=== PATIENT | female | born 1930 | race Caucasian/White ===

== ENCOUNTER 2016-12-16 07:47 | Inpatient (IN) | payer MEDICARE ==
[~2016-12-16] VITALS: Ht 152.4 cm; Wt 98.7 kg
[2016-12-16] VITALS (11 sets, daily range): BP systolic 93–137; BP diastolic 51–89; PULSE 77–102; RESP 16–18; TEMP 95.9–98; O2SAT 96–100
[~2016-12-16 07:47] MED LIST: ASPI325T PO; CARV3.125 PO; ENAL10TA PO; FERR325T PO; HEPA10003 SQ; LYRI75CA PO; METF500T PO; MULT1TAB46; NORC5TAB PO; OMEP20TA PO; ROSU10 PO; SITA1TAB2 PO
[2016-12-16] MEDS ORDERED: ONDANSETRON HCL 4 MG/2 ML VIAL IV PUSH ONE ×3 (08:00→10:23)
[2016-12-16] MEDS: SODIUM CHLORIDE 0.9% FLUSH 5 ML FLUSH IVF PRN ×2 (08:08→08:29)
--- NOTE | 2016-12-16 08:30 | PD ---
HPI Chief Complaint: Injury Time Seen by Provider: 07:53 Travel History International Travel<30 days: No Contact w/Intl Traveler<30days: No Traveled to known affect area: No History of Present Illness HPI Patient 86-year-old female presents emergency department for evaluation of a left ankle injury. Patient lives at [facility] and had a slip and fall while trying to get off the toilet after going to the bathroom this morning. Patient has a history of hydrocephalus and has a MANAGER WIND shunt. Denies having history of anticoagulation. She is alert and awake and oriented 3. She denies history of loss consciousness chest pain or shortness of breath prior to or following the event. Per EMS patient initially did not have pulses in the left lower extremity with the patient adjusted her own ankle and then did have pulses. EMS reports that the foot was blue on arrival but pinked up after the patient self adjusted. Patient denies any head neck back chest abdomen pelvis or upper extremity pain. She was not given anything prior to arrival. 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 NEUROPATHY, GERD) Musculoskeletal: Yes (BILAT KNEE REPLACEMENT) Neurologic: Yes (NPH) Psychiatric: No Reproductive: No Respiratory: Yes Thyroid Disease: No Ulcer: Yes (hx of duodenal ulcer) PNEUMOCCOCAL Vaccine (Year): 3 ?: Not Menopausal: Yes Past Surgical History Body Medical Devices: MANAGER WIND SHUNT/ TEOCH NAIL IN HIP Eye Surgery: Yes (KHADIJAH CATARACTS, BILATERAL MAC DEGENDERATION SX) Joint Replacement: Yes (KHADIJAH KNEEES ) Neurologic Surgery: Yes (MANAGER WIND SHUNT/ HYDROCEPHALUS) Pacemaker: No Other Surgery: Yes Social History Alcohol Use: No ( ) Tobacco Use: No Substance Use: No Allergies-Medications (Allergen,Severity, Reaction): Coded Allergies: Bactrim (Verified Allergy, Intermediate, Hives, 12/16/16) Morphine (Verified Adverse Reaction, Severe, N/V, 12/16/16) Reported Meds & Prescriptions Reported Meds & Active Scripts Active Reported Pyatt (Hydrocodone-Acetaminophen) 7.5-325 mg Tab 1 Tab PO Q6H PRN Pioglitazone (Pioglitazone HCl) 15 Mg Tab 15 Mg PO DAILY Omeprazole 20 Mg Tab 20 Mg PO DAILY Enalapril (Enalapril Maleate) 10 Mg Tab 10 Mg PO DAILY Crestor (Rosuvastatin Calcium) 10 Mg Tab 10 Mg PO EVERY OTHER DAY Review of Systems Except as stated in HPI: all other systems reviewed are Neg Physical Exam Narrative GENERAL: Well-developed, well-nourished. Elderly female in no apparent distress. SKIN: Warm and dry. HEAD: Atraumatic. Normocephalic. EYES: Pupils equal and round. No scleral icterus. No injection or drainage. ENT: No nasal bleeding or discharge. Mucous membranes pink and moist. NECK: Trachea midline. No JVD. CARDIOVASCULAR: Regular rate and rhythm. No murmur appreciated. RESPIRATORY: No accessory muscle use. Clear to auscultation. Breath sounds equal bilaterally. GASTROINTESTINAL: Abdomen soft, non-tender, nondistended. Hepatic and splenic margins not palpable. MUSCULOSKELETAL: There is an obvious fracture dislocation of the left ankle. There is a bounding dorsalis pedis pulse. Cap refill is brisk in all toes. Proximal tib-fib is nontender there is a small abrasion overlying the ankle. The dermis appears to be intact as well as the basement membrane. Clinically this does not represent open fracture. No tenderness at the hips. Right Lower extremity is normal. Compartments are soft, pulses motor and sensory intact distal in all [address] or L-spine tenderness. No bruises or lacerations to the remainder of her person. Pelvis is stable And nontender. No tenderness at either hip. NEUROLOGICAL: Awake and alert. No obvious cranial nerve deficits. Motor grossly within normal limits. Normal speech. PSYCHIATRIC: Appropriate mood and affect; insight and judgment normal. Data Data Last Documented VS Vital Signs Date Time Temp Pulse Resp B/P Pulse Ox O2 Delivery O2 Flow Rate FiO2 12/16/16 10:15 92 16 104/51 98 Nasal Cannula 2 12/16/16 07:55 98.0 Orders Ckmb (Isoenzyme) Profile (12/16/16 07:53) Complete Blood Count With Diff (12/16/16 07:53) Comprehensive Metabolic Panel (12/16/16 07:53) Magnesium (Mg) (12/16/16 07:53) Prothrombin Time / Inr (Pt) (12/16/16 07:53) Act Partial Throm Time (Ptt) (12/16/16 07:53) Troponin I (12/16/16 07:53) Lipase (12/16/16 07:53) Chest, Single Ap (12/16/16 07:53) Ecg Monitoring (12/16/16 07:53) Bilateral Bp Monitoring (12/16/16 07:53) Iv Access Insert/Monitor (12/16/16 07:53) Oximetry (12/16/16 07:53) Oxygen Administration (12/16/16 07:53) Sodium Chloride 0.9% Flush (Ns Flush) (12/16/16 08:00) Ankle, Complete ([id number]) (12/16/16 ) Tibia/Fibula (Ap/Lat) (12/16/16 ) Fentanyl Inj (Fentanyl Inj) (12/16/16 08:00) Ondansetron Inj (Zofran Inj) (12/16/16 08:00) Diet Npo (12/16/16 Breakfast) Ct Brain W/O Iv Contrast(Rout) (12/16/16 ) Ct Cerv Spine W/O Contrast (12/16/16 ) Propofol 500 Mg/50 Ml Inj (Diprivan 500 (12/16/16 09:15) Ankle, Limited (Ap&Lat) (12/16/16 ) Morphine Inj (Morphine Inj) (12/16/16 09:45) Ondansetron Inj (Zofran Inj) (12/16/16 09:45) Fiberglass Short Leg Splint Ad (12/16/16 ) Fiberglass Sugartong Sp Ad Sl (12/16/16 ) Ice Cuff (12/16/16 ) Consult Orthopedic (12/16/16 ) Splinting (12/16/16 ) (Hub Use Only)Inp Phy Cons/Ref (12/16/16 ) Admit Order (Ed Use Only) (12/16/16 ) Labs Laboratory Tests Test 12/16/16 08:00 White Blood Count 7.8 TH/MM3 Red Blood Count 3.41 MIL/MM3 Hemoglobin 10.7 GM/DL Hematocrit 32.7 % Mean Corpuscular Volume 95.8 FL Mean Corpuscular Hemoglobin 31.3 PG Mean Corpuscular Hemoglobin 32.6 % Concent Red Cell Distribution Width 14.9 % Platelet Count 167 TH/MM3 Mean Platelet Volume 9.7 FL Neutrophils (%) (Auto) 65.8 % Lymphocytes (%) (Auto) 24.8 % Monocytes (%) (Auto) 6.7 % Eosinophils (%) (Auto) 2.1 % Basophils (%) (Auto) 0.6 % Neutrophils # (Auto) 5.1 TH/MM3 Lymphocytes # (Auto) 1.9 TH/MM3 Monocytes # (Auto) 0.5 TH/MM3 Eosinophils # (Auto) 0.2 TH/MM3 Basophils # (Auto) 0.0 TH/MM3 CBC Comment DIFF FINAL Differential Comment Prothrombin Time 11.6 SEC Prothromb Time International 1.0 RATIO Ratio Activated Partial 26.4 SEC Thromboplast Time Sodium Level 137 MEQ/L Potassium Level 3.9 MEQ/L Chloride Level 101 MEQ/L Carbon Dioxide Level 27.5 MEQ/L Anion Gap 9 MEQ/L Blood Urea Nitrogen 14 MG/DL Creatinine 1.28 MG/DL Estimat Glomerular Filtration 40 ML/MIN Rate Random Glucose 106 MG/DL Calcium Level 8.4 MG/DL Magnesium Level 1.7 MG/DL Total Bilirubin 0.7 MG/DL Aspartate Amino Transf 30 U/L (AST/SGOT) Alanine Aminotransferase 15 U/L (ALT/SGPT) Alkaline Phosphatase 112 U/L Total Creatine Kinase 56 U/L Troponin I LESS THAN 0.02 NG/ML Total Protein 7.0 GM/DL Albumin 2.3 GM/DL Lipase 87 U/L [facility] Medical Decision Making Medical Screen Exam Complete: Yes Emergency Medical Condition: Yes Interpretation(s) EKG shows sinus rhythm with normal axis and normal R-wave progression. No concerning ST T changes. Deep Q waves in V1 and V2 represent a possible prior septal myocardial infarction. This abnormal EKG. Differential Diagnosis Fracture dislocation of left ankle, head injury unlikely, pelvis injury unlikely , head injury unlikely, vascular injury possible but unlikely. Narrative Course Patient was roomed in the emergency department, after x-rays confirmed fracture dislocation. She was sedated by Dr. Barakat and reduced by me. She is placed in a short leg splint. Pulses motor and sensory were intact after sedation and reduction. Had full return to consciousness. Patient was discussed with Dr. Mathew possible surgery this afternoon. Patient was discussed with Dr. Lyman for admission who is agreeable. Patient was given fentanyl 50 g on arrival as she states that she has a morphine allergy and fixed only nausea. After discussing with her power of computer sciences professor it is indeed only nausea. She was able to tolerate morphine is given Zofran at same time. And indeed in the emergency department she was able to do so. Last 24 hours Impressions Chest X-Ray 12/16/16 0753 Signed Impressions: Service Date/Time: Friday, December 16, 2016 08:14 - CONCLUSION: 1. Shunt tubing overlies right hemithorax. Basal atelectasis and scarring. No significant change from August 2016. Thony Wilhelm MD Tibia/Fibula X-Ray 12/16/16 0000 Signed Impressions: Service Date/Time: Friday, December 16, 2016 08:09 - CONCLUSION: 1. Fracture dislocation at the left ankle. Left knee joint replacement. Bones osteopenic. Thony Wilhelm MD Head CT 12/16/16 0000 Signed Impressions: Service Date/Time: Friday, December 16, 2016 09:42 - CONCLUSION: 1. Stable CT scan of the brain compared to 2016. 2. No focal or acute intracranial hemorrhage. Joss Rosario MD Cervical Spine CT 12/16/16 0000 Signed Impressions: Service Date/Time: Friday, December 16, 2016 09:42 - CONCLUSION: 1. No acute bony fracture. 2. Primary bony degenerative changes. 3. Focal central bulging disc osteophyte complexes at C4-5, C5-6 and C6-7. Joss Rosario MD Ankle X-Ray 12/16/16 0000 Signed Impressions: Service Date/Time: Friday, December 16, 2016 09:35 - CONCLUSION: Post closed reduction of the previously noted fractures at the ankle. Joss Rosario MD Ankle X-Ray 12/16/16 0000 Signed Impressions: Service Date/Time: Friday, December 16, 2016 08:09 - CONCLUSION: 1. Fracture dislocation at the left ankle joint. Thony Wilhelm MD Discussed with the patient's family including her power of computer sciences professor Nan. Patient does spend much of her time in a wheelchair as it is at the assisted living facility. Procedures Procedure Narrative After r/b/c/a were discussed with patient, she would like her POA to consent. POThien [place] consented by phone for sedation and reduction after R/B/C/A discussed , consent confirmed by ramon RAMÍREZ. ORTHOPEDIC REDUCTION: After induction by Dr. Loving of procedural sedation, traction-countertraction used and ankle very easily reduced. Pulses/motor/and sensory intact before and after reduction. Placed in posterior slab and stirrup. Diagnosis Primary Impression: Fracture tibia/fibula Qualified Code: S82.202A - Fracture tibia/fibula, left, closed, initial encounter Additional Impression: Dislocation of ankle Qualified Code: S93.05XA - Dislocation of ankle, left, initial encounter Admitting Information Admitting Physician Requests: Admit Condition: Stable Tab Hsieh MD Dec 16, 2016 08:30
[2016-12-16 08:33] LABS: AUTOMATED NEUTROPHIL # 5.1 TH/MM3 (1.8-7.7); BASOPHIL % 0.6 % (0.0-2.0); EOSINOPHIL # 0.2 TH/MM3 (0-0.4); EOSINOPHIL % 2.1 % (0.0-4.0); HEMATOCRIT 32.7 % (35.0-46.0); HEMO FLAGS DIFF FINAL; LYMPH % 24.8 % (9.0-44.0); LYMPHOCYTE # 1.9 TH/MM3 (1.0-4.8); MEAN CELL VOLUME 95.8 FL (80.0-100.0); MEAN CORPUSCULAR HEMOGLOBIN 31.3 PG (27.0-34.0); MEAN CORPUSCULAR HGB CONC 32.6 % (32.0-36.0); MONO % 6.7 % (0.0-8.0); NEUT % 65.8 % (16.0-70.0); PLATELET COUNT 167 TH/MM3 (150-450); RED BLOOD COUNT 3.41 MIL/MM3 (4.00-5.30); RED CELL DISTRIBUTION WIDTH 14.9 % (11.6-17.2); WHITE BLOOD COUNT 7.8 TH/MM3 (4.0-11.0)
[2016-12-16 08:43] LABS: APTT (PATIENT) 26.4 SEC (24.3-30.1); PROTHROMBIN TIME - PATIENT 11.6 SEC (9.8-11.6)
[2016-12-16 08:50] LABS: ANION GAP 9 MEQ/L (5-15); AST (GOT) 30 U/L (15-37); BICARBONATE 27.5 MEQ/L (21.0-32.0); BLOOD UREA NITROGEN 14 MG/DL (7-18); CHLORIDE 101 MEQ/L (98-107); GLOMERULAR FILTRATION RATE 40 ML/MIN (>89); MAGNESIUM 1.7 MG/DL (1.5-2.5); POTASSIUM 3.9 MEQ/L (3.5-5.1); SODIUM (NA) 137 MEQ/L (136-145)
--- NOTE | 2016-12-16 08:50 | RADRPT ---
EXAM DATE/TIME: 12/16/2016 08:09 [facility] COMPARISON: No previous studies available for comparison. INDICATIONS : Patient fell today landing on left leg. Complains of left ankle pain. MEDICAL HISTORY : None. SURGICAL HISTORY : None. ENCOUNTER: Initial ACUITY: 1 day PAIN SCORE: 8/10 LOCATION: Left Ankle` FINDINGS: There is a fracture dislocation at the ankle joint with comminuted fractures of the medial malleolus and distal fibula. Bones are osteopenic. Extensive vascular calcifications present. CONCLUSION: 1. Fracture dislocation at the left ankle joint. Thony Wilhelm MD on December 16, 2016 at 8:48 Board Certified Radiologist. This report was verified electronically.
--- NOTE | 2016-12-16 08:50 | RADRPT ---
EXAM DATE/TIME: 12/16/2016 08:09 [facility] COMPARISON: No previous studies available for comparison. INDICATIONS : Patient fell this morning landing on left leg. Complains of left ankle pain radiating to mid shaft ti b/fib. MEDICAL HISTORY : None. SURGICAL HISTORY : Left knee total arthroplasty. ENCOUNTER: Initial ACUITY: 1 day PAIN SCORE: 8/10 LOCATION: Left Tib/Fib FINDINGS: There is dislocation at the left ankle with comminuted fractures of the medial malleolus and distal f ibula. Postoperative left knee replacement. Proximal tibia and fibula are intact. Extensive vascular calcifications. CONCLUSION: 1. Fracture dislocation at the left ankle. Left knee joint replacement. Bones osteopenic. Thony Wilhelm MD on December 16, 2016 at 8:47 Board Certified Radiologist. This report was verified electronically.
--- NOTE | 2016-12-16 08:52 | RADRPT ---
EXAM DATE/TIME: 12/16/2016 08:14 [facility] COMPARISON: CHEST SINGLE AP, September 23, 2016, 15:55. INDICATIONS : Evaluate for pneumonia, pneumothorax, or communicable diseases. MEDICAL HISTORY : Gastroesophageal reflux disease. Hypertension. SURGICAL HISTORY : DIRECTOR MUSIC Shunt. ENCOUNTER: Initial ACUITY: 1 day PAIN SCORE: 0/10 LOCATION: chest FINDINGS: Shunt tubing projects over the right hemithorax. Minimal basal atelectasis or scarring. No effusion. No pneumothorax. CONCLUSION: 1. Shunt tubing overlies right hemithorax. Basal atelectasis and scarring. No significant change from August 2016. Thony Wilhelm MD on December 16, 2016 at 8:49 Board Certified Radiologist. This report was verified electronically.
[2016-12-16 08:57] LABS: ALKALINE PHOSPHATASE 112 U/L (45-117); ALT (GPT) 15 U/L (10-53); TOTAL BILIRUBIN ADULT 0.7 MG/DL (0.2-1.0)
[2016-12-16 09:06] LABS: CREATINE KINASE 56 U/L (26-192)
[2016-12-16] MEDS ORDERED: PROPOFOL 500 MG/50 ML BTL IV ONE (09:15)
[2016-12-16] MEDS ORDERED: MORPHINE SULFATE 4 MG/ML INJ IV PUSH ONE (09:45)
--- NOTE | 2016-12-16 09:45 | PD ---
Physical Exam Date Seen by Provider: Dec 16, 2016 Time Seen by Provider: 09:43 Narrative I was asked by the patient's attending physician, Dr. Hsieh, to perform conscious sedation for reduction of left ankle fracture/dislocation. Data Data Last Documented VS Vital Signs Date Time Temp Pulse Resp B/P Pulse Ox O2 Delivery O2 Flow Rate FiO2 12/16/16 09:40 93 16 131/58 98 Nasal Cannula 2 12/16/16 07:55 98.0 Orders Ckmb (Isoenzyme) Profile (12/16/16 07:53) Complete Blood Count With Diff (12/16/16 07:53) Comprehensive Metabolic Panel (12/16/16 07:53) Magnesium (Mg) (12/16/16 07:53) Prothrombin Time / Inr (Pt) (12/16/16 07:53) Act Partial Throm Time (Ptt) (12/16/16 07:53) Troponin I (12/16/16 07:53) Lipase (12/16/16 07:53) Chest, Single Ap (12/16/16 07:53) Ecg Monitoring (12/16/16 07:53) Bilateral Bp Monitoring (12/16/16 07:53) Iv Access Insert/Monitor (12/16/16 07:53) Oximetry (12/16/16 07:53) Oxygen Administration (12/16/16 07:53) Sodium Chloride 0.9% Flush (Ns Flush) (12/16/16 08:00) Ankle, Complete ([id number]) (12/16/16 ) Tibia/Fibula (Ap/Lat) (12/16/16 ) Fentanyl Inj (Fentanyl Inj) (12/16/16 08:00) Ondansetron Inj (Zofran Inj) (12/16/16 08:00) Diet Npo (12/16/16 Breakfast) Ct Brain W/O Iv Contrast(Rout) (12/16/16 ) Ct Cerv Spine W/O Contrast (12/16/16 ) Propofol 500 Mg/50 Ml Inj (Diprivan 500 (12/16/16 09:15) Ankle, Limited (Ap&Lat) (12/16/16 ) Morphine Inj (Morphine Inj) (12/16/16 09:45) Ondansetron Inj (Zofran Inj) (12/16/16 09:45) Labs Laboratory Tests Test 12/16/16 08:00 White Blood Count 7.8 TH/MM3 Red Blood Count 3.41 MIL/MM3 Hemoglobin 10.7 GM/DL Hematocrit 32.7 % Mean Corpuscular Volume 95.8 FL Mean Corpuscular Hemoglobin 31.3 PG Mean Corpuscular Hemoglobin 32.6 % Concent Red Cell Distribution Width 14.9 % Platelet Count 167 TH/MM3 Mean Platelet Volume 9.7 FL Neutrophils (%) (Auto) 65.8 % Lymphocytes (%) (Auto) 24.8 % Monocytes (%) (Auto) 6.7 % Eosinophils (%) (Auto) 2.1 % Basophils (%) (Auto) 0.6 % Neutrophils # (Auto) 5.1 TH/MM3 Lymphocytes # (Auto) 1.9 TH/MM3 Monocytes # (Auto) 0.5 TH/MM3 Eosinophils # (Auto) 0.2 TH/MM3 Basophils # (Auto) 0.0 TH/MM3 CBC Comment DIFF FINAL Differential Comment Prothrombin Time 11.6 SEC Prothromb Time International 1.0 RATIO Ratio Activated Partial 26.4 SEC Thromboplast Time Sodium Level 137 MEQ/L Potassium Level 3.9 MEQ/L Chloride Level 101 MEQ/L Carbon Dioxide Level 27.5 MEQ/L Anion Gap 9 MEQ/L Blood Urea Nitrogen 14 MG/DL Creatinine 1.28 MG/DL Estimat Glomerular Filtration 40 ML/MIN Rate Random Glucose 106 MG/DL Calcium Level 8.4 MG/DL Magnesium Level 1.7 MG/DL Total Bilirubin 0.7 MG/DL Aspartate Amino Transf 30 U/L (AST/SGOT) Alanine Aminotransferase 15 U/L (ALT/SGPT) Alkaline Phosphatase 112 U/L Total Creatine Kinase 56 U/L Troponin I LESS THAN 0.02 NG/ML Total Protein 7.0 GM/DL Albumin 2.3 GM/DL Lipase 87 U/L [facility] Medical Record Reviewed: Yes Supervised Visit with BESSIE: No Interpretation(s) X-ray of the left ankle reveals fracture/dislocation. Differential Diagnosis Differential diagnosis includes fracture, dislocation, fracture with dislocation. Narrative Course I was asked by the patient's attending physician, Dr. Hsieh, to perform conscious sedation so he could perform reduction of the left ankle fracture/ dislocation. The patient was placed on cardiac telemetry monitoring, continuous pulse oximetry monitoring, end-tidal CO2, and O2 via nasal cannula. The patient was administered propofol 90 mg intravenously for reduction. The patient tolerated the procedure without difficulty. There was no obvious complications. Procedures Procedure Narrative After the risks and benefits were discussed the following procedure was performed: MODERATE SEDATION: The patient was placed on a cardiac monitor technician and pulse oximetry. An ambu bag and suction was immediately available at bedside. The patient was monitored by the nurse. Oxygen saturation, heart rate and blood pressure were monitored. Procedural sedation was acheived using propofol 90 mg. The patient was observed until awake and alert. Procedural Sedation time in attendance was 25 minutes. Diagnosis Primary Impression: Fracture tibia/fibula Qualified Code: S82.202A - Fracture tibia/fibula, left, closed, initial encounter Additional Impression: Dislocation of ankle Qualified Code: S93.05XA - Dislocation of ankle, left, initial encounter Condition: Stable Romeo Barakat MD Dec 16, 2016 09:44
--- NOTE | 2016-12-16 10:01 | RADRPT ---
EXAM DATE/TIME: 12/16/2016 09:35 [facility] COMPARISON: ANKLE LEFT COMPLETE ([id number]), December 16, 2016, 8:09. INDICATIONS : Post reduction left ankle fracture MEDICAL HISTORY : None. SURGICAL HISTORY : None. ENCOUNTER: Initial ACUITY: 1 day PAIN SCORE: 9/10 LOCATION: Left ankle FINDINGS: There is overlying cast material in place. There is significantly improved alignment of the fracture fragments compared to the earlier study. There is good alignment at the mortise joint. The rest of bita ny structures are stable. CONCLUSION: Post closed reduction of the previously noted fractures at the ankle. Joss Rosario MD on December 16, 2016 at 9:58 Board Certified Radiologist. This report was verified electronically.
--- NOTE | 2016-12-16 10:18 | RADRPT ---
EXAM DATE/TIME: 12/16/2016 09:42 [facility] COMPARISON: CT BRAIN W/O CONTRAST, September 23, 2016, 15:48. INDICATIONS : Trauma; fall. RADIATION DOSE: 56.35 CTDIvol (mGy) MEDICAL HISTORY : Hypertension. SURGICAL HISTORY : Shunt. ENCOUNTER: Initial ACUITY: 1 day PAIN SCALE: 0/10 LOCATION: cranial TECHNIQUE: Multiple contiguous axial images were obtained of the head. Using automated exposure control and adj ustment of the mA and/or kV according to patient size, radiation dose was kept as low as reasonably a chievable to obtain optimal diagnostic quality images. FINDINGS: CEREBRUM: The ventricles are prominent but stable for age. Diffuse bilateral cortical atrophy. No change in th e right ventricular shunt. No change in the size of the ventricles compared to the prior study. No ev idence of midline shift, mass lesion, hemorrhage or acute infarction. No extra-axial fluid collectio ns are seen. POSTERIOR FOSSA: The cerebellum and brainstem are intact. The 4th ventricle is midline. The cerebellopontine angle i s unremarkable. EXTRACRANIAL: The visualized portion of the orbits is intact. SKULL: The calvaria is intact. No evidence of skull fracture. CONCLUSION: 1. Stable CT scan of the brain compared to 2016. 2. No focal or acute intracranial hemorrhage. Joss Rosario MD on December 16, 2016 at 10:15 Board Certified Radiologist. This report was verified electronically.
[2016-12-16] MEDS ORDERED: PHENYLEPH/NS 1000 MCG/10 ML SYR IV ONE (10:23)
[2016-12-16] MEDS ORDERED: LACTATED RINGER'S 1000 ML INJ 1,000 ML IV ONE (10:23)
[2016-12-16] MEDS ORDERED: PROPOFOL 200 MG/20 ML AMP IV ONE (10:23)
--- NOTE | 2016-12-16 10:23 | RADRPT ---
EXAM DATE/TIME: 12/16/2016 09:42 [facility] COMPARISON: No previous studies available for comparison. INDICATIONS : Trauma; fall. RADIATION DOSE: 33.66 CTDIvol (mGy) MEDICAL HISTORY : Hypertension. SURGICAL HISTORY : Shunt. ENCOUNTER: Initial ACUITY: 1 day PAIN SCALE: 0/10 LOCATION: Bilateral neck TECHNIQUE: Volumetric scanning of the cervical spine was performed. Multiplanar reconstructions in the sagittal, coronal and oblique axial planes were performed. Using automated exposure control and adjustment o f the mA and/or kV according to patient size, radiation dose was kept as low as reasonably achievable to obtain optimal diagnostic quality images. FINDINGS: VERTEBRAE: Normal vertebral body height. Primary bony degenerative changes of the cervical spine. No acute bony fractures. ALIGNMENT: No evidence of subluxation. C2-C3: The bony spinal canal is normal in size. No evidence of disc bulge or herniation. The neural forami na are bilaterally patent. C3-C4: The bony spinal canal is normal in size. No evidence of disc bulge or herniation. The neural forami na are bilaterally patent. C4-C5: Focal central bulging with disc osteophyte complex. The neural foramina are patent bilaterally. C5-C6: Focal central bulging with disc osteophyte complex. The neural foramina are patent bilaterally. C6-C7: Focal central bulging with disc osteophyte complex. The neural foramina are patent bilaterally. C7-T1: The bony spinal canal is normal in size. No evidence of disc bulge or herniation. The neural forami na are bilaterally patent. CONCLUSION: 1. No acute bony fracture. 2. Primary bony degenerative changes. 3. Focal central bulging disc osteophyte complexes at C4-5, C5-6 and C6-7. Joss Rosario MD on December 16, 2016 at 10:18 Board Certified Radiologist. This report was verified electronically.
[2016-12-16] MEDS ORDERED: PIOG15TA5 PO (10:59)
[2016-12-16] MEDS ORDERED: HYDR-3288 PO (10:59)
[2016-12-16] MEDS ORDERED: DEXTROSE 50% IN WATER 50 ML VIAL(D50) IV PUSH PRN (12:00)
[2016-12-16] MEDS ORDERED: GLUCAGON 1 MG/ML VIAL OTHER PRN (12:00)
--- NOTE | 2016-12-16 12:10 | RADRPT ---
EXAM DATE/TIME: 12/16/2016 11:27 [facility] COMPARISON: No previous studies available for comparison. INDICATIONS : Pelvic Pain MEDICAL HISTORY : Hypertension. SURGICAL HISTORY : Left hip surgery, Shunt ENCOUNTER: Initial ACUITY: 1 day PAIN SCORE: 0/10 LOCATION: Bilateral pelvis FINDINGS: A single frontal view of the pelvis demonstrates no evidence of fracture. There is evidence of old in ternal fixation involving the left femur. There some mild degenerative arthritis of both hip joints. There is good alignment of the SI joints pubic symphysis. The hardware in the left femur is grossly i ntact. There is a left knee prosthesis. CONCLUSION: No acute fracture or joint dislocation. Joss Rosario MD on December 16, 2016 at 12:08 Board Certified Radiologist. This report was verified electronically.
[2016-12-16] MEDS: DEXT 5%-NACL 0.45% 1000 ML INJ 1,000 ML IV SCH (13:00)
[2016-12-16] MEDS ORDERED: GENTAMICIN SULFATE 80 MG/2 ML VIAL ONE ×2 (13:21)
[2016-12-16] MEDS ORDERED: ceFAZolin 2 GM PREMIX 50 ML ONE (13:21)
--- NOTE | 2016-12-16 13:39 | MB ---
cc: BRIAN CHAPA M.D. DATE OF CONSULTATION: 12/16/2016. REASON FOR CONSULTATION: Requested to evaluate left ankle fracture dislocation. HISTORY OF PRESENT ILLNESS: Chloe Ventura is an 86-year-old female who resides at [facility] who sustained a fall while transferring off the toilet. She is primarily wheelchair-bound but uses her legs for transfers. She stands for transfers. She has a history of hydrocephalous and a DIRECTOR SPECIALTY shunt. She stated that she has multiple medical problems. The emergency room physicians performed a closed reduction as the ankle was 100% dislocated. She also had extensive workup including CT of the head and neck, which were negative for acute changes. Her tibia and ankle was okay except for the level of the ankle. X-ray pre and post show improvement in the alignment but it shows a significantly comminuted bimalleolar fracture with high fibula fracture. PAST MEDICAL HISTORY: Past medical history is significant for: 1. Diabetes. 2. Hydrocephalous status post knee replacements. 3. Status post surgical repair of the left hip. 4. Arthritis. 5. History of duodenal ulcers. 6. History of ten births. She has ten children. 7. She has elevated cholesterol. 8. Bladder incontinence. 9. Occasional headaches. 10. Hypertension. 11. Some degree of neuropathy but she is able to tell when I am touching her middle toe of her foot and distinguish it from the other toes. 12. She has some degree of mental decline, but she is completely alert and oriented in discussion and her daughter states that she makes most of her own decisions but that her other daughter has power of family law attorney as well. PAST SURGICAL HISTORY: 1. Cataract surgery. 2. Bilateral knee replacements. 3. Erik nail. 4. Ventriculoperitoneal shunt. SOCIAL HISTORY: Resides at a nursing home facility. Denies alcohol, tobacco or substance use. REPORTED ALLERGIES: 1. BACTRIM. 2. MORPHINE, BUT SHE ACTUALLY HAD MORPHINE TODAY. MEDICATIONS: Her regular medications are: 1. Trion. 2. Pioglitazone. 3. Omeprazole. 4. Enalapril. 5. Crestor. PHYSICAL EXAMINATION: Alert, oriented and appropriate. Daughter and son-in-law at the bedside. Nontender to palpation about the head and neck. Good motion, nontender shoulders, elbows, wrists. Chest wall and abdomen nontender. Benign exam. Right lower extremity nontender throughout. Left lower extremity shows Sugar-Tong splint in place. She has good capillary refill of the toes. She has sensation intact to the toes. She is able to flex and extend. IMAGING STUDIES: X-rays were reviewed, pre- and post-reduction, which show bimalleolar fracture of the ankle with 100% displacement and then good alignment post closed reduction. ASSESSMENT: Unstable ankle fracture. MEDICAL DECISION-MAKING: Her condition was discussed. The options of treatment were discussed. There is no obvious contraindication to surgical intervention based on labs and EKG and multiple radiographic studies. Therefore the recommendation is to proceed with left ankle open reduction internal fixation. The surgical technique, options described including plates and screws and external fixator. We talked about the risk of infection, nerve damage, blood vessel damage, the anesthetic complications, medical complications, need for revision surgery and unforeseen possible complications. All of her questions and her family's questions were answered. A detailed informed consent was obtained. MD BREANNA Escalante/JOEL /1:13 PM /1:24 PM
--- NOTE | 2016-12-16 13:53 | EKG ---
Date Performed: 12/16/2016 Time Performed: 09:25:03 PTAGE: 86 years EKG: Sinus rhythm Possible SEPTAL MYOCARDIAL INFARCTION Nonspecific T-wave changes ABNORMAL ECG Compared to prior elec trocardiogram,Possible septal UT is present although this can be due to changes in lead placement. C linical correlation suggested. PREVIOUS TRACING : 09/23/2016 15.40 DOCTOR: Farshad Dowd Interpretating Date/Time 12/16/2016 13:53:07
[2016-12-16] MEDS ORDERED: ACETAMINOPHEN 1000 MG/100 ML VIAL IV ONE (14:20)
[2016-12-16] MEDS ORDERED: SUGAMMADEX SODIUM 200 MG/2 ML VIAL IV PUSH ONE ×2 (14:21)
--- NOTE | 2016-12-16 15:02 | RADRPT ---
EXAM DATE/TIME: 12/16/2016 14:31 [place] COMPARISON: ANKLE LEFT COMPLETE ([id number]), December 16, 2016, 8:09. INDICATIONS : ORIF lt ankle. MEDICAL HISTORY : None. SURGICAL HISTORY : None. ENCOUNTER: Subsequent ACUITY: 1 day PAIN SCORE: Non-responsive. LOCATION: Left Ankle FINDINGS: Status post internal fixation of fractures of the ankle. There is good position on the fracture fragm ents. Hardware is grossly intact. CONCLUSION: Good position and alignment on this postoperative study. Joss Rosario MD on December 16, 2016 at 15:00 Board Certified Radiologist. This report was verified electronically.
[2016-12-16] MEDS ORDERED: DO NOT ADM ANY ANTICOAGULANT DRUGS XX PRN (15:07)
--- NOTE | 2016-12-16 15:08 | PD.OP ---
Operative Report Date of Surgery: Dec 16, 2016 Preoperative Diagnosis: Left ankle comminuted bimalleolar fracture with high fibula fracture. Postoperative Diagnosis: Left ankle comminuted bimalleolar fracture with high fibula fracture. Procedure: Left Ankle Open Reduction and Internal Fixation Anesthesia: General Surgeon: Dr. Champ Cole Bulkhead Carpenter(s): RACIEL Wood Operation and Findings: See Dictation Andrey Rojo Dec 16, 2016 15:08
[2016-12-16] MEDS ORDERED: *RESP: ALBUTEROL 2.5 MG/3 ML NEB (PRN) PERIprocedural Use ONLY NEB ONE (15:16)
[2016-12-16] MEDS: SODIUM CHLOR 0.45% 1000 ML INJ 1,000 ML IV SCH (15:42)
--- NOTE | 2016-12-16 15:42 | PD.ORT.PN ---
Subjective Subjective Remarks Left ankle bimalleolar fracture/dislocation Objective Vitals Vital Signs Date Time Temp Pulse Resp B/P Pulse Ox O2 Delivery O2 Flow Rate FiO2 12/16/16 12:30 94 16 126/89 100 Nasal Cannula 2 12/16/16 11:30 96 16 137/58 100 Nasal Cannula 2 12/16/16 10:15 92 16 104/51 98 Nasal Cannula 2 12/16/16 09:40 93 16 131/58 98 Nasal Cannula 2 12/16/16 09:35 99 Nasal Cannula 2 12/16/16 09:15 98 4.00 12/16/16 09:15 98 12/16/16 09:15 98 High Flow Nasal Cannula 4.00 12/16/16 08:06 97 Room Air 12/16/16 07:58 97 Room Air 12/16/16 07:58 97 Room Air 12/16/16 07:58 102 116/59 97 Room Air 118/70 12/16/16 07:55 98.0 18 116/59 Result Diagram: 12/16/16 0800 12/16/16 0800 Other Results Laboratory Tests Test 12/16/16 08:00 Prothrombin Time 11.6 SEC (9.8-11.6) Prothromb Time International 1.0 RATIO Ratio Imaging Last 24 hours Impressions Chest X-Ray 12/16/16 0753 Signed Impressions: Service Date/Time: Friday, December 16, 2016 08:14 - CONCLUSION: 1. Shunt tubing overlies right hemithorax. Basal atelectasis and scarring. No significant change from August 2016. Thony Wilhelm MD Tibia/Fibula X-Ray 12/16/16 0000 Signed Impressions: Service Date/Time: Friday, December 16, 2016 08:09 - CONCLUSION: 1. Fracture dislocation at the left ankle. Left knee joint replacement. Bones osteopenic. Thony Wilhelm MD Pelvis X-Ray 12/16/16 0000 Signed Impressions: Service Date/Time: Friday, December 16, 2016 11:27 - CONCLUSION: No acute fracture or joint dislocation. Joss Rosario MD Head CT 12/16/16 0000 Signed Impressions: Service Date/Time: Friday, December 16, 2016 09:42 - CONCLUSION: 1. Stable CT scan of the brain compared to 2016. 2. No focal or acute intracranial hemorrhage. Joss Rosario MD Cervical Spine CT 12/16/16 0000 Signed Impressions: Service Date/Time: Friday, December 16, 2016 09:42 - CONCLUSION: 1. No acute bony fracture. 2. Primary bony degenerative changes. 3. Focal central bulging disc osteophyte complexes at C4-5, C5-6 and C6-7. Joss Rosario MD Ankle X-Ray 12/16/16 0000 Signed Impressions: Service Date/Time: Friday, December 16, 2016 14:31 - CONCLUSION: Good position and alignment on this postoperative study. Joss Rosario MD Ankle X-Ray 12/16/16 0000 Signed Impressions: Service Date/Time: Friday, December 16, 2016 09:35 - CONCLUSION: Post closed reduction of the previously noted fractures at the ankle. Joss Rosario MD Ankle X-Ray 12/16/16 0000 Signed Impressions: Service Date/Time: Friday, December 16, 2016 08:09 - CONCLUSION: 1. Fracture dislocation at the left ankle joint. Thony Wilhelm MD Assessment & Plan Problem List: (1) Fracture dislocation of left ankle joint (2) Closed bimalleolar fracture of left ankle Assessment and Plan Options discussed. Informed consent obtained. Champ Cole MD Dec 16, 2016 15:42
[2016-12-16] MEDS ORDERED: ACETAMINOPHEN 325 MG TAB PO PRN (15:45)
[2016-12-16] MEDS ORDERED: ONDANSETRON HCL 4 MG/2 ML VIAL IVP PRN (15:45)
[2016-12-16] MEDS ORDERED: SODIUM CHLORIDE 0.9% FLUSH 5 ML FLUSH IVF PRN (15:45)
[2016-12-16] MEDS ORDERED: Post-op Orders (for Pharmacy) MISC XX ONE (15:45)
[2016-12-16] MEDS ORDERED: diphenhydrAMINE HCL 25 MG CAP PO PRN (15:45)
[2016-12-16] MEDS: MULTIVITAMINS/MINERALS THERAPEUTIC TAB PO SCH (15:45)
[2016-12-16] MEDS: INSULIN ASPART SUPPLEMENTAL SCALE SQ SCH ×2 (16:00→22:26)
--- NOTE | 2016-12-16 17:59 | HHI.HP ---
HPI Service [facility] Primary Care Physician Jordan Barnhart MD Admission Diagnosis Closed Tib/Fib Fracture/dislocation Diagnoses: Chief Complaint: FALL (Mary Miguel) Travel History International Travel<30 Days: No Contact w/Intl Traveler <30 Da: No Traveled to Known Affected Are: No (Mary Miguel) History of Present Illness This a pleasant 86-year-old female with history of NPH status post LEAD LOADER shunt, type 2 diabetes, recent CVA August 2016, hypertension, hyperlipidemia. Patient presented to the emergency room after having a fall and complaining of left ankle pain. Patient lives at an assisted living facility. Patient is a 4 historian, information is obtained from the medical record from the daughter. Apparently the patient was getting off the toilet, she is mainly wheelchair bound and uses a walker occasionally. Per history, she had a slip and fell, denieD any loss of consciousness. Per EMS, patient initially didn't have pulses in the left lower extremity and when the patient adjusted her own ankle she did have pulses. EMS reported the foot was blue on arrival but pinked up after the patient's adjusted ankle. In the emergency room, patient was evaluated, capillary refill was brisk. There was an abrasion noted overlying ankle. Imaging studies were completed and noted with a fracture dislocation of the left ankle. Patient was sedated in the emergency room and had reduction. A splint was applied. Orthopedic consultation was called to Dr. Mathew. Patient was taken to the operating room and had Left Ankle Open Reduction and Internal Fixation. Patient is now evaluated, she is alert, awake oriented 3. Daughter is at bedside providing most of the history. She is resting comfortably, pain is stable. She has intact sensation to the left foot. Patient denies any other complaints, no recent fever, no chills. No chest pain or shortness of breath. Had a stroke in August 2016 and has been stable. According to the daughter, she's been more sedentary and has been relying mostly on her wheelchair and not using walker as much. Patient is admitted for further evaluation and treatment. (Mary Miguel) Review of Systems ROS Limitations: Poor Historian (Mary Miguel) Past Family Social History Past Medical History 1. Significant for normal pressure hydrocephalus, status post LEAD LOADER shunt. 2. Diabetes. 3. Diabetic neuropathy. 4. Hypertension. 5. As per old records hyperlipidemia. 6. History of bilateral knee replacement with LEAD LOADER shunt placement. 7. Left hip open reduction, internal fixation. 8. Bilateral cataract surgery. 9. right ankle fracture. 10. Recent CVA right parietal 2015 Reported Medications Reported Meds & Active Scripts Active Reported Decker (Hydrocodone-Acetaminophen) 7.5-325 mg Tab 1 Tab PO Q6H PRN Pioglitazone (Pioglitazone HCl) 15 Mg Tab 15 Mg PO DAILY Omeprazole 20 Mg Tab 20 Mg PO DAILY Enalapril (Enalapril Maleate) 10 Mg Tab 10 Mg PO DAILY Crestor (Rosuvastatin Calcium) 10 Mg Tab 10 Mg PO EVERY OTHER DAY (Mary Miguel) Allergies: Coded Allergies: Bactrim (Verified Allergy, Intermediate, Hives, 12/16/16) Morphine (Verified Adverse Reaction, Severe, N/V, 12/16/16) Active Ordered Medications Inpatient Medications Acetaminophen (Tylenol) 650 mg Q6H PRN PO Pain <5 or Temperature > 101.5; Start 12/16/16 at 15:45 Acetaminophen/ Hydrocodone Bitart (Decker 5-325 Mg) 1 tab Q4H PRN PO PAIN GREATER THAN 5; Start 12/16/16 at 15:45 Atorvastatin Calcium (Lipitor) 20 mg EVERY OTHER DAY PO ; Start 12/18/16 at 09: 00 Calcium/Vitamin D (Oscal-D 250-125) 250 mg TID PO ; Start 12/16/16 at 18:00 Cefazolin Sodium/ Dextrose (Ancef 2 Gm Premix) 50 ml @ 100 mls/hr Q8H IV ; Start 12/16/16 at 21:00; Stop 12/17/16 at 20:59 Dextrose (D50w (Vial) Inj) 25 ml UNSCH PRN IV PUSH HYPOGLYCEMIA-SEE COMMENTS; Start 12/16/16 at 12:00 Dextrose/Sodium Chloride (D5W-1/2 NS 1000 ml Inj) 1,000 ml @ 84 mls/hr [id number] IV ; Start 12/16/16 at 13:00 Diphenhydramine HCl (Benadryl) 25 mg Q6H PRN PO ITCHING; Start 12/16/16 at 15: 45 Enalapril Maleate (Vasotec) 10 mg DAILY PO ; Start 12/17/16 at 09:00 Enoxaparin Sodium (Lovenox Inj) 40 mg Q24H SQ ; Start 12/17/16 at 14:00; Stop at 13:59 Fentanyl Citrate (fentaNYL INJ) 50 mcg ONCE ONCE IV PUSH Last administered on 12/16/16 08:07; Start 12/16/16 at 08:00; Stop 12/16/16 at 08:01; Status DC Glucagon (Glucagon Inj) 1 mg UNSCH PRN OTHER HYPOGLYCEMIA-SEE COMMENTS; Start 12/16/16 at 12:00 Insulin Aspart 1 1 ACHS SLIDING SCALE SQ ; Start 12/16/16 at 16:00 IV Flush (NS Flush) 2 ml BID IVF ; Start 12/16/16 at 21:00 Magnesium Hydroxide 10 ml 10 ml Q12H PRN PO CONSTIPATION; Start 12/16/16 at 15: 45 Miscellaneous Information ALL NURSING DEPARTME... UNSCH PRN XX SEE LABEL COMMENTS; Start 12/16/16 at 15:07; Stop 12/17/16 at 15:06 Miscellaneous Information (Post-op Orders (for Pharmacy)) STAT ONCE XX ; Start 12/16/16 at 15:45; Stop 12/16/16 at 15:59; Status DC Morphine Sulfate (Morphine Inj) 4 mg ONCE ONCE IV PUSH Last administered on 10:35; Start 12/16/16 at 09:45; Stop 12/16/16 at 09:46; Status DC Multivitamins/ Minerals Therapeutic (Theragran M Tab) 1 tab DAILY PO ; Start at 15:45 Ondansetron HCl (Zofran Inj) 4 mg Q4H PRN IVP NAUSEA OR VOMITING; Start at 15:45 Pantoprazole Sodium 20 mg 20 mg DAILY PO ; Start 12/17/16 at 09:00 Pioglitazone HCl (Actos) 15 mg DAILY PO ; Start 12/17/16 at 09:00 Propofol (Diprivan 500 Mg/ 50 ml Inj) 25 mg ONCE ONCE IV Last administered on 12/16/16 09:38; Start 12/16/16 at 09:15; Stop 12/16/16 at 09:16; Status DC Senna/Docusate Sodium (Lissette-Colace) 1 tab BID PO ; Start 12/16/16 at 21:00 Sodium Chloride (1/2 NS 1000 ml Inj) 1,000 ml @ 100 mls/hr Q10H IV ; Start at 15:42 Family History Reviewed, non contributory Social History Patient resides at an assisted living facility, very rare alcohol, tobacco abuse , substance abuse. Has been using mostly a wheelchair, very little use of walker in the last couple of months. (Mary Miguel) Physical Exam Vital Signs Vital Signs Date Time Temp Pulse Resp B/P Pulse Ox O2 Delivery O2 Flow Rate FiO2 12/16/16 16:45 97.1 79 14 112/60 96 Nasal Cannula 2 12/16/16 16:30 79 14 125/62 96 Nasal Cannula 2 12/16/16 16:15 77 14 120/57 96 Nasal Cannula 2 12/16/16 16:00 81 14 120/68 96 Nasal Cannula 2 12/16/16 15:45 79 14 110/57 95 Nasal Cannula 2 12/16/16 15:30 85 14 118/54 98 Nasal Cannula 2 12/16/16 15:15 82 14 123/68 98 Nasal Cannula 2 12/16/16 15:07 97.8 88 14 146/68 95 Nasal Cannula 2 12/16/16 12:30 94 16 126/89 100 Nasal Cannula 2 12/16/16 11:30 96 16 137/58 100 Nasal Cannula 2 12/16/16 10:15 92 16 104/51 98 Nasal Cannula 2 12/16/16 09:40 93 16 131/58 98 Nasal Cannula 2 12/16/16 09:35 99 Nasal Cannula 2 12/16/16 09:15 98 4.00 12/16/16 09:15 98 12/16/16 09:15 98 High Flow Nasal Cannula 4.00 12/16/16 08:06 97 Room Air 12/16/16 07:58 97 Room Air 12/16/16 07:58 97 Room Air 12/16/16 07:58 102 116/59 97 Room Air 118/70 12/16/16 07:55 98.0 18 116/59 Physical Exam GENERAL: This is a well-nourished, well-developed patient, in no apparent distress. SKIN: No rashes, ecchymoses or lesions. Cool and dry. HEAD: Atraumatic. Normocephalic. No temporal or scalp tenderness. EYES: Pupils equal round and reactive. Extraocular motions intact. No scleral icterus. No injection or drainage. ENT: Nose without bleeding, purulent drainage or septal hematoma. Throat without erythema, tonsillar hypertrophy or exudate. Uvula midline. Airway patent. NECK: Trachea midline. No JVD or lymphadenopathy. Supple, nontender, no meningeal signs. CARDIOVASCULAR: Regular rate and rhythm without murmurs, gallops, or rubs. RESPIRATORY: Clear to auscultation. Breath sounds equal bilaterally. No wheezes , rales, or rhonchi. GASTROINTESTINAL: Abdomen soft, non-tender, nondistended. No hepato-splenomegaly , or palpable masses. No guarding. MUSCULOSKELETAL: Left leg with dressing, saturated with sanguineous drainage. Intact sensation left foot, pedal pulse 2+. Right pedal pulse 2+, no other joint abnormality NEUROLOGICAL: Awake, alert, oriented x 3. No focal deficits. Poor historian. Laboratory Laboratory Tests Test 12/16/16 08:00 White Blood Count 7.8 Red Blood Count 3.41 Hemoglobin 10.7 Hematocrit 32.7 Mean Corpuscular Volume 95.8 Mean Corpuscular Hemoglobin 31.3 Mean Corpuscular Hemoglobin 32.6 Concent Red Cell Distribution Width 14.9 Platelet Count 167 Mean Platelet Volume 9.7 Neutrophils (%) (Auto) 65.8 Lymphocytes (%) (Auto) 24.8 Monocytes (%) (Auto) 6.7 Eosinophils (%) (Auto) 2.1 Basophils (%) (Auto) 0.6 Neutrophils # (Auto) 5.1 Lymphocytes # (Auto) 1.9 Monocytes # (Auto) 0.5 Eosinophils # (Auto) 0.2 Basophils # (Auto) 0.0 CBC Comment DIFF FINAL Differential Comment Prothrombin Time 11.6 Prothromb Time International 1.0 Ratio Activated Partial 26.4 Thromboplast Time Sodium Level 137 Potassium Level 3.9 Chloride Level 101 Carbon Dioxide Level 27.5 Anion Gap 9 Blood Urea Nitrogen 14 Creatinine 1.28 Estimat Glomerular Filtration 40 Rate Random Glucose 106 Calcium Level 8.4 Magnesium Level 1.7 Total Bilirubin 0.7 Aspartate Amino Transf 30 (AST/SGOT) Alanine Aminotransferase 15 (ALT/SGPT) Alkaline Phosphatase 112 Total Creatine Kinase 56 Troponin I LESS THAN 0.02 Total Protein 7.0 Albumin 2.3 Lipase 87 (Gross,Mary G. PUBLIC TRANSIT TROLLEY DRIVER) Result Diagram: 12/16/16 0800 12/16/16 0800 Imaging Last Impressions Chest X-Ray 12/16/16 0753 Signed Impressions: Service Date/Time: Friday, December 16, 2016 08:14 - CONCLUSION: 1. Shunt tubing overlies right hemithorax. Basal atelectasis and scarring. No significant change from August 2016. Thony Wilhelm MD Tibia/Fibula X-Ray 12/16/16 0000 Signed Impressions: Service Date/Time: Friday, December 16, 2016 08:09 - CONCLUSION: 1. Fracture dislocation at the left ankle. Left knee joint replacement. Bones osteopenic. Thony Wilhelm MD Pelvis X-Ray 12/16/16 0000 Signed Impressions: Service Date/Time: Friday, December 16, 2016 11:27 - CONCLUSION: No acute fracture or joint dislocation. Joss Rosario MD Head CT 12/16/16 0000 Signed Impressions: Service Date/Time: Friday, December 16, 2016 09:42 - CONCLUSION: 1. Stable CT scan of the brain compared to 2016. 2. No focal or acute intracranial hemorrhage. Joss Rosario MD Cervical Spine CT 12/16/16 0000 Signed Impressions: Service Date/Time: Friday, December 16, 2016 09:42 - CONCLUSION: 1. No acute bony fracture. 2. Primary bony degenerative changes. 3. Focal central bulging disc osteophyte complexes at C4-5, C5-6 and C6-7. Joss Rosario MD Ankle X-Ray 12/16/16 0000 Signed Impressions: Service Date/Time: Friday, December 16, 2016 14:31 - CONCLUSION: Good position and alignment on this postoperative study. 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 Lyman 86-year-old elderly female status post fall, found with left bimalleolar fracture and dislocation, status post Left Ankle Open Reduction and Internal Fixation 12/16 -Appreciate orthopedic consultation -Continue the postoperative orthopedic care -Lovenox for DVT prophylaxis -Pain management as needed Bowel regimen Physical therapy per orthopedic orders -Case management consultation for rehabilitation placement, daughter is requesting Rolf Juárez Type 2 diabetes Accu-Cheks before meals and at bedtime with insulin therapy Recent CVA, stable Hold aspirin at this time -Continue statins Hypertension, stable Continue home medications NPH, status post LEAD LOADER shunt Stable, physical therapy has been ordered Home medications reviewed, initiated as indicated Lovenox for DVT prophylaxis Protonix for GI prophylaxis Plan of care has been discussed with the patient and her daughter, their questions have been answered detail. Plan of care discussed with attending and registered nurse. Further management of the patient will be dependent on the hospital course This patient was seen by myself and Dr. Lyman, this H&P is written on his behalf (Mary Miguel) Assessment and Plan pt is seen & Examined d./w PT d/w Mary agree w above (Bryn Lyman MD) Physician Certification 2 Midnight Certification Type: Admission for Inpatient Services Order for Inpatient Services The services are ordered in accordance with Medicare regulations or non- Medicare payer requirements, as applicable. In the case of services not specified as inpatient-only, they are appropriately provided as inpatient services in accordance with the 2-midnight benchmark. Estimated LOS (days): 2 2 days is the estimated time the patient will need to remain in the hospital, assuming treatment plan goals are met and no additional complications. Post-Hospital Plan: SNF (Mary Miguel) Problem Qualifiers (1) Fall: Qualified Code: W19.XXXA - Fall, initial encounter (2) Closed bimalleolar fracture of left ankle: Qualified Code: S82.842A - Closed bimalleolar fracture of left ankle, initial encounter (3) HTN (hypertension): Qualified Code: I10 - Essential hypertension Mary Miguel Dec 16, 2016 17:59 Bryn Lyman MD Dec 16, 2016 18:46
[2016-12-16] MEDS: ACETAMINOPHEN/HYDROcodone 325 MG/5 MG TAB PO PRN (18:36)
[2016-12-16] MEDS: CALCIUM/VITAMIN D 250 MG/125 U TAB PO SCH (18:36)
[2016-12-16] MEDS: DOCUSATE SODIUM 50 MG/SENNA 8.6 MG TAB PO SCH (22:25)
[2016-12-16] MEDS: ceFAZolin 2 GM PREMIX 50 ML IV SCH (22:25)
[2016-12-16] MEDS: SODIUM CHLORIDE 0.9% FLUSH 5 ML FLUSH IVF SCH (22:26)
[2016-12-17] VITALS: BP 121/67; PULSE 86; RESP 16; TEMP 98.2; O2SAT 100
[2016-12-17] MEDS: DEXT 5%-NACL 0.45% 1000 ML INJ 1,000 ML IV SCH (00:55)
[2016-12-17] MEDS: SODIUM CHLOR 0.45% 1000 ML INJ 1,000 ML IV SCH (01:42)
[2016-12-17 04:00] VITALS: BP 118/70; PULSE 90; RESP 16; TEMP 98; O2SAT 97
[2016-12-17] MEDS: ceFAZolin 2 GM PREMIX 50 ML IV SCH ×2 (05:08→12:50)
[2016-12-17] MEDS: ACETAMINOPHEN/HYDROcodone 325 MG/5 MG TAB PO PRN ×4 (05:36→21:42)
[2016-12-17 06:43] LABS: HEMATOCRIT 25.7 % (35.0-46.0); MEAN CELL VOLUME 95.3 FL (80.0-100.0); MEAN CORPUSCULAR HEMOGLOBIN 31.9 PG (27.0-34.0); MEAN CORPUSCULAR HGB CONC 33.5 % (32.0-36.0); PLATELET COUNT 128 TH/MM3 (150-450); RED CELL DISTRIBUTION WIDTH 14.4 % (11.6-17.2); REVIEW FLAG FINAL; WHITE BLOOD COUNT 5.8 TH/MM3 (4.0-11.0)
[2016-12-17] MEDS: INSULIN ASPART SUPPLEMENTAL SCALE SQ SCH ×4 (07:00→21:00)
[2016-12-17 07:02] LABS: BICARBONATE 26.7 MEQ/L (21.0-32.0); POTASSIUM 4.4 MEQ/L (3.5-5.1)
[2016-12-17 08:00] VITALS: BP 110/51; PULSE 76; RESP 16; TEMP 97.4; O2SAT 100
[2016-12-17] MEDS: DOCUSATE SODIUM 50 MG/SENNA 8.6 MG TAB PO SCH ×2 (08:07→21:40)
[2016-12-17] MEDS: CALCIUM/VITAMIN D 250 MG/125 U TAB PO SCH ×3 (08:07→17:17)
[2016-12-17] MEDS: PANTOPRAZOLE SOD 20 MG DELAYED RELEASE TAB PO SCH (08:07)
[2016-12-17] MEDS: ENALAPRIL MALEATE 10 MG TAB PO SCH (08:07)
[2016-12-17] MEDS: PIOGLITAZONE HCL 15 MG TAB PO SCH (08:07)
[2016-12-17] MEDS: MULTIVITAMINS/MINERALS THERAPEUTIC TAB PO SCH (08:08)
--- NOTE | 2016-12-17 08:58 | PD.ORT.PN ---
Subjective Subjective Remarks pt mildly confused resting comfortably in bed eating breakfast no voiced complaints Objective Vitals Vital Signs Date Time Temp Pulse Resp B/P Pulse Ox O2 Delivery O2 Flow Rate FiO2 12/17/16 04:00 98.0 90 16 118/70 97 12/17/16 00:00 98.2 86 16 121/67 100 12/16/16 19:40 97.1 82 16 93/56 98 12/16/16 19:24 96 Nasal Cannula 2.00 12/16/16 18:15 Nasal Cannula 2.00 12/16/16 16:45 97.1 79 14 112/60 96 Nasal Cannula 2 12/16/16 16:30 79 14 125/62 96 Nasal Cannula 2 12/16/16 16:15 77 14 120/57 96 Nasal Cannula 2 12/16/16 16:00 95.9 77 16 106/55 98 12/16/16 16:00 81 14 120/68 96 Nasal Cannula 2 12/16/16 15:45 79 14 110/57 95 Nasal Cannula 2 12/16/16 15:30 85 14 118/54 98 Nasal Cannula 2 12/16/16 15:15 82 14 123/68 98 Nasal Cannula 2 12/16/16 15:07 97.8 88 14 146/68 95 Nasal Cannula 2 12/16/16 12:30 94 16 126/89 100 Nasal Cannula 2 12/16/16 11:30 96 16 137/58 100 Nasal Cannula 2 12/16/16 10:15 92 16 104/51 98 Nasal Cannula 2 12/16/16 09:40 93 16 131/58 98 Nasal Cannula 2 12/16/16 09:35 99 Nasal Cannula 2 12/16/16 09:15 98 4.00 12/16/16 09:15 98 12/16/16 09:15 98 High Flow Nasal Cannula 4.00 I/O 12/16/16 12/16/16 12/16/16 12/17/16 12/17/16 12/17/16 07:00 15:00 23:00 07:00 15:00 23:00 Intake Total 1480 ml 120 ml Output Total 720 ml 300 ml Balance 760 ml -180 ml Intake Oral 480 ml 120 ml Other 1000 ml Output Urine Total 700 ml 300 ml Estimated Blood Loss 20 ml Result Diagram: 12/17/16 0534 12/17/16 0534 Imaging Last 24 hours Impressions Chest X-Ray 12/16/16 0753 Signed Impressions: Service Date/Time: Friday, December 16, 2016 08:14 - CONCLUSION: 1. Shunt tubing overlies right hemithorax. Basal atelectasis and scarring. No significant change from August 2016. Thony Wilhelm MD Tibia/Fibula X-Ray 12/16/16 0000 Signed Impressions: Service Date/Time: Friday, December 16, 2016 08:09 - CONCLUSION: 1. Fracture dislocation at the left ankle. Left knee joint replacement. Bones osteopenic. Thony Wilhelm MD Pelvis X-Ray 12/16/16 0000 Signed Impressions: Service Date/Time: Friday, December 16, 2016 11:27 - CONCLUSION: No acute fracture or joint dislocation. Joss Rosario MD Head CT 12/16/16 0000 Signed Impressions: Service Date/Time: Friday, December 16, 2016 09:42 - CONCLUSION: 1. Stable CT scan of the brain compared to 2016. 2. No focal or acute intracranial hemorrhage. Joss Rosario MD Cervical Spine CT 12/16/16 0000 Signed Impressions: Service Date/Time: Friday, December 16, 2016 09:42 - CONCLUSION: 1. No acute bony fracture. 2. Primary bony degenerative changes. 3. Focal central bulging disc osteophyte complexes at C4-5, C5-6 and C6-7. Joss Rosario MD Ankle X-Ray 12/16/16 0000 Signed Impressions: Service Date/Time: Friday, December 16, 2016 14:31 - CONCLUSION: Good position and alignment on this postoperative study. Joss Rosario MD Ankle X-Ray 12/16/16 0000 Signed Impressions: Service Date/Time: Friday, December 16, 2016 09:35 - CONCLUSION: Post closed reduction of the previously noted fractures at the ankle. Joss Rosario MD Ankle X-Ray 12/16/16 0000 Signed Impressions: Service Date/Time: Friday, December 16, 2016 08:09 - CONCLUSION: 1. Fracture dislocation at the left ankle joint. Thony Wilhelm MD Objective Remarks seen by Dr. Aureliano Arthur left ankle, splint and dressings in place +sensation to left lower extremity minimal pain with movement of toes Assessment & Plan Problem List: (1) Fracture dislocation of left ankle joint (2) Closed bimalleolar fracture of left ankle Assessment and Plan POD # 1 s/p L ankle ORIF Lovenox for dvt prop [facility] LLE patient stated she lived in [facility] prior to hospitilization, most likely will require d/c to SNF Tanya Diaz Dec 17, 2016 08:58
[2016-12-17] MEDS: SODIUM CHLORIDE 0.9% FLUSH 5 ML FLUSH IVF SCH ×2 (09:00→21:41)
[2016-12-17 09:55] VITALS: O2SAT 95
[2016-12-17 12:00] VITALS: BP 142/87; PULSE 70; RESP 18; TEMP 98.7; O2SAT 98
--- NOTE | 2016-12-17 12:42 | HHI.PR ---
Subjective Subjective Remarks awake, oriented x 2 pain is okay no n/v not eating much no fever no cp no sob Review of Systems Constitutional Constitutional Remarks 12 point ROS limited Vitals/Results Intake & Output 12/16/16 12/16/16 12/17/16 15:00 23:00 07:00 Intake Total 1480 ml 120 ml Output Total 720 ml 300 ml Balance 760 ml -180 ml Intake Oral 480 ml 120 ml Other 1000 ml Output Urine Total 700 ml 300 ml Estimated Blood Loss 20 ml Vital Signs Vital Signs Date Time Temp Pulse Resp B/P Pulse Ox O2 Delivery O2 Flow Rate FiO2 12/17/16 09:55 95 Nasal Cannula 2.00 12/17/16 08:00 97.4 76 16 110/51 100 12/17/16 04:00 98.0 90 16 118/70 97 12/17/16 00:00 98.2 86 16 121/67 100 12/16/16 19:40 97.1 82 16 93/56 98 12/16/16 19:24 96 Nasal Cannula 2.00 12/16/16 18:15 Nasal Cannula 2.00 12/16/16 16:45 97.1 79 14 112/60 96 Nasal Cannula 2 12/16/16 16:30 79 14 125/62 96 Nasal Cannula 2 12/16/16 16:15 77 14 120/57 96 Nasal Cannula 2 12/16/16 16:00 95.9 77 16 106/55 98 12/16/16 16:00 81 14 120/68 96 Nasal Cannula 2 12/16/16 15:45 79 14 110/57 95 Nasal Cannula 2 12/16/16 15:30 85 14 118/54 98 Nasal Cannula 2 12/16/16 15:15 82 14 123/68 98 Nasal Cannula 2 12/16/16 15:07 97.8 88 14 146/68 95 Nasal Cannula 2 CBC/BMP: 12/17/16 0534 12/17/16 0534 Lab Results Laboratory Tests Test 12/17/16 05:34 White Blood Count 5.8 TH/MM3 Red Blood Count 2.70 MIL/MM3 Hemoglobin 8.6 GM/DL Hematocrit 25.7 % Mean Corpuscular Volume 95.3 FL Mean Corpuscular Hemoglobin 31.9 PG Mean Corpuscular Hemoglobin 33.5 % Concent Red Cell Distribution Width 14.4 % Platelet Count 128 TH/MM3 Mean Platelet Volume 9.5 FL Sodium Level 139 MEQ/L Potassium Level 4.4 MEQ/L Chloride Level 104 MEQ/L Carbon Dioxide Level 26.7 MEQ/L Anion Gap 8 MEQ/L Blood Urea Nitrogen 14 MG/DL Creatinine 1.08 MG/DL Estimat Glomerular Filtration 48 ML/MIN Rate Random Glucose 97 MG/DL Calcium Level 8.0 MG/DL Physical Exam General General Appearance: Well Developed, No Acute Distress, Comfortable, Obese Eyes Eye Exam: Pupils Equal, Pupils Reactive Ears & Nose Ears & Nose Exam: Nasal Mucosa [place] Throat Throat Exam: Oral Mucosa [place] & Moist Neck Neck Exam: Neck Supple, Trachea Midline Pulmonary Resp Exam: Clear Bilaterally, Decreased Bases Cardiology CV Exam: Regular, Good Perfusion, Murmur Gastrointestinal/Abdomen GI Exam: Soft, Non-Tender, Bowel Sounds Present, Non-Distended Musculoskeletal MS Exam: Joints Intact MS Remarks Left ankle dressing D/I Integumentary Skin Exam: Warm, Dry Extremeties Extremities Exam: Pedal Pulses Palpable, Trace Edema Neurologic Neuro Exam: Alert, Awake, Speech Clear, Ampoule Filler Equal Psychiatric Psych Exam: Appropriate Responses VTE Prophylaxis VTE Prophylaxis Device: SCDs VTE Prophylaxis Meds: Lovenox Assessment/Plan Problem List: (1) Closed bimalleolar fracture of left ankle (2) Diabetes 1.5, managed as type 2 (3) History of CVA (cerebrovascular accident) (4) HTN (hypertension) (5) Fall (6) NPH (normal pressure hydrocephalus) Assessment/Plan 86-year-old elderly female status post fall, found with left bimalleolar fracture and dislocation, status post Left Ankle Open Reduction and Internal Fixation 12/16 -Appreciate orthopedic consultation -Continue the postoperative orthopedic care -Lovenox for DVT prophylaxis -Pain management as needed Bowel regimen Physical therapy per orthopedic orders -Case management consultation for rehabilitation placement, daughter requested Rolf Juárez Post op anemia -HH 8.6/25.7 -Transfuse PRN if Hgb < 7 -HH in am Type 2 diabetes Accu-Cheks before meals and at bedtime with insulin therapy Recent CVA, stable Hold aspirin at this time -Continue statins Hypertension, stable Continue home medications NPH, status post INTERNAL AUDIT CONSULTANT shunt Stable, physical therapy has been ordered Lovenox for DVT prophylaxis Protonix for GI prophylaxis CM for dc planning Poss. to SNF tomorrow Needs to have BM dc kylee FALL in am D/W RN D/W Dr. Lyman D/W pt This patient was seen by myself and Dr. Lyman, this note is written on his behalf Problem Qualifiers (1) Closed bimalleolar fracture of left ankle: Qualified Code: S82.842A - Closed bimalleolar fracture of left ankle, initial encounter (2) HTN (hypertension): Qualified Code: I10 - Essential hypertension (3) Fall: Qualified Code: W19.XXXA - Fall, initial encounter Mary Miguel Dec 17, 2016 12:42
[2016-12-17] MEDS: ENOXAPARIN SODIUM 40 MG/0.4 ML SYRINGE SQ SCH (14:00)
[2016-12-17 20:50] VITALS: BP 126/55; PULSE 81; RESP 16; TEMP 98.3; O2SAT 98
[2016-12-18] VITALS (7 sets, daily range): BP systolic 97–122; BP diastolic 52–74; PULSE 76–89; RESP 16–20; TEMP 96–99.1; O2SAT 93–100
[2016-12-18] MEDS: ACETAMINOPHEN/HYDROcodone 325 MG/5 MG TAB PO PRN ×5 (04:52→21:41)
[2016-12-18 05:30] LABS: HEMATOCRIT 27.7 % (35.0-46.0); REVIEW FLAG FINAL
[2016-12-18] MEDS: INSULIN ASPART SUPPLEMENTAL SCALE SQ SCH ×4 (05:45→21:00)
[2016-12-18] MEDS: MAGNESIUM HYDROXIDE SUSP 30 ML CUP PO PRN (08:39)
[2016-12-18] MEDS: SODIUM CHLORIDE 0.9% FLUSH 5 ML FLUSH IVF SCH ×2 (08:39→21:41)
[2016-12-18] MEDS: PANTOPRAZOLE SOD 20 MG DELAYED RELEASE TAB PO SCH (08:40)
[2016-12-18] MEDS: CALCIUM/VITAMIN D 250 MG/125 U TAB PO SCH ×3 (08:40→17:21)
[2016-12-18] MEDS: DOCUSATE SODIUM 50 MG/SENNA 8.6 MG TAB PO SCH ×2 (08:40→21:41)
[2016-12-18] MEDS: ENALAPRIL MALEATE 10 MG TAB PO SCH (08:40)
[2016-12-18] MEDS: MULTIVITAMINS/MINERALS THERAPEUTIC TAB PO SCH (08:40)
[2016-12-18] MEDS: PIOGLITAZONE HCL 15 MG TAB PO SCH (08:56)
[2016-12-18] MEDS ORDERED: ATORVASTATIN 20 MG TAB PO SCH (09:00)
--- NOTE | 2016-12-18 10:37 | MP ---
cc: BRIAN CHAPA M.D. DATE OF SURGERY 12/16/2016 PREOPERATIVE DIAGNOSIS Left ankle bimalleolar fracture-dislocation. POSTOPERATIVE DIAGNOSIS Left ankle bimalleolar fracture-dislocation. PROCEDURE Left ankle open reduction internal fixation using Synthes long 3.5-mm screws medially and one long 4.5-mm screw laterally with FiberWire at the fracture site. ANESTHETIC General. SURGEON Brian Chapa MD BONE CRUSHER SURGEON Andrey SCHRADER ESTIMATED BLOOD LOSS Less than 50 cc. COMPLICATIONS None known. INDICATIONS Chloe Ventura is an 86-year-old female who sustained a twisting injury while falling off of a toilet at an assisted living facility. She sustained an unstable bimalleolar fracture-dislocation. She had a small abrasion on the medial aspect of the ankle but it was not open injury. She underwent a closed reduction in the emergency room. The patient usually stands to pivot off of her legs. The options of treatment were thoroughly discussed and a detailed informed consent was obtained with the patient and her daughter. PROCEDURE The patient was brought into the operating room. She was placed under general anesthetic. The left lower extremity was draped and prepped in the usual sterile fashion. IV antibiotics were given. Time-out was completed. We did have a tourniquet but we did not use that. We made a medial-based incision first and spread with a hemostat down to the bone where a large hematoma was evacuated and irrigated out directly looking into the joint line. There was comminution of the medial malleolus but there was one major fragment which anatomically aligned and was clamped into position and confirmed radiographically. We then proceeded with placement of two long 3.5 screws using a long drill bit. One was 70-mm in length, the other 65. We used a washer with both of these. There was excellent stabilization when this was performed, acceptable overall alignment but significant comminution to the fibula, and therefore intramedullary technique was indicated. We made a small distal incision and then used our drill through the distal portion of the fibula and then drove a screw all the way up and captured the fibular shaft with good stabilization of the fracture. A portion of the fracture kicked out to the lateral aspect and therefore we did make a 4-cm open incision at the fracture site and protected the sensory nerve in that location, then placed two cerclage FiberWire sutures to pull the fracture into better alignment. These were tied down. We irrigated out with excellent hemostasis. Hard copy x-rays, mortis, oblique views and lateral view showed the final result. Irrigated out with copious amounts of irrigation, closed with absorbable suture. Xeroform applied. Sterile dressing applied. Sof-Rol applied. Sugar-tong splint applied. The patient was awoken and returned to the recovery room in stable condition. MD BREANNA Escalante/MILEY /4:03 PM /10:30 AM
--- NOTE | 2016-12-18 12:18 | HHI.PR ---
Subjective Subjective Remarks awake, oriented x 2, forgetful c/o left foot pain no cp no sob no fever had bm 2 days ago had MOM this morning Review of Systems Constitutional Constitutional Remarks 12 point ROS limited Vitals/Results Intake & Output 12/17/16 12/17/16 12/18/16 15:00 23:00 07:00 Intake Total 960 ml 120 ml 120 ml Output Total 450 ml Balance 510 ml 120 ml 120 ml Intake Oral 960 ml 120 ml 120 ml Output Urine Total 450 ml # Voids 0 3 # Bowel Movements 0 0 Vital Signs Vital Signs Date Time Temp Pulse Resp B/P Pulse Ox O2 Delivery O2 Flow Rate FiO2 12/18/16 07:32 96.5 76 18 107/54 96 12/18/16 04:35 98.0 82 20 122/74 100 12/18/16 00:45 99.1 85 17 108/63 94 12/17/16 21:06 Nasal Cannula 2.00 12/17/16 20:50 98.3 81 16 126/55 98 CBC/BMP: 12/18/16 0510 12/17/16 0534 Lab Results Laboratory Tests Test 12/18/16 05:10 Hemoglobin 9.0 GM/DL Hematocrit 27.7 % Physical Exam General General Appearance: Well Developed, No Acute Distress, Comfortable, Obese Eyes Eye Exam: Pupils Equal, Pupils Reactive Ears & Nose Ears & Nose Exam: Nasal Mucosa [place] Throat Throat Exam: Oral Mucosa [place] & Moist Neck Neck Exam: Neck Supple, Trachea Midline Pulmonary Resp Exam: Clear Bilaterally, Decreased Bases Cardiology CV Exam: Regular, Good Perfusion, Murmur Gastrointestinal/Abdomen GI Exam: Soft, Non-Tender, Bowel Sounds Present, Non-Distended Musculoskeletal MS Exam: Joints Intact MS Remarks Left ankle dressing D/I Integumentary Skin Exam: Warm, Dry Extremeties Extremities Exam: Pedal Pulses Palpable, Trace Edema Neurologic Neuro Exam: Alert, Awake, Speech Clear, Agent Ticketing Gate Equal Psychiatric Psych Exam: Appropriate Responses VTE Prophylaxis VTE Prophylaxis Device: SCDs VTE Prophylaxis Meds: Lovenox Assessment/Plan Problem List: (1) Closed bimalleolar fracture of left ankle (2) Diabetes 1.5, managed as type 2 (3) History of CVA (cerebrovascular accident) (4) HTN (hypertension) (5) Fall (6) NPH (normal pressure hydrocephalus) Assessment/Plan 86-year-old elderly female status post fall, found with left bimalleolar fracture and dislocation, status post Left Ankle Open Reduction and Internal Fixation 12/16 -Appreciate orthopedic consultation -Continue the postoperative orthopedic care -Lovenox for DVT prophylaxis -Pain management as needed Bowel regimen Physical therapy per orthopedic orders -Case management consultation for rehabilitation placement, daughter requested Rolf Juárez Post op anemia -HH 8.6/25.7 -Transfuse PRN if Hgb < 7 -HH in am Type 2 diabetes Accu-Cheks before meals and at bedtime with insulin therapy Recent CVA, stable Hold aspirin at this time -Continue statins Hypertension, stable Continue home medications NPH, 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 to SNF tomorrow Needs to have BM dc kylee FALL in am D/W RN D/W Dr. Lyman D/W pt This patient was seen by myself and Dr. Lyman, this note is written on his behalf Problem Qualifiers (1) Closed bimalleolar fracture of left ankle: Qualified Code: S82.842A - Closed bimalleolar fracture of left ankle, initial encounter (2) HTN (hypertension): Qualified Code: I10 - Essential hypertension (3) Fall: Qualified Code: W19.XXXA - Fall, initial encounter Mary Miguel Dec 18, 2016 12:18
--- NOTE | 2016-12-18 12:30 | PD.ORT.PN ---
Subjective Subjective Remarks Patient c/o left knee pain. Objective Vitals Vital Signs Date Time Temp Pulse Resp B/P Pulse Ox O2 Delivery O2 Flow Rate FiO2 12/18/16 07:32 96.5 76 18 107/54 96 12/18/16 04:35 98.0 82 20 122/74 100 12/18/16 00:45 99.1 85 17 108/63 94 12/17/16 21:06 Nasal Cannula 2.00 12/17/16 20:50 98.3 81 16 126/55 98 I/O 12/17/16 12/17/16 12/17/16 12/18/16 12/18/16 12/18/16 07:00 15:00 23:00 07:00 15:00 23:00 Intake Total 120 ml 960 ml 120 ml 120 ml Output Total 300 ml 450 ml Balance -180 ml 510 ml 120 ml 120 ml Intake Oral 120 ml 960 ml 120 ml 120 ml Output Urine Total 300 ml 450 ml # Voids 0 3 # Bowel Movements 0 0 Result Diagram: 12/18/16 0510 12/17/16 0534 Imaging Last 24 hours Impressions Chest X-Ray 12/16/16 0753 Signed Impressions: Service Date/Time: Friday, December 16, 2016 08:14 - CONCLUSION: 1. Shunt tubing overlies right hemithorax. Basal atelectasis and scarring. No significant change from August 2016. Thony Wilhelm MD Tibia/Fibula X-Ray 12/16/16 0000 Signed Impressions: Service Date/Time: Friday, December 16, 2016 08:09 - CONCLUSION: 1. Fracture dislocation at the left ankle. Left knee joint replacement. Bones osteopenic. Thony Wilhelm MD Pelvis X-Ray 12/16/16 0000 Signed Impressions: Service Date/Time: Friday, December 16, 2016 11:27 - CONCLUSION: No acute fracture or joint dislocation. Joss Rosario MD Head CT 12/16/16 0000 Signed Impressions: Service Date/Time: Friday, December 16, 2016 09:42 - CONCLUSION: 1. Stable CT scan of the brain compared to 2016. 2. No focal or acute intracranial hemorrhage. Joss Rosario MD Cervical Spine CT 12/16/16 0000 Signed Impressions: Service Date/Time: Saturday, December 16, 2016 09:42 - CONCLUSION: 1. No acute bony fracture. 2. Primary bony degenerative changes. 3. Focal central bulging disc osteophyte complexes at C4-5, C5-6 and C6-7. Joss Rosario MD Ankle X-Ray 12/16/16 0000 Signed Impressions: Service Date/Time: Friday, December 16, 2016 14:31 - CONCLUSION: Good position and alignment on this postoperative study. Joss Rosario MD Ankle X-Ray 12/16/16 0000 Signed Impressions: Service Date/Time: Friday, December 16, 2016 09:35 - CONCLUSION: Post closed reduction of the previously noted fractures at the ankle. Joss Rosario MD Ankle X-Ray 12/16/16 0000 Signed Impressions: Service Date/Time: Friday, December 16, 2016 08:09 - CONCLUSION: 1. Fracture dislocation at the left ankle joint. Thony Wilhelm MD Objective Remarks left ankle, splint and dressings in place +sensation to left lower extremity good movement of toes Assessment & Plan Problem List: (1) Fracture dislocation of left ankle joint (2) Closed bimalleolar fracture of left ankle Assessment and Plan POD # 2 s/p L ankle ORIF DVT prophylaxis - Lovenox Pain management - [facility] - [facility] L[facility] D/C planning - anticipating SNF Monitor Andrey Rojo Dec 18, 2016 12:30
[2016-12-18] MEDS: ENOXAPARIN SODIUM 40 MG/0.4 ML SYRINGE SQ SCH (13:30)
--- NOTE | 2016-12-18 14:49 | MP ---
cc: BRIAN CHAPA M.D. DATE OF SURGERY: 12/17/2016 PREOPERATIVE DIAGNOSIS Left ankle comminuted malleolar fracture with high fibula fracture. POSTOPERATIVE DIAGNOSIS Left ankle comminuted malleolar fracture with high fibula fracture. PROCEDURE Left ankle open reduction, internal fixation bimalleolar. ANESTHESIA General. SURGEON Brian Chapa MD COUNTY COMMISSIONER SURGEON RACIEL Wood ESTIMATED BLOOD LOSS 50 ccs. DRAIN None. SPECIMEN None. COMPLICATIONS None known. INDICATION Chloe Ventura is a 86-year-old female who sustained a traumatic fracture dislocation to her ankle when she fell while trying to rise off of a toilet. She normally transfers and spends most of her time in a wheelchair but she does stand transiently on both her legs and can walk short distances with assistance. The risks and benefits, alternatives to treatment were thoroughly discussed and all of her questions were answered. Informed consent was obtained. PROCEDURE The patient is brought to the operating room. She was placed under general anesthetic. The right lower extremity was draped and prepped in usual sterile fashion. IV antibiotics were given. Time-out was completed. It should be noted that assistant director of nursing Andrey Rojo is an advanced registered nurse practitioner's, his skill set was medically necessary for the performance of the operation and procedure. After time-out was completed we made a medial based incision and anatomically aligned the medial malleolus and provisionally clamped and then proceeded with placement of two long 3.5 mm screws, one 70 mm in length, one 65 mm in the length. To improve fixation we used a washer on the lateral side. It was a highly comminuted fracture and so we used a 4.5 mm screw retrograde through the fibula. The fracture comminution was such that we did make a small lateral incision and used FiberWire to tie down some of the fracture fragments, cerclaging this around the screw. Overall alignment looked very good. The mortise was intact and the ankle now was stable. Hard copy radiographs showed the final result. We proceeded to close with absorbable sutures and then proceeded to place a sugar-tong splint and awoke the patient and returned to the recovery room in stable condition. MD BREANNA Escalante/TAY /6:28 PM /2:35 PM
[2016-12-19] VITALS: BP 98/57; PULSE 87; RESP 16; TEMP 96.7; O2SAT 94
[2016-12-19] MEDS: MAGNESIUM HYDROXIDE SUSP 30 ML CUP PO PRN (05:28)
[2016-12-19] MEDS: INSULIN ASPART SUPPLEMENTAL SCALE SQ SCH ×3 (05:28→16:00)
[2016-12-19] MEDS: ACETAMINOPHEN/HYDROcodone 325 MG/5 MG TAB PO PRN ×3 (05:36→13:45)
--- NOTE | 2016-12-19 07:47 | PD.ORT.PN ---
Subjective Subjective Remarks Left ankle bimalleolar fracture/dislocation pain controlled Objective Vitals Vital Signs Date Time Temp Pulse Resp B/P Pulse Ox O2 Delivery O2 Flow Rate FiO2 12/19/16 00:00 96.7 87 16 98/57 94 12/18/16 20:20 21 12/18/16 20:00 96.0 89 16 105/52 95 12/18/16 16:10 98.0 85 18 108/54 95 12/18/16 12:15 95 12/18/16 11:40 97.8 80 18 97/57 93 I/O 12/18/16 12/18/16 12/18/16 12/19/16 12/19/16 12/19/16 07:00 15:00 23:00 07:00 15:00 23:00 Intake Total 120 ml 640 ml 240 ml 240 ml Balance 120 ml 640 ml 240 ml 240 ml Intake Oral 120 ml 640 ml 240 ml 240 ml # Voids 3 4 2 2 # Bowel Movements 0 0 0 Result Diagram: 12/18/16 0510 12/17/16 0534 Imaging Last 24 hours Impressions Chest X-Ray 12/16/16 0753 Signed Impressions: Service Date/Time: Friday, December 16, 2016 08:14 - CONCLUSION: 1. Shunt tubing overlies right hemithorax. Basal atelectasis and scarring. No significant change from August 2016. Thony Wilhelm MD Tibia/Fibula X-Ray 12/16/16 0000 Signed Impressions: Service Date/Time: Friday, December 16, 2016 08:09 - CONCLUSION: 1. Fracture dislocation at the left ankle. Left knee joint replacement. Bones osteopenic. Thony Wilhelm MD Pelvis X-Ray 12/16/16 0000 Signed Impressions: Service Date/Time: Friday, December 16, 2016 11:27 - CONCLUSION: No acute fracture or joint dislocation. Joss Rosario MD Head CT 12/16/16 0000 Signed Impressions: Service Date/Time: Friday, December 16, 2016 09:42 - CONCLUSION: 1. Stable CT scan of the brain compared to 2016. 2. No focal or acute intracranial hemorrhage. Joss Rosario MD Cervical Spine CT 12/16/16 0000 Signed Impressions: Service Date/Time: Friday, December 16, 2016 09:42 - CONCLUSION: 1. No acute bony fracture. 2. Primary bony degenerative changes. 3. Focal central bulging disc osteophyte complexes at C4-5, C5-6 and C6-7. Joss Rosario MD Ankle X-Ray 12/16/16 0000 Signed Impressions: Service Date/Time: Friday, December 16, 2016 14:31 - CONCLUSION: Good position and alignment on this postoperative study. Joss Rosario MD Ankle X-Ray 12/16/16 0000 Signed Impressions: Service Date/Time: Friday, December 16, 2016 09:35 - CONCLUSION: Post closed reduction of the previously noted fractures at the ankle. Joss Rosario MD Ankle X-Ray 12/16/16 0000 Signed Impressions: Service Date/Time: Friday, December 16, 2016 08:09 - CONCLUSION: 1. Fracture dislocation at the left ankle joint. Thony Wilhelm MD Objective Remarks left ankle, splint and dressings in place +sensation to left lower extremity good movement of toes Assessment & Plan Problem List: (1) Fracture dislocation of left ankle joint (2) Closed bimalleolar fracture of left ankle Assessment and Plan POD # 3 s/p L ankle ORIF DVT prophylaxis - Lovenox Pain management - [facility] - [facility] D/C planning - anticipating SNF today F/U in 2 weeks Champ Cole MD Dec 19, 2016 07:47
[2016-12-19 08:00] VITALS: BP 101/46; PULSE 83; RESP 16; TEMP 96.2; O2SAT 92
[2016-12-19] MEDS: ENALAPRIL MALEATE 10 MG TAB PO SCH ×3 (09:00→09:30)
[2016-12-19] MEDS: DOCUSATE SODIUM 50 MG/SENNA 8.6 MG TAB PO SCH (09:20)
[2016-12-19] MEDS: PANTOPRAZOLE SOD 20 MG DELAYED RELEASE TAB PO SCH (09:20)
[2016-12-19] MEDS: MULTIVITAMINS/MINERALS THERAPEUTIC TAB PO SCH (09:20)
[2016-12-19] MEDS: CALCIUM/VITAMIN D 250 MG/125 U TAB PO SCH ×3 (09:20→17:08)
[2016-12-19] MEDS: SODIUM CHLORIDE 0.9% FLUSH 5 ML FLUSH IVF SCH (09:21)
[2016-12-19] MEDS: PIOGLITAZONE HCL 15 MG TAB PO SCH (09:21)
[2016-12-19] MEDS ORDERED: OYST250T4 PO (11:57)
--- NOTE | 2016-12-19 11:58 | HHI.DCPOC ---
Discharge Care Plan Diagnosis: (1) Closed bimalleolar fracture of left ankle Your Health Problems Are: Difficulty with ADL Leg Swelling Goals to Promote Your Health * To prevent worsening of your condition and complications * To maintain your health at the optimal level Directions to Meet Your Goals Take your medications as prescribed Follow your dietary instruction Follow activity as directed Keep your appointments as scheduled Take your immunizations and boosters as scheduled If your symptoms worsen call your PCP, if no PCP go to Urgent Care Center or Emergency Room Smoking is Dangerous to Your Health. Avoid second hand smoke Call the 24-hour hour crisis hotline for domestic abuse at [facility]. [facility] Dec 19, 2016 11:58
[2016-12-19 12:00] VITALS: BP 111/64; PULSE 78; RESP 16; TEMP 98.2; O2SAT 93
[2016-12-19] MEDS ORDERED: ENOX40P SQ (12:53)
--- NOTE | 2016-12-19 12:55 | HHI.PR ---
Subjective Subjective Remarks awake, oriented x 2, forgetful c/o left foot pain no cp no sob no fever no bm yet, had one 3 days ago, MOM given Review of Systems Constitutional Constitutional Remarks 12 point ROS limited Vitals/Results Intake & Output 12/18/16 12/18/16 12/19/16 14:59 22:59 06:59 Intake Total 640 ml 240 ml 240 ml Balance 640 ml 240 ml 240 ml Intake Oral 640 ml 240 ml 240 ml # Voids 4 2 2 # Bowel Movements 0 0 0 Vital Signs Vital Signs Date Time Temp Pulse Resp B/P Pulse Ox O2 Delivery O2 Flow Rate FiO2 12/19/16 08:00 96.2 83 16 101/46 92 12/19/16 00:00 96.7 87 16 98/57 94 12/18/16 20:20 21 12/18/16 20:00 96.0 89 16 105/52 95 12/18/16 16:10 98.0 85 18 108/54 95 CBC/BMP: 12/18/16 0510 12/17/16 0534 Physical Exam General General Appearance: Well Developed, No Acute Distress, Comfortable, Obese Eyes Eye Exam: Pupils Equal, Pupils Reactive Ears & Nose Ears & Nose Exam: Nasal Mucosa Duarte Throat Throat Exam: Oral Mucosa Duarte & Moist Neck Neck Exam: Neck Supple, Trachea Midline Pulmonary Resp Exam: Clear Bilaterally, Decreased Bases Cardiology CV Exam: Regular, Good Perfusion, Murmur Gastrointestinal/Abdomen GI Exam: Soft, Non-Tender, Bowel Sounds Present, Non-Distended Musculoskeletal MS Exam: Joints Intact MS Remarks Left ankle dressing D/I Integumentary Skin Exam: Warm, Dry Extremeties Extremities Exam: Pedal Pulses Palpable, Trace Edema Neurologic Neuro Exam: Alert, Awake, Speech Clear, Hand Molder And Caster Equal Psychiatric Psych Exam: Appropriate Responses VTE Prophylaxis VTE Prophylaxis Device: SCDs VTE Prophylaxis Meds: Lovenox Assessment/Plan Problem List: (1) Closed bimalleolar fracture of left ankle (2) Diabetes 1.5, managed as type 2 (3) History of CVA (cerebrovascular accident) (4) HTN (hypertension) (5) Fall (6) NPH (normal pressure hydrocephalus) Assessment/Plan 86-year-old elderly female status post fall, found with left bimalleolar fracture and dislocation, status post Left Ankle Open Reduction and Internal Fixation 12/16 -Appreciate orthopedic consultation -Continue the postoperative orthopedic care -Lovenox for DVT prophylaxis -Pain management as needed Bowel regimen Physical therapy per orthopedic orders -Case management consultation for rehabilitation placement, daughter requested Rolf Juárez Post op anemia -HH stable -Transfuse PRN if Hgb < 7 Type 2 diabetes Accu-Cheks before meals and at bedtime with insulin therapy Recent CVA, stable Hold aspirin at this time -Continue statins Hypertension, stable Continue home medications NPH, status post GLASS TUBE BENDER shunt Stable, physical therapy has been ordered Lovenox for DVT prophylaxis Protonix for GI prophylaxis CM for dc planning cleared by ortho Discharge to SNF today Dulcolax supp now f/u ortho 2 weeks f/u PCP Diet-heart healthy Activity-per ortho D/W RN D/W Dr. Lyman D/W pt This patient was seen by myself and Dr. Lyman, this note is written on his behalf Discharge Minutes: 45 Problem Qualifiers (1) Closed bimalleolar fracture of left ankle: Qualified Code: S82.842A - Closed bimalleolar fracture of left ankle, initial encounter (2) HTN (hypertension): Qualified Code: I10 - Essential hypertension (3) Fall: Qualified Code: W19.XXXA - Fall, initial encounter Mary Miguel Dec 19, 2016 12:55
[2016-12-19] MEDS ORDERED: BISACODYL 10 MG SUPP RECTAL ONE (13:00)
[2016-12-19] MEDS ORDERED: HYDR-3516 PO (13:29)
[2016-12-19] MEDS: SOD PHOSPHATE/SOD BIPHOSPHATE (ADULT) ENEMA 133ML PR ONE ×2 (15:59→16:00)
[2016-12-19] MEDS ORDERED: ENOXAPARIN SODIUM 40 MG/0.4 ML SYRINGE SQ ONE (17:00)
--- NOTE | 2017-02-11 14:50 | HHI.DS ---
Discharge Summary Admission Date Dec 16, 2016 at 10:29 Discharge Date: Dec 19, 2016 Admitting Diagnosis Closed Tib/Fib Fracture/dislocation (1) Fall (2) Closed bimalleolar fracture of left ankle (3) HTN (hypertension) (4) NPH (normal pressure hydrocephalus) (5) Diabetes 1.5, managed as type 2 (6) History of CVA (cerebrovascular accident) Procedures status post Left Ankle Open Reduction and Internal Fixation 12/16 Imaging Last Impressions Chest X-Ray 12/16/16 0753 Signed Impressions: Service Date/Time: Friday, December 16, 2016 08:14 - CONCLUSION: 1. Shunt tubing overlies right hemithorax. Basal atelectasis and scarring. No significant change from August 2016. Thony Wilhelm MD Tibia/Fibula X-Ray 12/16/16 0000 Signed Impressions: Service Date/Time: Friday, December 16, 2016 08:09 - CONCLUSION: 1. Fracture dislocation at the left ankle. Left knee joint replacement. Bones osteopenic. Thony Wilhelm MD Pelvis X-Ray 12/16/16 0000 Signed Impressions: Service Date/Time: Friday, December 16, 2016 11:27 - CONCLUSION: No acute fracture or joint dislocation. Joss Rosario MD Head CT 12/16/16 0000 Signed Impressions: Service Date/Time: Friday, December 16, 2016 09:42 - CONCLUSION: 1. Stable CT scan of the brain compared to 2016. 2. No focal or acute intracranial hemorrhage. Joss Rosario MD Cervical Spine CT 12/16/16 0000 Signed Impressions: Service Date/Time: Friday, December 16, 2016 09:42 - CONCLUSION: 1. No acute bony fracture. 2. Primary bony degenerative changes. 3. Focal central bulging disc osteophyte complexes at C4-5, C5-6 and C6-7. Joss Rosario MD Ankle X-Ray 12/16/16 0000 Signed Impressions: Service Date/Time: Friday, December 16, 2016 14:31 - CONCLUSION: Good position and alignment on this postoperative study. Joss Rosario MD Hospital Course This a pleasant 86-year-old female with history of NPH status post DIRECTOR OF OUTPATIENT SERVICES shunt, type 2 diabetes, recent CVA August 2016, hypertension, hyperlipidemia. Patient presented to the emergency room after having a fall and complaining of left ankle pain. Patient lives at an assisted living facility. Patient is a 4 historian, information is obtained from the medical record from the daughter. Apparently the patient was getting off the toilet, she is mainly wheelchair bound and uses a walker occasionally. Per history, she had a slip and fell, denieD any loss of consciousness. Per EMS, patient initially didn't have pulses in the left lower extremity and when the patient adjusted her own ankle she did have pulses. EMS reported the foot was blue on arrival but pinked up after the patient's adjusted ankle. In the emergency room, patient was evaluated, capillary refill was brisk. There was an abrasion noted overlying ankle. Imaging studies were completed and noted with a fracture dislocation of the left ankle. Patient was sedated in the emergency room and had reduction. A splint was applied. Orthopedic consultation was called to Dr. Mathew. Patient was taken to the operating room and had Left Ankle Open Reduction and Internal Fixation. Patient was evaluated post op, she was alert, awake oriented 3. Daughter is at bedside providing most of the history. She was resting comfortably, pain is stable. She had intact sensation to the left foot. Patient denied any other complaints, no recent fever, no chills. No chest pain or shortness of breath. Had a stroke in August 2016 and had been stable. According to the daughter, she's been more sedentary and has been relying mostly on her wheelchair and not using walker as much. Patient was admitted for further evaluation and treatment. (1) Closed bimalleolar fracture of left ankle (2) Diabetes 1.5, managed as type 2 (3) History of CVA (cerebrovascular accident) (4) HTN (hypertension) (5) Fall (6) NPH (normal pressure hydrocephalus) During hospitalization, the following took place: 86-year-old elderly female status post fall, found with left bimalleolar fracture and dislocation, status post Left Ankle Open Reduction and Internal Fixation 12/16 -Appreciate orthopedic consultation -Continued the postoperative orthopedic care -Lovenox for DVT prophylaxis -Pain management as needed Bowel regimen done Physical therapy per orthopedic orders -Case management consultation for rehabilitation placement, daughter requested Rolf Juárez Post op anemia -HH stable -Transfuse PRN if Hgb < 7 -HH remained stable Type 2 diabetes Accu-Cheks before meals and at bedtime with insulin therapy -remained stable Recent CVA, stable Held aspirin -Continue statins Hypertension, stable Continued home medications NPH, status post DIRECTOR OF OUTPATIENT SERVICES shunt Stable, physical therapy was ordered Lovenox for DVT prophylaxis Protonix for GI prophylaxis CM for dc planning post op course stable. cleared by ortho Discharged to SNF Instructed pt. and daughter to: f/u ortho 2 weeks f/u PCP Diet-heart healthy Activity-per ortho Pt Condition on Discharge: Stable Discharge Disposition: Discharge to SNF Discharge Instructions DIET: Follow Instructions for: Heart Healthy Diet Fluid Restrictions: none Activities you can perform: See Additionl Instruction Other Activity Instructions: per ortho Follow up Referrals: Orthopedics - 2 Weeks with Champ Cole MD PCP Follow-up New Medications: Calcium Carbonate-Cholecalciferol (Oyster Shell Calcium/Vitamin D) 250-125 Mg- Unit Tab 250 MG PO TID HYPOCALCEMIA #90 Ref 1 TAB Enoxaparin Inj (Lovenox Inj) 40 Mg/0.4 Ml Syr 40 MG SQ Q24H dvt prevention #10 Ref 0 INJECTION Hydrocodone-Acetaminophen (Hydrocodone-Acetaminophen) 5-325 mg Tab 1 TAB PO q6h PRN PAIN GREATER THAN 5 #40 TAB Continued Medications: Enalapril (Enalapril) 10 Mg Tab 10 MG PO DAILY Ref 0 TAB Omeprazole (Omeprazole) 20 Mg Tab 20 MG PO DAILY Ref 0 TAB Pioglitazone (Pioglitazone) 15 Mg Tab 15 MG PO DAILY Blood Sugar Management #30 Ref 0 TAB Rosuvastatin (Crestor) 10 Mg Tab 10 MG PO EVERY OTHER DAY Cholesterol Management #30 Ref 0 TAB Discontinued Medications: Hydrocodone-Acetaminophen ([place]) 7.5-325 mg Tab 1 TAB PO Q6H PRN MODERATE PAIN Ref 0 TAB Mary Miguel February 11, 2017 14:50
== END 2016-12-19 17:21 | DRG 493 ==
LOC: NEPC 07:47 → NEDA 10:29 → N06B 16:59 → N06A 12-17 18:05
PROVIDERS: ADMIT Specialist; ATTEND Specialist
PROC: 0QSH04Z Reposition Left Tibia with Internal Fixation Device, Open Approach (ICD-10-PCS; 2016-12-16)
PROC: 0QSK04Z Reposition Left Fibula with Internal Fixation Device, Open Approach (ICD-10-PCS; 2016-12-16)
PROC: 0SSGXZZ Reposition Left Ankle Joint, External Approach (ICD-10-PCS; principal; 2016-12-16 13:10)
DX: S82.842A Displaced bimalleolar fracture of left lower leg, initial encounter for closed fracture (principal); G91.2 (Idiopathic) normal pressure hydrocephalus; E11.40 Type 2 diabetes mellitus with diabetic neuropathy, unspecified; S93.05XA Dislocation of left ankle joint, initial encounter; I10 Essential (primary) hypertension; D64.89 Other specified anemias; Z98.2 Presence of cerebrospinal fluid drainage device; W18.11XA Fall from or off toilet without subsequent striking against object, initial encounter; Y93.89 Activity, other specified; Y92.002 Bathroom of unspecified non-institutional (private) residence as the place of occurrence of the external cause; E78.00 Pure hypercholesterolemia, unspecified; K21.9 Gastro-esophageal reflux disease without esophagitis; M19.90 Unspecified osteoarthritis, unspecified site; E78.5 Hyperlipidemia, unspecified; Z96.653 Presence of artificial knee joint, bilateral; Z99.3 Dependence on wheelchair; Z87.11 Personal history of peptic ulcer disease; Z88.1 Allergy status to other antibiotic agents; Z88.5 Allergy status to narcotic agent; Z72.0 Tobacco use; Z86.73 Personal history of transient ischemic attack (TIA), and cerebral infarction without residual deficits
CPT/HCPCS: 27840; 70450; 71010; 72125; 72170; 73590; 73600; 73610; 76000; 80048; 80053; 82550; 82948; 83690; 83735; 84484; 85014; 85018; 85025; 85027; 85610; 85730; 93005; 94150; 94640; 94770; 96374; 96375; 99156; 99157; C1713; J0131; J0690; J1580; J1650; J2270; J2370; J2405; J3010; J7120; J7613

== ENCOUNTER 2017-04-03 06:53 | Inpatient (IN) | payer MEDICARE ==
[~2017-04-03] VITALS: Ht 160 cm; Wt 96.6 kg
[~2017-04-03 06:53] MED LIST changes: -ASPI325T PO; -CARV3.125 PO; +ENOX40P SQ; -FERR325T PO; -HEPA10003 SQ; +HYDR-3516 PO; -LYRI75CA PO; -METF500T PO; -MULT1TAB46; -NORC5TAB PO; +OYST250T4 PO; +PIOG15TA5 PO; -SITA1TAB2 PO
[2017-04-03 06:59] VITALS: BP 146/63; PULSE 103; RESP 15; TEMP 98.7; O2SAT 98
--- NOTE | 2017-04-03 07:12 | PD ---
HPI Chief Complaint: Fall Time Seen by Provider: 06:57 Travel History International Travel<30 days: No Contact w/Intl Traveler<30days: No Traveled to known affect area: No History of Present Illness HPI The patient is a 86-year-old female who presents emergency department via EMS for left ankle fracture. The patient apparently was transitioning with staff from the living facility when she fell, injured her ankle, and was noted to have a left open ankle fracture. The patient has a previous history of ORIF to the left ankle by Dr. Cole in November 2016. EMS did not provide any pain medication as the patient is allergic to morphine. The patient denied any head injury, neck injury, chest pain, shortness breath, nausea, vomiting, or abdominal pain after the fall. She does complain of left ankle pain with difficulty moving the left ankle secondary to pain. Last tetanus shot is unknown. The patient denies any pain in the left hip and left knee. Symptoms are moderate, exacerbated after falling, and there are no current alleviating factors. 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) Headaches: Yes (OCC.) Hepatitis: No Hiatal Hernia: No Hypertension: Yes Immune Disorder: No Implanted Vascular Access Dvce: Yes Musculoskeletal: Yes (BILAT KNEE REPLACEMENT) Neurologic: Yes (NPH) Psychiatric: No Reproductive: No Respiratory: Yes Thyroid Disease: No Ulcer: Yes (hx of duodenal ulcer) PNEUMOCCOCAL Vaccine (Year): 3 Menopausal: Yes Past Surgical History Body Medical Devices: APPEALS REPRESENTATIVE SHUNT/ TEOCH NAIL IN HIP Eye Surgery: Yes (KHADIJAH CATARACTS, BILATERAL MAC DEGENDERATION SX) Joint Replacement: Yes (KHADIJAH KNEEES ) Neurologic Surgery: Yes (APPEALS REPRESENTATIVE SHUNT/ HYDROCEPHALUS) Pacemaker: No Other Surgery: Yes Social History Alcohol Use: No ( ) Tobacco Use: No Substance Use: No Allergies-Medications (Allergen,Severity, Reaction): Coded Allergies: Bactrim (Verified Allergy, Intermediate, Hives, 12/16/16) Morphine (Verified Adverse Reaction, Severe, N/V, 12/16/16) Reported Meds & Prescriptions Reported Meds & Active Scripts Active Hydrocodone-Acetaminophen 5-325 mg Tab 1 Tab PO Q6H PRN Oyster Shell Calcium/Vitamin D (Calcium Carbonate-Cholecalciferol) 250-125 Mg- Unit Tab 250 Mg PO TID Reported Potassium Chloride ER (Potassium Chloride) 20 Meq Tab 20 Meq PO BID Furosemide 20 Mg Tab 20 Mg PO BID Docusate Sodium 100 Mg Cap 100 Mg PO BID Lyrica (Pregabalin) 75 Mg Cap 75 Mg PO BID Pioglitazone (Pioglitazone HCl) 15 Mg Tab 15 Mg PO DAILY Omeprazole 20 Mg Tab 20 Mg PO DAILY Enalapril (Enalapril Maleate) 10 Mg Tab 10 Mg PO DAILY Crestor (Rosuvastatin Calcium) 10 Mg Tab 10 Mg PO EVERY OTHER DAY Review of Systems Except as stated in HPI: all other systems reviewed are Neg General / Constitutional: No: Fever HENT: No: Headaches, Neck Pain Cardiovascular: No: Chest Pain or Discomfort Respiratory: No: Shortness of Breath Gastrointestinal: No: Nausea, Vomiting, Abdominal Pain Musculoskeletal: Positive: Limited ROM, Pain Neurologic: No: Change in Mentation, Paresthesia, Sensory Disturbance Physical Exam Narrative GENERAL: Awake, alert, pleasant 86-year-old female who appears her stated age and is in no acute respiratory distress. SKIN: Focused skin assessment warm/dry. Superficial abrasions to the right humeral area and extensor surface of the right elbow. Old appearing bruising to the left forearm. HEAD: Atraumatic. Normocephalic. EYES: Pupils equal and round. No scleral icterus. No injection or drainage. ENT: No nasal bleeding or discharge. Mucous membranes pink and moist. NECK: Trachea midline. No JVD. CARDIOVASCULAR: Regular rate and rhythm. No murmur appreciated. RESPIRATORY: No accessory muscle use. Clear to auscultation. Breath sounds equal bilaterally. GASTROINTESTINAL: Abdomen soft, non-tender, nondistended. Ventral hernia that is reducible. MUSCULOSKELETAL: Patient has an obvious open medial malleolus fracture with hardware visible, 6 cm transverse laceration over the open fracture. Mild edema left lower extremity. No tenderness at the left knee or left hip. Positive Doppler pulses were full. Patient is able to wiggle the toes left foot with limited range of motion secondary to pain. NEUROLOGICAL: Awake and alert. No obvious cranial nerve deficits. Motor grossly within normal limits. Normal speech. Patient is oriented to person and place. She follows simple commands. PSYCHIATRIC: Appropriate mood and affect; insight and judgment normal. Data Data Last Documented VS Vital Signs Date Time Temp Pulse Resp B/P Pulse Ox O2 Delivery O2 Flow Rate FiO2 04/03/17 07:00 102 16 97 Room Air 04/03/17 06:59 98.7 146/63 Orders Electrocardiogram (04/03/17 07:04) Complete Blood Count With Diff (04/03/17 07:04) Comprehensive Metabolic Panel (04/03/17 07:04) Prothrombin Time / Inr (Pt) (04/03/17 07:04) Act Partial Throm Time (Ptt) (04/03/17 07:04) Urinalysis - C+S If Indicated (04/03/17 07:04) Type And Screen (04/03/17 07:04) Chest, Single Ap (04/03/17 07:04) Iv Access Insert/Monitor (04/03/17 07:04) Urinary Catheter Insert/Apply (04/03/17 07:04) Oximetry (04/03/17 07:04) Ecg Monitoring (04/03/17 07:04) Ondansetron Inj (Zofran Inj) (04/03/17 07:15) Sodium Chloride 0.9% Flush (Ns Flush) (04/03/17 07:15) Hydromorphone Pf Inj (Dilaudid Pf Inj) (04/03/17 07:15) Diet Npo (04/04/17 Breakfast) Ankle, Limited (Ap&Lat) (04/03/17 ) Tetanus/Diphtheria Tox Adult (Tetanus/Di (04/03/17 07:15) Gentamicin 80 Mg Premix (Gentamicin 80 M (04/03/17 07:15) Cefazolin 2 Gm Premix (Ancef 2 Gm Premix (04/03/17 07:15) Consult Orthopedic (04/03/17 ) Admit Order (Ed Use Only) (04/03/17 08:10) Labs Laboratory Tests Test 04/03/17 04/03/17 07:15 07:38 White Blood Count 6.1 TH/MM3 Red Blood Count 2.78 MIL/MM3 Hemoglobin 8.6 GM/DL Hematocrit 26.3 % Mean Corpuscular Volume 94.4 FL Mean Corpuscular Hemoglobin 30.8 PG Mean Corpuscular Hemoglobin 32.6 % Concent Red Cell Distribution Width 15.0 % Platelet Count 162 TH/MM3 Mean Platelet Volume 9.3 FL Neutrophils (%) (Auto) 56.6 % Lymphocytes (%) (Auto) 29.0 % Monocytes (%) (Auto) 9.3 % Eosinophils (%) (Auto) 4.6 % Basophils (%) (Auto) 0.5 % Neutrophils # (Auto) 3.4 TH/MM3 Lymphocytes # (Auto) 1.8 TH/MM3 Monocytes # (Auto) 0.6 TH/MM3 Eosinophils # (Auto) 0.3 TH/MM3 Basophils # (Auto) 0.0 TH/MM3 CBC Comment DIFF FINAL Differential Comment Prothrombin Time 11.6 SEC Prothromb Time International 1.0 RATIO Ratio Activated Partial 27.2 SEC Thromboplast Time Blood Type O POSITIVE Antibody Screen NEGATIVE Sodium Level 139 MEQ/L Potassium Level 4.6 MEQ/L Chloride Level 103 MEQ/L Carbon Dioxide Level 29.7 MEQ/L Anion Gap 6 MEQ/L Blood Urea Nitrogen 25 MG/DL Creatinine 1.39 MG/DL Estimat Glomerular Filtration 36 ML/MIN Rate Random Glucose 99 MG/DL Calcium Level 8.4 MG/DL Total Bilirubin 0.6 MG/DL Aspartate Amino Transf 27 U/L (AST/SGOT) Alanine Aminotransferase 16 U/L (ALT/SGPT) Alkaline Phosphatase 111 U/L Total Protein 6.8 GM/DL Albumin 2.4 GM/DL [facility] Medical Decision Making Medical Screen Exam Complete: Yes Emergency Medical Condition: Yes Medical Record Reviewed: Yes Interpretation(s) EKG reveals sinus tachycardia with a heart rate over 1. Low QRS voltage in precordial leads. Q wave noted in lead V1 and V2 Last Impressions Chest X-Ray 04/03/17 0704 Signed Impressions: Service Date/Time: Monday, April 03, 2017 07:38 - CONCLUSION: Left basilar atelectasis stable blunting of the left lateral costophrenic angle. Peyman Shipman MD Ankle X-Ray 04/03/17 0000 Signed Impressions: Service Date/Time: Monday, April 03, 2017 07:39 - CONCLUSION: Significant deformity about the ankle fracture dislocation as above, soft tissue swelling and subcutaneous emphysema. Peyman Shipman MD Laboratory Tests Test 04/03/17 04/03/17 07:15 07:38 White Blood Count 6.1 TH/MM3 Red Blood Count 2.78 MIL/MM3 Hemoglobin 8.6 GM/DL Hematocrit 26.3 % Mean Corpuscular Volume 94.4 FL Mean Corpuscular Hemoglobin 30.8 PG Mean Corpuscular Hemoglobin 32.6 % Concent Red Cell Distribution Width 15.0 % Platelet Count 162 TH/MM3 Mean Platelet Volume 9.3 FL Neutrophils (%) (Auto) 56.6 % Lymphocytes (%) (Auto) 29.0 % Monocytes (%) (Auto) 9.3 % Eosinophils (%) (Auto) 4.6 % Basophils (%) (Auto) 0.5 % Neutrophils # (Auto) 3.4 TH/MM3 Lymphocytes # (Auto) 1.8 TH/MM3 Monocytes # (Auto) 0.6 TH/MM3 Eosinophils # (Auto) 0.3 TH/MM3 Basophils # (Auto) 0.0 TH/MM3 CBC Comment DIFF FINAL Differential Comment Prothrombin Time 11.6 SEC Prothromb Time International 1.0 RATIO Ratio Activated Partial 27.2 SEC Thromboplast Time Blood Type O POSITIVE Antibody Screen NEGATIVE Sodium Level 139 MEQ/L Potassium Level 4.6 MEQ/L Chloride Level 103 MEQ/L Carbon Dioxide Level 29.7 MEQ/L Anion Gap 6 MEQ/L Blood Urea Nitrogen 25 MG/DL Creatinine 1.39 MG/DL Estimat Glomerular Filtration 36 ML/MIN Rate Random Glucose 99 MG/DL Calcium Level 8.4 MG/DL Total Bilirubin 0.6 MG/DL Aspartate Amino Transf 27 U/L (AST/SGOT) Alanine Aminotransferase 16 U/L (ALT/SGPT) Alkaline Phosphatase 111 U/L Total Protein 6.8 GM/DL Albumin 2.4 GM/DL Differential Diagnosis Differential diagnosis includes open fracture, fracture dislocation, hematoma, contusion, sprain, strain. Narrative Course IV was established, labs are drawn and sent, and the patient was placed on cardiac telemetry monitoring and continuous pulse oximetry monitoring. EKG was ordered and interpreted. Chest x-ray and x-ray left ankle were obtained. The patient was administered tetanus, gentamicin 80 mg, Ancef 2 g, Dilaudid 0.5 mg, and Zofran 4 mg intravenously. X-ray reveals a left open fracture/dislocation with hardware present. The patient was evaluated by her orthopedic surgeon, Dr. Cole, at 8 AM in the emergency department. Dr. Cole plans on taking the patient to the operating room. The patient's primary physician is Dr. Barnhart, therefore, a call was placed the [facility] hospitalist for admission. The patient was kept nothing by mouth. A Betadine dressing was applied over the left ankle. I discussed patient with Dr. Sanderson who agrees with admission. Physician Communication Physician Communication [facility] Hospitalists were paged for admission. I discussed the patient with Dr. Sanderson who agrees with admission. Diagnosis Primary Impression: Open left ankle fracture Qualified Code: S82.892B - Open left ankle fracture, type I or II, initial encounter Admitting Information Admitting Physician Requests: Admit Condition: Stable Romeo Barakat MD Apr 03, 2017 07:12
[2017-04-03] MEDS ORDERED: SODIUM CHLORIDE 0.9% FLUSH 10 ML FLUSH IVF PRN (07:15)
[2017-04-03] MEDS ORDERED: GENTAMICIN 80 MG PREMIX 100 ML IV ONE (07:15)
[2017-04-03] MEDS ORDERED: ONDANSETRON HCL 4 MG/2 ML VIAL IVP ONE (07:15)
[2017-04-03] MEDS ORDERED: ceFAZolin 2 GM PREMIX 50 ML IV ONE (07:15)
[2017-04-03] MEDS ORDERED: HYDROmorphone HCL PF 1 MG/ML VIAL IVS ONE (07:15)
[2017-04-03] MEDS ORDERED: TETANUS/DIPHTHERIA TOXOID ADULT 0.5 ML VIAL IM ONE (07:15)
[2017-04-03] MEDS ORDERED: DOCU100C PO (07:18)
[2017-04-03] MEDS ORDERED: FURO20TA PO (07:18)
[2017-04-03] MEDS ORDERED: POTA-163 PO (07:18)
[2017-04-03] MEDS ORDERED: LYRI75CA PO (07:18)
[2017-04-03 07:38] LABS: AUTOMATED NEUTROPHIL # 3.4 TH/MM3 (1.8-7.7); BASOPHIL % 0.5 % (0.0-2.0); EOSINOPHIL # 0.3 TH/MM3 (0-0.4); EOSINOPHIL % 4.6 % (0.0-4.0); HEMATOCRIT 26.3 % (35.0-46.0); HEMO FLAGS DIFF FINAL; LYMPHOCYTE # 1.8 TH/MM3 (1.0-4.8); MEAN CELL VOLUME 94.4 FL (80.0-100.0); MEAN CORPUSCULAR HEMOGLOBIN 30.8 PG (27.0-34.0); MEAN CORPUSCULAR HGB CONC 32.6 % (32.0-36.0); MONO % 9.3 % (0.0-8.0); NEUT % 56.6 % (16.0-70.0); PLATELET COUNT 162 TH/MM3 (150-450); RED BLOOD COUNT 2.78 MIL/MM3 (4.00-5.30); WHITE BLOOD COUNT 6.1 TH/MM3 (4.0-11.0)
[2017-04-03 07:48] LABS: APTT (PATIENT) 27.2 SEC (24.3-30.1); PROTHROMBIN TIME - PATIENT 11.6 SEC (9.8-11.6)
--- NOTE | 2017-04-03 07:54 | RADRPT ---
EXAM DATE/TIME: 04/03/2017 07:38 [facility] COMPARISON: CHEST SINGLE AP, December 16, 2016, 8:14. INDICATIONS : Pain post fall. MEDICAL HISTORY : Hypertension. SURGICAL HISTORY : None. ENCOUNTER: Initial ACUITY: 1 day PAIN SCORE: 0/10 LOCATION: Bilateral chest FINDINGS: Shunt catheter tube overlies the right neck chest and upper abdomen. There is stable blunting of the left lateral costophrenic angle. Cardiomegaly and aortic calcification with mild left basilar atelect asis. Osseous structures are intact. CONCLUSION: Left basilar atelectasis stable blunting of the left lateral costophrenic angle. Peyman Shipman MD on April 03, 2017 at 7:50 Board Certified Radiologist. This report was verified electronically.
--- NOTE | 2017-04-03 07:56 | RADRPT ---
EXAM DATE/TIME: 04/03/2017 07:39 [facility] COMPARISON: ANKLE LEFT LIMITED (AP&LAT), December 16, 2016, 9:35. INDICATIONS : Left ankle pain post fall. MEDICAL HISTORY : Left ankle fracture. SURGICAL HISTORY : ORIF left ankle November 2016. ENCOUNTER: Initial ACUITY: 1 day PAIN SCORE: 10/10 LOCATION: Left ankle. FINDINGS: Frontal and lateral views of the left ankle are obtained and demonstrate a fracture dislocation of th e ankle with 2 screws traversing the distal tibia and one screw traversing the distal fibular fractur e with interruption of the ankle mortise, displaced medial malleolus fracture fragment, and comminute d distal fibular fracture fragments identified. There is soft tissue swelling. There is diffuse decre ased bone density. Prominent enthesophyte formation at the calcaneus plantar and posterior aspects. V ascular calcifications are noted. Subcutaneous emphysema is seen anteriorly on the lateral view and t here appears to be an open fracture injury medial aspect of the ankle. CONCLUSION: Significant deformity about the ankle fracture dislocation as above, soft tissue swelling and subcuta neous emphysema. Peyman Shipman MD on April 03, 2017 at 7:51 Board Certified Radiologist. This report was verified electronically.
[2017-04-03 08:00] VITALS: BP 112/92; PULSE 100; RESP 17; O2SAT 97
[2017-04-03] MEDS ORDERED: SODIUM CHLORIDE 0.9% FLUSH 10 ML FLUSH IV FLUSH PRN (08:15)
[2017-04-03] MEDS ORDERED: NALOXONE HCL 0.4 MG/ML AMP IV PRN (08:15)
[2017-04-03] MEDS ORDERED: MAGNESIUM HYDROXIDE SUSP 30 ML CUP PO PRN (08:15)
[2017-04-03] MEDS ORDERED: SENNOSIDES 8.6 MG TAB PO PRN (08:15)
[2017-04-03] MEDS ORDERED: LACTULOSE SYRUP 20 GM/30 ML CUP PO PRN (08:15)
[2017-04-03] MEDS ORDERED: BISACODYL 10 MG SUPP RECTAL PRN (08:15)
[2017-04-03] MEDS ORDERED: ONDANSETRON HCL 4 MG/2 ML VIAL IVP PRN (08:15)
[2017-04-03 08:16] LABS: ALT (GPT) 16 U/L (10-53); ANION GAP 6 MEQ/L (5-15); AST (GOT) 27 U/L (15-37); BICARBONATE 29.7 MEQ/L (21.0-32.0); BLOOD UREA NITROGEN 25 MG/DL (7-18); CHLORIDE 103 MEQ/L (98-107); GLOMERULAR FILTRATION RATE 36 ML/MIN (>89); POTASSIUM 4.6 MEQ/L (3.5-5.1); SODIUM (NA) 139 MEQ/L (136-145)
[2017-04-03 08:19] LABS: ALKALINE PHOSPHATASE 111 U/L (45-117); TOTAL BILIRUBIN ADULT 0.6 MG/DL (0.2-1.0)
--- NOTE | 2017-04-03 08:25 | HHI.HP ---
HPI Service [facility] Primary Care Physician Jordan Barnhart MD Admission Diagnosis open left ankle fracture dislocation status post mechanical fall Diagnoses: Chief Complaint: fall and left ankle pain Travel History International Travel<30 Days: No Contact w/Intl Traveler <30 Da: No Traveled to Known Affected Are: No History of Present Illness This a pleasant 86-year-old female with history of NPH status post DATABASE ADMIN shunt, type 2 diabetes, CVA August 2016, hypertension, hyperlipidemia. Patient presented to the emergency room after having a fall and found with open left ankle fracture. Patient recently admitted in November after fall and left ankle fracture, underwent Left Ankle Open Reduction and Internal Fixation 12/[address] Cole. Patient is a resident at an [facility], very little ambulation. Apparently the patient was being transfer when when she fell, the staff was present at the time. There was no head injury, no neck injury, no loss of consciousness. Patient denies any chest pain, no dizziness, no shortness of breath. She does complain of left ankle pain which is improved now after Dilaudid was given. Patient is allergic to morphine. She does have intact sensation to the left foot and is able to move toes. She does have a palpable pedal pulse. She has been evaluated by Dr. Reyez and plans to take her to surgery this morning. Antibiotics have been given. Laboratory workup has been reviewed, CBC remarkable for anemia, hemoglobin 8.6, hematocrit 26.3. ENT remarkable for mild renal insufficiency, BUN 25, creatinine 1.39. Urine analysis is pending. Patient is comfortable at this time, she has been given Dilaudid. Daughter is at the bedside supplementing medical information. Indicates that the patient has been declining since August when she had stroke and then had the fracture in November. She ambulates very little and is only able to transfer with assist. She is requesting [facility] for rehabilitation. Patient is admitted for further evaluation and treatment. Review of Systems Constitutional: DENIES: Diaphoretic episodes, Fatigue, Fever, Weight gain, Weight loss, Chills, Dizziness, Change in appetite, Night Sweats Endocrine: DENIES: Abnorml menstrual pattern, Heat/cold intolerance, Polydipsia , Polyuria, Polyphagia Eyes: DENIES: Blurred vision, Diplopia, Eye inflammation, Eye pain, Vision loss , Photosensitivity, Double Vision Ears, nose, mouth, throat: DENIES: Tinnitus, Hearing loss, Vertigo, Nasal discharge, Oral lesions, Throat pain, Hoarseness, Ear Pain, Running Nose, Epistaxis, Sinus Pain, Toothache, Odynophagia Cardiovascular: DENIES: Chest pain, Palpitations, Syncope, Dyspnea on Exertion , PND, Lower Extremity Edema, Orthopnea, Claudication Genitourinary: DENIES: Abnormal vaginal bleeding, Dysmenorrhea, Dyspareunia, Sexual dysfunction, Urinary frequency, Urinary incontinence, Urgency, Hematuria , Dysuria, Nocturia, Vaginal discharge Musculoskeletal: COMPLAINS OF: Joint pain, DENIES: Muscle aches, Stiffness, Joint Swelling, Back pain, Neck pain Integumentary: DENIES: Abnormal pigmentation, Pruritus, Rash, Nail changes, Breast masses, Breast skin changes, Nipple discharge Hematologic/lymphatic: DENIES: Bruising, Lymphadenopathy Immunologic/allergic: DENIES: Eczema, Urticaria Neurologic: DENIES: Abnormal gait, Headache, Localized weakness, Paresthesias, Seizures, Speech Problems, Tremor, Poor Balance Psychiatric: DENIES: Anxiety, Confusion, Mood changes, Depression, Hallucinations, Agitation, Suicidal Ideation, Homicidal Ideation, Delusions Past Family Social History Past Medical History 1. Significant for normal pressure hydrocephalus, status post DATABASE ADMIN shunt. 2. Diabetes. 3. Diabetic neuropathy. 4. Hypertension. 5. As per old records hyperlipidemia. 6. History of bilateral knee replacement with DATABASE ADMIN shunt placement. 7. Left hip open reduction, internal fixation. 8. Bilateral cataract surgery. 9. right ankle fracture. 10. Recent CVA right parietal 2015 Past Surgical History status post Left Ankle Open Reduction and Internal Fixation 12/16 Reported Medications Reported Meds & Active Scripts Active Hydrocodone-Acetaminophen 5-325 mg Tab 1 Tab PO Q6H PRN Oyster Shell Calcium/Vitamin D (Calcium Carbonate-Cholecalciferol) 250-125 Mg- Unit Tab 250 Mg PO TID Reported Potassium Chloride ER (Potassium Chloride) 20 Meq Tab 20 Meq PO BID Furosemide 20 Mg Tab 20 Mg PO BID Docusate Sodium 100 Mg Cap 100 Mg PO BID Lyrica (Pregabalin) 75 Mg Cap 75 Mg PO BID Pioglitazone (Pioglitazone HCl) 15 Mg Tab 15 Mg PO DAILY Omeprazole 20 Mg Tab 20 Mg PO DAILY Enalapril (Enalapril Maleate) 10 Mg Tab 10 Mg PO DAILY Crestor (Rosuvastatin Calcium) 10 Mg Tab 10 Mg PO EVERY OTHER DAY Allergies: Coded Allergies: Bactrim (Verified Allergy, Intermediate, Hives, 12/16/16) Morphine (Verified Adverse Reaction, Severe, N/V, 12/16/16) Active Ordered Medications Inpatient Medications Cefazolin Sodium/ Dextrose (Ancef 2 Gm Premix) 50 ml @ 100 mls/hr ONCE ONCE IV Last administered on 04/03/17 07:29; Start 04/03/17 at 07:15; Stop 04/03/17 at 07:44; Status DC Gentamicin Sulfate/Sodium Chloride 100 ml @ 200 mls/hr ONCE ONCE IV ; Start at 07:15; Stop 04/03/17 at 07:44; Status DC Hydromorphone HCl (Dilaudid Pf Inj) 0.5 mg ONCE ONCE IVS Last administered on 04/03/17 07:28; Start 04/03/17 at 07:15; Stop 04/03/17 at 07:16; Status DC Ondansetron HCl (Zofran Inj) 4 mg ONCE ONCE IVP Last administered on 04/03/17 07:27; Start 04/03/17 at 07:15; Stop 04/03/17 at 07:16; Status DC Sodium Chloride (NS Flush) 2 ml UNSCH PRN IVF FLUSH AFTER USING IV ACCESS; Start 04/03/17 at 07:15 Tetanus/ Diphtheria Toxoids 0.5 ml 0.5 ml ONCE ONCE IM Last administered on 04/03 07:28; Start 04/03/17 at 07:15; Stop 04/03/17 at 07:16; Status DC Family History Reviewed, non contributory Social History Patient resides at an assisted living facility, very rare alcohol, no tobacco abuse, substance abuse. Has been using mostly a wheelchair, very little use of walker in the last couple of months. Physical Exam Vital Signs Vital Signs Date Time Temp Pulse Resp B/P Pulse Ox O2 Delivery O2 Flow Rate FiO2 04/03/17 07:00 102 16 97 Room Air 04/03/17 06:59 98.7 103 15 146/63 98 Physical Exam GENERAL: This is a well-nourished, well-developed patient, in no apparent distress. SKIN: No rashes, ecchymoses or lesions. Cool and dry. HEAD: Atraumatic. Normocephalic. No temporal or scalp tenderness. EYES: Pupils equal round and reactive. Extraocular motions intact. No scleral icterus. No injection or drainage. ENT: Nose without bleeding, purulent drainage or septal hematoma. Throat without erythema, tonsillar hypertrophy or exudate. Uvula midline. Airway patent. NECK: Trachea midline. No JVD or lymphadenopathy. Supple, nontender, no meningeal signs. CARDIOVASCULAR: Regular rate and rhythm with soft murmur. RESPIRATORY: Clear to auscultation. Breath sounds equal bilaterally. No wheezes , rales, or rhonchi. GASTROINTESTINAL: Abdomen soft, non-tender, nondistended. Mid upper abdomen hernia noted, easily reducible. No pain. No hepato-splenomegaly, or palpable masses. No guarding. MUSCULOSKELETAL: Patient noted with an obvious open medial malleolus fracture with visible hardware, has a transverse laceration approximately 6 cm. There is edema noted to the left ankle and lower extremity. Able to move toes. Positive Doppler pulses. No range of motion at this time due to pain. No other joint abnormalities. NEUROLOGICAL: Awake, alert oriented 3. Follows commands appropriately. Laboratory Laboratory Tests Test 04/03/17 04/03/17 07:15 07:38 White Blood Count 6.1 Red Blood Count 2.78 Hemoglobin 8.6 Hematocrit 26.3 Mean Corpuscular Volume 94.4 Mean Corpuscular Hemoglobin 30.8 Mean Corpuscular Hemoglobin 32.6 Concent Red Cell Distribution Width 15.0 Platelet Count 162 Mean Platelet Volume 9.3 Neutrophils (%) (Auto) 56.6 Lymphocytes (%) (Auto) 29.0 Monocytes (%) (Auto) 9.3 Eosinophils (%) (Auto) 4.6 Basophils (%) (Auto) 0.5 Neutrophils # (Auto) 3.4 Lymphocytes # (Auto) 1.8 Monocytes # (Auto) 0.6 Eosinophils # (Auto) 0.3 Basophils # (Auto) 0.0 CBC Comment DIFF FINAL Differential Comment Prothrombin Time 11.6 Prothromb Time International 1.0 Ratio Activated Partial 27.2 Thromboplast Time Blood Type O POSITIVE Antibody Screen NEGATIVE Sodium Level 139 Potassium Level 4.6 Chloride Level 103 Carbon Dioxide Level 29.7 Anion Gap 6 Blood Urea Nitrogen 25 Creatinine 1.39 Estimat Glomerular Filtration 36 Rate Random Glucose 99 Calcium Level 8.4 Total Bilirubin 0.6 Aspartate Amino Transf 27 (AST/SGOT) Alanine Aminotransferase 16 (ALT/SGPT) Alkaline Phosphatase 111 Total Protein 6.8 Albumin 2.4 Result Diagram: 04/03/17 0715 04/03/17 0738 Imaging Last Impressions Chest X-Ray 04/03/17 0704 Signed Impressions: Service Date/Time: Monday, April 03, 2017 07:38 - CONCLUSION: Left basilar atelectasis stable blunting of the left lateral costophrenic angle. Peyman Shipman MD Ankle X-Ray 04/03/17 0000 Signed Impressions: Service Date/Time: Monday, April 03, 2017 07:39 - CONCLUSION: Significant deformity about the ankle fracture dislocation as above, soft tissue swelling and subcutaneous emphysema. Peyman Shipman MD Assessment and Plan Problem List: (1) Open left ankle fracture (2) Diabetes 1.5, managed as type 2 (3) History of CVA (cerebrovascular accident) (4) HTN (hypertension) (5) Fall (6) NPH (normal pressure hydrocephalus) (7) S/P ORIF left ankle (8) Anemia (9) Renal insufficiency Assessment and Plan Admit to Dr. Sanderson 86-year-old elderly female status post fall, found with open left ankle fracture. Patient is status post Left bimalleolar fracture and dislocation, in November. Had Left Ankle Open Reduction and Internal Fixation 12/16. -Appreciate orthopedic consultation, Dr. Mathew plans to take her to surgery this morning. Patient is stable to proceed. -DVT prophylaxis to be determined by orthopedic surgeon. -Pain management as needed-we'll use Dilaudid as needed, patient is allergic to morphine. Bowel regimen Physical therapy per orthopedic orders -Case management consultation for rehabilitation placement, daughter is requesting [facility] Renal insufficiency Continue with IV fluids BMP in the morning Anemia, etiology unclear, appears to be trending down from admission in November. Monitor H&H -May need blood transfusion if hemoglobin drops less than 8 Type 2 diabetes Accu-Cheks before meals and at bedtime with insulin therapy Recent CVA, stable Hold aspirin at this time -Continue statins Hypertension, stable Continue home medications NPH, status post DATABASE ADMIN shunt Stable, physical therapy has been ordered Home medications reviewed, initiated as indicated Protonix for GI prophylaxis Plan of care has been discussed with the patient and her daughter, their questions have been answered detail. Plan of care discussed with attending and registered nurse. Further management of the patient will be dependent on the hospital course This patient was seen by myself and Dr. Sanderson, this H&P is written on his behalf Physician Certification 2 Midnight Certification Type: Admission for Inpatient Services Order for Inpatient Services The services are ordered in accordance with Medicare regulations or non- Medicare payer requirements, as applicable. In the case of services not specified as inpatient-only, they are appropriately provided as inpatient services in accordance with the 2-midnight benchmark. Estimated LOS (days): 2 2 days is the estimated time the patient will need to remain in the hospital, assuming treatment plan goals are met and no additional complications. Post-Hospital Plan: SNF Problem Qualifiers (1) Open left ankle fracture: Qualified Code: S82.892B - Open left ankle fracture, type I or II, initial encounter (2) HTN (hypertension): Qualified Code: I10 - Essential hypertension (3) Fall: Qualified Code: W19.XXXA - Fall, initial encounter (4) Anemia: Qualified Code: D64.9 - Anemia, unspecified type Mayr Miguel Apr 03, 2017 08:25
[2017-04-03 08:41] VITALS: PULSE 109
[2017-04-03] MEDS ORDERED: GLUCAGON 1 MG/ML VIAL OTHER PRN (08:45)
[2017-04-03] MEDS ORDERED: DEXTROSE 50% IN WATER 50 ML VIAL(D50) IV PRN (08:45)
[2017-04-03 08:51] LABS: BACTERIA, URINE FEW /hpf; BLOOD, URINE NEG (NEG); COMMENT (UR) CATH-CULTURE IND; CULTURE IF INDICATED CATH CULTURE IND; GLUCOSE,URINE NEG (NEG); HYALINE CAST, URINE 1 /lpf (RARE); KETONE, URINE NEG (NEG); MUCUS URINE FEW /lpf (OCC); NITRITE,URINE NEG (NEG); URINE COLOR YELLOW (YELLW/STRAW)
[2017-04-03] MEDS: DOCUSATE SODIUM 100 MG CAP PO SCH ×2 (09:00→21:08)
[2017-04-03] MEDS: POTASSIUM CHLORIDE 20 MEQ CONTROLLED RELEASE TAB PO SCH ×2 (09:00→21:09)
[2017-04-03] MEDS: ENALAPRIL MALEATE 10 MG TAB PO SCH (09:00)
[2017-04-03] MEDS: CALCIUM/VITAMIN D 250 MG/125 U TAB PO SCH ×3 (09:00→18:54)
[2017-04-03] MEDS: DOCUSATE SODIUM 50 MG/SENNA 8.6 MG TAB PO SCH ×2 (09:00→21:00)
[2017-04-03] MEDS: FUROSEMIDE 20 MG TAB PO SCH ×2 (09:00→21:08)
[2017-04-03] MEDS: PANTOPRAZOLE SOD 20 MG DELAYED RELEASE TAB PO SCH (10:00)
[2017-04-03] MEDS: ATORVASTATIN 20 MG TAB PO SCH (10:00)
[2017-04-03] MEDS ORDERED: SODIUM BICARBONATE 8.4% INJ 50 ML ONE (10:18)
[2017-04-03] MEDS ORDERED: LIDOCAINE 1%/EPINEPHrine 1:100,000 SOLN 20 ML VIAL ONE ×2 (10:18)
[2017-04-03] MEDS ORDERED: BUPIVACAINE HCL PF 0.5% 30 ML VIAL ONE (10:18)
[2017-04-03] MEDS ORDERED: GENTAMICIN SULFATE 80 MG/2 ML VIAL ONE ×2 (10:18→11:18)
[2017-04-03] MEDS ORDERED: ceFAZolin INJ 1,000 MG VIAL IV ONE (11:10)
[2017-04-03] MEDS ORDERED: GENTAMICIN SULFATE 80 MG/2 ML VIAL IRRIGATION ONE ×2 (11:13→11:40)
[2017-04-03] MEDS ORDERED: DO NOT ADM ANY ANTICOAGULANT DRUGS PRN (11:45)
[2017-04-03] MEDS ORDERED: PHENYLEPH/NS 1000 MCG/10 ML SYR IV ONE (12:00)
[2017-04-03] MEDS ORDERED: PROPOFOL 200 MG/20 ML AMP IV ONE (12:00)
[2017-04-03] MEDS ORDERED: ONDANSETRON HCL 4 MG/2 ML VIAL IV PUSH ONE (12:00)
[2017-04-03] MEDS ORDERED: LACTATED RINGER'S 1000 ML INJ 1,000 ML IV ONE (12:00)
--- NOTE | 2017-04-03 12:16 | MB ---
cc: BRIAN CHAPA M.D. DATE OF CONSULTATION 04/03/2017 REASON FOR CONSULTATION Open fracture left ankle. HISTORY OF PRESENT ILLNESS Chloe Ventura is an 86-year-old female known to the undersigned as she underwent previous open reduction, internal fixation in November of 2016. She had follow-up in the office and had been cleared for weightbearing. She had a fall and twisting injury to her same ankle, her left ankle, today and sustained an open fracture dislocation. She was brought to [facility] where x-rays reveal a 5-cm open wound with bone sticking out from the wound on the medial ankle. Emergency consultation requested by Dr. Barakat. She is being admitted to the medical service and the recommendation is to proceed with emergency surgery for this condition. PAST MEDICAL/SURGICAL HISTORY Significant for - 1. CVA one year ago. 2. Diabetes. 3. Chronic incontinence. 4. Bilateral knee replacement. 5. Prior left ankle surgery. 6. Previous hydrocephalous shunt placement. 7. Previous cataract surgery. 8. Previous left hip trochanteric nail which gives her some chronic pain. 9. Previous duodenal ulcer. REGULAR MEDICATIONS 1. Lyrica. 2. Potassium. 3. Lasix. 4. Enalapril. 5. Omeprazole. 6. Crestor. 7. Dulcolax. ALLERGIES she reports allergies to - BACTRIM. MORPHINE. PHYSICAL EXAMINATION GENERAL: The patient is alert and cooperative and oriented. Her and daughter is at the bedside. ORTHOPEDIC EXAM: She is nontender about her hips, although she complains of left hip pain. Knees show no effusion, bilateral knee incisions. Right ankle benign. Distal pulses intact on the right. Good capillary fill noted on the left. Deformity of left foot with exposed bone medial ankle and hardware present. She is able to slightly flex and extend her toes and she states sensation is intact. X-RAYS Reviewed which shows a bent screw about the fibula and a dislocated ankle with fracturing combination of the medial malleolus. ASSESSMENT Grade 2 open fracture left ankle with 5-cm open medial wound and retained internal fixation. MEDICAL DECISION MAKING Her condition was discussed. The options of treatment were discussed. Recommendation is for surgical intervention, irrigation and debridement and revision of the internal fixation. It is theoretically possible to bend this current screw and then take it out but I think probably I will have to do an osteotomy and cut the screw and then be able to remove it with some hardware removal, instrumentation and then put a plate on the lateral side. We will go [id number] making decisions. The risks and benefits of surgical intervention was discussed with the patient and the patient's daughter including discussion of the risks of infection, nerve damage, blood vessel damage, anesthetic complications, medical complications and unforeseen possible complications. All of her questions were answered. Informed consent was obtained. MD BREANNA Escalante/MILEY /8:32 AM /12:10 PM
--- NOTE | 2017-04-03 13:10 | EKG ---
Date Performed: 04/03/2017 Time Performed: 07:11:05 PTAGE: 86 years EKG: SINUS TACHYCARDIA LOW QRS VOLTAGE IN PRECORDIAL LEADS SEPTAL MYOCARDIAL INFARCTION ABNORMAL ECG PREVIOUS TRACING : 12/16/2016 09.25 Compared to prior tracing no significant change DOCTOR: Diogenes Rodrigues Interpretating Date/Time 04/03/2017 13:08:09
[2017-04-03] MEDS ORDERED: *HYDROmorphone PF 1 MG VIAL PERIprocedural Use ONLY ONE (13:55)
--- NOTE | 2017-04-03 14:00 | RADRPT ---
EXAM DATE/TIME: 04/03/2017 11:20 [facility] COMPARISON: ANKLE LEFT COMPLETE ([id number]), December 16, 2016, 14:31. INDICATIONS : Left ankle hardware removal and open reduction internal fixation. MEDICAL HISTORY : Hypertension. SURGICAL HISTORY : ORIF Left ankle ENCOUNTER: Initial ACUITY: 1 day PAIN SCORE: Non-responsive. LOCATION: Left ankle FINDINGS: There is plate and screw fixation of the distal left fibula. Screw fixation medial malleolus. Normal alignment across the ankle joint. No complications identified. CONCLUSION: 1. Fixation left ankle as above. Thony Wilhelm MD on April 03, 2017 at 13:57 Board Certified Radiologist. This report was verified electronically.
[2017-04-03] MEDS ORDERED: *MEPERIDINE 25 MG INJ VIAL PERIprocedural Use ONLY ONE (14:11)
--- NOTE | 2017-04-03 14:12 | PD.OP ---
Operative Report Preoperative Diagnosis: (1) Open bimalleolar fracture of left ankle (2) Syndesmotic disruption of left ankle Postoperative Diagnosis: (1) Open bimalleolar fracture of left ankle (2) Syndesmotic disruption of left ankle Procedure: 1. Revision ORIF Left Ankle with removal of previous internal fixation 2. Right Ankle Open Fracture Irrigation and Debridement 3. Right ankle repair of syndesmosis Anesthesia: General Surgeon: Champ Cole [employer] Program Coordinator(s): Andrey SCHRADER Operation and Findings: see dictation Champ Cole MD Apr 03, 2017 14:12
[2017-04-03] MEDS ORDERED: HYDROmorphone HCL PCA 6 MG/30 ML IV SCH (14:15)
[2017-04-03] MEDS ORDERED: Post-op Orders (for Pharmacy) MISC XX ONE (14:15)
[2017-04-03] MEDS ORDERED: diphenhydrAMINE HCL 25 MG CAP PO PRN (14:15)
[2017-04-03] MEDS ORDERED: MISCELLANEOUS NURSING INFORMATION XX PRN (14:15)
[2017-04-03] MEDS: INSULIN ASPART SUPPLEMENTAL SCALE SQ SCH ×3 (14:36→21:09)
[2017-04-03] MEDS ORDERED: *RESP: ALBUTEROL 2.5 MG/3 ML NEB (PRN) PERIprocedural Use ONLY NEB ONE (14:37)
[2017-04-03] MEDS: SODIUM CHLORIDE 0.9% FLUSH 10 ML FLUSH IV FLUSH SCH ×2 (14:40→21:08)
[2017-04-03] MEDS: LACTATED RINGER'S 1000 ML INJ 1,000 ML IV SCH (15:00)
[2017-04-03 16:00] VITALS: BP 121/70; PULSE 114; RESP 18; TEMP 96.1; O2SAT 100
[2017-04-03] MEDS: ceFAZolin 2 GM PREMIX 50 ML IV SCH (18:54)
[2017-04-03 20:00] VITALS: BP 133/58; PULSE 101; RESP 16; TEMP 97.6; O2SAT 99
[2017-04-03] MEDS: PCA - TOTAL MG DILAUDID DELIVERED PER SHIFT OTHER SCH (21:15)
--- NOTE | 2017-04-03 23:34 | MP ---
cc: BRIAN CHAPA M.D. DATE OF SURGERY: 04/03/2017 PREOPERATIVE DIAGNOSIS: Left ankle open bimalleolar fracture. Syndesmotic disruption, left ankle. POSTOPERATIVE DIAGNOSIS: Left ankle open bimalleolar fracture. Syndesmotic disruption, left ankle. OPERATION: 1. Revision open reduction, internal fixation including removal of prior internal fixation with use of Synthes reconstruction locking plate on the fibula laterally with three syndesmotic screws, locking the fibula to the distal tibia to hold the bony alignment. 2. Right open fracture irrigation and debridement including bony debridement with bone fragments. 3. Right ankle repair of syndesmosis. ANESTHESIA: General. SURGEON: Brian Chapa MD. BOOK JOGGER: RACIEL Wood ESTIMATED BLOOD LOSS: 50 to 100 cc DRAINS: None. SPECIMEN: Bony fragments discarded. COMPLICATIONS None known. INDICATION Chloe Ventura is an 86 year-old female who underwent open reduction, internal fixation approximately 3-1/2 months ago. She had done reasonably well in the office and had progressed to weightbearing as tolerated. Something happened today where she sustained a twisting injury to her ankle while attempting to get out of bed which resulted in deformation of the ankle and failure of the internal fixation on both sides of the ankle with a 5 to 6 cm open horizontal wound. She was brought to [facility] where x-rays confirmed the radiographic failure and the failure of the syndesmosis and a bend in the previous 4.5 inch medullary screw fixation of the distal fibula and further displacement of the bone fragments of the medial malleolus with the two screws being present in the medial malleolus. She is indicated for surgical repair. The risks and benefits were thoroughly discussed with the patient and patient's daughter. Informed consent was obtained. It should be noted that the business assistant, RACIEL Wood, his skill set was medically necessary for the performance of the operation. PROCEDURE The patient was brought to the operating room. She was placed under general anesthetic. The right lower extremity was prepped and draped in usual sterile fashion. IV antibiotics had been given in the ER and were given again prior to surgical intervention. We had a tourniquet but did not use the tourniquet. We made our lateral based incision. We pushed the fibula into better alignment, tried to bend the screw back into position. We identified the distal screw and were able to remove this with slowly backward moving it. This did result in some fracturing in the most distal aspect of the distal fibula. We washed out the fracture site with antibiotic irrigation and removed the two medial based screws and we curetted the open fracture site and then thoroughly irrigated out. The bony fragments were removed. We contoured a lateral based plate proximally 9 holes and rotated this and contoured this, and we saw the degree of combination and the instability of the syndesmosis and the tendency of the talus to sublux laterally was necessary to place syndesmotic screws. We placed the syndesmotic screws through the plate and three total screws were used. We locked this into place. Medially we used 4-0 cannulated screws and we reinforced this with #2 FiberWire sutures through the bone and around the soft tissue to pull this into position. Again we used antibiotic irrigation, pulse lavage and then proceeded to close with absorbable suture, nylon on the skin, and laterally absorbable suture and nylon on the skin. We also used stables and one anterior/inferior medial incision. The patient was then placed in a sterile dressing and a sugar-tong splint, awoken and returned to the recovery room in stable condition. MD BREANNA Escalante/GLORIA /11:04 PM /11:26 PM
[2017-04-04] VITALS (12 sets, daily range): BP systolic 82–142; BP diastolic 45–90; PULSE 81–100; RESP 13–20; TEMP 96.2–98.5; O2SAT 95–100
[2017-04-04] MEDS: ceFAZolin 2 GM PREMIX 50 ML IV SCH ×3 (02:01→18:44)
[2017-04-04] MEDS: LACTATED RINGER'S 1000 ML INJ 1,000 ML IV SCH ×2 (02:04→20:26)
[2017-04-04] MEDS: INSULIN ASPART SUPPLEMENTAL SCALE SQ SCH ×4 (06:02→21:00)
[2017-04-04] MEDS: PCA - TOTAL MG DILAUDID DELIVERED PER SHIFT OTHER SCH ×3 (06:02→21:49)
[2017-04-04] MEDS: SODIUM CHLORIDE 0.9% FLUSH 10 ML FLUSH IV FLUSH SCH ×2 (09:00→21:00)
[2017-04-04] MEDS: DOCUSATE SODIUM 50 MG/SENNA 8.6 MG TAB PO SCH ×2 (09:00→21:53)
[2017-04-04] MEDS: PSYLLIUM FIBER SF/GF 6 GM POWD PKT PO SCH (09:00)
[2017-04-04 10:02] LABS: AUTOMATED NEUTROPHIL # 4.8 TH/MM3 (1.8-7.7); BASOPHIL % 0.5 % (0.0-2.0); EOSINOPHIL # 0.1 TH/MM3 (0-0.4); EOSINOPHIL % 1.2 % (0.0-4.0); LYMPH % 13.8 % (9.0-44.0); LYMPHOCYTE # 0.9 TH/MM3 (1.0-4.8); MEAN CELL VOLUME 93.8 FL (80.0-100.0); MEAN CORPUSCULAR HEMOGLOBIN 30.9 PG (27.0-34.0); MONO % 10.3 % (0.0-8.0); NEUT % 74.2 % (16.0-70.0); PLATELET COUNT 137 TH/MM3 (150-450); RED BLOOD COUNT 2.21 MIL/MM3 (4.00-5.30); RED CELL DISTRIBUTION WIDTH 14.5 % (11.6-17.2); WHITE BLOOD COUNT 6.5 TH/MM3 (4.0-11.0)
[2017-04-04 10:07] LABS: HEMO FLAGS DIFF FINAL
[2017-04-04 10:11] LABS: HEMATOCRIT 20.8 % (35.0-46.0)
[2017-04-04 10:31] LABS: BICARBONATE 26.8 MEQ/L (21.0-32.0); POTASSIUM 4.2 MEQ/L (3.5-5.1)
[2017-04-04] MEDS: DOCUSATE SODIUM 100 MG CAP PO SCH ×2 (10:38→21:53)
[2017-04-04] MEDS: ATORVASTATIN 20 MG TAB PO SCH (10:38)
[2017-04-04] MEDS: POTASSIUM CHLORIDE 20 MEQ CONTROLLED RELEASE TAB PO SCH (10:38)
[2017-04-04] MEDS: PANTOPRAZOLE SOD 20 MG DELAYED RELEASE TAB PO SCH (10:38)
[2017-04-04] MEDS: CALCIUM/VITAMIN D 250 MG/125 U TAB PO SCH ×3 (10:38→18:43)
[2017-04-04] MEDS: FUROSEMIDE 20 MG TAB PO SCH (10:38)
[2017-04-04] MEDS: ENALAPRIL MALEATE 10 MG TAB PO SCH (10:38)
[2017-04-04] MEDS ORDERED: ENOXAPARIN SODIUM 30 MG/0.3 ML SYRINGE SQ SCH (11:00)
[2017-04-04] MEDS ORDERED: FUROSEMIDE 20 MG/2 ML VIAL IV PUSH ONE (11:00)
[2017-04-04] MEDS: ACETAMINOPHEN/HYDROcodone 325 MG/5 MG TAB PO PRN (12:38)
[2017-04-04] MEDS ORDERED: SODIUM CHLORID 0.9% 500 ML INJ 500 ML IV ONE (14:30)
[2017-04-04] MEDS ORDERED: FUROSEMIDE 40 MG/4 ML VIAL IV PUSH ONE (16:00)
--- NOTE | 2017-04-04 17:25 | HHI.PR ---
Addendum to Inpatient Note Addendum Reason: Additional Documentation Additional Information Residents responded to [facility] that was called due to low BP around 80s/40. Attending had already been contacted and orders placed. Will defer further treatment to attending sdw Dr. Ya Caba,Sarah Perez MD R2 Apr 04, 2017 17:25
[2017-04-04] MEDS ORDERED: ALBUMIN HUMAN 25% 25 GM/100 ML BAGP IV ONE (17:30)
--- NOTE | 2017-04-04 17:48 | RADRPT ---
EXAM DATE/TIME: 04/04/2017 17:35 [facility] COMPARISON: CT BRAIN W/O CONTRAST, December 16, 2016, 9:42. INDICATIONS : Altered mental status. RADIATION DOSE: 48.35 CTDIvol (mGy) MEDICAL HISTORY : Hypertension. Diabetes mellitus type 2. Gastroesophageal reflux disease.Hydrocephalus SURGICAL HISTORY : OUTSOLE LEVELER shunt ENCOUNTER: Initial ACUITY: 1 day PAIN SCALE: 0/10 LOCATION: cranial TECHNIQUE: Multiple contiguous axial images were obtained of the head. Using automated exposure control and adj ustment of the mA and/or kV according to patient size, radiation dose was kept as low as reasonably a chievable to obtain optimal diagnostic quality images. DICOM format image data is available electro nically for review and comparison. FINDINGS: CEREBRUM: The ventricles are prominent but stable compared to the prior study. There is a right ventricular tub e in place. This is unchanged in position. There is bilateral cartilaginous thinning.. No evidence o f midline shift, mass lesion, hemorrhage or acute infarction. No extra-axial fluid collections are s een. POSTERIOR FOSSA: The cerebellum and brainstem are intact. The 4th ventricle is midline. The cerebellopontine angle i s unremarkable. EXTRACRANIAL: The visualized portion of the orbits is intact. SKULL: The calvaria is intact. No evidence of skull fracture. CONCLUSION: 1. Stable CT scan of the brain compared to 12/16/2016. 2. No change in the right ventricular catheter. The ventricles are prominent but stable. 3. No acute intracranial hemorrhage. Joss Rosario MD on April 04, 2017 at 17:45 Board Certified Radiologist. This report was verified electronically.
--- NOTE | 2017-04-04 18:07 | PD.ORT.PN ---
Subjective Subjective Remarks Patient comfortable Objective Vitals Vital Signs Date Time Temp Pulse Resp B/P Pulse Ox O2 Delivery O2 Flow Rate FiO2 04/04/17 16:22 98 Nasal Cannula 2.00 04/04/17 16:00 96.9 91 18 102/45 100 04/04/17 13:06 17 04/04/17 12:00 97.2 96 18 142/58 98 04/04/17 08:58 100 Nasal Cannula 2.00 04/04/17 08:00 96.2 94 18 133/62 100 04/04/17 06:02 16 04/04/17 04:10 97.9 100 16 110/90 98 04/04/17 00:00 98.1 97 20 111/87 95 04/03/17 21:15 17 04/03/17 20:00 97.6 101 16 133/58 99 I/O 04/03/17 04/03/17 04/03/17 04/04/17 04/04/17 04/04/17 07:00 15:00 23:00 07:00 15:00 23:00 Intake Total 1000 ml 754 ml 820 ml 120 ml Output Total 480 ml 500 ml 400 ml 800 ml Balance 520 ml 254 ml 420 ml -680 ml Intake Oral 240 ml 240 ml 120 ml IV Total 514 ml 580 ml Other 1000 ml Output Urine Total 450 ml 500 ml 400 ml 800 ml Estimated Blood Loss 30 ml # Bowel Movements 0 Result Diagram: 04/04/17 0848 04/04/17 0848 Imaging Last [address] 04/04/17 0000 Signed Impressions: Service Date/Time: Tuesday, April 04, 2017 17:35 - CONCLUSION: 1. Stable CT scan of the brain compared to 12/16/2016. 2. No change in the right ventricular catheter. The ventricles are prominent but stable. 3. No acute intracranial hemorrhage. Joss Rosario MD Objective Remarks Left ankle splint in place Able to slightly move toes good capillary refill Assessment & Plan Ortho Post Op Day #: 1 Problem List: (1) Open bimalleolar fracture of left ankle Assessment and Plan Post op day #1 S/P Revision ORIF and Irrigation and Debridement of Left Ankle Non weight bearing left lower extremity Physical therapy Medical management Patient was transferred to ICU Champ Cole MD Apr 04, 2017 18:06
--- NOTE | 2017-04-04 18:24 | PD.CONS ---
HPI Service Critical Care Medicine Consult Requested By [facility] Hospitalist Reason for Consult Anemia Primary Care Physician Jordan Barnhart MD History of Present Illness 86-year-old female. Date of admission 04/03/2017. Date of consultation 04/04/2017. 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 Yesterday at [facility], patient was transferred at that facility when she fell and experienced pain in left ankle. Was diagnosed with a grade 2 open bimalleolar fracture left ankle. Vascular intact. Was cleared for surgery by hospitalist service. Yesterday, patient had revision ORIF left ankle with removal of hardware, I&D and repair of syndesmosis secondary to open bimalleolar fracture, syndesmosis disruption. Today, hemoglobin 6.8. Floor, systolic blood pressure 80 and patient some confused. Transfer to ICU after 500 cc bolus crystalloid and albumin bolus. Also received [address] head negative for acute findings.. Currently receiving 2 units PRBCs. Hemodynamic stable. Review of Systems Constitutional: COMPLAINS OF: Fatigue, DENIES: Fever, Weight gain, Weight loss Endocrine: DENIES: Polydipsia, Polyuria Eyes: COMPLAINS OF: Blurred vision, Vision loss, DENIES: Eye pain Ears, nose, mouth, throat: COMPLAINS OF: Hearing loss Respiratory: DENIES: Apneas, Shortness of breath Cardiovascular: DENIES: Chest pain Gastrointestinal: DENIES: Abdominal pain Genitourinary: DENIES: Urgency Musculoskeletal: COMPLAINS OF: Joint pain, Joint Swelling Integumentary: DENIES: Pruritus, Rash Hematologic/lymphatic: COMPLAINS OF: Bruising Immunologic/allergic: DENIES: Eczema Neurologic: DENIES: Abnormal gait Psychiatric: COMPLAINS OF: Confusion, DENIES: Anxiety Past Family Social History Allergies: Coded Allergies: Bactrim (Verified Allergy, Intermediate, Hives, 12/16/16) Morphine (Verified Adverse Reaction, Severe, N/V, 12/16/16) Past Medical History Hypertension Dyslipidemia Diabetes mellitus with nephropathy Bilateral cataracts Normal pressure hydrocephalus History duodenal ulcer Recio's esophagus Chronic incontinence History CVA Past Surgical History Revision ORIF left ankle with removal of hardware Prior left ankle surgery Bilateral cataracts PRIMARY SCHOOL TEACHER LIBRARIAN shunt Left hip IT nailing Bilateral total knee replacements Reported Medications Hydrocodone-Acetaminophen 5-325 mg Tab 1 Tab PO Q6H PRN Oyster Shell Calcium/Vitamin D (Calcium Carbonate-Cholecalciferol) 250-125 Mg- Unit Tab 250 Mg PO TID Reported Potassium Chloride ER (Potassium Chloride) 20 Meq Tab 20 Meq PO BID Furosemide 20 Mg Tab 20 Mg PO BID Docusate Sodium 100 Mg Cap 100 Mg PO BID Lyrica (Pregabalin) 75 Mg Cap 75 Mg PO BID Pioglitazone (Pioglitazone HCl) 15 Mg Tab 15 Mg PO DAILY Omeprazole 20 Mg Tab 20 Mg PO DAILY Enalapril (Enalapril Maleate) 10 Mg Tab 10 Mg PO DAILY Crestor (Rosuvastatin Calcium) 10 Mg Tab 10 Mg PO EVERY OTHER DAY Active Ordered Medications Reviewed in EMR Family History Father 83 of stomach cancer. Mother 88 old age. Social History . Retired. No tobacco use. Rare alcohol use. Physical Exam Vital Signs Vital Signs Date Time Temp Pulse Resp B/P Pulse Ox O2 Delivery O2 Flow Rate FiO2 04/04/17 16:22 98 Nasal Cannula 2.00 04/04/17 16:00 96.9 91 18 102/45 100 04/04/17 13:06 17 04/04/17 12:00 97.2 96 18 142/58 98 04/04/17 08:58 100 Nasal Cannula 2.00 04/04/17 08:00 96.2 94 18 133/62 100 04/04/17 06:02 16 04/04/17 04:10 97.9 100 16 110/90 98 04/04/17 00:00 98.1 97 20 111/87 95 04/03/17 21:15 17 04/03/17 20:00 97.6 101 16 133/58 99 Physical Exam GENERAL: 86-year-old female. Appears stated age currently resting in bed in no acute distress SKIN: Cool and dry. Pale. HEAD: Right PRIMARY SCHOOL TEACHER LIBRARIAN shunt EYES: Pupils equal and round around 3 mm bilaterally and sluggish. No scleral icterus. No injection or drainage. ENT: No nasal bleeding or discharge. Mucous membranes pink and moist. NECK: Trachea midline. No JVD. CARDIOVASCULAR: Regular rate and rhythm. S1, S2. No S4. Without murmur RESPIRATORY:. Clear to auscultation. Breath sounds equal bilaterally. GASTROINTESTINAL: Abdomen soft, non-tender, obese. Hypoactive bowel sounds are appreciated. MUSCULOSKELETAL: Left lower extremity wrapped in Kenji bandage. Left toes are swollen. Able to move. Well-perfused. NEUROLOGICAL: Awake and alert. No obvious cranial nerve deficits. Motor grossly within normal limits. Five out of 5 muscle strength in the arms and legs. Slow speech. Laboratory Laboratory Tests Test 04/04/17 04/04/17 04/04/17 08:48 12:32 14:28 White Blood Count 6.5 Red Blood Count 2.21 Hemoglobin 6.8 Hematocrit 20.8 Mean Corpuscular Volume 93.8 Mean Corpuscular Hemoglobin 30.9 Mean Corpuscular Hemoglobin 33.0 Concent Red Cell Distribution Width 14.5 Platelet Count 137 Mean Platelet Volume 9.4 Neutrophils (%) (Auto) 74.2 Lymphocytes (%) (Auto) 13.8 Monocytes (%) (Auto) 10.3 Eosinophils (%) (Auto) 1.2 Basophils (%) (Auto) 0.5 Neutrophils # (Auto) 4.8 Lymphocytes # (Auto) 0.9 Monocytes # (Auto) 0.7 Eosinophils # (Auto) 0.1 Basophils # (Auto) 0.0 CBC Comment DIFF FINAL Differential Comment Sodium Level 136 Potassium Level 4.2 Chloride Level 100 Carbon Dioxide Level 26.8 Anion Gap 9 Blood Urea Nitrogen 23 Creatinine 1.35 Estimat Glomerular Filtration 37 Rate Random Glucose 123 Calcium Level 8.5 Blood Type O POSITIVE Crossmatch Leukocyte-Reduced Leukocyte-Reduced Red Blood Red Blood Cells Cells Blood Bank Comment Date/Time Procedure Status Source Growth 04/03/17 07:44 Urine Culture - Preliminary Resulted Urine Catheterized Urine Group D Enterococcus Result Diagram: 04/04/17 0848 04/04/17 0848 Imaging Last [address] 04/04/17 0000 Signed Impressions: Service Date/Time: Tuesday, April 04, 2017 17:35 - CONCLUSION: 1. Stable CT scan of the brain compared to 12/16/2016. 2. No change in the right ventricular catheter. The ventricles are prominent but stable. 3. No acute intracranial hemorrhage. Joss Rosario MD Chest X-Ray 04/03/17 0704 Signed Impressions: Service Date/Time: Monday, April 03, 2017 07:38 - CONCLUSION: Left basilar atelectasis stable blunting of the left lateral costophrenic angle. Peyman Shipman MD Ankle X-Ray 04/03/17 0000 Signed Impressions: Service Date/Time: Monday, April 03, 2017 11:20 - CONCLUSION: 1. Fixation left ankle as above. Thony Wilhelm MD Ankle X-Ray 04/03/17 0000 Signed Impressions: Service Date/Time: Monday, April 03, 2017 07:39 - CONCLUSION: Significant deformity about the ankle fracture dislocation as above, soft tissue swelling and subcutaneous emphysema. Peyman Shipman MD Assessment and Plan Assessment and Plan Neuro/Psych: Diabetic neuropathy History CVA History normal pressure hydrocephalus status post right PRIMARY SCHOOL TEACHER LIBRARIAN shunt Bilateral cataracts CT head 04/04 revealed adequate placement of right PRIMARY SCHOOL TEACHER LIBRARIAN shunt. No acute cranial findings. 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 CV: Hypovolemic shock History of hypertension Dyslipidemia Currently being transfused 2 units PRBCs. Hold Vasotec 10 mg by mouth daily. On Lipitor 20 mg by mouth every other day for dyslipidemia/hospital substitution for Crestor 10 mg by mouth daily home dose Holding Lasix 20 mg by mouth twice a day with potassium supplementation 20 mEq twice a day in light of hypotension likely resume in a.m. Resp: Nasal cannula to maintain saturations greater than equal to 92% Incentive spirometry while awake GI: History of duodenal ulcer Recio's esophagus Currently on Protonix 20 mg by mouth daily 6/on Prilosec 20 mg by mouth daily at assisted. On Colace 100 mg by mouth twice a day assisted. This be continued. Also on Lissette-Colace twice a day at this facility. : Incontinence Lopes catheter if indicated for accurate I's and O's in a critically ill patient Endo: Diabetes mellitus Sliding-scale insulin with Accu-Cheks to maintain euglycemia/before meals/at bedtime. Low regimen. Holding pioglitazone 15 mg by mouth daily. Renal: Chronic kidney disease stage II to 3 Creatinine currently 1.3. Monitor urine output Accurate I's and O's Follow BMP in a.m. Received 80 mg IV Lasix today. Heme: Normocytic anemia Transfusing 2 units PRBCs. Follow-up coags and hemoglobin post transfusion. ID: Group D enterococcus UTI Ancef 2 g IV every 8 hours 3 days per orthopedics FEN: Replace electrolytes as clinically indicated MSK: Postop day #1 revision ORIF left ankle with removal of hardware/I&D and repair of syndesmosis by Dr. Cole Nonweightbearing PT evaluate and treat Access - Utilize peripheral IV. Central line if indicated Prophylaxis - GI - Protonix - DVT - VARGHESE hose to lower right lower extremity.. Hold pharmacological prophylaxis in light of anemia for today. Level II consult. We'll sign off. Call if questions arise. Code Status Full code Discussed Condition With MEDICAL SURGERY NURSE. Patient. Care plan discussed and all questions answered. Arvind Bello MD Apr 04, 2017 18:24
--- NOTE | 2017-04-04 20:31 | HHI.PR ---
Subjective Interval History Awake, confused, disoriented at times, pain well-controlled, blood pressure low today, was bleeding from her left ankle, hemoglobin dropped to 6.8 Review of Systems Constitutional Constitutional Remarks Difficult to obtain Vitals/Results Intake & Output 04/03/17 04/03/17 04/04/17 15:00 23:00 07:00 Intake Total 1000 ml 754 ml 820 ml Output Total 480 ml 500 ml 400 ml Balance 520 ml 254 ml 420 ml Intake Oral 240 ml 240 ml IV Total 514 ml 580 ml Other 1000 ml Output Urine Total 450 ml 500 ml 400 ml Estimated Blood Loss 30 ml Vital Signs Vital Signs Date Time Temp Pulse Resp B/P Pulse Ox O2 Delivery O2 Flow Rate FiO2 04/04/17 18:36 98 Nasal Cannula 2.00 04/04/17 18:17 98.4 93 13 101/51 100 04/04/17 17:20 95 18 103/45 95 04/04/17 17:10 98 16 82/46 95 04/04/17 16:22 98 Nasal Cannula 2.00 04/04/17 16:00 96.9 91 18 102/45 100 04/04/17 13:06 17 04/04/17 12:00 97.2 96 18 142/58 98 04/04/17 08:58 100 Nasal Cannula 2.00 04/04/17 08:00 96.2 94 18 133/62 100 04/04/17 06:02 16 04/04/17 04:10 97.9 100 16 110/90 98 04/04/17 00:00 98.1 97 20 111/87 95 04/03/17 21:15 17 CBC/BMP: 04/04/17 0848 04/04/17 0848 Lab Results Laboratory Tests Test 04/04/17 04/04/17 04/04/17 08:48 12:32 14:28 White Blood Count 6.5 TH/MM3 Red Blood Count 2.21 MIL/MM3 Hemoglobin 6.8 GM/DL Hematocrit 20.8 % Mean Corpuscular Volume 93.8 FL Mean Corpuscular Hemoglobin 30.9 PG Mean Corpuscular Hemoglobin 33.0 % Concent Red Cell Distribution Width 14.5 % Platelet Count 137 TH/MM3 Mean Platelet Volume 9.4 FL Neutrophils (%) (Auto) 74.2 % Lymphocytes (%) (Auto) 13.8 % Monocytes (%) (Auto) 10.3 % Eosinophils (%) (Auto) 1.2 % Basophils (%) (Auto) 0.5 % Neutrophils # (Auto) 4.8 TH/MM3 Lymphocytes # (Auto) 0.9 TH/MM3 Monocytes # (Auto) 0.7 TH/MM3 Eosinophils # (Auto) 0.1 TH/MM3 Basophils # (Auto) 0.0 TH/MM3 CBC Comment DIFF FINAL Differential Comment Sodium Level 136 MEQ/L Potassium Level 4.2 MEQ/L Chloride Level 100 MEQ/L Carbon Dioxide Level 26.8 MEQ/L Anion Gap 9 MEQ/L Blood Urea Nitrogen 23 MG/DL Creatinine 1.35 MG/DL Estimat Glomerular Filtration 37 ML/MIN Rate Random Glucose 123 MG/DL Calcium Level 8.5 MG/DL Blood Type O POSITIVE Crossmatch Leukocyte-Reduced Leukocyte-Reduced Red Blood Red Blood Cells Cells Blood Bank Comment Physical Exam General General Appearance: Comfortable, Pale, Obese Eyes Eye Exam: Pupils Reactive Ears & Nose Ears & Nose Exam: Nasal Mucosa [place] Throat Throat Exam: Oral Mucosa [place] & Moist Neck Neck Exam: Trachea Midline Pulmonary Resp Exam: Breath Sounds Equal, No Distress Cardiology CV Exam: Normal Sinus Rhythm, Good Perfusion Gastrointestinal/Abdomen GI Exam: Non-Tender, Bowel Sounds Present Musculoskeletal MS Exam: Unable to Ambulate MS Remarks Left foot pain clean dry dressing Integumentary Skin Exam: Warm, Dry Neurologic Neuro Exam: Stuporous Assessment/Plan Assessment/Plan Assessment Left open ankle fracture Status post surgery on 04/03/17 Hypotension, profound Acute severe anemia of blood loss, cannot rule out hemorrhagic shock History of stroke, hypertension, normal pressure hydrocephalus status post LAST PATTERN GRADER shunt, ORIF left ankle, anemia, renal insufficiency Management The patient is being transferred to the intensive care unit, because of her hypotension Transfuse 2 units of packed red blood cells 500 cc of normal saline given 25 g of IV albumin given Keep hemoglobin above [address] scan Hold any antihypertensive medications Keep narcotics and innumerable Discussed with nurse numerous times Discussed with patient however she does not appear to have understood 45 minutes spent on this critical patient Estela Sanderson MD Apr 04, 2017 20:31
[2017-04-04] MEDS: HYDROmorphone HCL PF 1 MG/ML VIAL IV PUSH PRN (23:15)
[2017-04-04 23:48] LABS: REVIEW FLAG FINAL
[2017-04-05] VITALS (9 sets, daily range): BP systolic 100–132; BP diastolic 51–63; PULSE 76–102; RESP 16–26; TEMP 96.6–99.4; O2SAT 80–100
[2017-04-05] MEDS: HYDROmorphone HCL PF 1 MG/ML VIAL IV PUSH PRN (00:17)
[2017-04-05] MEDS: ceFAZolin 2 GM PREMIX 50 ML IV SCH ×3 (02:10→18:50)
[2017-04-05] MEDS: ACETAMINOPHEN/HYDROcodone 325 MG/5 MG TAB PO PRN ×2 (02:11→16:07)
[2017-04-05 05:19] LABS: HEMATOCRIT 25.5 % (35.0-46.0); MEAN CELL VOLUME 90.1 FL (80.0-100.0); MEAN CORPUSCULAR HEMOGLOBIN 31.2 PG (27.0-34.0); MEAN CORPUSCULAR HGB CONC 34.6 % (32.0-36.0); PLATELET COUNT 100 TH/MM3 (150-450); RED BLOOD COUNT 2.83 MIL/MM3 (4.00-5.30); RED CELL DISTRIBUTION WIDTH 15.2 % (11.6-17.2); REVIEW FLAG FINAL; WHITE BLOOD COUNT 6.1 TH/MM3 (4.0-11.0)
[2017-04-05] MEDS: LACTATED RINGER'S 1000 ML INJ 1,000 ML IV SCH ×2 (05:30→18:00)
[2017-04-05 05:36] LABS: APTT (PATIENT) 37.8 SEC (24.3-30.1); INTERNATIONAL NORMALIZED RATIO 1.3 RATIO; PROTHROMBIN TIME - PATIENT 14.2 SEC (9.8-11.6)
[2017-04-05 05:44] LABS: BICARBONATE 28.1 MEQ/L (21.0-32.0); MAGNESIUM 1.4 MG/DL (1.5-2.5); POTASSIUM 3.9 MEQ/L (3.5-5.1)
[2017-04-05] MEDS: PCA - TOTAL MG DILAUDID DELIVERED PER SHIFT OTHER SCH ×3 (06:00→22:00)
[2017-04-05] MEDS: INSULIN ASPART SUPPLEMENTAL SCALE SQ SCH ×4 (06:11→22:21)
--- NOTE | 2017-04-05 08:28 | PD.ORT.PN ---
Subjective Subjective Remarks Patient appears comfortable. Objective Vitals Vital Signs Date Time Temp Pulse Resp B/P Pulse Ox O2 Delivery O2 Flow Rate FiO2 04/05/17 06:10 16 04/05/17 06:00 97.6 79 16 115/56 100 04/05/17 00:18 22 04/05/17 00:00 98.5 76 19 100/55 100 04/04/17 21:49 16 04/04/17 20:00 98.5 81 17 110/56 100 04/04/17 18:36 98 Nasal Cannula 2.00 04/04/17 18:17 98.4 93 13 101/51 100 04/04/17 17:20 95 18 103/45 95 04/04/17 17:10 98 16 82/46 95 04/04/17 16:22 98 Nasal Cannula 2.00 04/04/17 16:00 96.9 91 18 102/45 100 04/04/17 13:06 17 04/04/17 12:00 97.2 96 18 142/58 98 04/04/17 08:58 100 Nasal Cannula 2.00 I/O 04/04/17 04/04/17 04/04/17 04/05/17 04/05/17 04/05/17 07:00 15:00 23:00 07:00 15:00 23:00 Intake Total 820 ml 120 ml 294 ml 870 ml Output Total 400 ml 800 ml Balance 420 ml -680 ml 294 ml 870 ml Intake Oral 240 ml 120 ml 60 ml 240 ml IV Total 580 ml 132 ml 630 ml Albumin 100 ml Packed Cells 2 ml Output Urine Total 400 ml 800 ml # Voids 1 2 # Bowel Movements 0 0 0 Result Diagram: 04/05/17 0408 04/05/17 0408 Other Results Laboratory Tests Test 04/05/17 04:08 Prothrombin Time 14.2 SEC (9.8-11.6) Prothromb Time International 1.3 RATIO Ratio Imaging Last [address] 04/04/17 0000 Signed Impressions: Service Date/Time: Tuesday, April 04, 2017 17:35 - CONCLUSION: 1. Stable CT scan of the brain compared to 12/16/2016. 2. No change in the right ventricular catheter. The ventricles are prominent but stable. 3. No acute intracranial hemorrhage. Joss Rosario MD Objective Remarks Left ankle splint in place swelling to toes noted Able to slightly move toes good capillary refill Assessment & Plan Problem List: (1) Open bimalleolar fracture of left ankle Assessment and Plan Post op day #2 S/P Revision ORIF and Irrigation and Debridement of Left Ankle Non weight bearing left lower extremity Physical therapy ICU management D/C planning - anticipating SNF Monitor Andrey Rojo Apr 05, 2017 08:27
[2017-04-05] MEDS: SODIUM CHLORIDE 0.9% FLUSH 10 ML FLUSH IV FLUSH SCH ×2 (09:00→19:55)
[2017-04-05] MEDS: PSYLLIUM FIBER SF/GF 6 GM POWD PKT PO SCH ×2 (09:00→10:07)
[2017-04-05] MEDS: DOCUSATE SODIUM 50 MG/SENNA 8.6 MG TAB PO SCH ×2 (10:06→19:55)
[2017-04-05] MEDS: PANTOPRAZOLE SOD 20 MG DELAYED RELEASE TAB PO SCH (10:07)
[2017-04-05] MEDS: CALCIUM/VITAMIN D 250 MG/125 U TAB PO SCH ×3 (10:07→18:50)
[2017-04-05] MEDS: DOCUSATE SODIUM 100 MG CAP PO SCH ×2 (10:07→19:55)
[2017-04-05] MEDS: RESP: ALBUTEROL 2.5 MG/IPRATROPIUM 0.5 MG NEB (PRN) NEB ×2 (10:53→14:40)
[2017-04-06] VITALS (7 sets, daily range): BP systolic 114–137; BP diastolic 57–93; PULSE 85–90; RESP 19–24; TEMP 96.5–98.4; O2SAT 97–100
[2017-04-06] MEDS: ceFAZolin 2 GM PREMIX 50 ML IV SCH ×2 (02:25→10:23)
[2017-04-06] MEDS: PCA - TOTAL MG DILAUDID DELIVERED PER SHIFT OTHER SCH ×4 (06:00→21:14)
[2017-04-06] MEDS: INSULIN ASPART SUPPLEMENTAL SCALE SQ SCH ×4 (07:00→21:10)
[2017-04-06] MEDS: SODIUM CHLORIDE 0.9% FLUSH 10 ML FLUSH IV FLUSH SCH ×2 (08:24→20:43)
[2017-04-06] MEDS: DOCUSATE SODIUM 100 MG CAP PO SCH ×2 (08:24→20:42)
[2017-04-06] MEDS: DOCUSATE SODIUM 50 MG/SENNA 8.6 MG TAB PO SCH ×2 (08:24→20:42)
[2017-04-06] MEDS: PANTOPRAZOLE SOD 20 MG DELAYED RELEASE TAB PO SCH (08:24)
[2017-04-06] MEDS: CALCIUM/VITAMIN D 250 MG/125 U TAB PO SCH ×3 (08:24→17:09)
[2017-04-06] MEDS: RESP: ALBUTEROL 2.5 MG/IPRATROPIUM 0.5 MG NEB (PRN) NEB ×2 (08:49→21:06)
[2017-04-06] MEDS: PSYLLIUM FIBER SF/GF 6 GM POWD PKT PO SCH (09:00)
[2017-04-06] MEDS ORDERED: FUROSEMIDE 40 MG/4 ML VIAL IV PUSH ONE (10:00)
--- NOTE | 2017-04-06 13:47 | HHI.PR ---
Subjective Interval History Alert, verbal, pain is well controlled, no more bleeding, Review of Systems Constitutional Constitutional Remarks 10 systems reviewed and otherwise negative, not reliable Vitals/Results Intake & Output 04/05/17 04/05/17 04/06/17 15:00 23:00 07:00 Intake Total 1124 ml 350 ml 240 ml Balance 1124 ml 350 ml 240 ml Intake Oral 480 ml 350 ml 240 ml IV Total 644 ml # Voids 3 1 1 # Bowel Movements 1 1 2 Vital Signs Vital Signs Date Time Temp Pulse Resp B/P Pulse Ox O2 Delivery O2 Flow Rate FiO2 04/06/17 11:16 96.9 85 20 136/61 100 04/06/17 08:00 96.5 87 20 126/70 97 04/06/17 04:00 97.7 90 22 137/57 98 04/06/17 00:00 97.6 89 24 114/93 100 04/05/17 21:37 96.6 87 22 132/63 100 04/05/17 20:00 99.4 96 23 123/60 98 04/05/17 19:48 99 Nasal Cannula 1.00 04/05/17 16:00 99.2 102 20 109/55 96 CBC/BMP: 04/05/17 0408 04/05/17 0408 Lab Results Laboratory Tests Test 04/06/17 16:00 White Blood Count 6.8 TH/MM3 Red Blood Count 3.05 MIL/MM3 Hemoglobin 9.2 GM/DL Hematocrit 28.4 % Mean Corpuscular Volume 93.0 FL Mean Corpuscular Hemoglobin 30.2 PG Mean Corpuscular Hemoglobin 32.5 % Concent Red Cell Distribution Width 15.3 % Platelet Count 109 TH/MM3 Mean Platelet Volume 9.8 FL Neutrophils (%) (Auto) 72.8 % Lymphocytes (%) (Auto) 13.7 % Monocytes (%) (Auto) 10.8 % Eosinophils (%) (Auto) 2.5 % Basophils (%) (Auto) 0.2 % Neutrophils # (Auto) 4.9 TH/MM3 Lymphocytes # (Auto) 0.9 TH/MM3 Monocytes # (Auto) 0.7 TH/MM3 Eosinophils # (Auto) 0.2 TH/MM3 Basophils # (Auto) 0.0 TH/MM3 CBC Comment DIFF FINAL Differential Comment Physical Exam General General Appearance: Comfortable, Pale, Obese Eyes Eye Exam: Pupils Reactive Ears & Nose Ears & Nose Exam: Nasal Mucosa [place] Throat Throat Exam: Oral Mucosa [place] & Moist Neck Neck Exam: Trachea Midline Pulmonary Resp Exam: Breath Sounds Equal, No Distress Cardiology CV Exam: Normal Sinus Rhythm, Good Perfusion Gastrointestinal/Abdomen GI Exam: Non-Tender, Bowel Sounds Present Musculoskeletal MS Exam: Unable to Ambulate MS Remarks Left foot pain clean dry dressing Integumentary Skin Exam: Warm, Dry Neurologic Neuro Exam: Awake, Oriented, Speech Clear Assessment/Plan Assessment/Plan Assessment Left open ankle fracture Status post surgery on 04/03/17 Hypotension on 04/04/17, was transferred to intensive care unit and transfused, transferred out on ICU on 04/05/17 Acute severe anemia of blood loss, postoperatively History of stroke, hypertension, normal pressure hydrocephalus status post STRAND AND BINDER CONTROLLER shunt, ORIF left ankle, anemia, renal insufficiency Management Pain control Follow hemoglobin level Keep hemoglobin above 8 Follow electrolytes and replace as needed Follow renal function Hold any antihypertensive medications, if systolic below 120 Keep narcotics to a minimum Discussed with nurse Discussed with patient 35 minutes spent Estela Sanderson MD Apr 06, 2017 13:47
--- NOTE | 2017-04-06 13:47 | HHI.PR ---
Subjective Interval History This is a belated progress note reflecting encountered this patient on 04/05/17 The patient is alert and verbal Following commands however slow to respond Pain is well controlled Blood pressure has been well-controlled No more evidence of bleeding Review of Systems Constitutional Constitutional Remarks As above, 10 systems reviewed and otherwise negative but not reliable Vitals/Results Intake & Output 04/05/17 04/05/17 04/06/17 15:00 23:00 07:00 Intake Total 1124 ml 350 ml 240 ml Balance 1124 ml 350 ml 240 ml Intake Oral 480 ml 350 ml 240 ml IV Total 644 ml # Voids 3 1 1 # Bowel Movements 1 1 2 Vital Signs Vital Signs Date Time Temp Pulse Resp B/P Pulse Ox O2 Delivery O2 Flow Rate FiO2 04/06/17 11:16 96.9 85 20 136/61 100 04/06/17 08:00 96.5 87 20 126/70 97 04/06/17 04:00 97.7 90 22 137/57 98 04/06/17 00:00 97.6 89 24 114/93 100 04/05/17 21:37 96.6 87 22 132/63 100 04/05/17 20:00 99.4 96 23 123/60 98 04/05/17 19:48 99 Nasal Cannula 1.00 04/05/17 16:00 99.2 102 20 109/55 96 CBC/BMP: 04/05/17 0408 04/05/17 0408 Physical Exam General General Appearance: Well Developed, Comfortable, Obese Eyes Eye Exam: Pupils Reactive Ears & Nose Ears & Nose Exam: Nasal Mucosa [place] Throat Throat Exam: Oral Mucosa [place] & Moist Neck Neck Exam: Trachea Midline Pulmonary Resp Exam: Breath Sounds Equal, No Distress Cardiology CV Exam: Normal Sinus Rhythm, Good Perfusion Gastrointestinal/Abdomen GI Exam: Non-Tender, Bowel Sounds Present Musculoskeletal MS Exam: Unable to Ambulate MS Remarks Left foot pain clean dry dressing Integumentary Skin Exam: Warm, Dry Neurologic Neuro Exam: Stuporous VTE Prophylaxis VTE Remarks She has had postoperative bleeding in her surgical site therefore no chemical anticoagulation attempted at this time Assessment/Plan Assessment/Plan Assessment Left open ankle fracture Status post surgery on 04/03/17 Hypotension 1 04/04/17, transferred to intensive care unit and transfused Acute severe anemia of blood loss, postoperatively History of stroke, hypertension, normal pressure hydrocephalus status post 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
[2017-04-06 16:53] LABS: AUTOMATED NEUTROPHIL # 4.9 TH/MM3 (1.8-7.7); BASOPHIL % 0.2 % (0.0-2.0); EOSINOPHIL # 0.2 TH/MM3 (0-0.4); EOSINOPHIL % 2.5 % (0.0-4.0); HEMATOCRIT 28.4 % (35.0-46.0); HEMO FLAGS DIFF FINAL; LYMPH % 13.7 % (9.0-44.0); LYMPHOCYTE # 0.9 TH/MM3 (1.0-4.8); MEAN CORPUSCULAR HEMOGLOBIN 30.2 PG (27.0-34.0); MEAN CORPUSCULAR HGB CONC 32.5 % (32.0-36.0); MONO % 10.8 % (0.0-8.0); NEUT % 72.8 % (16.0-70.0); PLATELET COUNT 109 TH/MM3 (150-450); RED BLOOD COUNT 3.05 MIL/MM3 (4.00-5.30); RED CELL DISTRIBUTION WIDTH 15.3 % (11.6-17.2); WHITE BLOOD COUNT 6.8 TH/MM3 (4.0-11.0)
[2017-04-06 17:29] LABS: BICARBONATE 28.1 MEQ/L (21.0-32.0); MAGNESIUM 1.5 MG/DL (1.5-2.5); POTASSIUM 3.9 MEQ/L (3.5-5.1)
--- NOTE | 2017-04-06 17:42 | PD.ORT.PN ---
Subjective Subjective Remarks Patient comfortable Returned from ICU to 8th floor Objective Vitals Vital Signs Date Time Temp Pulse Resp B/P Pulse Ox O2 Delivery O2 Flow Rate FiO2 04/06/17 15:50 97.6 85 20 124/58 98 04/06/17 11:16 96.9 85 20 136/61 100 04/06/17 08:00 96.5 87 20 126/70 97 04/06/17 04:00 97.7 90 22 137/57 98 04/06/17 00:00 97.6 89 24 114/93 100 04/05/17 21:37 96.6 87 22 132/63 100 04/05/17 20:00 99.4 96 23 123/60 98 04/05/17 19:48 99 Nasal Cannula 1.00 I/O 04/05/17 04/05/17 04/05/17 04/06/17 04/06/17 04/06/17 07:00 15:00 23:00 07:00 15:00 23:00 Intake Total 870 ml 1124 ml 350 ml 240 ml 1090 ml Balance 870 ml 1124 ml 350 ml 240 ml 1090 ml Intake Oral 240 ml 480 ml 350 ml 240 ml 200 ml IV Total 630 ml 644 ml 890 ml # Voids 2 3 1 1 5 # Bowel Movements 0 1 1 2 0 Result Diagram: 04/06/17 1600 04/06/17 1600 Imaging Last [address] 04/04/17 0000 Signed Impressions: Service Date/Time: Tuesday, April 04, 2017 17:35 - CONCLUSION: 1. Stable CT scan of the brain compared to 12/16/2016. 2. No change in the right ventricular catheter. The ventricles are prominent but stable. 3. No acute intracranial hemorrhage. Joss Rosario MD Objective Remarks Left ankle new splint in place swelling to toes noted Able to slightly move toes good capillary refill Assessment & Plan Ortho Post Op Day #: 3 Problem List: (1) Open bimalleolar fracture of left ankle Assessment and Plan Post op day #3 S/P Revision ORIF and Irrigation and Debridement of Left Ankle Non weight bearing left lower extremity Physical therapy D/C planning - SNF placement F/U in 2 weeks Champ Cole MD Apr 06, 2017 17:42
[2017-04-06] MEDS: MAGNESIUM SULFATE 1 GM PREMIX 100 ML IV SCH ×2 (17:52→19:25)
[2017-04-06] MEDS: LACTATED RINGER'S 1000 ML INJ 1,000 ML IV SCH ×2 (19:00→20:43)
[2017-04-07] VITALS (7 sets, daily range): BP systolic 107–137; BP diastolic 51–64; PULSE 78–90; RESP 18–22; TEMP 96.4–99.6; O2SAT 96–99
[2017-04-07] MEDS: INSULIN ASPART SUPPLEMENTAL SCALE SQ SCH ×4 (06:40→22:09)
[2017-04-07 07:06] LABS: BICARBONATE 28.6 MEQ/L (21.0-32.0)
[2017-04-07 07:12] LABS: AUTOMATED NEUTROPHIL # 4.7 TH/MM3 (1.8-7.7); BASOPHIL % 0.2 % (0.0-2.0); EOSINOPHIL # 0.3 TH/MM3 (0-0.4); EOSINOPHIL % 4.7 % (0.0-4.0); HEMATOCRIT 28.3 % (35.0-46.0); HEMO FLAGS DIFF FINAL; LYMPH % 18.1 % (9.0-44.0); LYMPHOCYTE # 1.2 TH/MM3 (1.0-4.8); MEAN CELL VOLUME 93.5 FL (80.0-100.0); MEAN CORPUSCULAR HEMOGLOBIN 30.6 PG (27.0-34.0); MEAN CORPUSCULAR HGB CONC 32.7 % (32.0-36.0); PLATELET COUNT 109 TH/MM3 (150-450); RED BLOOD COUNT 3.03 MIL/MM3 (4.00-5.30); RED CELL DISTRIBUTION WIDTH 15.3 % (11.6-17.2); WHITE BLOOD COUNT 6.9 TH/MM3 (4.0-11.0)
[2017-04-07] MEDS: PANTOPRAZOLE SOD 20 MG DELAYED RELEASE TAB PO SCH (07:59)
[2017-04-07] MEDS: SODIUM CHLORIDE 0.9% FLUSH 10 ML FLUSH IV FLUSH SCH ×2 (07:59→21:00)
[2017-04-07] MEDS: DOCUSATE SODIUM 50 MG/SENNA 8.6 MG TAB PO SCH ×2 (07:59→21:00)
[2017-04-07] MEDS: DOCUSATE SODIUM 100 MG CAP PO SCH ×2 (07:59→21:00)
[2017-04-07] MEDS: CALCIUM/VITAMIN D 250 MG/125 U TAB PO SCH ×3 (07:59→16:42)
[2017-04-07] MEDS: PSYLLIUM FIBER SF/GF 6 GM POWD PKT PO SCH (07:59)
[2017-04-07] MEDS: ATORVASTATIN 20 MG TAB PO SCH (08:02)
[2017-04-07] MEDS: PCA - TOTAL MG DILAUDID DELIVERED PER SHIFT OTHER SCH ×3 (08:04→22:44)
[2017-04-07] MEDS ORDERED: AMPICILLIN 250 MG VIAL IM SCH (11:45)
[2017-04-07] MEDS: RESP: ALBUTEROL 2.5 MG/IPRATROPIUM 0.5 MG NEB (PRN) NEB (12:51)
[2017-04-07] MEDS ORDERED: AMPICILLIN IV SCH ×2 (13:00)
[2017-04-07] MEDS ORDERED: NS IV SCH ×2 (13:00)
[2017-04-07] MEDS: SODIUM CHLORIDE 0.9% IV SCH ×2 (13:03→16:42)
[2017-04-07] MEDS: AMPICILLIN IV SCH ×2 (13:03→16:42)
--- NOTE | 2017-04-07 13:07 | HHI.PR ---
Subjective Subjective Remarks Resting in bed, Pale Awake, but weakened Decreased appetite and by mouth intake (Zoraida Mayo) Review of Systems Constitutional Constitutional: Fatigue, Weakness Constitutional Remarks 10 point ROS done positives noted (Zoraida Mayo) GI/Abdomen GI/Abdominal Exam: Constipation (monitor bowel regimen) (Zoraida Mayo) Genitourinary Genitourinary: Frequency, Urgency Remarks Positive for UTI Lopes out for several days, positive culture and sensitivity ( Zoraida Mayo) Musculoskeletal MS: Weakness, Stiffness (Zoraida Mayo) Neurologic Neurologic: Lethargic (appears tired) (Zoraida Mayo) Psychiatric Psychiatric: Normal Mood (Zoraida Mayo) Vitals/Results Intake & Output 04/06/17 04/06/17 04/07/17 15:00 23:00 07:00 Intake Total 1090 ml 606 ml 361 ml Balance 1090 ml 606 ml 361 ml Intake Oral 200 ml 240 ml 60 ml IV Total 890 ml 366 ml 301 ml # Voids 5 1 2 # Bowel Movements 0 1 0 Vital Signs Vital Signs Date Time Temp Pulse Resp B/P Pulse Ox O2 Delivery O2 Flow Rate FiO2 04/07/17 12:12 97.3 86 22 137/64 99 04/07/17 08:03 96.4 81 22 121/63 99 04/07/17 07:54 98 Nasal Cannula 2.00 04/07/17 07:41 Nasal Cannula 2.00 04/07/17 04:10 98.8 78 18 124/56 96 04/07/17 00:05 99.1 86 19 113/54 97 04/07/17 00:00 Nasal Cannula 1.00 04/06/17 21:07 97 Nasal Cannula 1.00 04/06/17 20:10 98.4 86 19 128/62 98 04/06/17 15:50 97.6 85 20 124/58 98 (Zoraida Mayo) CBC/BMP: 04/07/17 0626 04/07/17 0626 Lab Results Laboratory Tests Test 04/06/17 04/07/17 16:00 06:26 White Blood Count 6.8 TH/MM3 6.9 TH/MM3 Red Blood Count 3.05 MIL/MM3 3.03 MIL/MM3 Hemoglobin 9.2 GM/DL 9.3 GM/DL Hematocrit 28.4 % 28.3 % Mean Corpuscular Volume 93.0 FL 93.5 FL Mean Corpuscular Hemoglobin 30.2 PG 30.6 PG Mean Corpuscular Hemoglobin 32.5 % 32.7 % Concent Red Cell Distribution Width 15.3 % 15.3 % Platelet Count 109 TH/MM3 109 TH/MM3 Mean Platelet Volume 9.8 FL 9.9 FL Neutrophils (%) (Auto) 72.8 % 68.0 % Lymphocytes (%) (Auto) 13.7 % 18.1 % Monocytes (%) (Auto) 10.8 % 9.0 % Eosinophils (%) (Auto) 2.5 % 4.7 % Basophils (%) (Auto) 0.2 % 0.2 % Neutrophils # (Auto) 4.9 TH/MM3 4.7 TH/MM3 Lymphocytes # (Auto) 0.9 TH/MM3 1.2 TH/MM3 Monocytes # (Auto) 0.7 TH/MM3 0.6 TH/MM3 Eosinophils # (Auto) 0.2 TH/MM3 0.3 TH/MM3 Basophils # (Auto) 0.0 TH/MM3 0.0 TH/MM3 CBC Comment DIFF FINAL DIFF FINAL Differential Comment Sodium Level 136 MEQ/L 135 MEQ/L Potassium Level 3.9 MEQ/L 4.0 MEQ/L Chloride Level 100 MEQ/L 100 MEQ/L Carbon Dioxide Level 28.1 MEQ/L 28.6 MEQ/L Anion Gap 8 MEQ/L 6 MEQ/L Blood Urea Nitrogen 27 MG/DL 27 MG/DL Creatinine 1.37 MG/DL 1.21 MG/DL Estimat Glomerular Filtration 37 ML/MIN 42 ML/MIN Rate Random Glucose 187 MG/DL 126 MG/DL Calcium Level 8.1 MG/DL 8.2 MG/DL Phosphorus Level 2.0 MG/DL Magnesium Level 1.5 MG/DL Imaging Remarks Last Impressions Head CT 04/04/17 0000 Signed Impressions: Service Date/Time: Tuesday, April 04, 2017 17:35 - CONCLUSION: 1. Stable CT scan of the brain compared to 12/16/2016. 2. No change in the right ventricular catheter. The ventricles are prominent but stable. 3. No acute intracranial hemorrhage. Joss Rosario MD Chest X-Ray 04/03/17 0704 Signed Impressions: Service Date/Time: Monday, April 03, 2017 07:38 - CONCLUSION: Left basilar atelectasis stable blunting of the left lateral costophrenic angle. Peyman Shipman MD Ankle X-Ray 04/03/17 0000 Signed Impressions: Service Date/Time: Monday, April 03, 2017 11:20 - CONCLUSION: 1. Fixation left ankle as above. Thony Wilhelm MD Current Medications Administered Medications Medications (Trade) Dose Ordered Sig/Emily Route PRN Reason Start Time Stop Time Status Last Admin Dose Admin Sodium Chloride (NS Flush) 2 ml BID IV FLUSH 04/03/17 09:00 04/07/17 07:59 Senna/Docusate Sodium (Lissette-Colace) 1 tab BID PO 04/03/17 09:00 04/07/17 07:59 Hydromorphone HCl (Dilaudid Pf Inj) 0.2 mg Q4H PRN IV PUSH BREAKTHROUGH PAIN 04/03/17 08:30 04/04/17 23:15 Calcium/Vitamin D (Oscal-D 250-125) 250 mg TID PO 04/03/17 09:00 04/07/17 12:39 Docusate Sodium (Colace) 100 mg BID PO 04/03/17 09:00 04/07/17 07:59 Enalapril Maleate (Vasotec) 10 mg DAILY PO 04/03/17 09:00 Hold 04/04/17 10:38 Furosemide (Lasix) 20 mg BID PO 04/03/17 09:00 Hold 04/04/17 10:38 Potassium Chloride (KCl) 20 meq BID PO 04/03/17 09:00 Hold 04/04/17 10:38 Pantoprazole Sodium (Protonix) 20 mg DAILY PO 04/03/17 10:00 04/07/17 07:59 Enoxaparin Sodium (Lovenox Inj) 30 mg Q24H SQ 04/04/17 11:00 Hold 04/04/17 10:39 Hydromorphone HCl (Dilaudid AUTOMOTIVE DRIVABILITY TECHNICIAN Inj) 6 mg UNSCH IV 04/03/17 14:15 04/03/17 14:33 AUTOMOTIVE DRIVABILITY TECHNICIAN Dosage Infused (Pha) 1 1 Q8HR OTHER 04/03/17 22:00 04/04/17 13:06 Lactated Ringer's (Lr 1000 ml Inj) 1,000 ml @ 80 mls/hr [id number] IV 04/03/17 16:00 04/06/17 20:43 Psyllium Hydrophilic Mucilloid (Metamucil Smooth Texture Sf/ Gf Pkt) 1 pkt DAILY PO 04/04/17 09:00 04/07/17 07:59 Acetaminophen/ Hydrocodone Bitart ([place] 5-325 Mg) 1 tab Q4H PRN PO PAIN SCALE 1-10 04/04/17 11:15 04/05/17 16:07 (Zoraida Mayo) Physical Exam General General Appearance: Well Developed, Comfortable, Obese (Zoraida Mayo) Eyes Eye Exam: Pupils Reactive (Zoraida Mayo) Ears & Nose Ears & Nose Exam: Nasal Mucosa [place] (Zoraida Mayo) Throat Throat Exam: Oral Mucosa [place] & Moist Throat Remarks Pale mucous membranes and facial color (Zoraida Mayo) Neck Neck Exam: Trachea Midline (Zoraida Mayo) Pulmonary Resp Exam: Breath Sounds Equal, No Distress, Diminished Breath Sounds ( encouraged to turn cough and deep breathe) (Zoraida Mayo) Cardiology CV Exam: Normal Sinus Rhythm, Good Perfusion (Zoraida Mayo) Gastrointestinal/Abdomen GI Exam: Non-Tender, Bowel Sounds Present (Zoraida Mayo) Genitourinary Remarks Complaints of burning on urination (Zoraida Mayo) Musculoskeletal MS Exam: Atrophy, Unable to Ambulate (Zoraida Mayo) Integumentary Skin Exam: Warm, Dry (Zoraida Mayo) Neurologic Neuro Exam: Awake, Oriented, Speech Clear (Zoraida Mayo) Assessment/Plan Assessment/Plan Vital signs reviewed, afebrile trends are normal for now Labs reviewed, on a trip her acute kidney injury and anemia which appears to be stable for now at 9.3 UTI, positive culture and sensitivity, patient started on IV ampicillin, will discuss treatment regimen with Dr. 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 Will increase to 75 cc an hour Discussed with nurse and ZINC PLATE GRAINER Discussed with patient, Discussed with Dr. Sanderson. Seen on his behalf (Zoraida Mayo) Assessment/Plan seen, examined by myself, Dr Sanderson, today Discussed with patient, she is confused probably base similar to baseline Discussed with nurse She is more stable now Arrange rehabilitation Discussed with mid level provider The exam, history, and the medical decision-making described in the above note were completed with the assistance of the mid-level provider. I reviewed the findings presented. I attest that I had a [id number] encounter with the patient on the same day, and personally performed and documented my assessment and findings in the medical record. (Estela Sanderson MD) Zoraida Mayo Apr 07, 2017 13:07 Estela Sanderson MD Apr 07, 2017 18:21
[2017-04-07] MEDS: LACTATED RINGER'S 1000 ML INJ 1,000 ML IV SCH (22:44)
[2017-04-08] VITALS (8 sets, daily range): BP systolic 123–140; BP diastolic 52–84; PULSE 76–90; RESP 18–24; TEMP 97–99.1; O2SAT 96–99
[2017-04-08] MEDS: AMPICILLIN IV SCH ×3 (00:18→11:46)
[2017-04-08] MEDS: SODIUM CHLORIDE 0.9% IV SCH ×3 (00:18→11:46)
[2017-04-08 05:30] LABS: AUTOMATED NEUTROPHIL # 3.9 TH/MM3 (1.8-7.7); BASOPHIL % 0.6 % (0.0-2.0); EOSINOPHIL # 0.3 TH/MM3 (0-0.4); EOSINOPHIL % 5.3 % (0.0-4.0); HEMATOCRIT 26.5 % (35.0-46.0); HEMO FLAGS DIFF FINAL; LYMPH % 16.4 % (9.0-44.0); MEAN CELL VOLUME 93.4 FL (80.0-100.0); MEAN CORPUSCULAR HEMOGLOBIN 30.7 PG (27.0-34.0); MEAN CORPUSCULAR HGB CONC 32.9 % (32.0-36.0); MONO % 10.9 % (0.0-8.0); NEUT % 66.8 % (16.0-70.0); PLATELET COUNT 114 TH/MM3 (150-450); RED BLOOD COUNT 2.84 MIL/MM3 (4.00-5.30); RED CELL DISTRIBUTION WIDTH 14.7 % (11.6-17.2); WHITE BLOOD COUNT 5.9 TH/MM3 (4.0-11.0)
[2017-04-08 05:51] LABS: BICARBONATE 28.8 MEQ/L (21.0-32.0); POTASSIUM 3.9 MEQ/L (3.5-5.1)
[2017-04-08] MEDS: INSULIN ASPART SUPPLEMENTAL SCALE SQ SCH ×4 (06:39→20:08)
[2017-04-08] MEDS: RESP: ALBUTEROL 2.5 MG/IPRATROPIUM 0.5 MG NEB (PRN) NEB ×3 (07:53→21:11)
[2017-04-08] MEDS: SODIUM CHLORIDE 0.9% FLUSH 10 ML FLUSH IV FLUSH SCH ×2 (09:00→20:09)
[2017-04-08] MEDS: CALCIUM/VITAMIN D 250 MG/125 U TAB PO SCH ×3 (09:08→16:40)
[2017-04-08] MEDS: DOCUSATE SODIUM 50 MG/SENNA 8.6 MG TAB PO SCH ×2 (09:10→20:03)
[2017-04-08] MEDS: DOCUSATE SODIUM 100 MG CAP PO SCH ×2 (09:10→20:04)
[2017-04-08] MEDS: PANTOPRAZOLE SOD 20 MG DELAYED RELEASE TAB PO SCH (09:10)
[2017-04-08] MEDS: PSYLLIUM FIBER SF/GF 6 GM POWD PKT PO SCH (09:11)
[2017-04-08] MEDS: LACTATED RINGER'S 1000 ML INJ 1,000 ML IV SCH ×2 (09:12→20:17)
--- NOTE | 2017-04-08 10:01 | HHI.PR ---
Subjective Subjective Remarks Resting in bed, Pale Awake, but weakened Decreased appetite and by mouth intake (Zoraida Mayo) Review of Systems Constitutional Constitutional: Fatigue, Weakness Constitutional Remarks 10 point ROS done positives noted (Zoraida Mayo) GI/Abdomen GI/Abdominal Exam: Constipation (monitor bowel regimen) (Zoraida Mayo) Genitourinary Genitourinary: Frequency, Urgency Remarks Positive for UTI Lopes out for several days, positive culture and sensitivity ( Zoraida Mayo) Musculoskeletal MS: Weakness, Stiffness (Zoraida Mayo) Neurologic Neurologic: Lethargic (appears tired) (Zoraida Mayo) Psychiatric Psychiatric: Normal Mood (Zoraida Mayo) Vitals/Results Intake & Output 04/07/17 04/07/17 04/08/17 15:00 23:00 07:00 Intake Total 426 ml 754 ml 423 ml Balance 426 ml 754 ml 423 ml Intake Oral 120 ml 240 ml 60 ml IV Total 306 ml 514 ml 363 ml # Voids 3 1 3 # Bowel Movements 2 1 1 Vital Signs Vital Signs Date Time Temp Pulse Resp B/P Pulse Ox O2 Delivery O2 Flow Rate FiO2 04/08/17 07:56 98 Nasal Cannula 3.00 04/08/17 07:33 Nasal Cannula 2.00 04/08/17 07:32 Nasal Cannula 2.00 04/08/17 04:00 98.0 76 18 140/65 96 04/08/17 02:00 Nasal Cannula 2.00 04/08/17 00:00 97.3 90 19 133/69 99 04/07/17 20:00 99.6 90 19 115/54 99 04/07/17 16:00 98.3 88 22 107/51 98 04/07/17 12:12 97.3 86 22 137/64 99 (Zoraida Mayo) CBC/BMP: 04/08/17 0444 04/08/17 0444 Lab Results Laboratory Tests Test 04/08/17 04:44 White Blood Count 5.9 TH/MM3 Red Blood Count 2.84 MIL/MM3 Hemoglobin 8.7 GM/DL Hematocrit 26.5 % Mean Corpuscular Volume 93.4 FL Mean Corpuscular Hemoglobin 30.7 PG Mean Corpuscular Hemoglobin 32.9 % Concent Red Cell Distribution Width 14.7 % Platelet Count 114 TH/MM3 Mean Platelet Volume 9.6 FL Neutrophils (%) (Auto) 66.8 % Lymphocytes (%) (Auto) 16.4 % Monocytes (%) (Auto) 10.9 % Eosinophils (%) (Auto) 5.3 % Basophils (%) (Auto) 0.6 % Neutrophils # (Auto) 3.9 TH/MM3 Lymphocytes # (Auto) 1.0 TH/MM3 Monocytes # (Auto) 0.6 TH/MM3 Eosinophils # (Auto) 0.3 TH/MM3 Basophils # (Auto) 0.0 TH/MM3 CBC Comment DIFF FINAL Differential Comment Sodium Level 137 MEQ/L Potassium Level 3.9 MEQ/L Chloride Level 103 MEQ/L Carbon Dioxide Level 28.8 MEQ/L Anion Gap 5 MEQ/L Blood Urea Nitrogen 26 MG/DL Creatinine 1.08 MG/DL Estimat Glomerular Filtration 48 ML/MIN Rate Random Glucose 121 MG/DL Calcium Level 8.0 MG/DL (Zoraida MayoP) Physical Exam General General Appearance: Well Developed, Comfortable, Obese (Zoraida MayoP) Eyes Eye Exam: Pupils Reactive (Zoraida MayoP) Ears & Nose Ears & Nose Exam: Nasal Mucosa [place] (Zoraida MayoP) Throat Throat Exam: Oral Mucosa [place] & Moist Throat Remarks Pale mucous membranes and facial color (Zoraida MayoP) Neck Neck Exam: Trachea Midline (Zoraida Mayo SHAPER OPERATOR) Pulmonary Resp Exam: Breath Sounds Equal, No Distress, Diminished Breath Sounds ( encouraged to turn cough and deep breathe) (Zoraida Mayo SHAPER OPERATOR) Cardiology CV Exam: Normal Sinus Rhythm, Good Perfusion (Zoraida MayoP) Gastrointestinal/Abdomen GI Exam: Non-Tender, Bowel Sounds Present (Zoraida MayoP) Genitourinary Remarks Complaints of burning on urination (Zoraida MayoP) Musculoskeletal MS Exam: Atrophy, Unable to Ambulate (Zoraida MayoP) Integumentary Skin Exam: Warm, Dry (Zoraida Mayo) Neurologic Neuro Exam: Awake, Oriented, Speech Clear (Zoraida Mayo) Assessment/Plan Assessment/Plan Vital signs reviewed, normal trends Labs reviewed, acute kidney injury mildly improved which is probably her baseline and anemia, monitor 8.7 UTI, positive culture and sensitivity, antibiotic therapy Left open ankle fracture Status post surgery on 04/03/17, post op care and pain management per orthopedic team Continues with generalized weakness and debility, continue to encourage her mobility History of stroke, medical management , current affect is probably her baseline hypertension, medical management and monitor , stable vital signs renal insufficiency, mildly improve probably her baseline , staph assisting with meals, patient has not eaten breakfast this morning, decreased appetite Discussed with nurse Discussed with patient, Discussed with Dr. Sanderson. Seen on his behalf Discharge planning, SNF rehabilitation around the first of the week (Zoraida Mayo) Assessment/Plan seen, examined by myself, Dr Sanderson, today Discussed with patient, she is confused Bilateral wheezing IV fluids discontinued 1 dose of 125 mg IV Solu-Medrol ordered 1 dose of 20 mg IV Lasix ordered If no improvement check chest x-ray Discussed with nurse Discussed with mid level provider The exam, history, and the medical decision-making described in the above note were completed with the assistance of the mid-level provider. I reviewed the findings presented. I attest that I had a [id number] encounter with the patient on the same day, and personally performed and documented my assessment and findings in the medical record. The patient was on intravenous ampicillin for enterococcus faecalis UTI Change to Augmentin to avoid a large salt load (Estela Sanderson MD) Zoriada Mayo Apr 08, 2017 10:01 Estela Sanderson MD Apr 08, 2017 17:22
[2017-04-08] MEDS: PCA - TOTAL MG DILAUDID DELIVERED PER SHIFT OTHER SCH ×3 (14:00→20:17)
[2017-04-08] MEDS ORDERED: FUROSEMIDE 20 MG/2 ML VIAL IV PUSH ONE ×2 (17:30)
[2017-04-08] MEDS ORDERED: methylPREDNISolone SOD SUCC 125 MG/2 ML VIAL IV PUSH ONE (17:30)
[2017-04-08] MEDS: AMOXICILLIN/CLAVULANATE K 875 MG TAB PO SCH (20:14)
[2017-04-09] VITALS (7 sets, daily range): BP systolic 117–169; BP diastolic 58–72; PULSE 73–95; RESP 17–24; TEMP 96.2–97.6; O2SAT 97–100
[2017-04-09] MEDS: INSULIN ASPART SUPPLEMENTAL SCALE SQ SCH ×4 (06:11→20:01)
[2017-04-09] MEDS: ACETAMINOPHEN 325 MG TAB PO PRN (08:44)
[2017-04-09] MEDS: PANTOPRAZOLE SOD 20 MG DELAYED RELEASE TAB PO SCH (08:44)
[2017-04-09] MEDS: AMOXICILLIN/CLAVULANATE K 875 MG TAB PO SCH ×2 (08:44→19:56)
[2017-04-09] MEDS: CALCIUM/VITAMIN D 250 MG/125 U TAB PO SCH ×3 (08:44→16:41)
[2017-04-09] MEDS: PSYLLIUM FIBER SF/GF 6 GM POWD PKT PO SCH (08:48)
[2017-04-09] MEDS: ATORVASTATIN 20 MG TAB PO SCH (08:48)
[2017-04-09] MEDS: SODIUM CHLORIDE 0.9% FLUSH 10 ML FLUSH IV FLUSH SCH ×2 (08:48→19:56)
[2017-04-09] MEDS: DOCUSATE SODIUM 100 MG CAP PO SCH ×2 (08:48→19:56)
[2017-04-09] MEDS: DOCUSATE SODIUM 50 MG/SENNA 8.6 MG TAB PO SCH ×2 (08:49→19:57)
--- NOTE | 2017-04-09 12:15 | HHI.PR ---
Subjective Subjective Remarks Resting in bed, Dosing, fatigue, more alert today Responded to verbal stimuli and answer simple questions No acute shortness of breath noted Staff feed this morning ate good amounts of her breakfast Review of Systems Constitutional Constitutional: Fatigue, Weakness Constitutional Remarks 10 point ROS done positives noted GI/Abdomen GI/Abdominal Exam: Constipation (monitor bowel regimen) Genitourinary Genitourinary: Frequency, Urgency Remarks Positive for UTI Lopes out for several days, positive culture and sensitivity Musculoskeletal MS: Weakness, Stiffness Neurologic Neurologic: Lethargic (dosing but more alert today) Psychiatric Psychiatric: Normal Mood Vitals/Results Intake & Output 04/08/17 04/08/17 04/09/17 15:00 23:00 07:00 Intake Total 480 ml 120 ml 120 ml Balance 480 ml 120 ml 120 ml Intake Oral 480 ml 120 ml 120 ml # Voids 3 2 4 # Bowel Movements 1 0 2 Vital Signs Vital Signs Date Time Temp Pulse Resp B/P Pulse Ox O2 Delivery O2 Flow Rate FiO2 04/09/17 09:50 97 Nasal Cannula 2.00 04/09/17 08:00 96.6 80 24 169/72 99 04/09/17 04:45 96.5 84 19 160/69 100 04/09/17 00:50 97.1 95 19 139/63 97 04/08/17 20:50 97.0 76 19 123/64 99 04/08/17 19:31 Nasal Cannula 2.00 04/08/17 18:56 98.3 85 24 127/84 98 04/08/17 16:06 99 Nasal Cannula 3.00 04/08/17 12:30 99.1 79 22 130/52 99 CBC/BMP: 04/08/17 0444 04/08/17 0444 Current Medications Administered Medications Medications (Trade) Dose Ordered Sig/Emily Route PRN Reason Start Time Stop Time Status Last Admin Dose Admin Sodium Chloride (NS Flush) 2 ml BID IV FLUSH 04/03/17 09:00 04/09/17 08:48 Senna/Docusate Sodium (Lissette-Colace) 1 tab BID PO 04/03/17 09:00 04/08/17 09:10 Hydromorphone HCl (Dilaudid Pf Inj) 0.2 mg Q4H PRN IV PUSH BREAKTHROUGH PAIN 04/03/17 08:30 04/04/17 23:15 Calcium/Vitamin D (Oscal-D 250-125) 250 mg TID PO 04/03/17 09:00 04/09/17 12:26 Docusate Sodium (Colace) 100 mg BID PO 04/03/17 09:00 04/08/17 09:10 Enalapril Maleate (Vasotec) 10 mg DAILY PO 04/03/17 09:00 Hold 04/04/17 10:38 Furosemide (Lasix) 20 mg BID PO 04/03/17 09:00 Hold 04/04/17 10:38 Potassium Chloride (KCl) 20 meq BID PO 04/03/17 09:00 Hold 04/04/17 10:38 Pantoprazole Sodium (Protonix) 20 mg DAILY PO 04/03/17 10:00 04/09/17 08:44 Enoxaparin Sodium (Lovenox Inj) 30 mg Q24H SQ 04/04/17 11:00 Hold 04/04/17 10:39 Acetaminophen (Tylenol) 650 mg Q6H PRN PO Temperature > 101.5 04/03/17 14:15 04/09/17 08:44 Hydromorphone HCl (Dilaudid BENCH EXAMINER Inj) 6 mg UNSCH IV 04/03/17 14:15 04/03/17 14:33 BENCH EXAMINER Dosage Infused (Pha) 1 1 Q8HR OTHER 04/03/17 22:00 04/04/17 13:06 Lactated Ringer's (Lr 1000 ml Inj) 1,000 ml @ 75 mls/hr [id number] IV 04/03/17 16:00 04/08/17 09:12 Psyllium Hydrophilic Mucilloid (Metamucil Smooth Texture Sf/ Gf Pkt) 1 pkt DAILY PO 04/04/17 09:00 04/08/17 09:11 Acetaminophen/ Hydrocodone Bitart ([place] 5-325 Mg) 1 tab Q4H PRN PO PAIN SCALE 1-10 04/04/17 11:15 04/05/17 16:07 Amoxicillin/ Clavulanate Potassium (Augmentin) 875 mg Q12HR PO 04/08/17 21:00 04/15/17 23:00 04/09/17 08:44 Physical Exam General General Appearance: Well Developed, Comfortable, Obese Appearance Remarks More alert today Eyes Eye Exam: Pupils Reactive Ears & Nose Ears & Nose Exam: Nasal Mucosa [place] Throat Throat Exam: Oral Mucosa [place] & Moist Throat Remarks Pale mucous membranes and facial color Neck Neck Exam: Trachea Midline Pulmonary Resp Exam: Breath Sounds Equal, No Distress, Decreased Bases, Diminished Breath Sounds (encouraged to turn cough and deep breathe) Cardiology CV Exam: Normal Sinus Rhythm, Good Perfusion Gastrointestinal/Abdomen GI Exam: Non-Tender, Bowel Sounds Present Genitourinary Remarks Complaints of burning on urination, change to by mouth antibiotics Musculoskeletal MS Exam: Atrophy, Unable to Ambulate Integumentary Skin Exam: Warm, Dry Neurologic Neuro Exam: Awake, Oriented, Speech Clear Assessment/Plan Assessment/Plan Vital signs reviewed, normal trends, blood pressure 160/69, respiratory rate 20 Labs reviewed, acute kidney injury mildly improved which is probably her baseline and anemia, monitor 8.7 UTI, positive culture, changed to oral meds, Left open ankle fracture Status post surgery on 04/03/17, post op care and pain management per orthopedic team Continues with generalized weakness and debility, edema decreased and left ankle 2+, IV fluids DC'd last p.m., patient received 1 low-dose Lasix, active diuresis noted, respiratory rate with deeper respirations and no active wheezing noted, still has diminished breath sounds in her bases, duo nebs, Physical therapy to get out of bed into chair with left leg elevated, Debility deconditioned. Bowel regimen possible constipation, staff notes some diarrhea today, we'll check for impaction, check C. difficile Hemmorrhoids, tucks pads ordered BID am and pm, noted from staff during diarrhea clean up. History of stroke, medical management , current affect is probably her baseline hypertension, medical management and monitor , stable vital signs renal insufficiency, mildly improve probably her baseline , staph assisting with meals, patient has not eaten breakfast this morning, decreased appetite Discussed with nurse Discussed with patient, Discussed with Dr. Sanderson. Seen on his behalf Discharge planning, SNF rehabilitation , PT to get up in chair today. Zoraida Mayo Apr 09, 2017 12:15
[2017-04-09] MEDS: PCA - TOTAL MG DILAUDID DELIVERED PER SHIFT OTHER SCH ×3 (12:27→22:11)
[2017-04-09] MEDS: LACTATED RINGER'S 1000 ML INJ 1,000 ML IV SCH ×2 (12:27→22:11)
[2017-04-09] MEDS: WITCH HAZEL 50%/GLYCERIN 12.5% 40 PAD JAR TOPICAL SCH ×2 (16:41→19:57)
[2017-04-10] VITALS (8 sets, daily range): BP systolic 108–143; BP diastolic 55–63; PULSE 72–85; RESP 17–22; TEMP 96.7–99.3; O2SAT 94–100
[2017-04-10] MEDS: INSULIN ASPART SUPPLEMENTAL SCALE SQ SCH ×4 (06:30→20:57)
[2017-04-10 06:50] LABS: BICARBONATE 29.7 MEQ/L (21.0-32.0); POTASSIUM 4.2 MEQ/L (3.5-5.1)
[2017-04-10] MEDS: DOCUSATE SODIUM 50 MG/SENNA 8.6 MG TAB PO SCH ×2 (09:00→20:53)
[2017-04-10] MEDS: PSYLLIUM FIBER SF/GF 6 GM POWD PKT PO SCH (09:00)
[2017-04-10] MEDS: PCA - TOTAL MG DILAUDID DELIVERED PER SHIFT OTHER SCH ×2 (10:21→20:54)
[2017-04-10] MEDS: LACTATED RINGER'S 1000 ML INJ 1,000 ML IV SCH (10:21)
[2017-04-10] MEDS: CALCIUM/VITAMIN D 250 MG/125 U TAB PO SCH ×3 (10:35→16:24)
[2017-04-10] MEDS: PANTOPRAZOLE SOD 20 MG DELAYED RELEASE TAB PO SCH (10:35)
[2017-04-10] MEDS: AMOXICILLIN/CLAVULANATE K 875 MG TAB PO SCH ×2 (10:35→20:52)
[2017-04-10] MEDS: DOCUSATE SODIUM 100 MG CAP PO SCH ×2 (10:35→20:53)
[2017-04-10] MEDS: SODIUM CHLORIDE 0.9% FLUSH 10 ML FLUSH IV FLUSH SCH ×2 (10:36→20:53)
[2017-04-10] MEDS: ATORVASTATIN 20 MG TAB PO SCH (10:36)
[2017-04-10] MEDS: WITCH HAZEL 50%/GLYCERIN 12.5% 40 PAD JAR TOPICAL SCH ×2 (10:37→20:53)
[2017-04-10] MEDS: RESP: ALBUTEROL 2.5 MG/IPRATROPIUM 0.5 MG NEB (PRN) NEB (13:21)
--- NOTE | 2017-04-10 13:59 | HHI.PR ---
Subjective Subjective Remarks Resting in bed, Alert more conversational today No active shortness of this of breath but short air volumes respiratory rate Staff feed , eats better (Zoraida Mayo) Review of Systems Constitutional Constitutional: Fatigue, Weakness Constitutional Remarks 10 point ROS done positives noted (Zoraida Mayo) GI/Abdomen GI/Abdominal Exam: Constipation (monitor bowel regimen) (Zoraida Mayo) Genitourinary Genitourinary: Frequency, Urgency Remarks Positive for UTI Lopes out for several days, positive culture and sensitivity ( Zoraida Mayo) Musculoskeletal MS: Weakness, Stiffness (Zoraida Mayo) Neurologic Neurologic: Lethargic (dosing but more alert today) (Zoraida Mayo) Psychiatric Psychiatric: Normal Mood (Zoraida Mayo) Vitals/Results Intake & Output 04/09/17 04/09/17 04/10/17 15:00 23:00 07:00 Intake Total 680 ml 240 ml 120 ml Balance 680 ml 240 ml 120 ml Intake Oral 680 ml 240 ml 120 ml # Voids 2 2 2 # Bowel Movements 0 0 Vital Signs Vital Signs Date Time Temp Pulse Resp B/P Pulse Ox O2 Delivery O2 Flow Rate FiO2 04/10/17 13:23 98 Nasal Cannula 2.00 04/10/17 08:00 97.0 76 20 109/55 94 04/10/17 07:38 Nasal Cannula 2.00 04/10/17 00:22 97.6 85 17 132/58 100 04/09/17 20:30 97.6 83 17 117/58 99 04/09/17 20:07 Nasal Cannula 2.00 04/09/17 16:00 96.2 82 23 138/69 99 (Zoraida Mayo) CBC/BMP: 04/08/17 0444 04/10/17 0534 Lab Results Laboratory Tests Test 04/10/17 05:34 Sodium Level 137 MEQ/L Potassium Level 4.2 MEQ/L Chloride Level 102 MEQ/L Carbon Dioxide Level 29.7 MEQ/L Anion Gap 5 MEQ/L Blood Urea Nitrogen 33 MG/DL Creatinine 1.10 MG/DL Estimat Glomerular Filtration 47 ML/MIN Rate Random Glucose 131 MG/DL Calcium Level 8.5 MG/DL (Zoraida Mayo. BASS FISHER) Physical Exam General General Appearance: Well Developed, Comfortable, Obese Appearance Remarks More alert today (Zoraida Mayo. BASS FISHER) Eyes Eye Exam: Pupils Reactive (Zoraida Mayo. BASS FISHER) Ears & Nose Ears & Nose Exam: Nasal Mucosa [place] (Zoraida Mayo. BASS FISHER) Throat Throat Exam: Oral Mucosa [place] & Moist Throat Remarks Pale mucous membranes and facial color (Zoraida Mayo. BASS FISHER) Neck Neck Exam: Trachea Midline (Zoraida Mayo. BASS FISHER) Pulmonary Resp Exam: Breath Sounds Equal, No Distress, Decreased Bases, Diminished Breath Sounds (encouraged to turn cough and deep breathe) (Zoraida Mayo. BASS FISHER ) Cardiology CV Exam: Normal Sinus Rhythm, Good Perfusion (Zoraida Mayo. BASS FISHER) Gastrointestinal/Abdomen GI Exam: Non-Tender, Bowel Sounds Present (Zoraida Mayo. BASS FISHER) Genitourinary Remarks Complaints of burning on urination, change to by mouth antibiotics (Zoraida Mayo. BASS FISHER) Musculoskeletal MS Exam: Atrophy, Unable to Ambulate (Zoraida Mayo. BASS FISHER) Integumentary Skin Exam: Warm, Dry (Zoraida Mayo. BASS FISHER) Neurologic Neuro Exam: Awake, Oriented, Speech Clear (Zoraida Mayo. BASS FISHER) Assessment/Plan Assessment/Plan Vital signs reviewed, normal trends, Labs reviewed, acute kidney injury, probably her baseline and anemia, no acute blood loss UTI, positive culture, changed to oral meds, Left open ankle fracture Status post surgery on 04/03/17, post op care and pain management per orthopedic team Continues with generalized weakness and debility, edema decreased and left ankle 3+ diminished breath sounds in her bases continue, respiratory volumes low, duo nebs every 6 while awake, chest x-ray for comparison from admission encourage patient to turn cough and deep breathe, incentive spirometry in room, Physical therapy worked with patient to increase mobility Nutrition encouraged and assisted per staff Bowel regimen, no further diarrhea or loose bowel movements, no bowel movement to check C. difficile still pending, but if no further diarrhea no need to collect Hemmorrhoids, tucks pads ordered BID am and pm, History of stroke, medical management , current affect is probably her baseline hypertension, medical management and monitor , stable vital signs renal insufficiency, mildly improve probably her baseline , staff assisting with meals, eats better with assistance UTI being treated with by mouth antibiotics Discussed with nurse Discussed with patient, Discussed with Dr. Sanderson. Seen on his behalf Discharge planning, SNF rehabilitation , when medically stable hopefully within the next day for 2 (Zoraida Mayo) Assessment/Plan seen, examined by myself, Dr Sanderson, today Discussed with patient, she is confused Having diarrhea Rule out C. difficile If C. difficile negative discharge to rehabilitation tomorrow Discussed with mid level provider The exam, history, and the medical decision-making described in the above note were completed with the assistance of the mid-level provider. I reviewed the findings presented. I attest that I had a [id number] encounter with the patient on the same day, and personally performed and documented my assessment and findings in the medical record. (Estela Sanderson MD) Zoraida Mayo Apr 10, 2017 13:59 Estela Sanderson MD Apr 10, 2017 18:49
--- NOTE | 2017-04-10 15:09 | RADRPT ---
EXAM DATE/TIME: 04/10/2017 14:22 [place] COMPARISON: CHEST SINGLE AP, April 03, 2017, 7:38. 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 LOCATION: Bilateral chest FINDINGS: Left basilar opacity is present may be due to a combination of consolidation and or pleural effusion. The ventriculoperitoneal shunt is in place. There are atherosclerotic calcifications of the aorta du e to chronic atherosclerotic disease. Heart and mediastinum are unremarkable for technique. CONCLUSION: Left basilar opacity is present may be due to a combination of consolidation and or pleural effusion. Nani Mcduffie MD on April 10, 2017 at 15:07 Board Certified Radiologist. This report was verified electronically.
[2017-04-10 19:19] LABS: C. DIFF EPI 027 PRESUMPTIVE NEGATIVE (NEGATIVE); C. DIFF TOXIN PCR NEGATIVE (NEGATIVE)
[2017-04-10] MEDS: RESP: ALBUTEROL 2.5 MG/IPRATROPIUM 0.5 MG NEB (SCH) NEB (19:52)
[2017-04-11] MEDS: PCA - TOTAL MG DILAUDID DELIVERED PER SHIFT OTHER SCH ×3 (04:45→22:00)
[2017-04-11] MEDS: INSULIN ASPART SUPPLEMENTAL SCALE SQ SCH ×4 (06:15→21:00)
[2017-04-11 08:00] VITALS: BP 156/67; PULSE 83; RESP 20; TEMP 97; O2SAT 96
[2017-04-11] MEDS: RESP: ALBUTEROL 2.5 MG/IPRATROPIUM 0.5 MG NEB (SCH) NEB ×2 (08:51→13:36)
[2017-04-11] MEDS: PSYLLIUM FIBER SF/GF 6 GM POWD PKT PO SCH (09:00)
[2017-04-11] MEDS: DOCUSATE SODIUM 100 MG CAP PO SCH ×2 (09:00→21:00)
[2017-04-11] MEDS: DOCUSATE SODIUM 50 MG/SENNA 8.6 MG TAB PO SCH ×2 (09:00→21:00)
[2017-04-11] MEDS: PANTOPRAZOLE SOD 20 MG DELAYED RELEASE TAB PO SCH (10:09)
[2017-04-11] MEDS: AMOXICILLIN/CLAVULANATE K 875 MG TAB PO SCH ×2 (10:09→22:11)
[2017-04-11] MEDS: CALCIUM/VITAMIN D 250 MG/125 U TAB PO SCH ×3 (10:09→16:01)
[2017-04-11] MEDS: SODIUM CHLORIDE 0.9% FLUSH 10 ML FLUSH IV FLUSH SCH ×2 (10:09→21:00)
[2017-04-11] MEDS: WITCH HAZEL 50%/GLYCERIN 12.5% 40 PAD JAR TOPICAL SCH ×2 (10:10→22:15)
[2017-04-11] MEDS: ACETAMINOPHEN 325 MG TAB PO PRN (10:55)
[2017-04-11 11:00] VITALS: BP 107/48; PULSE 76; RESP 20; TEMP 97; O2SAT 100
--- NOTE | 2017-04-11 11:52 | HHI.PR ---
Subjective Subjective Remarks Resting in bed, Answers simple questions, generalized weakness and aching, requesting Tylenol No active shortness of this of breath but short air volumes respiratory rate Staff feed , eats better when being fed Small wound on coccyx, will have wound care eval (Zoraida Mayo) Review of Systems Constitutional Constitutional: Fatigue, Weakness Constitutional Remarks 10 point ROS done positives noted (Zoraida Mayo) GI/Abdomen GI/Abdominal Exam: Constipation (monitor bowel regimen), Diarrhea (loose stools off and on incontinent,) (Zoraida Mayo) Genitourinary Genitourinary: Frequency, Urgency Remarks Continue by mouth antibiotics, some diarrhea possibly to antibiotics, when necessary Imodium (Zoraida Mayo) Musculoskeletal MS: Weakness, Stiffness (Zoraida Mayo) Neurologic Neurologic: Lethargic (dosing but more alert today) (Zoraida Mayo) Psychiatric Psychiatric: Normal Mood (Zoraida Mayo) Vitals/Results Intake & Output 04/10/17 04/10/17 04/11/17 15:00 23:00 07:00 Intake Total 480 ml 240 ml 360 ml Balance 480 ml 240 ml 360 ml Intake Oral 480 ml 240 ml 360 ml # Voids 3 2 2 # Bowel Movements 0 1 0 Vital Signs Vital Signs Date Time Temp Pulse Resp B/P Pulse Ox O2 Delivery O2 Flow Rate FiO2 04/11/17 11:00 97.0 76 20 107/48 100 04/11/17 11:00 Nasal Cannula 2.00 04/11/17 08:00 97.0 83 20 156/67 96 04/11/17 07:32 Nasal Cannula 2.00 04/10/17 23:51 96.7 82 19 143/63 100 04/10/17 22:45 Nasal Cannula 2.00 04/10/17 21:47 97.3 72 17 131/62 97 04/10/17 19:52 99 Nasal Cannula 2.00 04/10/17 17:08 Nasal Cannula 2.00 04/10/17 16:00 99.3 78 22 119/56 96 04/10/17 13:23 98 Nasal Cannula 2.00 04/10/17 12:00 99.2 80 20 108/60 95 (Zoraida Mayo) CBC/BMP: 04/08/17 0444 04/10/17 0534 Lab Results Laboratory Tests Test 04/10/17 17:35 Stool C. difficile Toxin (PCR) NEGATIVE Stl C. difficile Toxin PRESUMPTIVE Epiderm 027 NEGATIVE Current Medications Administered Medications Medications (Trade) Dose Ordered Sig/Emily Route PRN Reason Start Time Stop Time Status Last Admin Dose Admin Sodium Chloride (NS Flush) 2 ml BID IV FLUSH 04/03/17 09:00 04/11/17 10:09 Senna/Docusate Sodium (Lissette-Colace) 1 tab BID PO 04/03/17 09:00 04/08/17 09:10 Hydromorphone HCl (Dilaudid Pf Inj) 0.2 mg Q4H PRN IV PUSH BREAKTHROUGH PAIN 04/03/17 08:30 04/04/17 23:15 Calcium/Vitamin D (Oscal-D 250-125) 250 mg TID PO 04/03/17 09:00 04/11/17 10:09 Docusate Sodium (Colace) 100 mg BID PO 04/03/17 09:00 04/10/17 10:35 Enalapril Maleate (Vasotec) 10 mg DAILY PO 04/03/17 09:00 Hold 04/04/17 10:38 Furosemide (Lasix) 20 mg BID PO 04/03/17 09:00 Hold 04/04/17 10:38 Potassium Chloride (KCl) 20 meq BID PO 04/03/17 09:00 Hold 04/04/17 10:38 Pantoprazole Sodium (Protonix) 20 mg DAILY PO 04/03/17 10:00 04/11/17 10:09 Enoxaparin Sodium (Lovenox Inj) 30 mg Q24H SQ 04/04/17 11:00 Hold 04/04/17 10:39 Acetaminophen (Tylenol) 650 mg Q6H PRN PO Temperature > 101.5 04/03/17 14:15 04/11/17 10:55 Hydromorphone HCl (Dilaudid [employer] ASSISTANT Inj) 6 mg UNSCH IV 04/03/17 14:15 04/03/17 14:33 [employer]ED [employer] 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 Dosage Infused (Pha) 1 Q8HR OTHER 04/03/17 22:00 04/04/17 13:06 Psyllium Hydrophilic Mucilloid (Metamucil Smooth Texture Sf/ Gf Pkt) 1 pkt DAILY PO 04/04/17 09:00 04/08/17 09:11 Acetaminophen/ Hydrocodone Bitart ([place] 5-325 Mg) 1 tab Q4H PRN PO PAIN SCALE 1-10 04/04/17 11:15 04/05/17 16:07 Amoxicillin/ Clavulanate Potassium (Augmentin) 875 mg Q12HR PO 04/08/17 21:00 04/15/17 23:00 04/11/17 10:09 Witch Sara/ Glycerin (Tucks Pads) 1 applic BID TOPICAL 04/09/17 13:15 04/11/17 10:10 (Zoraida Mayo) Physical Exam General General Appearance: Well Developed, Comfortable, Obese Appearance Remarks More alert today (Zoraida Mayo) Eyes Eye Exam: Pupils Reactive (Zoraida Mayo) Ears & Nose Ears & Nose Exam: Nasal Mucosa [place] (Zoraida Mayo) Throat Throat Exam: Oral Mucosa [place] & Moist Throat Remarks Pale mucous membranes and facial color (Zoraida Mayo) Neck Neck Exam: Trachea Midline (Zoraida Mayo) Pulmonary Resp Exam: Breath Sounds Equal, No Distress, Decreased Bases, Diminished Breath Sounds (encouraged to turn cough and deep breathe) (Zoraida Mayo ) Cardiology CV Exam: Normal Sinus Rhythm, Good Perfusion (Zoraida Mayo) Gastrointestinal/Abdomen GI Exam: Non-Tender, Bowel Sounds Present GI Remarks Occasional diarrhea, incontinent of bowel and bladder Small sacral ulcer, now to be eval per when care today (Zoraida Mayo) Genitourinary Remarks Complaints of burning on urination, change to by mouth antibiotics (Zoraida Mayo) Musculoskeletal MS Exam: Atrophy, Unable to Ambulate (Zoraida Mayo) Integumentary Skin Exam: Warm, Dry (Zoraida aMyo) Neurologic Neuro Exam: Awake, Oriented, Speech Clear Neuro Remarks Questionable mild confusion but does answer simple questions appropriately Not motivated to increase mobility and ambulation Doesn't eat unless fed (Zoraida Mayo) Assessment/Plan Assessment/Plan Assessment/Plan Vital signs reviewed, normal trends, Labs reviewed, acute kidney injury, probably her baseline and anemia, no acute blood loss UTI, positive culture, changed to oral meds, Left open ankle fracture Status post surgery on 04/03/17, post op care and pain management per orthopedic team Continues with generalized weakness and debility continue, patient states she hurts all over mild pain management with Tylenol, edema decreased and left ankle 3+ unchanged diminished breath sounds in her bases continue low volumes, respiratory volumes low, duo nebs, encourage patient to turn cough and deep breathe, incentive spirometry in room, Physical therapy worked with patient to increase mobility, patient not very motivated, now has small coccyx wound, to be eval per when care and treatment regimen set up, turned patient every 2 per nursing staff Nutrition encouraged and assisted per staff Bowel regimen, encourage patient to call if her bowels or bladder need to move diarrhea noted again yesterday, nurse states none today, C. difficile negative, Imodium when necessary Hemmorrhoids, tucks pads ordered BID am and pm, History of stroke, medical management , current affect is probably her baseline hypertension, medical management and monitor , stable vital signs renal insufficiency, mildly improve probably her baseline , staff assisting with meals, eats better with assistance UTI being treated with by mouth antibiotics Discussed with nurse Discussed with patient, Discussed with Dr. Sanderson. Seen on his behalf Discharge planning in place, possible tomorrow, SNF (Zoraida Mayo) Assessment/Plan Chest x-ray seems unchanged Continue oral antibiotics Discharge tomorrow to half-way/rehabilitation Increase diuretics seen, examined by myself, Dr Sanderson, today Discussed with nurse Pranay mayberry with mid level provider The exam, history, and the medical decision-making described in the above note were completed with the assistance of the mid-level provider. I reviewed the findings presented. I attest that I had a [id number] encounter with the patient on the same day, and personally performed and documented my assessment and findings in the medical record. (Estela Sanderson MD) Zoraida Mayo Apr 11, 2017 11:52 Estela Sanderson MD Apr 11, 2017 18:41
[2017-04-11] MEDS ORDERED: LOPERAMIDE HCL 2 MG CAP PO PRN (12:15)
[2017-04-11 16:00] VITALS: BP 127/73; PULSE 67; RESP 20; TEMP 96.8; O2SAT 96
[2017-04-11 20:04] VITALS: BP 118/56; PULSE 86; RESP 18; TEMP 96.5; O2SAT 100
[2017-04-11 23:31] VITALS: BP 141/87; PULSE 84; RESP 18; TEMP 96.7; O2SAT 99
[2017-04-12 03:00] VITALS: BP 141/59; PULSE 84; RESP 18; TEMP 96.7; O2SAT 99
[2017-04-12] MEDS: PCA - TOTAL MG DILAUDID DELIVERED PER SHIFT OTHER SCH (06:00)
[2017-04-12] MEDS: INSULIN ASPART SUPPLEMENTAL SCALE SQ SCH ×2 (06:52→10:54)
[2017-04-12 08:00] VITALS: BP 133/53; PULSE 66; RESP 20; TEMP 96.2; O2SAT 97
[2017-04-12] MEDS: RESP: ALBUTEROL 2.5 MG/IPRATROPIUM 0.5 MG NEB (SCH) NEB (08:00)
[2017-04-12] MEDS: DOCUSATE SODIUM 50 MG/SENNA 8.6 MG TAB PO SCH (09:00)
[2017-04-12] MEDS: PSYLLIUM FIBER SF/GF 6 GM POWD PKT PO SCH (09:00)
[2017-04-12] MEDS: DOCUSATE SODIUM 100 MG CAP PO SCH (09:00)
[2017-04-12] MEDS: SODIUM CHLORIDE 0.9% FLUSH 10 ML FLUSH IV FLUSH SCH (09:00)
[2017-04-12] MEDS: AMOXICILLIN/CLAVULANATE K 875 MG TAB PO SCH (09:01)
[2017-04-12] MEDS: CALCIUM/VITAMIN D 250 MG/125 U TAB PO SCH (09:02)
[2017-04-12] MEDS: PANTOPRAZOLE SOD 20 MG DELAYED RELEASE TAB PO SCH (09:02)
[2017-04-12] MEDS: WITCH HAZEL 50%/GLYCERIN 12.5% 40 PAD JAR TOPICAL SCH (09:02)
[2017-04-12] MEDS: ACETAMINOPHEN/HYDROcodone 325 MG/5 MG TAB PO PRN (09:10)
[2017-04-12] MEDS ORDERED: LANTUS2P SQ (09:52)
[2017-04-12] MEDS ORDERED: AMOX875T2 PO (09:52)
[2017-04-12] MEDS ORDERED: ENOX30P SQ (09:52)
[2017-04-12] MEDS ORDERED: HYDR-3516 PO (09:52)
--- NOTE | 2017-04-12 10:03 | PD.WCN.NOT ---
Wound Consult Description: "Pressure ulcer to sacrum, new, small" per RACIEL Mayo Communicated with: FaisalRN Recommendation: Calazime skin protectant BID and PRN to gluteal cleft fissure Fungal cream to bilateral buttocks/perineum/inner thigh rash with satellite lesions BID and PRN Additional Information: Patient seen on for wound evaluation of "sacral new small wound' per RACIEL Mayo. Patient was positioned to her left side for assessment of bilateral buttocks, sacrum, and coccyx. Patient presents with blanchable erythema noted from bilateral buttocks down to upper thighs with satellite lesions indicating moisture and fungal etiologies. There is a fissure noted to the gluteal cleft measuring ~2cm x 0.1cm x <0.1cm with periwound blanchable erythema. Calazime was applied to gluteal cleft and bilateral buttocks/upper inner thighs. Latonia Ramirez [facility] Apr 12, 2017 10:03
[2017-04-12 12:00] VITALS: BP 113/46; PULSE 65; RESP 20; TEMP 96.7; O2SAT 98
--- NOTE | 2017-04-12 18:35 | HHI.PR ---
Subjective Interval History Alert, verbal, mildly confused, likely similar to baseline Review of Systems Constitutional Constitutional: Fatigue, Weakness Constitutional Remarks 10 systems reviewed and otherwise negative, not reliable GI/Abdomen GI/Abdominal Exam: Constipation (monitor bowel regimen), Diarrhea (loose stools off and on incontinent,) Genitourinary Genitourinary: Frequency, Urgency Musculoskeletal MS: Weakness, Stiffness Neurologic Neurologic: Lethargic (dosing but more alert today) Psychiatric Psychiatric: Normal Mood Vitals/Results Intake & Output 04/11/17 04/11/17 04/12/17 15:00 23:00 07:00 Intake Total 260 ml 240 ml 240 ml Balance 260 ml 240 ml 240 ml Intake Oral 260 ml 240 ml 240 ml # Voids 3 3 3 # Bowel Movements 1 0 0 Vital Signs Vital Signs Date Time Temp Pulse Resp B/P Pulse Ox O2 Delivery O2 Flow Rate FiO2 04/12/17 12:00 96.7 65 20 113/46 98 04/12/17 09:00 Nasal Cannula 2.00 04/12/17 08:00 96.2 66 20 133/53 97 04/12/17 03:00 96.7 84 18 141/59 99 04/11/17 23:31 96.7 84 18 141/87 99 04/11/17 20:15 Nasal Cannula 2.00 04/11/17 20:04 96.5 86 18 118/56 100 CBC/BMP: 04/08/17 0444 04/10/17 0534 Physical Exam General General Appearance: Well Developed, Comfortable, Obese Eyes Eye Exam: Pupils Reactive Ears & Nose Ears & Nose Exam: Nasal Mucosa [place] Throat Throat Exam: Oral Mucosa [place] & Moist Neck Neck Exam: Trachea Midline Pulmonary Resp Exam: Breath Sounds Equal, No Distress, Decreased Bases, Diminished Breath Sounds (encouraged to turn cough and deep breathe) Cardiology CV Exam: Normal Sinus Rhythm, Good Perfusion Gastrointestinal/Abdomen GI Exam: Non-Tender, Bowel Sounds Present Musculoskeletal MS Exam: Atrophy, Unable to Ambulate MS Remarks Left foot pain clean dry dressing Integumentary Skin Exam: Warm, Dry Neurologic Neuro Exam: Awake, Oriented, Speech Clear VTE Prophylaxis VTE Remarks She has had postoperative bleeding in her surgical site therefore no chemical anticoagulation attempted at this time Assessment/Plan Assessment/Plan Assessment Left open ankle fracture Status post surgery on 04/03/17 Recent pneumonia Acute severe anemia of blood loss, postoperatively, transferred briefly to ICU History of stroke, hypertension, normal pressure hydrocephalus status post [employer] shunt, ORIF left ankle, anemia, renal insufficiency Management Nebulizer treatment Antibiotics Pain control Discharge to rehabilitation today Keep narcotics to a minimum Discussed with nurse Discussed with patient 35 minutes spent Discharge Minutes: 40 Estela Sanderson MD Apr 12, 2017 18:35
== END 2017-04-12 13:31 | DRG 492 ==
LOC: NEPE 06:53 → NEDA 08:12 → N06A 15:24 → N03A 04-04 17:45 → N06B 04-05 21:26
PROVIDERS: ADMIT Specialist; ATTEND Specialist
PROC: 0QHK04Z Insertion of Internal Fixation Device into Left Fibula, Open Approach (ICD-10-PCS; 2017-04-03)
PROC: 0SSG04Z Reposition Left Ankle Joint with Internal Fixation Device, Open Approach (ICD-10-PCS; 2017-04-03)
PROC: 0SPG04Z Removal of Internal Fixation Device from Left Ankle Joint, Open Approach (ICD-10-PCS; principal; 2017-04-03 10:38)
PROC: 0QSH04Z Reposition Left Tibia with Internal Fixation Device, Open Approach (ICD-10-PCS; 2017-04-03 10:38)
PROC: 30233N1 Transfusion of Nonautologous Red Blood Cells into Peripheral Vein, Percutaneous Approach (ICD-10-PCS; 2017-04-04)
DX: S82.842B Displaced bimalleolar fracture of left lower leg, initial encounter for open fracture type I or II (principal); R57.1 Hypovolemic shock; N17.9 Acute kidney failure, unspecified; G91.2 (Idiopathic) normal pressure hydrocephalus; E11.22 Type 2 diabetes mellitus with diabetic chronic kidney disease; D62 Acute posthemorrhagic anemia; N39.0 Urinary tract infection, site not specified; E11.40 Type 2 diabetes mellitus with diabetic neuropathy, unspecified; Z98.2 Presence of cerebrospinal fluid drainage device; N18.2 Chronic kidney disease, stage 2 (mild); I12.9 Hypertensive chronic kidney disease with stage 1 through stage 4 chronic kidney disease, or unspecified chronic kidney disease; B95.2 Enterococcus as the cause of diseases classified elsewhere; K21.9 Gastro-esophageal reflux disease without esophagitis; K43.9 Ventral hernia without obstruction or gangrene; M19.90 Unspecified osteoarthritis, unspecified site; E78.5 Hyperlipidemia, unspecified; H26.9 Unspecified cataract; K22.70 Barrett's esophagus without dysplasia; E66.9 Obesity, unspecified; R06.2 Wheezing; K59.00 Constipation, unspecified; R19.7 Diarrhea, unspecified; W19.XXXA Unspecified fall, initial encounter; Y92.099 Unspecified place in other non-institutional residence as the place of occurrence of the external cause; Z68.37 Body mass index [BMI] 37.0-37.9, adult; Z86.73 Personal history of transient ischemic attack (TIA), and cerebral infarction without residual deficits; Z87.11 Personal history of peptic ulcer disease; Z88.2 Allergy status to sulfonamides; Z88.5 Allergy status to narcotic agent; Z96.653 Presence of artificial knee joint, bilateral
CPT/HCPCS: 36430; 51702; 70450; 71010; 73600; 73610; 76000; 76937; 80048; 80053; 81001; 82948; 83735; 84100; 85014; 85018; 85025; 85027; 85610; 85730; 86850; 86900; 86901; 86920; 87077; 87086; 87186; 87493; 90471; 90714; 93005; 94150; 94640; 94664; 96365; 96375; C1713; J0290; J0690; J1170; J1580; J1650; J1815; J1940; J2175; J2370; J2405; J2930; J3010; J3475; J7040; J7120; J7613; P9016; P9047

== ENCOUNTER 2017-06-29 03:59 | Inpatient (IN) | payer MEDICARE ==
[~2017-06-29] VITALS: Ht 165.1 cm; Wt 92.0 kg
[2017-06-29] VITALS (17 sets, daily range): BP systolic 89–154; BP diastolic 44–70; PULSE 84–110; RESP 16–21; TEMP 97.1–99.5; O2SAT 93–100
[~2017-06-29 03:59] MED LIST changes: +AMOX875T2 PO; +DOCU100C PO; +ENOX30P SQ; -ENOX40P SQ; +FURO20TA PO; +LANTUS2P SQ; +LYRI75CA PO; -OMEP20TA PO; -PIOG15TA5 PO; +POTA-163 PO
[2017-06-29] MEDS ORDERED: PANTOPRAZOLE INJ 80 MG in SODIUM CHLORIDE 0.9% INJ 100 ML IV SCH (04:11)
[2017-06-29] MEDS ORDERED: PANTOPRAZOLE INJ 80 MG in SODIUM CHLORIDE 0.9% INJ 35 ML IV ONE (04:11)
[2017-06-29] MEDS ORDERED: SODIUM CHLOR 0.9% 1000 ML INJ 1,000 ML IV SCH (04:11)
[2017-06-29] MEDS ORDERED: ONDANSETRON HCL 4 MG/2 ML VIAL IVP ONE (04:15)
[2017-06-29] MEDS ORDERED: SODIUM CHLOR 0.9% 250 ML INJ 250 ML IV ONE (04:15)
[2017-06-29] MEDS ORDERED: SODIUM CHLORIDE 0.9% FLUSH 10 ML FLUSH IVF PRN ×2 (04:15→06:00)
--- NOTE | 2017-06-29 04:22 | PD ---
HPI Chief Complaint: GI Complaint Time Seen by Provider: 04:05 Travel History International Travel<30 days: No Contact w/Intl Traveler<30days: No Traveled to known affect area: No History of Present Illness HPI 87-year-old female presents to the emergency department by EMS transport from [facility] where nursing staff this evening noticed her to have vomiting of red blood as well as maroon stool. Patient has had diarrhea times one day reportedly. No reported fever. 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 Patient here is nonverbal and unable to provide any history. Patient is awake. assisted has been contacted and identifies the patient is typically nonverbal although occasionally has been noted to speak but nursing staff is unable to provide any details as to her speech impairment. Patient does perform some purposeful movement. According to lapping machine set up operator report upon their arrival patient's blood pressure systolic was 70 mmHg and she is identified to need suctioning of coffee grounds from her mouth. Patient did receive a bolus of normal saline 500 cc. No active vomiting was noted by the paramedics. 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) Headaches: Yes (OCC.) Hepatitis: No Hiatal Hernia: No Hypertension: Yes Immune Disorder: No Implanted Vascular Access Dvce: Yes Musculoskeletal: Yes (BILAT KNEE REPLACEMENT) Neurologic: Yes (NPH) Psychiatric: No Reproductive: No Respiratory: Yes Thyroid Disease: No Ulcer: Yes (hx of duodenal ulcer) PNEUMOCCOCAL Vaccine (Year): 3 Menopausal: Yes Past Surgical History Body Medical Devices: POLE TRUCK DRIVER SHUNT/ TEOCH NAIL IN HIP Eye Surgery: Yes (KHADIJAH CATARACTS, BILATERAL MAC DEGENDERATION SX) Joint Replacement: Yes (KHADIJAH KNEEES ) Neurologic Surgery: Yes (POLE TRUCK DRIVER SHUNT/ HYDROCEPHALUS) Pacemaker: No Other Surgery: Yes Social History Alcohol Use: No ( ) Tobacco Use: No Substance Use: No Allergies-Medications (Allergen,Severity, Reaction): Coded Allergies: sulfamethoxazole (Unverified Allergy, Intermediate, Hives, 06/29/17) trimethoprim (Unverified Allergy, Intermediate, Hives, 06/29/17) morphine (Unverified Adverse Reaction, Severe, N/V, 06/29/17) Reported Meds & Prescriptions Reported Meds & Active Scripts Active Lantus Inj (Insulin Glargine) 1,000 Unit/10 Ml Vial 6 Units SQ HS Hydrocodone-Acetaminophen 5-325 mg Tab 1 Tab PO Q4H PRN Reported Aspirin 81 Mg Chew 81 Mg CHEW DAILY Lexapro (Escitalopram Oxalate) 10 Mg Tab 10 Mg PO DAILY Humalog Inj (Insulin Human Lispro) 1,000 Unit/10 Ml Vial Unknown Dose SQ ACHS Max dose at bedtime:( )units; sugars< 70,(0)units; sugars 150-199,(1)unit; sugars 200-249,(3)units; sugars 250-299,(5)units; sugars 300-349,(7)units; sugars more than 349,(9)units. Calcium/Vitamin D (Calcium Carbonate-Vitamin D) 500-200 Mg-Unit Tab 1 Tab PO BID Ferrous Sulfate 325 Mg (65 Mg Iron) Tablet 325 Mg PO TIDPC Tylenol (Acetaminophen) 325 Mg Tab 650 Mg PO Q4H PRN Pro-Stat Sugar Free (Amino Acids-Protein Hydrolysat) 15 Gram-100 Kcal/30 Ml Liq TID Milk of Magnesia Liq (Magnesium Hydroxide) 400 Mg/5 Ml Susp 30 Ml PO DAILY PRN Duoneb (Ipratropium-Albuterol Neb) 0.5-2.5 Mg/3 Ml Neb 1 Nebule INH Q6HR NEB Potassium Chloride ER (Potassium Chloride) 20 Meq Tab 20 Meq PO BID Furosemide 20 Mg Tab 20 Mg PO BID Docusate Sodium 100 Mg Cap 100 Mg PO BID Lyrica (Pregabalin) 75 Mg Cap 75 Mg PO BID Enalapril (Enalapril Maleate) 10 Mg Tab 10 Mg PO DAILY Crestor (Rosuvastatin Calcium) 10 Mg Tab 10 Mg PO EVERY OTHER DAY Review of Systems ROS Limitations: Clinical Condition, Speech Impaired, Poor Historian Except as stated in HPI: all other systems reviewed are Neg Physical Exam Narrative GENERAL: Well-developed elderly pale female in no acute distress no respiratory distress alert nonverbal. SKIN: Warm and dry. HEAD: Normocephalic. EYES: No scleral icterus. Conjunctival pallor. No injection or drainage. ENT : Mucous membranes pale dried coffee grounds about the lips and tongue NECK: Supple, trachea midline. No JVD or lymphadenopathy. CARDIOVASCULAR: Increased Regular rate and rhythm without murmurs, gallops, or rubs. RESPIRATORY: Breath sounds equal bilaterally. No accessory muscle use. GASTROINTESTINAL: Abdomen soft, non-tender, nondistended. Rectal exam deferred as copious amounts of maroon colored blood was found in diaper and on buttock and at the anus. MUSCULOSKELETAL: No cyanosis, or edema. BACK: Nontender without obvious deformity. No CVA tenderness. Data Data Last Documented VS Vital Signs Date Time Temp Pulse Resp B/P (MAP) Pulse Ox O2 Delivery O2 Flow Rate FiO2 06/29/17 05:58 102 16 122/58 (79) 100 Nasal Cannula 2.00 06/29/17 05:21 97.1 06/29/17 04:45 21 Orders Orders Complete Blood Count With Diff (06/29/17 04:11) Comprehensive Metabolic Panel (06/29/17 04:11) Ammonia (06/29/17 04:11) Prothrombin Time / Inr (Pt) (06/29/17 04:11) Act Partial Throm Time (Ptt) (06/29/17 04:11) Urinalysis - C+S If Indicated (06/29/17 04:11) Type And Screen (06/29/17 04:11) Red Blood Cells (Rbc) (06/29/17 04:11) Ecg Monitoring (06/29/17 04:11) Iv Access Insert/Monitor (06/29/17 04:11) Oximetry (06/29/17 04:11) Ondansetron Inj (Zofran Inj) (06/29/17 04:15) Sodium Chlor 0.9% 1000 Ml Inj (Ns 1000 M (06/29/17 04:11) Sodium Chloride 0.9% Flush (Ns Flush) (06/29/17 04:15) Sodium Chloride 0.9... W/Pantoprazole In (06/29/17 04:11) Sodium Chloride 0.9... W/Pantoprazole In (06/29/17 04:11) Blood Product Administration (06/29/17 04:11) Sodium Chlor 0.9% 250 Ml Inj (Ns 250 Ml (06/29/17 04:15) Arterial Blood Gas (Abg) (06/29/17 ) Sodium Chlor 0.9% 1000 Ml Inj (Ns 1000 M (06/29/17 05:15) Urinary Catheter Insert/Apply (06/29/17 05:02) Escitalopram (Lexapro) (06/29/17 09:00) Ferrous Sulfate (Ferrous Sulfate) (06/29/17 09:30) Pregabalin (Lyrica) (06/29/17 09:00) Atorvastatin (Lipitor) (06/29/17 09:00) Admit To Inpatient (06/29/17 ) Code Status (06/29/17 05:22) Vital Signs (Adult) MALLORY.Q1H (06/29/17 05:22) Activity Bed Rest (06/29/17 05:22) Elevate Head Of Bed (06/29/17 05:22) Intake + Output Q1H (06/29/17 05:22) Diet Npo (06/29/17 Breakfast) Sodium Chlor 0.9% 1000 Ml Inj (Ns 1000 M (06/29/17 05:22) Sodium Chloride 0.9% Flush (Ns Flush) (06/29/17 05:30) Sodium Chloride 0.9% Flush (Ns Flush) (06/29/17 09:00) Acetaminophen (Tylenol) (06/29/17 05:30) Acetamin-Hydrocod 325-5 Mg ([place] 5-325 (06/29/17 05:30) Morphine Inj (Morphine Inj) (06/29/17 05:30) Pantoprazole Inj (Protonix Inj) (06/29/17 08:00) Ondansetron Inj (Zofran Inj) (06/29/17 05:30) Zolpidem (Ambien) (06/29/17 05:30) Albuterol-Ipratropium Neb (Duoneb Neb) (06/29/17 10:00) Albuterol-Ipratropium Neb (Duoneb Neb) (06/29/17 05:30) Complete Blood Count With Diff (06/30/17 04:00) Comprehensive Metabolic Panel (06/30/17 04:00) Prothrombin Time / Inr (Pt) (06/30/17 04:00) Magnesium (Mg) (06/30/17 04:00) Phosphorus (Po4) (06/30/17 04:00) Lactic Acid (06/30/17 04:00) Pt Request For Service (06/29/17 05:22) Consult Gastroenterology (06/29/17 ) Truck Driver Heavy / Telemetry MALLORY.Q8H (06/29/17 05:22) Scd Bilateral/Knee High MALLORY.BID (06/29/17 05:22) Peter Bilateral/Knee High MALLORY.QSHIFT (06/29/17 05:22) Pharmacologic Contraindication (06/29/17 05:22) ^ Initiate Protocol (06/29/17 05:22) Instruction (06/29/17 05:22) [facility] [place] (06/29/17 05:30) Chlorhexidine 2% Cloth (Chlorhexidine 2% (06/30/17 04:00) Chlorhexidine 2% Cloth (Chlorhexidine 2% (06/29/17 05:30) Mrsa Pcr Surveillance (06/29/17 05:22) Docusate Sodium-Senna (Lissette-Colace) (06/29/17 09:00) Magnesium Hydroxide Liq (Milk Of Magnesi (06/29/17 05:30) Sennosides (Senokot) (06/29/17 05:30) Bisacodyl Supp (Dulcolax Supp) (06/29/17 05:30) Lactulose Liq (Lactulose Liq) (06/29/17 05:30) Inpatient Certification (06/29/17 ) Blood Glucose Goal (Criteria) (06/29/17 05:27) Hypoglycemia 70 Mg/Dl Or < (06/29/17 05:27) Notify Dr: Other (06/29/17 05:27) Dextrose 50% In Salvatore (Vial) Inj (D50w (Vi (06/29/17 05:30) Glucagon Inj (Glucagon Inj) (06/29/17 05:30) Insulin Aspart Supplemtl Scale (Novolog (06/29/17 08:00) (Hub Use Only)Inp Phy Cons/Ref (06/29/17 ) Ct Brain W/O Iv Contrast(Rout) (06/29/17 ) AGID (06/29/17 04:25) Admit Order (Ed Use Only) (06/29/17 ) ^ Saline Lock (06/29/17 05:55) Resp Oxygen Juan C Titrat 1-4 L (06/29/17 ) Notify Dr: Other (06/29/17 05:55) Sodium Chloride 0.9% Flush (Ns Flush) (06/29/17 09:00) Sodium Chloride 0.9% Flush (Ns Flush) (06/29/17 06:00) Labs Laboratory Tests Test 06/29/17 04:25 06/29/17 04:40 06/29/17 05:35 White Blood Count 13.0 TH/MM3 Red Blood Count 1.80 MIL/MM3 Hemoglobin 5.8 GM/DL Hematocrit 17.8 % Mean Corpuscular Volume 98.9 FL Mean Corpuscular Hemoglobin 32.2 PG Mean Corpuscular Hemoglobin Concent 32.6 % Red Cell Distribution Width 14.5 % Platelet Count 196 TH/MM3 Mean Platelet Volume 8.9 FL Neutrophils (%) (Auto) 80.0 % Lymphocytes (%) (Auto) 14.1 % Monocytes (%) (Auto) 5.6 % Eosinophils (%) (Auto) 0.1 % Basophils (%) (Auto) 0.2 % Neutrophils # (Auto) 10.4 TH/MM3 Lymphocytes # (Auto) 1.8 TH/MM3 Monocytes # (Auto) 0.7 TH/MM3 Eosinophils # (Auto) 0.0 TH/MM3 Basophils # (Auto) 0.0 TH/MM3 CBC Comment DIFF FINAL Differential Comment Prothrombin Time 13.3 SEC Prothromb Time International Ratio 1.2 RATIO Activated Partial Thromboplast Time 26.8 SEC Blood Urea Nitrogen 68 MG/DL Creatinine 1.11 MG/DL Random Glucose 183 MG/DL Total Protein 5.6 GM/DL Albumin 2.0 GM/DL Calcium Level 8.2 MG/DL Alkaline Phosphatase 92 U/L Aspartate Amino Transf (AST/SGOT) 27 U/L Alanine Aminotransferase (ALT/SGPT) 17 U/L Total Bilirubin 0.4 MG/DL Sodium Level 140 MEQ/L Potassium Level 4.6 MEQ/L Chloride Level 106 MEQ/L Carbon Dioxide Level 24.1 MEQ/L Anion Gap 10 MEQ/L Estimat Glomerular Filtration Rate 47 ML/MIN Ammonia 42 MCMOL/L Blood Gas Puncture Site RT RADIAL Blood Gas Patient Temperature 98.6 Blood Gas HCO3 24 mmol/L Blood Gas Base Excess 0.1 mmol/L Blood Gas Oxygen Saturation 93 % Arterial Blood pH 7.46 Arterial Blood Partial Pressure CO2 34 mmHg Arterial Blood Partial Pressure O2 69 mmHG Arterial Blood Oxygen Content 7.0 Vol % Arterial Blood Carboxyhemoglobin 2.0 % Arterial Blood Methemoglobin 0.3 % Blood Gas Hemoglobin 5.3 G/DL Oxygen Delivery Device RA Blood Gas Inspired Oxygen 21 % Urine Color YELLOW Urine Turbidity CLEAR Urine pH 6.5 Urine Specific [place] 1.017 Urine Protein TRACE mg/dL Urine Glucose (UA) NEG mg/dL Urine Ketones NEG mg/dL Urine Occult Blood NEG Urine Nitrite NEG Urine Bilirubin NEG Urine Urobilinogen 2.0 MG/DL Urine Leukocyte Esterase NEG Urine RBC 1 /hpf Urine WBC LESS THAN 1 /hpf Urine Mucus FEW /lpf Microscopic Urinalysis Comment CULT NOT INDICATED MDM Medical Decision Making Medical Screen Exam Complete: Yes Emergency Medical Condition: Yes Medical Record Reviewed: Yes Interpretation(s) HGB: 5.8 ABG room air pH 7.46 PCO2 34 PO2 69 I can't 24 base excess 0.1 hemoglobin 5.3 O2 saturation 93% Last Impressions Head CT 06/29/17 0000 Signed Impressions: Service Date/Time: Thursday, June 29, 2017 06:12 - CONCLUSION: 1. Right frontal ventriculostomy tube in good position. No acute intracranial abnormalities. Thony Wilhelm MD CBC & BMP Diagram 06/29/17 04:25 Total Protein 5.6 L, Albumin 2.0 L, Calcium Level 8.2 L, Alkaline Phosphatase 92 , Aspartate Amino Transf (AST/SGOT) 27, Alanine Aminotransferase (ALT/SGPT) 17, Total Bilirubin 0.4 Vital Signs Date Time Temp Pulse Resp B/P (MAP) Pulse Ox O2 Delivery O2 Flow Rate FiO2 06/29/17 05:58 102 16 122/58 (79) 100 Nasal Cannula 2.00 06/29/17 05:21 97.1 110 16 90/44 (59) 100 Nasal Cannula 2.00 06/29/17 05:21 97.1 110 16 90/44 06/29/17 05:21 97.1 110 16 90/44 100 06/29/17 05:02 97.4 104 16 89/44 100 06/29/17 05:02 97.4 104 16 89/44 100 06/29/17 04:45 93 21 06/29/17 04:19 98 Room Air 06/29/17 04:00 98.9 107 16 123/58 (79) Differential Diagnosis Upper GI bleed lower GI bleed hemorrhagic shock Narrative Course IV access obtained specimens collected and sent for resulting 4 units of packed cells ordered to 1 for transfusion upon availability and 3 on hold assisted contacted and nurse Valles identifies that patient has been nonverbal all night; family in waiting room Daughter at bedside/power of research attorney states mother is a DNR but should patient need endoscopy with intubation or need intubation daughter would like to proceed with endoscopy and as needed intubation as well as does want mother to receive transfusion. According to daughter she spoke with the patient on the phone yesterday with normal mentation and normal speech. Has had previous stroke with some occasional slurring of speech as residua since 2015. Patient also has history of normal pressure hydrocephalus and POLE TRUCK DRIVER shunt. Patient has been bedbound since fracture of left ankle in March. Patient does take aspirin daily as part of her medication regimen but no other blood thinning or antiplatelet medications. Emergency release blood of 2 units for immediate transfusion 4 units of type and crossmatched blood ordered Review of medical record indicates patient had hemoglobin of 6.8 April 04, 2017 requiring transfusion Patient's case has been discussed with on-call disc ruler operator will see in consultation this a.m. Call placed to tool planner for admission At 5:16 AM informed patient has antibody to blood Cake Mixer at bedside blood pressure has improved heart rate has improved but mentation remains altered which again is new according to the patient's daughters at bedside therefore in view of previous history of CVA and normal pressure hydrocephalus with POLE TRUCK DRIVER shunt patient sent for CT of the brain. Physician Communication Physician Communication call placed to GI --will see in consultation this AM; call to tool planner Dr Pierre Diagnosis Primary Impression: Acute upper GI bleed Additional Impressions: Anemia H/O: duodenal ulcer NPH (normal pressure hydrocephalus) History of CVA (cerebrovascular accident) Altered mental status Admitting Information Admitting Physician Requests: Admit Renetta Dodson MD Jun 29, 2017 04:22
[2017-06-29] MEDS ORDERED: ASPI81CH CHEW (04:34)
[2017-06-29] MEDS ORDERED: FERR325T8 PO (04:34)
[2017-06-29] MEDS ORDERED: LEXA10TA PO (04:34)
[2017-06-29] MEDS ORDERED: MILKSUS PO (04:34)
[2017-06-29] MEDS ORDERED: HUMALOG SQ (04:34)
[2017-06-29] MEDS ORDERED: IPRASOL INH (04:34)
[2017-06-29] MEDS ORDERED: TYLE325T PO (04:34)
[2017-06-29] MEDS ORDERED: [UNRECOGNIZED DRUG - CODE] (04:34)
[2017-06-29] MEDS ORDERED: CALC500T43 PO (04:34)
[2017-06-29 04:39] LABS: AUTOMATED NEUTROPHIL # 10.4 TH/MM3 (1.8-7.7); BASOPHIL % 0.2 % (0.0-2.0); EOSINOPHIL % 0.1 % (0.0-4.0); LYMPH % 14.1 % (9.0-44.0); LYMPHOCYTE # 1.8 TH/MM3 (1.0-4.8); MEAN CELL VOLUME 98.9 FL (80.0-100.0); MEAN CORPUSCULAR HEMOGLOBIN 32.2 PG (27.0-34.0); MEAN CORPUSCULAR HGB CONC 32.6 % (32.0-36.0); MONO % 5.6 % (0.0-8.0); PLATELET COUNT 196 TH/MM3 (150-450); RED CELL DISTRIBUTION WIDTH 14.5 % (11.6-17.2)
[2017-06-29 04:43] LABS: HEMO FLAGS DIFF FINAL
[2017-06-29 04:44] LABS: HEMATOCRIT 17.8 % (35.0-46.0)
[2017-06-29 04:48] LABS: APTT (PATIENT) 26.8 SEC (24.3-30.1); INTERNATIONAL NORMALIZED RATIO 1.2 RATIO; PROTHROMBIN TIME - PATIENT 13.3 SEC (9.8-11.6)
[2017-06-29 05:00] LABS: BLOOD GAS BASE EXCESS 0.1 mmol/L (-2-2); BLOOD GAS HCO3 24 mmol/L (22-26); BLOOD GAS METHEMOGLOBIN 0.3 % (0-2); BLOOD GAS O2 HGB SATURATION 93 % (90-100); BLOOD GAS PCO2 34 mmHg (38-42); BLOOD GAS PO2 69 mmHG (61-120); BLOOD GAS TOTAL HGB 5.3 G/DL (12.0-16.0); CRITICAL VALUE YES; DRAW SITE RT RADIAL; FIO2 21 %; OXYGEN DEVICE RA; TEMP CORR TO 98.6
[2017-06-29 05:01] LABS: NUMBER OF ARTERIAL PUNCTURES 1; STAT YES; ULNAR PULSE PRESENT
[2017-06-29] MEDS ORDERED: SODIUM CHLOR 0.9% 1000 ML INJ 1,000 ML IV ONE (05:15)
[2017-06-29 05:19] LABS: ANION GAP 10 MEQ/L (5-15); AST (GOT) 27 U/L (15-37); BICARBONATE 24.1 MEQ/L (21.0-32.0); BLOOD UREA NITROGEN 68 MG/DL (7-18); CHLORIDE 106 MEQ/L (98-107); GLOMERULAR FILTRATION RATE 47 ML/MIN (>89); POTASSIUM 4.6 MEQ/L (3.5-5.1); SODIUM (NA) 140 MEQ/L (136-145)
[2017-06-29 05:20] LABS: ALT (GPT) 17 U/L (10-53)
[2017-06-29 05:22] LABS: ALKALINE PHOSPHATASE 92 U/L (45-117); TOTAL BILIRUBIN ADULT 0.4 MG/DL (0.2-1.0)
[2017-06-29] MEDS ORDERED: LACTULOSE SYRUP 20 GM/30 ML CUP PO PRN (05:30)
[2017-06-29] MEDS ORDERED: ONDANSETRON HCL 4 MG/2 ML VIAL IV PUSH PRN (05:30)
[2017-06-29] MEDS ORDERED: DEXTROSE 50% IN WATER 50 ML VIAL(D50) IV PUSH PRN (05:30)
[2017-06-29] MEDS ORDERED: MAGNESIUM HYDROXIDE SUSP 30 ML CUP PO PRN (05:30)
[2017-06-29] MEDS ORDERED: ZOLPIDEM TARTRATE 5 MG TAB PO PRN (05:30)
[2017-06-29] MEDS ORDERED: CHLORHEXIDINE GLUCONATE 2 % 1 PACK (2 CLOTHS) TOP PRN (05:30)
[2017-06-29] MEDS ORDERED: SENNOSIDES 8.6 MG TAB PO PRN (05:30)
[2017-06-29] MEDS ORDERED: ACETAMINOPHEN/HYDROcodone 325 MG/5 MG TAB PO PRN (05:30)
[2017-06-29] MEDS ORDERED: MISCELLANEOUS NURSING INFORMATION XX SCH (05:30)
[2017-06-29] MEDS ORDERED: MORPHINE SULFATE 4 MG/ML INJ IV PUSH PRN (05:30)
[2017-06-29] MEDS ORDERED: SODIUM CHLORIDE 0.9% FLUSH 10 ML FLUSH PRN (05:30)
[2017-06-29] MEDS ORDERED: GLUCAGON 1 MG/ML VIAL OTHER PRN (05:30)
[2017-06-29] MEDS ORDERED: BISACODYL 10 MG SUPP RECTAL PRN (05:30)
[2017-06-29] MEDS ORDERED: ACETAMINOPHEN 325 MG TAB PO PRN (05:30)
--- NOTE | 2017-06-29 05:38 | HHI.HP ---
HPI Service Critical Care Medicine Primary Care Physician Jordan Barnhart MD Admission Diagnosis Diagnosis: Travel History International Travel<30 Days: No Contact w/Intl Traveler <30 Da: No Traveled to Known Affected Are: No History of Present Illness 87-year-old female presents from [facility] where nursing staff this evening noticed her to have vomiting of red blood as well as maroon stool. Patient has had diarrhea times one day reportedly. No reported fever. Patient has multiple medical problems as well as recent hospitalization for left ankle fracture with repair, also generalized muscle weakness, patient is nonambulatory, has a dysphagia dysarthria with a mixed receptive expressive language disorder with a history of CVA, history of normal pressure hydrocephalus with VICE PRESIDENT TAX shunt and type 2 diabetes with diabetic neuropathy , frequent falls, and GERD, duodenal ulcer and hypertension. Patient here is nonverbal and unable to provide any history. Patient is awake and responds to voice, however not following commands. The patient's daughter is at the bedside and confirms that the patient is the patient is typically verbal , conversant although occasionally has been noted not to speak. Per chart documentation upon EMS arrival patient's blood pressure systolic was 70 mmHg and she was identified to need suctioning of coffee grounds from her mouth. Review of Systems ROS Unobtainable patient is nonverbal Past Family Social History Allergies: Coded Allergies: sulfamethoxazole (Unverified Allergy, Intermediate, Hives, 06/29/17) trimethoprim (Unverified Allergy, Intermediate, Hives, 06/29/17) morphine (Unverified Adverse Reaction, Severe, N/V, 06/29/17) Past Medical History Normal pressure hydrocephalus, status post VICE PRESIDENT TAX shunt. Diabetes. Diabetic neuropathy. Hypertension. Hyperlipidemia. Bilateral knee replacement with VICE PRESIDENT TAX shunt placement. Left hip open reduction, internal fixation. Bilateral cataract surgery. Right ankle fracture. CVA right parietal 2015 Past Surgical History Left Ankle Open Reduction and Internal Fixation 12/16 Bilaterally knee replacement VICE PRESIDENT TAX shunt Reported Medications Reported Meds & Active Scripts Active Lantus Inj (Insulin Glargine) 1,000 Unit/10 Ml Vial 6 Units SQ HS Hydrocodone-Acetaminophen 5-325 mg Tab 1 Tab PO Q4H PRN Reported Aspirin 81 Mg Chew 81 Mg CHEW DAILY Lexapro (Escitalopram Oxalate) 10 Mg Tab 10 Mg PO DAILY Humalog Inj (Insulin Human Lispro) 1,000 Unit/10 Ml Vial Unknown Dose SQ ACHS Max dose at bedtime:( )units; sugars< 70,(0)units; sugars 150-199,(1)unit; sugars 200-249,(3)units; sugars 250-299,(5)units; sugars 300-349,(7)units; sugars more than 349,(9)units. Calcium/Vitamin D (Calcium Carbonate-Vitamin D) 500-200 Mg-Unit Tab 1 Tab PO BID Ferrous Sulfate 325 Mg (65 Mg Iron) Tablet 325 Mg PO TIDPC Tylenol (Acetaminophen) 325 Mg Tab 650 Mg PO Q4H PRN Pro-Stat Sugar Free (Amino Acids-Protein Hydrolysat) 15 Gram-100 Kcal/30 Ml Liq TID Milk of Magnesia Liq (Magnesium Hydroxide) 400 Mg/5 Ml Susp 30 Ml PO DAILY PRN Duoneb (Ipratropium-Albuterol Neb) 0.5-2.5 Mg/3 Ml Neb 1 Nebule INH Q6HR NEB Potassium Chloride ER (Potassium Chloride) 20 Meq Tab 20 Meq PO BID Furosemide 20 Mg Tab 20 Mg PO BID Docusate Sodium 100 Mg Cap 100 Mg PO BID Lyrica (Pregabalin) 75 Mg Cap 75 Mg PO BID Enalapril (Enalapril Maleate) 10 Mg Tab 10 Mg PO DAILY Crestor (Rosuvastatin Calcium) 10 Mg Tab 10 Mg PO EVERY OTHER DAY Active Ordered Medications Current Medications Medications (Trade) Dose Ordered Sig/Emily Route PRN Reason Start Time Stop Time Status Last Admin Dose Admin Sodium Chloride 1,000 ml @ 125 mls/hr Q8H IV 06/29/17 04:11 06/29/17 12:10 Sodium Chloride (NS Flush) 2 ml UNSCH PRN IVF FLUSH AFTER USING IV ACCESS 06/29/17 04:15 Pantoprazole Sodium 80 mg/ Sodium Chloride 100 ml @ 10 mls/hr Q10H IV 06/29/17 04:11 Sodium Chloride 250 ml @ 15 mls/hr ONCE ONCE IV 06/29/17 04:15 06/29/17 20:54 Sodium Chloride 1,000 ml @ 999 mls/hr BOLUS ONCE IV 06/29/17 05:15 06/29/17 06:15 Escitalopram Oxalate (Lexapro) 10 mg DAILY PO 06/29/17 09:00 UNV Ferrous Sulfate (Ferrous Sulfate) 325 mg TIDPC PO 06/29/17 09:30 UNV Pregabalin (Lyrica) 75 mg BID PO 06/29/17 09:00 UNV Non-Formulary Medication 10 mg EVERY OTHER DAY PO 06/29/17 09:00 UNV Family History No family history of early coronary artery disease or malignancies Social History No history of tobacco, alcohol or illicit drug abuse Physical Exam Vital Signs Vital Signs Date Time Temp Pulse Resp B/P (MAP) Pulse Ox O2 Delivery O2 Flow Rate FiO2 06/29/17 05:02 97.4 104 16 89/44 100 06/29/17 05:02 97.4 104 16 89/44 100 06/29/17 04:19 98 Room Air 06/29/17 04:00 98.9 107 16 123/58 (79) Physical Exam GENERAL: Well-nourished, well-developed elderly woman, nonverbal. SKIN: Warm and dry. HEAD: Normocephalic. EYES: No scleral icterus. No injection or drainage. NECK: Supple, trachea midline. No JVD or lymphadenopathy. CARDIOVASCULAR: Regular rate and rhythm without murmurs, gallops, or rubs. RESPIRATORY: Breath sounds equal bilaterally. No accessory muscle use. GASTROINTESTINAL: Abdomen soft, non-tender, nondistended. MUSCULOSKELETAL: No cyanosis, or edema. BACK: Nontender without obvious deformity. NEURO EXAM: Mental Status: The patient is nonverbal Cranial Nerves: Pupils are round, reactive to light. Reflexes: Biceps, patellar, and Achilles are 2/4 bilaterally. No clonus. Laboratory Laboratory Tests Test 06/29/17 04:25 06/29/17 04:40 White Blood Count 13.0 Red Blood Count 1.80 Hemoglobin 5.8 Hematocrit 17.8 Mean Corpuscular Volume 98.9 Mean Corpuscular Hemoglobin 32.2 Mean Corpuscular Hemoglobin Concent 32.6 Red Cell Distribution Width 14.5 Platelet Count 196 Mean Platelet Volume 8.9 Neutrophils (%) (Auto) 80.0 Lymphocytes (%) (Auto) 14.1 Monocytes (%) (Auto) 5.6 Eosinophils (%) (Auto) 0.1 Basophils (%) (Auto) 0.2 Neutrophils # (Auto) 10.4 Lymphocytes # (Auto) 1.8 Monocytes # (Auto) 0.7 Eosinophils # (Auto) 0.0 Basophils # (Auto) 0.0 CBC Comment DIFF FINAL Differential Comment Prothrombin Time 13.3 Prothromb Time International Ratio 1.2 Activated Partial Thromboplast Time 26.8 Blood Urea Nitrogen 68 Creatinine 1.11 Random Glucose 183 Total Protein 5.6 Albumin 2.0 Calcium Level 8.2 Alkaline Phosphatase 92 Aspartate Amino Transf (AST/SGOT) 27 Alanine Aminotransferase (ALT/SGPT) 17 Total Bilirubin 0.4 Sodium Level 140 Potassium Level 4.6 Chloride Level 106 Carbon Dioxide Level 24.1 Anion Gap 10 Estimat Glomerular Filtration Rate 47 Ammonia 42 Blood Gas Puncture Site RT RADIAL Blood Gas Patient Temperature 98.6 Blood Gas HCO3 24 Blood Gas Base Excess 0.1 Blood Gas Oxygen Saturation 93 Arterial Blood pH 7.46 Arterial Blood Partial Pressure CO2 34 Arterial Blood Partial Pressure O2 69 Arterial Blood Oxygen Content 7.0 Arterial Blood Carboxyhemoglobin 2.0 Arterial Blood Methemoglobin 0.3 Blood Gas Hemoglobin 5.3 Oxygen Delivery Device RA Blood Gas Inspired Oxygen 21 Result Diagram: 06/29/175 06/29/175 Caprini VTE Risk Assessment Caprini VTE Risk Assessment: Mod/High Risk (score >= 2) Caprini Risk Assessment Model Point Value = 1 Point Value = 2 Point Value = 3 Point Value = 5 Age 41-60 Minor surgery BMI > 25 kg/m2 Swollen legs Varicose veins or History of unexplained or recurrent spontaneous Oral contraceptives or hormone replacement Sepsis (< 1 month) Serious lung disease, including pneumonia (< 1 month) Abnormal pulmonary function Acute myocardial infarction Congestive heart failure (< 1 month) History of inflammatory bowel disease Medical patient at bed rest Age 61-74 Arthroscopic surgery Major open surgery (> 45 min) Laparoscopic surgery (> 45 min) Malignancy Confined to bed (> 72 hours) Immobilizing plaster cast Central venous access Age >= 75 History of VTE Family history of VTE Factor V Leiden Prothrombin [id number] Lupus anticoagulant Anticardiolipin antibodies Elevated serum homocysteine Heparin-induced thrombocytopenia Other congenital or acquired thrombophilia Stroke (< 1 month) Elective arthroplasty Hip, pelvis, or leg fracture Acute spinal cord injury (< 1 month) Prophylaxis Regimen Total Risk Factor Score Risk Level Prophylaxis Regimen 0-1 Low Early ambulation 2 Moderate Order ONE of the following: *Sequential Compression Device (SCD) *Heparin 5000 units SQ BID 3-4 Higher Order ONE of the following medications: *Heparin 5000 units SQ TID *Enoxaparin/Lovenox 40 mg SQ daily (WT < 150 kg, CrCl > 30 mL/min) *Enoxaparin/Lovenox 30 mg SQ daily (WT < 150 kg, CrCl > 10-29 mL/min) *Enoxaparin/Lovenox 30 mg SQ BID (WT < 150 kg, CrCl > 30 mL/min) AND/OR *Sequential Compression Device (SCD) 5 or more Highest Order ONE of the following medications: *Heparin 5000 units SQ TID (Preferred with Epidurals) *Enoxaparin/Lovenox 40 mg SQ daily (WT < 150 kg, CrCl > 30 mL/min) *Enoxaparin/Lovenox 30 mg SQ daily (WT < 150 kg, CrCl > 10-29 mL/min) *Enoxaparin/Lovenox 30 mg SQ BID (WT < 150 kg, CrCl > 30 mL/min) AND *Sequential Compression Device (SCD) Assessment and Plan Assessment and Plan Acute GI bleed - Aggressive IV fluids volume replacement - Protonix 40 IV twice a day - Nothing by mouth - Gastroenterology consult - PRBC transfusions when necessary Altered mental status - CT head Stat - r/o VICE PRESIDENT TAX shunt malfunction and CVA Renal insufficiency Continue with IV fluids BMP in the morning Anemia due to blood loss Monitor H&H - Blood transfusion if hemoglobin drops less than 8 Type 2 diabetes - Accu-Cheks before meals and at bedtime with insulin sliding scale - Hold long acting insulins while to nothing by mouth History of CVA Hold aspirin at this time due to acute GI bleed -Continue statins Hypertension - Hold home medications to hemodynamically more stable NPH - status post VICE PRESIDENT TAX shunt - physical therapy as tolerated DVT GI prophylaxis - Teds SCDs - No pharmacological DVT prophylaxis due to acute bleed - IV Protonix twice a day Critical Care: The total critical care time was 35 minutes. Time to perform other separately billable procedures was not included in the critical care time. Cristóbal Pierre MD Jun 29, 2017 05:38
[2017-06-29 06:20] LABS: BLOOD, URINE NEG (NEG); COMMENT (UR) CULT NOT INDICATED; CULTURE IF INDICATED CULT NOT INDICATED; GLUCOSE,URINE NEG (NEG); KETONE, URINE NEG (NEG); MUCUS URINE FEW /lpf (OCC); NITRITE,URINE NEG (NEG); PH, URINE 6.5 (5.0-8.5); URINE COLOR YELLOW (YELLW/STRAW)
--- NOTE | 2017-06-29 06:41 | RADRPT ---
EXAM DATE/TIME: 06/29/2017 06:12 [place] COMPARISON: No previous studies available for comparison. INDICATIONS : Altered mental status. RADIATION DOSE: 56.35 CTDIvol (mGy) MEDICAL HISTORY : Hypertension. Gastroesophageal reflux disease. Diabetes mellitus type 2.Ulcer. CVA. SURGICAL HISTORY : PROJECT ADMINISTRATIVE ASSISTANT shunt. ENCOUNTER: Initial ACUITY: 1 day PAIN SCALE: 0/10 LOCATION: cranial TECHNIQUE: Multiple contiguous axial images were obtained of the head. Using automated exposure control and adj ustment of the mA and/or kV according to patient size, radiation dose was kept as low as reasonably a chievable to obtain optimal diagnostic quality images. DICOM format image data is available electro nically for review and comparison. FINDINGS: Right frontal ventriculostomy tube is present in good position. Stable ventricular size. No intracran ial hemorrhage, mass or shift. No acute bony abnormality. No recent infarct identified. CONCLUSION: 1. Right frontal ventriculostomy tube in good position. No acute intracranial abnormalities. Thony Wilhelm MD on June 29, 2017 at 6:37 Board Certified Radiologist. This report was verified electronically.
[2017-06-29] MEDS: SODIUM CHLOR 0.9% 1000 ML INJ 1,000 ML IV SCH ×3 (06:57→23:23)
[2017-06-29] MEDS: PANTOPRAZOLE SODIUM 40 MG VIAL IV PUSH SCH ×2 (07:16→21:20)
[2017-06-29] MEDS: INSULIN ASPART SUPPLEMENTAL SCALE SQ SCH ×4 (08:00→21:00)
[2017-06-29] MEDS: PREGABALIN 75 MG CAP PO SCH ×2 (09:00→21:00)
[2017-06-29] MEDS ORDERED: SODIUM CHLORIDE 0.9% FLUSH 10 ML FLUSH IV FLUSH SCH (09:00)
[2017-06-29] MEDS: DOCUSATE SODIUM 50 MG/SENNA 8.6 MG TAB PO SCH ×2 (09:00→21:00)
[2017-06-29] MEDS: ATORVASTATIN 20 MG TAB PO SCH (09:00)
[2017-06-29] MEDS: ESCITALOPRAM OXALATE 10 MG TAB PO SCH (09:00)
[2017-06-29] MEDS: FERROUS SULFATE 325 MG (65 MG ELEMENTAL IRON) TAB PO SCH ×3 (09:30→18:30)
[2017-06-29] MEDS: RESP: ALBUTEROL 2.5 MG/IPRATROPIUM 0.5 MG NEB (SCH) INH ×3 (09:40→21:58)
--- NOTE | 2017-06-29 11:22 | PD.CONS ---
HPI History of Present Illness This is a 87 year old female who was brought from a local nursing facility for evaluation of hematemesis and maroon colored stool. She is nonverbal and unable to provide any history and therefore the history has been obtained from the nursing staff, family, and EMR. They report that she is normally alert and oriented and just yesterday, called to complain that they did not come in to see her yesterday. Of note, she did not complain of any abdominal pain or bleeding at that time. She was recently hospitalized in March after a fall, at which time she sustained an open left fracture (where she had previously sustained a left bimalleolar fracture and dislocation that required ORIF in November). She underwent revision ORIF left ankle with I&D with Dr. Mathew on and was discharged to a rehab facility on 04/12. Her family reports that her correction facility days ran out and she was then transferred to a local nursing facility. According to the EMR, the patient began having hematemesis with red blood and started passing maroon bloody stool yesterday evening. According to her medication list, she is on Aspirin 81mg daily, but no other blood thinners. HH on admission was 5.8/17.8 and she has received 3 units of PRBC. She arrived to the the unit earlier this morning and the nurse reports that she has not had any active bleeding for him. Her family reports that she has a remote history of peptic ulcer disease in 1955 and that she does have a history of GERD and Recio's esophagus, but they are not sure if she has been on her omeprazole at the [facility]. Her last EGD/Colonoscopy was about 2 years ago. (Lisa Jorge) PFSH Past Medical History Normal pressure hydrocephalus, S/P COST CONTROL SPECIALIST shunt Diabetes Diabetic neuropathy HTN CVA, right parietal GERD Remote hx of PUD Recio's Esophagus Past Surgical History Bilateral knee replacement COST CONTROL SPECIALIST shunt placement Left hip ORIF Bilateral cataract surgery Right ankle ORIF (Lisa Jorge) Coded Allergies: sulfamethoxazole (Unverified Allergy, Intermediate, Hives, 06/29/17) trimethoprim (Unverified Allergy, Intermediate, Hives, 06/29/17) morphine (Unverified Adverse Reaction, Severe, N/V, 06/29/17) Medications Allergies Coded Allergies Type Severity Reaction Last Updated Verified sulfamethoxazole Allergy Intermediate Hives 06/29/17 No trimethoprim Allergy Intermediate Hives 06/29/17 No morphine Adverse Reaction Severe N/V 06/29/17 No Active Scripts Medications Dose Route/Sig Max Daily Dose Days Date Category Dose Instructions Aspirin 81 Mg Chew 81 Mg CHEW DAILY 06/29/17 Reported Lexapro (Escitalopram Oxalate) 10 Mg Tab 10 Mg PO DAILY 06/29/17 Reported Humalog Inj (Insulin Human Lispro) 1,000 Unit/10 Ml Vial Unknown Dose SQ ACHS 06/29/17 Reported Max dose at bedtime:( )units; sugars< 70,(0)units; sugars 150-199,(1)unit; sugars 200-249,(3)units; sugars 250-299,(5)units; sugars 300-349,(7)units; sugars more than 349,(9)units. Calcium/Vitamin D (Calcium Carbonate-Vitamin D) 500-200 Mg-Unit Tab 1 Tab PO BID 06/29/17 Reported Ferrous Sulfate 325 Mg (65 Mg Iron) Tablet 325 Mg PO TIDPC 06/29/17 Reported Tylenol (Acetaminophen) 325 Mg Tab 650 Mg PO Q4H PRN 06/29/17 Reported Pro-Stat Sugar Free (Amino Acids-Protein Hydrolysat) 15 Gram-100 Kcal/30 Ml Liq TID 06/29/17 Reported Milk of Magnesia Liq (Magnesium Hydroxide) 400 Mg/5 Ml Susp 30 Ml PO DAILY PRN 06/29/17 Reported Duoneb (Ipratropium-Albuterol Neb) 0.5-2.5 Mg/3 Ml Neb 1 Nebule INH Q6HR NEB 06/29/17 Reported Lantus Inj (Insulin Glargine) 1,000 Unit/10 Ml Vial 6 Units SQ HS 04/12/17 Rx Hydrocodone-Acetaminophen 5-325 mg Tab 1 Tab PO Q4H PRN 04/12/17 Rx Potassium Chloride ER (Potassium Chloride) 20 Meq Tab 20 Meq PO BID 04/03/17 Reported Furosemide 20 Mg Tab 20 Mg PO BID 04/03/17 Reported Docusate Sodium 100 Mg Cap 100 Mg PO BID 04/03/17 Reported Lyrica (Pregabalin) 75 Mg Cap 75 Mg PO BID 04/03/17 Reported Enalapril (Enalapril Maleate) 10 Mg Tab 10 Mg PO DAILY 09/23/16 Reported Crestor (Rosuvastatin Calcium) 10 Mg Tab 10 Mg PO EVERY OTHER DAY 09/23/16 Reported Family History Noncontributory Social History No tobacco, etoh, or illicit drug use. (Lisa Jorge) Review of Systems ROS Unable to obtain (Lisa Jorge) GI Exam Vitals I&O Vital Signs Date Time Temp Pulse Resp B/P (MAP) Pulse Ox O2 Delivery O2 Flow Rate FiO2 06/29/17 10:00 85 06/29/17 09:40 94 21 06/29/17 09:15 06/29/17 08:45 98.9 89 19 138/63 (88) 95 06/29/17 08:45 87 06/29/17 07:19 97.8 85 18 118/59 100 06/29/17 06:53 97.5 84 18 154/70 100 06/29/17 06:10 99 16 154/70 (98) 100 Nasal Cannula 2.00 06/29/17 05:58 102 16 122/58 (79) 100 Nasal Cannula 2.00 06/29/17 05:21 97.1 110 16 90/44 (59) 100 Nasal Cannula 2.00 06/29/17 05:21 97.1 110 16 90/44 06/29/17 05:21 97.1 110 16 90/44 100 06/29/17 05:02 97.4 104 16 89/44 100 06/29/17 05:02 97.4 104 16 89/44 100 06/29/17 04:45 93 21 06/29/17 04:19 98 Room Air 06/29/17 04:00 98.9 107 16 123/58 (79) I/O 06/28/17 06/28/17 06/28/17 06/29/17 06/29/17 06/29/17 07:00 15:00 23:00 07:00 15:00 23:00 Intake Total 1240 ml 450 ml Balance 1240 ml 450 ml Intake Packed Cells 1200 ml 400 ml Blood Product IV Normal Saline Flush 40 ml 50 ml Imaging Last Impressions Head CT 06/29/17 0000 Signed Impressions: Service Date/Time: Thursday, June 29, 2017 06:12 - CONCLUSION: 1. Right frontal ventriculostomy tube in good position. No acute intracranial abnormalities. Thony Wilhelm MD Laboratory Test 06/29/17 04:25 06/29/17 04:40 06/29/17 05:35 White Blood Count 13.0 TH/MM3 Red Blood Count 1.80 MIL/MM3 Hemoglobin 5.8 GM/DL Hematocrit 17.8 % Mean Corpuscular Volume 98.9 FL Mean Corpuscular Hemoglobin 32.2 PG Mean Corpuscular Hemoglobin Concent 32.6 % Red Cell Distribution Width 14.5 % Platelet Count 196 TH/MM3 Mean Platelet Volume 8.9 FL Neutrophils (%) (Auto) 80.0 % Lymphocytes (%) (Auto) 14.1 % Monocytes (%) (Auto) 5.6 % Eosinophils (%) (Auto) 0.1 % Basophils (%) (Auto) 0.2 % Neutrophils # (Auto) 10.4 TH/MM3 Lymphocytes # (Auto) 1.8 TH/MM3 Monocytes # (Auto) 0.7 TH/MM3 Eosinophils # (Auto) 0.0 TH/MM3 Basophils # (Auto) 0.0 TH/MM3 CBC Comment DIFF FINAL Differential Comment Prothrombin Time 13.3 SEC Prothromb Time International Ratio 1.2 RATIO Activated Partial Thromboplast Time 26.8 SEC Blood Urea Nitrogen 68 MG/DL Creatinine 1.11 MG/DL Random Glucose 183 MG/DL Total Protein 5.6 GM/DL Albumin 2.0 GM/DL Calcium Level 8.2 MG/DL Alkaline Phosphatase 92 U/L Aspartate Amino Transf (AST/SGOT) 27 U/L Alanine Aminotransferase (ALT/SGPT) 17 U/L Total Bilirubin 0.4 MG/DL Sodium Level 140 MEQ/L Potassium Level 4.6 MEQ/L Chloride Level 106 MEQ/L Carbon Dioxide Level 24.1 MEQ/L Anion Gap 10 MEQ/L Estimat Glomerular Filtration Rate 47 ML/MIN Ammonia 42 MCMOL/L Blood Gas Puncture Site RT RADIAL Blood Gas Patient Temperature 98.6 Blood Gas HCO3 24 mmol/L Blood Gas Base Excess 0.1 mmol/L Blood Gas Oxygen Saturation 93 % Arterial Blood pH 7.46 Arterial Blood Partial Pressure CO2 34 mmHg Arterial Blood Partial Pressure O2 69 mmHG Arterial Blood Oxygen Content 7.0 Vol % Arterial Blood Carboxyhemoglobin 2.0 % Arterial Blood Methemoglobin 0.3 % Blood Gas Hemoglobin 5.3 G/DL Oxygen Delivery Device RA Blood Gas Inspired Oxygen 21 % Urine Color YELLOW Urine Turbidity CLEAR Urine pH 6.5 Urine Specific [place] 1.017 Urine Protein TRACE mg/dL Urine Glucose (UA) NEG mg/dL Urine Ketones NEG mg/dL Urine Occult Blood NEG Urine Nitrite NEG Urine Bilirubin NEG Urine Urobilinogen 2.0 MG/DL Urine Leukocyte Esterase NEG Urine RBC 1 /hpf Urine WBC LESS THAN 1 /hpf Urine Mucus FEW /lpf Microscopic Urinalysis Comment CULT NOT INDICATED Physical Examination HEENT: Normocephalic; atraumatic; no jaundice. CHEST: Resp. even/unlabored CARDIAC: RRR, mildly hypotensive ABDOMEN: Soft, mildly distended, nontender; no hepatosplenomegaly; bowel sounds are present in all four quadrants. EXTREMITIES: Fx boot on left SKIN: Generalized pallor GIFT BASKET PACKER: Somnolent (Lisa Jorge) Assessment and Plan Plan ASSESSMENT: - Upper GIB with hematemesis with red blood, maroon stools that began yesterday at [facility]. Pt has remote hx of PUD in 1955. Family reports hx of Recio's Esophagus, GERD. Last egd/ colonoscopy about 2 years ago per family. HH 5.8/17.8. S/P 4 units PRBC. Rpt. labs pending. Will plan for egd later today. Protonix 40mg IV BID. NPO. - Severe anemia, acute blood loss. HH 5.8/17.8. S/P 4 units PRBC. - GERD, Recio's esophagus. PPI - AMS. CT head unremarkable. 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 - PHUONG, Creat. 1.11 - DM, Hyperlipidemia, per attending PLAN: - Plan for egd today (d/w family at bedside) - Obtain consents - NPO - Protonix 40mg IV BID - Monitor HH - Transfuse as needed - CBC, CMP - Supportive care - Further recommendations to follow based on results of above - Pt seen and examined by Dr. Rosario and myself and this note is written on his behalf (Lisa Jorge) Plan Patient was seen and examined, agree with above note, patient is nonverbal and cannot give history, seems that she has active bleeding, plan to do upper endoscopy today, continue H&H monitoring and packed RBC as needed (Anamaria Rosario MD) Lisa Jorge Jun 29, 2017 11:22 Anamaria Rosario MD Jun 29, 2017 14:12
[2017-06-29] MEDS ORDERED: LIDOCAINE HCL 1% PF 5 ML AMPULE OTHER ONE (12:00)
[2017-06-29] MEDS ORDERED: PROPOFOL 200 MG/20 ML AMP IV ONE (12:00)
[2017-06-29 13:28] LABS: HEMATOCRIT 34.1 % (35.0-46.0); REVIEW FLAG FINAL
[2017-06-29] MEDS ORDERED: DO NOT ADM ANY ANTICOAGULANT DRUGS PRN (14:10)
--- NOTE | 2017-06-29 14:17 | PD.PROCEDR ---
GI Procedure PROCEDURE PERFORMED Upper endoscopy INDICATION FOR PROCEDURE Gastrointestinal bleeding and anemia PROCEDURE: The procedure, risks and benefits were discussed with Ms. Ventura and informed consent was obtained. Anesthesia sedated her with Diprivan. She was placed in the left lateral decubitus position. EGD: The Pentax videoscope was introduced through the oropharynx and advanced to the second portion of the duodenum under direct visualization. Retroflexion was performed in the stomach. FINDINGS: Esophageal varices grade 2, no active bleeding from the varices, Questionable short Recio biopsy was not done Significant amount of coffee-ground emesis mixed with red blood in the stomach, unable to identify a bleeding source, most likely gastropathy but gastric ulcer could not be completely Patient has duodenitis ESTIMATED BLOOD LOSS: None SPECIMENS REMOVED: None COMPLICATIONS: None IMPRESSION: Grade 2 esophageal varices 3 columns no active bleeding from that Possible short Recio compromised with the coffee-ground emesis No sign of active bleeding but there is stigmata of recent bleed mostly from the stomach either from gastropathy or tic ulcer disease the visualization was compromised by coffee-ground emesis and old blood Duodenitis PLAN: Nothing by mouth Continue PPI Monitor H&H with hemoglobin as needed Repeat EGD in a few days Anamaria Rosario MD Jun 29, 2017 14:17
--- NOTE | 2017-06-29 14:20 | EKG ---
Date Performed: 06/29/2017 Time Performed: 13:33:03 PTAGE: 87 years EKG: Sinus rhythm WITH PACs NONSPECIFIC T-WAVE ABNORMALITY ABNORMAL ECG PREVIOUS TRACING : 04/03/2017 07.11 No significant change from prior tracing. DOCTOR: Sergio Gupta Interpretating Date/Time 06/29/2017 14:19:57
--- NOTE | 2017-06-29 14:21 | PD.CONS ---
Consult Service Palliative Care Consult Requested By Dr. Jose Sprague . Primary Care Physician Jordan Barnhart MD . Reason for Consultation a. To assist with evaluation and management of symptoms including: encephalopathy, weakness b. To assist medical decision maker(s) with: better understanding of current medical conditions; weighing benefits/burdens of medical treatment options; making medical treatment decisions. . HPI History of Present Illness This 87 yo female, with a past history of stroke (August 2016) normal pressure hydrocephalus, diabetes, and hypertension, suffered a series of medical and surgical issues over the past few years. She sustained a fall and hip fracture in 2007 requiring surgery, was found to have normal pressure hydrocephalus and underwent a V-P shunt placement in 2011, suffered a stroke with left-sided weakness in August 2016, fell and sustained a closed left ankle fracture that required ORIF in November 2016, and then fell again causing an open left ankle fracture requiring surgery in March 2017. After each insult, the patient was weaker and had more difficulty getting around, and she has been completely nonambulatory since the March 2017 fall, fracture, and surgery. In recent days, the patient has been weaker, more fatigued, sleeping more. The patient was noted to have coffee-ground emesis and maroon stools on the day of admission 06/29/17, and she was brought to the emergency department. She was noted to be nonverbal and not tracking upon arrival at the emergency department , even though her daughter reports she had spoken with the patient by telephone yesterday and she was clearly conversant in her usual way at that time. In the emergency department, findings included: * Lethargic, nonverbal, not tracking * White count 13.0, hemoglobin 5.8 * INR 1.2 * Sodium 140, creatinine 1.11, BUN 68, albumin 2.0 * CT of the head again disclosed the ventriculostomy tube, but no acute findings or acute strokes were noted. The patient was admitted to intensive care, and transfusions were initiated. Gastroenterology was consulted, and they are taking her for EGD this afternoon. The patient's daughters had agreed that the patient could be intubated during the procedure, but they were hopeful that she would be extubated soon thereafter. Palliative Care was consulted to assist with symptom management, and to enter into discussions with the patient's family regarding her current illnesses, the prognosis, and the benefits and burdens of the various treatment options. . Function/Cognitive Trajectory The patient has been declining over the past year, is getting around with a walker in March, but has been nonambulatory since the second ankle fracture on 04/03/17. They use a Maegan lift to get her into a chair and wheelchair down to the dining room and for activities at her shelter. She is "a little forgetful sometimes" that she is oriented and clearly conversant with family on the day prior to this admission. . Review of Systems ROS Limitations: Clinical Condition, Altered Mental Status Constitutional: COMPLAINS OF: Fatigue, Weight loss Endocrine: DENIES: Polyuria Eyes: DENIES: Eye inflammation Ears, nose, mouth, throat: DENIES: Epistaxis Respiratory: DENIES: Cough, Shortness of breath Cardiovascular: DENIES: Chest pain, PND Gastrointestinal: COMPLAINS OF: Bloody stools, Vomiting blood Genitourinary: DENIES: Hematuria Musculoskeletal: COMPLAINS OF: Back pain (chronic) Integumentary: DENIES: Rash Hematologic/Lymphatics: COMPLAINS OF: Bruising (arms) Immunologic/Allergic: DENIES: Urticaria Neurologic: COMPLAINS OF: Localized weakness (some left-sided weakness since the stroke August 2016), DENIES: Seizures Psychiatric: COMPLAINS OF: Confusion (during this hospitalization), DENIES: Agitation Past Family Social History Coded Allergies: sulfamethoxazole (Unverified Allergy, Intermediate, Hives, 06/29/17) trimethoprim (Unverified Allergy, Intermediate, Hives, 06/29/17) morphine (Unverified Adverse Reaction, Severe, N/V, 06/29/17) Past Medical History * GI bleeding, with anemia * Encephalopathy, undetermined etiology * Right-sided lacunar infarct August 2016, with left-sided weakness * Normal pressure hydrocephalus, IMPORT COORDINATION AND PRODUCTION HEAD shunt 2011 * Diabetes, neuropathy * Hypertension * Hyperlipidemia * Osteoarthritis * History of Recio's esophagus * GERD . Past Surgical History * Bilateral knee replacement * IMPORT COORDINATION AND PRODUCTION HEAD shunt placement 2010, revision 2011 * Left hip ORIF 2007 * Bilateral cataract surgery * Left ankle ORIF November 2016 * Left ankle open fracture, ORIF March 2017 . Reported Medications Reported Meds & Active Scripts Active Lantus Inj (Insulin Glargine) 1,000 Unit/10 Ml Vial 6 Units SQ HS Hydrocodone-Acetaminophen 5-325 mg Tab 1 Tab PO Q4H PRN Reported Aspirin 81 Mg Chew 81 Mg CHEW DAILY Lexapro (Escitalopram Oxalate) 10 Mg Tab 10 Mg PO DAILY Humalog Inj (Insulin Human Lispro) 1,000 Unit/10 Ml Vial Unknown Dose SQ ACHS Max dose at bedtime:( )units; sugars< 70,(0)units; sugars 150-199,(1)unit; sugars 200-249,(3)units; sugars 250-299,(5)units; sugars 300-349,(7)units; sugars more than 349,(9)units. Calcium/Vitamin D (Calcium Carbonate-Vitamin D) 500-200 Mg-Unit Tab 1 Tab PO BID Ferrous Sulfate 325 Mg (65 Mg Iron) Tablet 325 Mg PO TIDPC Tylenol (Acetaminophen) 325 Mg Tab 650 Mg PO Q4H PRN Pro-Stat Sugar Free (Amino Acids-Protein Hydrolysat) 15 Gram-100 Kcal/30 Ml Liq TID Milk of Magnesia Liq (Magnesium Hydroxide) 400 Mg/5 Ml Susp 30 Ml PO DAILY PRN Duoneb (Ipratropium-Albuterol Neb) 0.5-2.5 Mg/3 Ml Neb 1 Nebule INH Q6HR NEB Potassium Chloride ER (Potassium Chloride) 20 Meq Tab 20 Meq PO BID Furosemide 20 Mg Tab 20 Mg PO BID Docusate Sodium 100 Mg Cap 100 Mg PO BID Lyrica (Pregabalin) 75 Mg Cap 75 Mg PO BID Enalapril (Enalapril Maleate) 10 Mg Tab 10 Mg PO DAILY Crestor (Rosuvastatin Calcium) 10 Mg Tab 10 Mg PO EVERY OTHER DAY . Current Medications Medications (Trade) Dose Ordered Sig/Emily Route Start Time Stop Time Status Last Admin Sodium Chloride 250 ml @ 15 mls/hr ONCE ONCE IV 06/29/17 04:15 06/29/17 20:54 06/29/17 05:30 (Lexapro) 10 mg DAILY PO 06/29/17 09:00 (Ferrous Sulfate) 325 mg TIDPC PO 06/29/17 09:30 (Lyrica) 75 mg BID PO 06/29/17 09:00 (Lipitor) 20 mg EVERY OTHER DAY PO 06/29/17 09:00 Sodium Chloride 1,000 ml @ 124 mls/hr Q8H4M IV 06/29/17 05:22 06/29/17 06:57 (NS Flush) 2 ml UNSCH PRN .XX 06/29/17 05:30 (NS Flush) 2 ml BID .XX 06/29/17 09:00 (Tylenol) 650 mg Q6H PRN PO 06/29/17 05:30 (Mantoloking 5-325 Mg) 1 tab Q4H PRN PO 06/29/17 05:30 (Morphine Inj) 2 mg Q2H PRN IV PUSH 06/29/17 05:30 (Protonix Inj) 40 mg Q12H IV PUSH 06/29/17 08:00 06/29/17 07:16 (Zofran Inj) 4 mg Q6H PRN IV PUSH 06/29/17 05:30 (Ambien) 5 mg HS PRN PO 06/29/17 05:30 (Duoneb Neb) 1 ampule Q6HR NEB INH 06/29/17 10:00 06/29/17 09:40 (Duoneb Neb) 1 ampule Q2HR NEB PRN INH 06/29/17 05:30 Miscellaneous Information 1 Q361D XX 06/29/17 05:30 (Chlorhexidine 2% Cloth) 3 pack Taper DAILY@04 TOP 06/30/17 04:00 06/26/18 03:59 (Chlorhexidine 2% Cloth) 3 pack UNSCH PRN TOP 06/29/17 05:30 (Lissette-Colace) 1 tab BID PO 06/29/17 09:00 (Milk Of Magnesia Liq) 30 ml Q12H PRN PO 06/29/17 05:30 (Senokot) 17.2 mg Q12H PRN PO 06/29/17 05:30 (Dulcolax Supp) 10 mg DAILY PRN RECTAL 06/29/17 05:30 (Lactulose Liq) 30 ml DAILY PRN PO 06/29/17 05:30 (D50w (Vial) Inj) 50 ml UNSCH PRN IV PUSH 06/29/17 05:30 (Glucagon Inj) 1 mg UNSCH PRN OTHER 06/29/17 05:30 (NovoLOG SUPPLEMENTAL SCALE) 1 ACHS SLIDING SCALE SQ 06/29/17 08:00 Family History Several family members have diabetes. The patient's father at age 83 of stomach cancer. . Substance Use Tobacco: None Alcohol: Occasional Prescription med abuse: None Illicits: None . Psychosocial History The patient was born and raised in [place], and moved to [place] in 1984. She was 58 years and in 2005. After she was , the patient lived with her daughter, but has been in the hospital and rehab centers over the past few months. She has 10 children, all living, and soon will have her 105th grandchild. 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 . Spiritual/Cultural Factors The patient is Orthodox, was a member of [employer] locally, and her spirituality has been important for her. The family does want a therapy teacher to come visit, and that has been requested. . Living Will: Copy in medical record Health Care Surrogate: Copy in medical record Health Care Surrogate(s): She has designated her daughters Linda and Nan as her healthcare surrogates. . Documented care wishes: The patient's living will documents that she would not want to be maintained artificially if she has an end-stage or terminal condition. . Family/friends goals: The patient's daughters/healthcare surrogate's want to honor the patient's previously expressed wishes to keep her comfortable and peaceful. . Ethical and Legal Issues There are no ethical issues that would impact her care or decision-making at this time. The patient lacks capacity for decision-making, and it is uncertain whether she will regain that capacity. She has designated her daughters Linda and Nan as her healthcare surrogates. . Physical Exam Vital Signs Date Time Temp Pulse Resp B/P (MAP) Pulse Ox O2 Delivery O2 Flow Rate FiO2 06/29/17 10:00 85 06/29/17 09:40 94 21 06/29/17 09:15 06/29/17 08:45 98.9 89 19 138/63 (88) 95 06/29/17 08:45 87 06/29/17 07:19 97.8 85 18 118/59 100 06/29/17 06:53 97.5 84 18 154/70 100 06/29/17 06:10 99 16 154/70 (98) 100 Nasal Cannula 2.00 06/29/17 05:58 102 16 122/58 (79) 100 Nasal Cannula 2.00 06/29/17 05:21 97.1 110 16 90/44 (59) 100 Nasal Cannula 2.00 06/29/17 05:21 97.1 110 16 90/44 06/29/17 05:21 97.1 110 16 90/44 100 06/29/17 05:02 97.4 104 16 89/44 100 06/29/17 05:02 97.4 104 16 89/44 100 06/29/17 04:45 93 21 06/29/17 04:19 98 Room Air 06/29/17 04:00 98.9 107 16 123/58 (79) 06/29/17 06/30/17 19:00 07:00 Intake Total 2985 ml Balance 2985 ml Intake IV Total 2085 ml Packed Cells 800 ml Blood Product IV Normal Saline Flush 100 ml Exam CONSTITUTIONAL/GENERAL: This is an elderly, weak, nonverbal patient, in no apparent distress. TUBES/LINES/DRAINS: Nasal oxygen, Lopes, IV access SKIN: No jaundice, rashes, or lesions. Ecchymoses on upper extremities. No wounds seen anteriorly. Skin temperature appropriate. Not diaphoretic. HEAD: Atraumatic. Normocephalic. EYES: Pupils equal and round and reactive. No scleral icterus. No injection or drainage. Fundi not examined. ENT: Hearing grossly normal. Nose without bleeding or purulent drainage. NECK: Trachea midline. Supple, nontender. No palpable thyroid enlargement or nodularity. CARDIOVASCULAR: Regular rate and rhythm without murmurs, gallops, or rubs. No JVD. Peripheral pulses symmetric. RESPIRATORY/CHEST: Symmetric, unlabored respirations. Clear to auscultation. Breath sounds equal bilaterally. No wheezes, rales, or rhonchi. GASTROINTESTINAL: Abdomen soft, non-tender, nondistended. No hepato-splenomegaly , or palpable masses. No guarding. Bowel sounds present. GENITOURINARY: Without palpable bladder distension. Lopes catheter in place. MUSCULOSKELETAL: Extremities without clubbing, cyanosis, or edema. No joint tenderness or effusion noted. No calf tenderness. No mottling or clubbing. LYMPHATICS: No palpable cervical or supraclavicular adenopathy. NEUROLOGICAL: Her eyes are open and she appears awake, but she does not track, does not follow command, and does not speak. She moves her right hand up toward her chest with painful stimuli. PSYCHIATRIC: No obvious anxiety/depression. no apparent hallucinations or other psychotic thought process. . Diagnostic Tests Laboratory Laboratory Tests Test 06/29/17 04:25 06/29/17 04:40 06/29/17 05:35 06/29/17 08:50 White Blood Count 13.0 TH/MM3 (4.0-11.0) Red Blood Count 1.80 MIL/MM3 (4.00-5.30) Hemoglobin 5.8 GM/DL (11.6-15.3) Hematocrit 17.8 % (35.0-46.0) Mean Corpuscular Volume 98.9 FL (80.0-100.0) Mean Corpuscular Hemoglobin 32.2 PG (27.0-34.0) Mean Corpuscular Hemoglobin Concent 32.6 % (32.0-36.0) Red Cell Distribution Width 14.5 % (11.6-17.2) Platelet Count 196 TH/MM3 (150-450) Mean Platelet Volume 8.9 FL (7.0-11.0) Neutrophils (%) (Auto) 80.0 % (16.0-70.0) Lymphocytes (%) (Auto) 14.1 % (9.0-44.0) Monocytes (%) (Auto) 5.6 % (0.0-8.0) Eosinophils (%) (Auto) 0.1 % (0.0-4.0) Basophils (%) (Auto) 0.2 % (0.0-2.0) Neutrophils # (Auto) 10.4 TH/MM3 (1.8-7.7) Lymphocytes # (Auto) 1.8 TH/MM3 (1.0-4.8) Monocytes # (Auto) 0.7 TH/MM3 (0-0.9) Eosinophils # (Auto) 0.0 TH/MM3 (0-0.4) Basophils # (Auto) 0.0 TH/MM3 (0-0.2) CBC Comment DIFF FINAL Differential Comment Prothrombin Time 13.3 SEC (9.8-11.6) Prothromb Time International Ratio 1.2 RATIO Activated Partial Thromboplast Time 26.8 SEC (24.3-30.1) Blood Urea Nitrogen 68 MG/DL (7-18) Creatinine 1.11 MG/DL (0.50-1.00) Random Glucose 183 MG/DL (74-106) Total Protein 5.6 GM/DL (6.4-8.2) Albumin 2.0 GM/DL (3.4-5.0) Calcium Level 8.2 MG/DL (8.5-10.1) Alkaline Phosphatase 92 U/L (45-117) Aspartate Amino Transf (AST/SGOT) 27 U/L (15-37) Alanine Aminotransferase (ALT/SGPT) 17 U/L (10-53) Total Bilirubin 0.4 MG/DL (0.2-1.0) Sodium Level 140 MEQ/L (136-145) Potassium Level 4.6 MEQ/L (3.5-5.1) Chloride Level 106 MEQ/L (98-107) Carbon Dioxide Level 24.1 MEQ/L (21.0-32.0) Anion Gap 10 MEQ/L (5-15) Estimat Glomerular Filtration Rate 47 ML/MIN (>89) Ammonia 42 MCMOL/L (11-32) Blood Gas Puncture Site RT RADIAL Blood Gas Patient Temperature 98.6 Blood Gas HCO3 24 mmol/L (22-26) Blood Gas Base Excess 0.1 mmol/L (-2-2) Blood Gas Oxygen Saturation 93 % (90-100) Arterial Blood pH 7.46 (7.380-7.420) Arterial Blood Partial Pressure CO2 34 mmHg (38-42) Arterial Blood Partial Pressure O2 69 mmHG (61-120) Arterial Blood Oxygen Content 7.0 Vol % (12.0-20.0) Arterial Blood Carboxyhemoglobin 2.0 % (0-4) Arterial Blood Methemoglobin 0.3 % (0-2) Blood Gas Hemoglobin 5.3 G/DL (12.0-16.0) Oxygen Delivery Device RA Blood Gas Inspired Oxygen 21 % Urine Color YELLOW (YELLW/STRAW) Urine Turbidity CLEAR (CLEAR) Urine pH 6.5 (5.0-8.5) Urine Specific Shaniko 1.017 (1.002-1.035) Urine Protein TRACE mg/dL (NEG-TRACE) Urine Glucose (UA) NEG mg/dL (NEG) Urine Ketones NEG mg/dL (NEG) Urine Occult Blood NEG (NEG) Urine Nitrite NEG (NEG) Urine Bilirubin NEG (NEG) Urine Urobilinogen 2.0 MG/DL (LESS THAN Urine Leukocyte Esterase NEG (NEG) Urine RBC 1 /hpf (0-3) Urine WBC LESS THAN 1 /hpf (0-5) Urine Mucus FEW /lpf (OCC) Microscopic Urinalysis Comment CULT NOT INDICATED Nasal Screen MRSA (PCR) MRSA NOT DETECTED (NOT Test 06/29/17 13:16 Hemoglobin 11.6 GM/DL (11.6-15.3) Hematocrit 34.1 % (35.0-46.0) Result Diagram: 06/29/17 1316 06/29/17 0425 Imaging Last Impressions Head CT 06/29/17 0000 Signed Impressions: Service Date/Time: Thursday, June 29, 2017 06:12 - CONCLUSION: 1. Right frontal ventriculostomy tube in good position. No acute intracranial abnormalities. Thony Wilhelm MD Procedures EGD 06/29/17 . Patient/Family Conference Present at Family Conference: Daughter Linda Rendon and daughter Nan Ventura, as well as Levi SCHRADER . Family Conference Time (mins): 46 Family Conference Location: Bedside, Consult Room Issues Discussed: * Palliative care role, purpose, approach * Hospice care role, purpose, approach * Additional medical, psychosocial, and spiritual history * Patients general health, functional status, and cognitive changes in the months leading up to the current hospitalization * Patient/family understanding of the current medical problems * Patient/family understanding of prognosis * Patients goals of care as best understood from advance directives and/or conversations and/or values * Current medical treatment options and benefits/burdens of those options * Likely scenarios comparing ongoing aggressive care with a transition to comfort measures only * Questions answered to the best of my ability * Palliative care contact information provided . Assessment and Plan Disease Oriented Problem List: (1) GI bleeding, anemia requiring transfusion (2) encephalopathy, etiology undetermined (3) right-sided lacunar infarct August 2016 (4) normal pressure hydrocephalus, IMPORT COORDINATION AND PRODUCTION HEAD shunt 2011 (5) diabetes, neuropathy (6) hypertension (7) hyperlipidemia (8) osteoarthritis (9) history of Recio's esophagus (10) GERD Symptom Scale: (1) fatigue, weakness, somnolence 0-10 Scale: Unable to quantify (2) encephalopathy, etiology undetermined 0-10 Scale: Unable to quantify Pertinent Non-Medical Issues Psychosocial: , shelter resident, 10 children Spiritual: The patient is Orthodox, was a member of [employer] locally, and her spirituality has been important for her. The family does want a therapy teacher to come visit, and that has been requested. Legal: The patient lacks capacity for decision-making, and it is uncertain whether she will regain that capacity. She has designated her daughters Linda and Nan as her healthcare surrogates. Ethical issues impacting care: None . Important Contacts Daughter: Nan Ventura [phone] Daughter: Linda Rendon [phone] . Prognosis The patient has been declining overall for the past several months, weaker, nonambulatory, more fatigue and somnolence. Now she has significant GI bleeding and a profound encephalopathy. Overall, her prognosis is rather poor, and she would be appropriate for hospice services when the goals become comfort oriented. . Code Status: No Code Plan * DO NOT RESUSCITATE * GOALS: Most importantly, the family wants the patient to be comfortable and not suffering. When she is extubated following the EGD, they do NOT want her reintubated or coded. * DECISION-MAKING: The patient lacks capacity for decision-making, and it is uncertain whether she will regain that capacity. She has designated her daughters Linda and Nan as her healthcare surrogates. * Regardless of what transpires during this hospitalization, the family is open to hospice referral when the patient transitions back to her shelter. * SYMPTOMS: The etiology of her encephalopathy is uncertain, and her condition will be reassessed as more information becomes available. The patient does not appear to be in pain or dyspneic at this time. No further medication recommendations are made. * Palliative Care will continue to follow this patient during the hospitalization. . Time Spent Total Floor Time (mins): 81 Face to Face Time (mins): 19 >50% Counseling/Coord of Care: Yes (d/w RN) Thank you for the opportunity to participate in the care of Ms. Ventura. Attestation To help prompt me to consider important information that might be impacting today's encounter and assessment, information from prior notes written by myself or my colleagues may have been "brought forward" into today's note. My signature on this note, however, is an attestation that I personally performed the exam, history, and/or decision-making noted today, and, unless otherwise indicated, the interactions with patient, family, and staff as well as the review of records all occurred today. I also attest that the listed assessment and stated plan reflect my best clinical judgment today based on the combination of historical information, prior notes, and today's exam/ interactions. When time spent is documented, it refers only to time spent today by the signer, or if indicated, combined time spent today by collaborating physician/nurse practitioner. Jadyn Leyva MD Jun 29, 2017 14:21
[2017-06-29 19:50] LABS: HEMATOCRIT 30.4 % (35.0-46.0); REVIEW FLAG FINAL
[2017-06-29 20:08] LABS: TOTAL BILIRUBIN ADULT 1.1 MG/DL (0.2-1.0)
[2017-06-29] MEDS: SODIUM CHLORIDE 0.9% FLUSH 10 ML FLUSH SCH ×2 (21:00→21:20)
[2017-06-30] VITALS (22 sets, daily range): BP systolic 94–142; BP diastolic 49–64; PULSE 91–104; RESP 15–19; TEMP 98.3–99.1; O2SAT 92–95
[2017-06-30 00:49] LABS: HEMATOCRIT 28.5 % (35.0-46.0); REVIEW FLAG FINAL
[2017-06-30] MEDS: RESP: ALBUTEROL 2.5 MG/IPRATROPIUM 0.5 MG NEB (SCH) INH ×4 (03:25→23:15)
[2017-06-30] MEDS: CHLORHEXIDINE GLUCONATE 2 % 1 PACK (2 CLOTHS) TOP SCH ×2 (03:46→22:50)
[2017-06-30 04:28] LABS: AUTOMATED NEUTROPHIL # 6.7 TH/MM3 (1.8-7.7); BASOPHIL % 0.4 % (0.0-2.0); EOSINOPHIL # 0.1 TH/MM3 (0-0.4); EOSINOPHIL % 1.4 % (0.0-4.0); HEMATOCRIT 28.7 % (35.0-46.0); HEMO FLAGS DIFF FINAL; LYMPH % 18.5 % (9.0-44.0); LYMPHOCYTE # 1.7 TH/MM3 (1.0-4.8); MEAN CELL VOLUME 89.3 FL (80.0-100.0); MEAN CORPUSCULAR HEMOGLOBIN 30.8 PG (27.0-34.0); MEAN CORPUSCULAR HGB CONC 34.4 % (32.0-36.0); MONO % 6.7 % (0.0-8.0); PLATELET COUNT 112 TH/MM3 (150-450); RED BLOOD COUNT 3.22 MIL/MM3 (4.00-5.30); RED CELL DISTRIBUTION WIDTH 16.9 % (11.6-17.2); WHITE BLOOD COUNT 9.1 TH/MM3 (4.0-11.0)
[2017-06-30 04:32] LABS: INTERNATIONAL NORMALIZED RATIO 1.2 RATIO; PROTHROMBIN TIME - PATIENT 13.1 SEC (9.8-11.6)
[2017-06-30 04:48] LABS: ANION GAP 9 MEQ/L (5-15); AST (GOT) 28 U/L (15-37); BICARBONATE 24.1 MEQ/L (21.0-32.0); BLOOD UREA NITROGEN 65 MG/DL (7-18); CHLORIDE 111 MEQ/L (98-107); GLOMERULAR FILTRATION RATE 48 ML/MIN (>89); MAGNESIUM 1.7 MG/DL (1.5-2.5); POTASSIUM 3.9 MEQ/L (3.5-5.1); SODIUM (NA) 144 MEQ/L (136-145)
[2017-06-30 04:52] LABS: ALKALINE PHOSPHATASE 78 U/L (45-117); ALT (GPT) 16 U/L (10-53)
[2017-06-30] MEDS: SODIUM CHLOR 0.9% 1000 ML INJ 1,000 ML IV SCH ×3 (06:15→22:13)
[2017-06-30] MEDS: INSULIN ASPART SUPPLEMENTAL SCALE SQ SCH ×4 (08:00→21:00)
[2017-06-30] MEDS: SODIUM CHLORIDE 0.9% FLUSH 10 ML FLUSH SCH ×2 (09:00→21:23)
[2017-06-30] MEDS: ESCITALOPRAM OXALATE 10 MG TAB PO SCH (09:10)
[2017-06-30] MEDS: PREGABALIN 75 MG CAP PO SCH ×2 (09:10→21:23)
[2017-06-30] MEDS: PANTOPRAZOLE SODIUM 40 MG VIAL IV PUSH SCH ×2 (09:10→21:23)
[2017-06-30] MEDS: DOCUSATE SODIUM 50 MG/SENNA 8.6 MG TAB PO SCH ×2 (09:10→21:23)
[2017-06-30] MEDS: FERROUS SULFATE 325 MG (65 MG ELEMENTAL IRON) TAB PO SCH ×3 (09:10→18:27)
--- NOTE | 2017-06-30 10:32 | HHI.GIFU ---
Subjective Remarks Followup for upper GI bleed. Lying in bed in no apparent distress. (Mirian Weathers) Objective Vitals I&O Vital Signs Date Time Temp Pulse Resp B/P (MAP) Pulse Ox O2 Delivery O2 Flow Rate FiO2 06/30/17 08:25 95 Nasal Cannula 1.00 06/30/17 06:00 104 06/30/17 04:00 95 06/30/17 04:00 98.5 95 16 120/57 (78) 95 06/30/17 02:00 93 06/30/17 00:00 102 06/30/17 00:00 98.6 102 18 94/49 (64) 94 06/29/17 22:00 98 06/29/17 21:58 97 Nasal Cannula 1.00 06/29/17 20:00 99.5 102 21 105/52 (69) 93 06/29/17 20:00 102 06/29/17 16:00 98.9 98 20 124/60 (81) 96 06/29/17 16:00 98 06/29/17 14:40 98.4 81 20 116/55 (75) 99 Nasal Cannula 2 06/29/17 14:30 81 20 116/55 (75) 99 Nasal Cannula 2 06/29/17 14:17 98.4 94 20 115/56 (75) 94 Nasal Cannula 2 06/29/17 12:00 84 06/29/17 12:00 98.4 92 19 128/60 (82) 97 I/O 06/29/17 06/29/17 06/29/17 06/30/17 06/30/17 06/30/17 07:00 15:00 23:00 07:00 15:00 23:00 Intake Total 1240 ml 3052 ml 0 ml 2000 ml Output Total 600 ml 500 ml Balance 1240 ml 3052 ml -600 ml 1500 ml Intake Oral 0 ml 0 ml IV Total 2152 ml 2000 ml Packed Cells 1200 ml 800 ml Blood Product IV Normal Saline Flush 40 ml 100 ml Output Urine Total 600 ml 500 ml # Bowel Movements 0 Laboratory Laboratory Tests Test 06/29/17 13:16 06/29/17 19:12 06/29/17 19:17 06/30/17 00:07 Hemoglobin 11.6 10.3 9.8 Hematocrit 34.1 30.4 28.5 Blood Urea Nitrogen 72 Creatinine 1.11 Estimat Glomerular Filtration Rate 47 Total Bilirubin 1.1 Haptoglobin 59 Test 06/30/17 03:52 White Blood Count 9.1 Red Blood Count 3.22 Hemoglobin 9.9 Hematocrit 28.7 Mean Corpuscular Volume 89.3 Mean Corpuscular Hemoglobin 30.8 Mean Corpuscular Hemoglobin Concent 34.4 Red Cell Distribution Width 16.9 Platelet Count 112 Mean Platelet Volume 8.5 Neutrophils (%) (Auto) 73.0 Lymphocytes (%) (Auto) 18.5 Monocytes (%) (Auto) 6.7 Eosinophils (%) (Auto) 1.4 Basophils (%) (Auto) 0.4 Neutrophils # (Auto) 6.7 Lymphocytes # (Auto) 1.7 Monocytes # (Auto) 0.6 Eosinophils # (Auto) 0.1 Basophils # (Auto) 0.0 CBC Comment DIFF FINAL Differential Comment Prothrombin Time 13.1 Prothromb Time International Ratio 1.2 Blood Urea Nitrogen 65 Creatinine 1.08 Random Glucose 140 Total Protein 5.5 Albumin 2.1 Calcium Level 7.7 Phosphorus Level 2.6 Magnesium Level 1.7 Alkaline Phosphatase 78 Aspartate Amino Transf (AST/SGOT) 28 Alanine Aminotransferase (ALT/SGPT) 16 Total Bilirubin 1.0 Sodium Level 144 Potassium Level 3.9 Chloride Level 111 Carbon Dioxide Level 24.1 Anion Gap 9 Estimat Glomerular Filtration Rate 48 Lactic Acid Level 2.9 Imaging Last Impressions Head CT 06/29/17 0000 Signed Impressions: Service Date/Time: Thursday, June 29, 2017 06:12 - CONCLUSION: 1. Right frontal ventriculostomy tube in good position. No acute intracranial abnormalities. Thony Wilhelm MD Physical Exam HEENT: Normocephalic; atraumatic; no jaundice. NECK: Neck is supple. CHEST: Chest is clear to auscultation and percussion. CARDIAC: RRR with no murmur gallop or rubs. ABDOMEN: Soft, mild distention, nontender; no hepatosplenomegaly; bowel sounds are present EXTREMITIES: No clubbing, cyanosis, or edema. SKIN: Generalized pallor WINE CONSULTANT: Somnolent (Mirian Weathers) Assessment and Plan Plan ASSESSMENT: - Upper GIB, with hematemesis with red blood, maroon stools that began at retirement. Pt has remote hx of PUD in 1955. Family reports hx of Recio's Esophagus, GERD. Last egd/ colonoscopy about 2 years ago per family. HH 5.8/17.8 (06/29). S/P 4 units PRBC. HH 9.9/28.7 (06/30). Protonix 40mg IV BID. NPO. EGD 06/29/17--Grade 2 esophageal varices 3 columns no active bleeding from that. Possible short Recio compromised with the coffee-ground emesis. No sign of active bleeding but there is stigmata of recent bleed mostly from the stomach either from gastropathy or tic ulcer disease the visualization was compromised by coffee-ground emesis and old blood. Duodenitis - Severe anemia, acute blood loss. HH 5.8/17.8 (06/29). S/P 4 units PRBC. HH 9.9 /28.7 (06/30) - GERD, Recio's esophagus. PPI - AMS. CT head unremarkable. 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 - PHUONG, Creat. 1.08 - DM, Hyperlipidemia, per attending PLAN: - NPO - Repeat EGD in a couple days - Continue Protonix 40mg IV BID - Monitor HH - Transfuse as needed - Monitor labs - Notify GI of active bleeding - Supportive care - Further recommendations to follow based on results of above Patient seen and examined by Dr. Rosario and myself and this note is written on his behalf (Mirian Weathers) Plan Patient was seen and examined, agree with above-noted, hemoglobin stable, will start clear liquids, EGD Sunday (Anamaria Rosario MD) Mirian Weathers Jun 30, 2017 10:32 Anamaria Rosario MD Jul 01, 2017 10:44
--- NOTE | 2017-06-30 10:55 | HHI.CCPN ---
Subjective Remarks/Hospital Course 06/29: 87-year-old female presents from [facility] where nursing staff this evening noticed her to have vomiting of red blood as well as maroon stool. Patient has had diarrhea times one day reportedly. No reported fever. Patient has multiple medical problems as well as recent hospitalization for left ankle fracture with repair, also generalized muscle weakness, patient is nonambulatory, has a dysphagia dysarthria with a mixed receptive expressive language disorder with a history of CVA, history of normal pressure hydrocephalus with VENEER PRESS OPERATOR shunt and type 2 diabetes with diabetic neuropathy , frequent falls, and GERD, duodenal ulcer and hypertension. Patient here is nonverbal and unable to provide any history. Patient is awake and responds to voice, however not following commands. The patient's daughter is at the bedside and confirms that the patient is the patient is typically verbal , conversant although occasionally has been noted not to speak. Per chart documentation upon EMS arrival patient's blood pressure systolic was 70 mmHg and she was identified to need suctioning of coffee grounds from her mouth. 06/30: Resting in bed comfortably. Not in any acute distress. Objective Vital Signs Date Time Temp Pulse Resp B/P (MAP) Pulse Ox O2 Delivery O2 Flow Rate FiO2 06/30/17 08:25 95 Nasal Cannula 1.00 06/30/17 06:00 104 06/30/17 04:00 98.5 16 120/57 (78) 06/29/17 09:40 21 Intake and Output 06/30/17 06/30/17 07/01/17 08:00 16:00 00:00 Intake Total 1000 ml Output Total 500 ml Balance 500 ml Result Diagram: 06/30/17 0352 06/30/17 0352 Objective Remarks GENERAL: Well-nourished, well-developed elderly woman, nonverbal. SKIN: Warm and dry. HEAD: Normocephalic. EYES: No scleral icterus. No injection or drainage. NECK: Supple, trachea midline. No JVD or lymphadenopathy. CARDIOVASCULAR: Regular rate and rhythm without murmurs, gallops, or rubs. RESPIRATORY: Breath sounds equal bilaterally. No accessory muscle use. GASTROINTESTINAL: Abdomen soft, non-tender, nondistended. MUSCULOSKELETAL: No cyanosis, or edema. BACK: Nontender without obvious deformity. NEURO EXAM: Mental Status: The patient is nonverbal Cranial Nerves: Pupils are round, reactive to light. Reflexes: Biceps, patellar, and Achilles are 2/4 bilaterally. No clonus. A/P Assessment and Plan Acute GI bleed -Continue IV fluids - Protonix 40 IV twice a day -Status post EGD by GI which showed esophageal viruses and blood in stomach. - Gastroenterology following - PRBC transfusions when necessary Altered mental status - CT head unremarkable. - r/o VENEER PRESS OPERATOR shunt malfunction and CVA. Neurology consult requested. Renal insufficiency Continue with IV fluids BMP in the morning Anemia due to blood loss Monitor H&H - Blood transfusion if hemoglobin drops less than 8 Type 2 diabetes - Accu-Cheks before meals and at bedtime with insulin sliding scale - Hold long acting insulins while to nothing by mouth History of CVA Hold aspirin at this time due to acute GI bleed -Continue statins Hypertension - Hold home medications to hemodynamically more stable NPH - status post VENEER PRESS OPERATOR shunt - physical therapy as tolerated DVT GI prophylaxis - Teds SCDs - No pharmacological DVT prophylaxis due to acute bleed - IV Protonix twice a day Patient is DNR status. Palliative care following to assist with deciding goals of therapy. Lacho Sprague MD Jun 30, 2017 10:55
--- NOTE | 2017-06-30 15:41 | PD.CONS ---
HPI Service Neurosurgery (Coverage for Dr. Wyatt) Consult Requested By Dr. Billingsley Reason for Consult r/o Shunt Malfunction Primary Care Physician Jordan Barnhart MD History of Present Illness 87-year-old female presents from [facility] where nursing staff this evening noticed her to have vomiting of red blood as well as maroon stool. Patient has had diarrhea times one day reportedly. No reported fever. Patient has multiple medical problems as well as recent hospitalization for left ankle fracture with repair, also generalized muscle weakness, patient is nonambulatory, has a dysphagia dysarthria with a mixed receptive expressive language disorder with a history of CVA, history of normal pressure hydrocephalus with ZINC PLATE GRAINER shunt and type 2 diabetes with diabetic neuropathy , frequent falls, and GERD, duodenal ulcer and hypertension. Patient here is nonverbal and unable to provide any history. Patient is awake and responds to voice, however not following commands. The patient's daughter is at the bedside and confirms that the patient is the patient is typically verbal , conversant although occasionally has been noted not to speak. Per chart documentation upon EMS arrival patient's blood pressure systolic was 70 mmHg and she was identified to need suctioning of coffee grounds from her mouth. Review of Systems unable to obtain - no verbal Past Family Social History Allergies: Coded Allergies: sulfamethoxazole (Unverified Allergy, Intermediate, Hives, 06/29/17) trimethoprim (Unverified Allergy, Intermediate, Hives, 06/29/17) morphine (Unverified Adverse Reaction, Severe, N/V, 06/29/17) Past Medical History Past Family Social History Allergies: Coded Allergies: sulfamethoxazole (Unverified Allergy, Intermediate, Hives, 06/29/17) trimethoprim (Unverified Allergy, Intermediate, Hives, 06/29/17) morphine (Unverified Adverse Reaction, Severe, N/V, 06/29/17) Past Medical History Normal pressure hydrocephalus, status post ZINC PLATE GRAINER shunt. Diabetes. Diabetic neuropathy. Hypertension. Hyperlipidemia. Bilateral knee replacement with ZINC PLATE GRAINER shunt placement. Left hip open reduction, internal fixation. Bilateral cataract surgery. Right ankle fracture. CVA right parietal 2015 Past Surgical History Left Ankle Open Reduction and Internal Fixation 3/18 Bilaterally knee replacement ZINC PLATE GRAINER shunt Physical Exam Vital Signs Vital Signs Date Time Temp Pulse Resp B/P (MAP) Pulse Ox O2 Delivery O2 Flow Rate FiO2 06/30/17 12:00 98.8 06/30/17 12:00 96 19 109/53 (71) 93 06/30/17 12:00 96 06/30/17 11:00 102 18 125/60 (81) 94 06/30/17 11:00 102 06/30/17 10:00 101 19 120/58 (78) 93 06/30/17 10:00 101 06/30/17 09:00 100 17 126/57 (80) 94 06/30/17 08:25 95 Nasal Cannula 1.00 06/30/17 08:00 98.3 06/30/17 08:00 92 06/30/17 08:00 91 17 110/56 (74) 93 06/30/17 06:00 104 06/30/17 04:00 95 06/30/17 04:00 98.5 95 16 120/57 (78) 95 06/30/17 02:00 93 06/30/17 00:00 102 06/30/17 00:00 98.6 102 18 94/49 (64) 94 06/29/17 22:00 98 06/29/17 21:58 97 Nasal Cannula 1.00 06/29/17 20:00 99.5 102 21 105/52 (69) 93 06/29/17 20:00 102 06/29/17 16:00 98.9 98 20 124/60 (81) 96 06/29/17 16:00 98 Physical Exam GENERAL: Well-developed elderly pale female in no acute distress no respiratory distress alert nonverbal. SKIN: Warm and dry. HEAD: Normocephalic. EYES: No scleral icterus. Conjunctival pallor. No injection or drainage. ENT : Mucous membranes pale dried coffee grounds about the lips and tongue NECK: Supple, trachea midline. No JVD or lymphadenopathy. CARDIOVASCULAR: Increased Regular rate and rhythm without murmurs, gallops, or rubs. RESPIRATORY: Breath sounds equal bilaterally. No accessory muscle use. GASTROINTESTINAL: Abdomen soft, non-tender, nondistended. Rectal exam deferred as copious amounts of maroon colored blood was found in diaper and on buttock and at the anus. MUSCULOSKELETAL: No cyanosis, or edema. BACK: Nontender without obvious deformity. No CVA tenderness. Neuro: OES, FS, Regards, Attempts to say name, MARK, not following commands, questionable following simple command right UE. Shunt pumps and refills well. Laboratory Laboratory Tests Test 06/29/17 19:12 06/29/17 19:17 06/30/17 00:07 06/30/17 03:52 Hemoglobin 10.3 9.8 9.9 Hematocrit 30.4 28.5 28.7 Blood Urea Nitrogen 72 65 Creatinine 1.11 1.08 Estimat Glomerular Filtration Rate 47 48 Total Bilirubin 1.1 1.0 Haptoglobin 59 White Blood Count 9.1 Red Blood Count 3.22 Mean Corpuscular Volume 89.3 Mean Corpuscular Hemoglobin 30.8 Mean Corpuscular Hemoglobin Concent 34.4 Red Cell Distribution Width 16.9 Platelet Count 112 Mean Platelet Volume 8.5 Neutrophils (%) (Auto) 73.0 Lymphocytes (%) (Auto) 18.5 Monocytes (%) (Auto) 6.7 Eosinophils (%) (Auto) 1.4 Basophils (%) (Auto) 0.4 Neutrophils # (Auto) 6.7 Lymphocytes # (Auto) 1.7 Monocytes # (Auto) 0.6 Eosinophils # (Auto) 0.1 Basophils # (Auto) 0.0 CBC Comment DIFF FINAL Differential Comment Prothrombin Time 13.1 Prothromb Time International Ratio 1.2 Random Glucose 140 Total Protein 5.5 Albumin 2.1 Calcium Level 7.7 Phosphorus Level 2.6 Magnesium Level 1.7 Alkaline Phosphatase 78 Aspartate Amino Transf (AST/SGOT) 28 Alanine Aminotransferase (ALT/SGPT) 16 Sodium Level 144 Potassium Level 3.9 Chloride Level 111 Carbon Dioxide Level 24.1 Anion Gap 9 Lactic Acid Level 2.9 Result Diagram: 06/30/17 0352 06/30/17 0352 Course Last Impressions Head CT 06/29/17 0000 Signed Impressions: Service Date/Time: Thursday, June 29, 2017 06:12 - CONCLUSION: 1. Right frontal ventriculostomy tube in good position. No acute intracranial abnormalities. Thony Wilhelm MD Current Medications Medications (Trade) Dose Ordered Sig/Emily Route PRN Reason Start Time Stop Time Status Last Admin Dose Admin Escitalopram Oxalate (Lexapro) 10 mg DAILY PO 06/29/17 09:00 06/30/17 09:10 Ferrous Sulfate (Ferrous Sulfate) 325 mg TIDPC PO 06/29/17 09:30 06/30/17 12:37 Pregabalin (Lyrica) 75 mg BID PO 06/29/17 09:00 06/30/17 09:10 Atorvastatin Calcium (Lipitor) 20 mg EVERY OTHER DAY PO 06/29/17 09:00 Sodium Chloride 1,000 ml @ 124 mls/hr Q8H4M IV 06/29/17 05:22 06/30/17 14:56 Sodium Chloride (NS Flush) 2 ml UNSCH PRN .XX FLUSH AFTER USING IV ACCESS 06/29/17 05:30 Sodium Chloride (NS Flush) 2 ml BID .XX 06/29/17 09:00 06/30/17 09:00 Acetaminophen (Tylenol) 650 mg Q6H PRN PO FEVER >101F 06/29/17 05:30 Acetaminophen/ Hydrocodone Bitart ([place] 5-325 Mg) 1 tab Q4H PRN PO PAIN SCALE 1 TO 5 06/29/17 05:30 Morphine Sulfate (Morphine Inj) 2 mg Q2H PRN IV PUSH PAIN SCALE 6 TO 10 06/29/17 05:30 Pantoprazole Sodium (Protonix Inj) 40 mg Q12H IV PUSH 06/29/17 08:00 06/30/17 09:10 Ondansetron HCl (Zofran Inj) 4 mg Q6H PRN IV PUSH NAUSEA OR VOMITING 06/29/17 05:30 Zolpidem Tartrate (Ambien) 5 mg HS PRN PO INSOMNIA 06/29/17 05:30 Albuterol/ Ipratropium (Duoneb Neb) 1 ampule Q6HR NEB INH 06/29/17 10:00 06/30/17 14:41 Albuterol/ Ipratropium (Duoneb Neb) 1 ampule Q2HR NEB PRN INH WHEEZING 06/29/17 05:30 Miscellaneous Information 1 Q361D XX 06/29/17 05:30 Chlorhexidine Gluconate (Chlorhexidine 2% Cloth) 3 pack Taper DAILY@04 TOP 06/30/17 04:00 06/26/18 03:59 06/30/17 03:46 Chlorhexidine Gluconate (Chlorhexidine 2% Cloth) 3 pack UNSCH PRN TOP HYGIENIC CARE 06/29/17 05:30 Senna/Docusate Sodium (Lissette-Colace) 1 tab BID PO 06/29/17 09:00 06/30/17 09:10 Magnesium Hydroxide (Milk Of Magnesia Liq) 30 ml Q12H PRN PO MILD - MODERATE CONSTIPATION 06/29/17 05:30 Sennosides (Senokot) 17.2 mg Q12H PRN PO MODERATE - SEVERE CONSTIPATION 06/29/17 05:30 Bisacodyl (Dulcolax Supp) 10 mg DAILY PRN RECTAL SEVERE CONSITIPATION 06/29/17 05:30 Lactulose (Lactulose Liq) 30 ml DAILY PRN PO SEVERE CONSITIPATION 06/29/17 05:30 Dextrose (D50w (Vial) Inj) 50 ml UNSCH PRN IV PUSH HYPOGLYCEMIA-SEE COMMENTS 06/29/17 05:30 Glucagon (Glucagon Inj) 1 mg UNSCH PRN OTHER HYPOGLYCEMIA-SEE COMMENTS 06/29/17 05:30 Insulin Aspart (NovoLOG SUPPLEMENTAL SCALE) 1 ACHS SLIDING SCALE SQ 06/29/17 08:00 Laboratory Tests Test 06/29/17 04:25 06/29/17 04:40 06/29/17 05:35 06/29/17 08:50 Activated Partial Thromboplast Time 26.8 SEC Ammonia 42 MCMOL/L Blood Gas Puncture Site RT RADIAL Blood Gas Patient Temperature 98.6 Blood Gas HCO3 24 mmol/L Blood Gas Base Excess 0.1 mmol/L Blood Gas Oxygen Saturation 93 % Arterial Blood pH 7.46 Arterial Blood Partial Pressure CO2 34 mmHg Arterial Blood Partial Pressure O2 69 mmHG Arterial Blood Oxygen Content 7.0 Vol % Arterial Blood Carboxyhemoglobin 2.0 % Arterial Blood Methemoglobin 0.3 % Blood Gas Hemoglobin 5.3 G/DL Oxygen Delivery Device RA Blood Gas Inspired Oxygen 21 % Urine Color YELLOW Urine Turbidity CLEAR Urine pH 6.5 Urine Specific [place] 1.017 Urine Protein TRACE mg/dL Urine Glucose (UA) NEG mg/dL Urine Ketones NEG mg/dL Urine Occult Blood NEG Urine Nitrite NEG Urine Bilirubin NEG Urine Urobilinogen 2.0 MG/DL Urine Leukocyte Esterase NEG Urine RBC 1 /hpf Urine WBC LESS THAN 1 /hpf Urine Mucus FEW /lpf Microscopic Urinalysis Comment CULT NOT INDICATED Nasal Screen MRSA (PCR) MRSA NOT DETECTED Test 06/29/17 19:17 06/30/17 03:52 Haptoglobin 59 MG/DL White Blood Count 9.1 TH/MM3 Red Blood Count 3.22 MIL/MM3 Hemoglobin 9.9 GM/DL Hematocrit 28.7 % Mean Corpuscular Volume 89.3 FL Mean Corpuscular Hemoglobin 30.8 PG Mean Corpuscular Hemoglobin Concent 34.4 % Red Cell Distribution Width 16.9 % Platelet Count 112 TH/MM3 Mean Platelet Volume 8.5 FL Neutrophils (%) (Auto) 73.0 % Lymphocytes (%) (Auto) 18.5 % Monocytes (%) (Auto) 6.7 % Eosinophils (%) (Auto) 1.4 % Basophils (%) (Auto) 0.4 % Neutrophils # (Auto) 6.7 TH/MM3 Lymphocytes # (Auto) 1.7 TH/MM3 Monocytes # (Auto) 0.6 TH/MM3 Eosinophils # (Auto) 0.1 TH/MM3 Basophils # (Auto) 0.0 TH/MM3 CBC Comment DIFF FINAL Differential Comment Prothrombin Time 13.1 SEC Prothromb Time International Ratio 1.2 RATIO Blood Urea Nitrogen 65 MG/DL Creatinine 1.08 MG/DL Random Glucose 140 MG/DL Total Protein 5.5 GM/DL Albumin 2.1 GM/DL Calcium Level 7.7 MG/DL Phosphorus Level 2.6 MG/DL Magnesium Level 1.7 MG/DL Alkaline Phosphatase 78 U/L Aspartate Amino Transf (AST/SGOT) 28 U/L Alanine Aminotransferase (ALT/SGPT) 16 U/L Total Bilirubin 1.0 MG/DL Sodium Level 144 MEQ/L Potassium Level 3.9 MEQ/L Chloride Level 111 MEQ/L Carbon Dioxide Level 24.1 MEQ/L Anion Gap 9 MEQ/L Estimat Glomerular Filtration Rate 48 ML/MIN Lactic Acid Level 2.9 mmol/L Assessment and Plan Diagnosis: (1) NPH (normal pressure hydrocephalus) ICD Codes: G91.2 - (Idiopathic) normal pressure hydrocephalus Status: Acute (2) Altered mental status ICD Codes: R41.82 - Altered mental status, unspecified Status: Acute Assessment and Plan Patient's CT head without contrast no acute findings. Patient's shunt pumps and refills well. Recommend shunt series x-rays. I had a long conversation with patient's daughter at [phone] and update care. Kade Bashir MD Jun 30, 2017 15:41
--- NOTE | 2017-06-30 15:43 | MB ---
cc: BRIAN ESQUEDA M.D. DATE OF CONSULTATION: 06/30/2017 REASON FOR CONSULTATION Mental status change. HISTORY OF PRESENT ILLNESS Ms. Ventura is an 87-year-old woman who presented to the ER with hematemesis and hematochezia. She had mental status change as well, decreased responsiveness. She has a history of normal pressure hydrocephalus with shunt placement. She has been nonverbal, not unable to provide history. The patient's daughter reported that she normally is verbal and conversant although in the past has been noted not to speak. She underwent endoscopy which showed grade 2 esophageal varices, no active bleeding, short Recio's esophagus and no sign of active bleeding was identified. NEUROLOGIC EXAMINATION VITAL SIGNS: Temperature is 98.5 degrees, blood pressure 120/57, pulse 104. The patient is alert appearing, does not respond to commands, does not follow commands, does not talk at all. Cranial nerves intact. Neck is supple. Motor exam: No focal deficits identified. Reflexes are 2+ symmetric. IMAGING CT scan of the brain reveals right frontal ventriculostomy tube in good position. No acute change identified. She does have moderate ventriculomegaly. This appears to be similar when compared with a CT scan of the brain obtained December 16, 2016. LABORATORY DATA White count 9100, hemoglobin 9.9, hematocrit 28%, platelets 112,000. Sodium 144, potassium 3.9, chloride 111, CO2 is 24, the BUN is 65, creatinine 1.08, GFR 48, glucose 140. PT 15.1, INR 1.2. IMPRESSION Suspect probable metabolic encephalopathy. On motor exam she does have prominent myoclonus. RECOMMENDATIONS We will check additional labs, we are going to get a thyroid panel, B12 level and serum ammonia level. Also consult neurosurgery to rule out shunt malfunction. MD RICHARD Bray/BJKacy /2:25 PM /3:19 PM
--- NOTE | 2017-06-30 17:35 | RADRPT ---
EXAM DATE/TIME: 06/30/2017 16:49 [place] COMPARISON: SHUNT SERIES, September 25, 2016, 9:38. INDICATIONS : Patient has become non-verbal with altered mental status. Rule out shunt blockage. MEDICAL HISTORY : Diabetes mellitus type II. Gastroesophageal reflux disease. Hypertension. Altered mental status. SURGICAL HISTORY : UPPER CUTTER MACHINE Shunt. ENCOUNTER: Initial ACUITY: 2 days PAIN SCORE: Non-responsive. LOCATION: Bilateral Shunt series. FINDINGS: Radiograph of the skull, neck, chest and abdomen performed to evaluate shunt patency. The shunt cath eter is seen entering the right frontal region with its tip in the midline frontoparietal region. The catheter is continuous in its course, extends into the right lower quadrant, and then ascends to the right upper quadrant subdiaphragmatic region. No catheter disruption is identified. There is a small infiltrate at the left base causing loss of delineation of the medial left hemidiaph ragm and a linear opacity in the lower right chest suggesting a either scarring, atelectasis, or pleu ral effusion. Advanced degenerative changes in the lumbar spine, similar to prior.. CONCLUSION: Intact shunt. Ken Benjamin MD on June 30, 2017 at 17:30 Board Certified Radiologist. This report was verified electronically.
[2017-07-01] VITALS (22 sets, daily range): BP systolic 94–159; BP diastolic 46–67; PULSE 71–92; RESP 14–20; TEMP 97.7–98.5; O2SAT 93–97
[2017-07-01] MEDS: RESP: ALBUTEROL 2.5 MG/IPRATROPIUM 0.5 MG NEB (SCH) INH ×4 (04:23→21:15)
[2017-07-01] MEDS: SODIUM CHLOR 0.9% 1000 ML INJ 1,000 ML IV SCH ×3 (06:03→21:54)
[2017-07-01] MEDS: INSULIN ASPART SUPPLEMENTAL SCALE SQ SCH ×4 (08:00→21:00)
[2017-07-01] MEDS: PANTOPRAZOLE SODIUM 40 MG VIAL IV PUSH SCH ×2 (08:10→21:09)
[2017-07-01] MEDS: SODIUM CHLORIDE 0.9% FLUSH 10 ML FLUSH SCH ×2 (08:11→21:09)
[2017-07-01] MEDS: DOCUSATE SODIUM 50 MG/SENNA 8.6 MG TAB PO SCH ×2 (08:11→21:09)
[2017-07-01] MEDS: PREGABALIN 75 MG CAP PO SCH ×2 (08:11→21:09)
[2017-07-01] MEDS: FERROUS SULFATE 325 MG (65 MG ELEMENTAL IRON) TAB PO SCH ×3 (08:11→18:29)
[2017-07-01] MEDS: ATORVASTATIN 20 MG TAB PO SCH (08:11)
[2017-07-01] MEDS: ESCITALOPRAM OXALATE 10 MG TAB PO SCH (08:12)
--- NOTE | 2017-07-01 10:45 | HHI.PR ---
Review/Management Diagnosis encephalopathy--r/o cva. Plan repeat CT brain Diagnosis/Plan: (1) NPH (normal pressure hydrocephalus) ICD Codes: G91.2 - (Idiopathic) normal pressure hydrocephalus Status: Acute (2) Altered mental status ICD Codes: R41.82 - Altered mental status, unspecified Status: Acute Subjective Subjective Comments No acute events reported I spoke with patients daughter who indicates her mental status change occured suddenly. Prior to this was alert and conversant. Active Medications Current Medications Medications (Trade) Dose Ordered Sig/Emily Route Start Time Stop Time Status Last Admin (Lexapro) 10 mg DAILY PO 06/29/17 09:00 07/01/17 08:12 (Ferrous Sulfate) 325 mg TIDPC PO 06/29/17 09:30 07/01/17 08:11 (Lyrica) 75 mg BID PO 06/29/17 09:00 07/01/17 08:11 (Lipitor) 20 mg EVERY OTHER DAY PO 06/29/17 09:00 07/01/17 08:11 Sodium Chloride 1,000 ml @ 124 mls/hr Q8H4M IV 06/29/17 05:22 07/01/17 06:03 (NS Flush) 2 ml UNSCH PRN .XX 06/29/17 05:30 (NS Flush) 2 ml BID .XX 06/29/17 09:00 07/01/17 08:11 (Tylenol) 650 mg Q6H PRN PO 06/29/17 05:30 ([place] 5-325 Mg) 1 tab Q4H PRN PO 06/29/17 05:30 (Morphine Inj) 2 mg Q2H PRN IV PUSH 06/29/17 05:30 (Protonix Inj) 40 mg Q12H IV PUSH 06/29/17 08:00 07/01/17 08:10 (Zofran Inj) 4 mg Q6H PRN IV PUSH 06/29/17 05:30 (Ambien) 5 mg HS PRN PO 06/29/17 05:30 (Duoneb Neb) 1 ampule Q6HR NEB INH 06/29/17 10:00 07/01/17 08:43 (Duoneb Neb) 1 ampule Q2HR NEB PRN INH 06/29/17 05:30 Miscellaneous Information 1 Q361D XX 06/29/17 05:30 (Chlorhexidine 2% Cloth) 3 pack Taper DAILY@04 TOP 06/30/17 04:00 06/26/18 03:59 06/30/17 22:50 (Chlorhexidine 2% Cloth) 3 pack UNSCH PRN TOP 06/29/17 05:30 (Lissette-Colace) 1 tab BID PO 06/29/17 09:00 07/01/17 08:11 (Milk Of Magnesia Liq) 30 ml Q12H PRN PO 06/29/17 05:30 (Senokot) 17.2 mg Q12H PRN PO 06/29/17 05:30 (Dulcolax Supp) 10 mg DAILY PRN RECTAL 06/29/17 05:30 (Lactulose Liq) 30 ml DAILY PRN PO 06/29/17 05:30 (D50w (Vial) Inj) 50 ml UNSCH PRN IV PUSH 06/29/17 05:30 (Glucagon Inj) 1 mg UNSCH PRN OTHER 06/29/17 05:30 (NovoLOG SUPPLEMENTAL SCALE) 1 ACHS SLIDING SCALE SQ 06/29/17 08:00 Allergies Allergies Coded Allergies sulfamethoxazole (Unverified Allergy, Intermediate, Hives, 06/29/17) trimethoprim (Unverified Allergy, Intermediate, Hives, 06/29/17) morphine (Unverified Adverse Reaction, Severe, N/V, 06/29/17) Review of Systems All other ROS: ROS reviewed as documented in chart Exam I&O / VS Vital Signs Date Time Temp Pulse Resp B/P (MAP) Pulse Ox O2 Delivery O2 Flow Rate FiO2 07/01/17 10:01 71 14 103/50 (67) 94 07/01/17 10:01 71 07/01/17 10:00 71 14 94 07/01/17 10:00 71 07/01/17 09:00 88 16 152/67 (95) 95 07/01/17 08:44 95 07/01/17 08:05 76 15 95/52 (66) 93 07/01/17 08:01 76 15 94/49 (64) 93 07/01/17 08:00 74 07/01/17 08:00 97.9 07/01/17 08:00 75 14 93 07/01/17 06:00 74 07/01/17 04:00 97.7 80 14 125/59 (81) 95 07/01/17 04:00 80 07/01/17 02:00 85 07/01/17 00:00 86 07/01/17 00:00 98.3 86 15 94/46 (62) 93 06/30/17 23:15 95 21 06/30/17 22:00 99 06/30/17 20:00 98.7 99 17 127/60 (82) 94 06/30/17 20:00 99 06/30/17 18:00 97 06/30/17 18:00 97 17 121/56 (77) 94 06/30/17 17:22 98 17 131/61 (84) 93 06/30/17 17:22 98 06/30/17 17:00 100 06/30/17 17:00 100 15 133/64 (87) 94 06/30/17 16:45 101 15 142/62 (88) 93 06/30/17 16:45 101 06/30/17 16:01 96 06/30/17 16:01 96 17 100/49 (66) 92 06/30/17 16:00 99.1 06/30/17 16:00 97 18 92 06/30/17 16:00 97 06/30/17 15:01 104 06/30/17 15:00 104 06/30/17 14:00 97 06/30/17 12:00 98.8 06/30/17 12:00 96 19 109/53 (71) 93 06/30/17 12:00 96 06/30/17 11:00 102 18 125/60 (81) 94 06/30/17 11:00 102 General: Alert and Oriented, No acute distress Eye: EOMI Respiratory: Non-labored respirations Neurologic: Alert, Oriented Psychiatric: Cooperative, Appropriate mood & affect Exam Comments lethargic, arouses with difficulty. Follows occasional simple commands but not complex commands CN--pupils 2 mm symmetric and reactive EOM intact MOTOR--generalized weakness but no focal deficits. Objective Micro and Labs Laboratory Tests Test 06/30/17 18:29 Ammonia 88 Vitamin B12 Level 463 Thyroid Stimulating Hormone 3rd Gen 2.860 Champ Billingsley PhD Jul 01, 2017 10:45
--- NOTE | 2017-07-01 10:49 | HHI.NSPN ---
History Interval History 06/30: 87-year-old female presents from [facility] where nursing staff this evening noticed her to have vomiting of red blood as well as maroon stool. Patient has had diarrhea times one day reportedly. No reported fever. Patient has multiple medical problems as well as recent hospitalization for left ankle fracture with repair, also generalized muscle weakness, patient is nonambulatory, has a dysphagia dysarthria with a mixed receptive expressive language disorder with a history of CVA, history of normal pressure hydrocephalus with CHARCOAL BURNER BEEHIVE KILN shunt and type 2 diabetes with diabetic neuropathy , frequent falls, and GERD, duodenal ulcer and hypertension. Patient here is nonverbal and unable to provide any history. Patient is awake and responds to voice, however not following commands. The patient's daughter is at the bedside and confirms that the patient is the patient is typically verbal , conversant although occasionally has been noted not to speak. Per chart documentation upon EMS arrival patient's blood pressure systolic was 70 mmHg and she was identified to need suctioning of coffee grounds from her mouth. 07/01: Shunt Series X-rays show shunt is intact. Shunt Pumps and refills well. Exam Results Vital Signs Date Time Temp Pulse Resp B/P (MAP) Pulse Ox O2 Delivery O2 Flow Rate FiO2 07/01/17 10:01 71 14 103/50 (67) 94 07/01/17 08:00 97.9 06/30/17 23:15 21 06/30/17 08:25 Nasal Cannula 1.00 Intake and Output 07/01/17 07/01/17 07/02/17 08:00 16:00 00:00 Intake Total 1000 ml Output Total 350 ml Balance 650 ml Physical Examination Physical Exam GENERAL: Well-developed elderly pale female in no acute distress no respiratory distress alert nonverbal. SKIN: Warm and dry. HEAD: Normocephalic. EYES: No scleral icterus. Conjunctival pallor. No injection or drainage. ENT : Mucous membranes pale dried coffee grounds about the lips and tongue NECK: Supple, trachea midline. No JVD or lymphadenopathy. CARDIOVASCULAR: Increased Regular rate and rhythm without murmurs, gallops, or rubs. RESPIRATORY: Breath sounds equal bilaterally. No accessory muscle use. GASTROINTESTINAL: Abdomen soft, non-tender, nondistended. Rectal exam deferred as copious amounts of maroon colored blood was found in diaper and on buttock and at the anus. MUSCULOSKELETAL: No cyanosis, or edema. BACK: Nontender without obvious deformity. No CVA tenderness. Neuro: OES, FS, Regards, Attempts to say name, MARK, not following commands, questionable following simple command right UE. Shunt pumps and refills well. Lab, Micro, Other Results Laboratory Tests Test 06/29/17 04:25 06/29/17 04:40 06/29/17 05:35 06/29/17 08:50 Activated Partial Thromboplast Time 26.8 SEC Blood Gas Puncture Site RT RADIAL Blood Gas Patient Temperature 98.6 Blood Gas HCO3 24 mmol/L Blood Gas Base Excess 0.1 mmol/L Blood Gas Oxygen Saturation 93 % Arterial Blood pH 7.46 Arterial Blood Partial Pressure CO2 34 mmHg Arterial Blood Partial Pressure O2 69 mmHG Arterial Blood Oxygen Content 7.0 Vol % Arterial Blood Carboxyhemoglobin 2.0 % Arterial Blood Methemoglobin 0.3 % Blood Gas Hemoglobin 5.3 G/DL Oxygen Delivery Device RA Blood Gas Inspired Oxygen 21 % Urine Color YELLOW Urine Turbidity CLEAR Urine pH 6.5 Urine Specific [place] 1.017 Urine Protein TRACE mg/dL Urine Glucose (UA) NEG mg/dL Urine Ketones NEG mg/dL Urine Occult Blood NEG Urine Nitrite NEG Urine Bilirubin NEG Urine Urobilinogen 2.0 MG/DL Urine Leukocyte Esterase NEG Urine RBC 1 /hpf Urine WBC LESS THAN 1 /hpf Urine Mucus FEW /lpf Microscopic Urinalysis Comment CULT NOT INDICATED Nasal Screen MRSA (PCR) MRSA NOT DETECTED Test 06/29/17 19:17 06/30/17 03:52 06/30/17 18:29 Haptoglobin 59 MG/DL White Blood Count 9.1 TH/MM3 Red Blood Count 3.22 MIL/MM3 Hemoglobin 9.9 GM/DL Hematocrit 28.7 % Mean Corpuscular Volume 89.3 FL Mean Corpuscular Hemoglobin 30.8 PG Mean Corpuscular Hemoglobin Concent 34.4 % Red Cell Distribution Width 16.9 % Platelet Count 112 TH/MM3 Mean Platelet Volume 8.5 FL Neutrophils (%) (Auto) 73.0 % Lymphocytes (%) (Auto) 18.5 % Monocytes (%) (Auto) 6.7 % Eosinophils (%) (Auto) 1.4 % Basophils (%) (Auto) 0.4 % Neutrophils # (Auto) 6.7 TH/MM3 Lymphocytes # (Auto) 1.7 TH/MM3 Monocytes # (Auto) 0.6 TH/MM3 Eosinophils # (Auto) 0.1 TH/MM3 Basophils # (Auto) 0.0 TH/MM3 CBC Comment DIFF FINAL Differential Comment Prothrombin Time 13.1 SEC Prothromb Time International Ratio 1.2 RATIO Blood Urea Nitrogen 65 MG/DL Creatinine 1.08 MG/DL Random Glucose 140 MG/DL Total Protein 5.5 GM/DL Albumin 2.1 GM/DL Calcium Level 7.7 MG/DL Phosphorus Level 2.6 MG/DL Magnesium Level 1.7 MG/DL Alkaline Phosphatase 78 U/L Aspartate Amino Transf (AST/SGOT) 28 U/L Alanine Aminotransferase (ALT/SGPT) 16 U/L Total Bilirubin 1.0 MG/DL Sodium Level 144 MEQ/L Potassium Level 3.9 MEQ/L Chloride Level 111 MEQ/L Carbon Dioxide Level 24.1 MEQ/L Anion Gap 9 MEQ/L Estimat Glomerular Filtration Rate 48 ML/MIN Lactic Acid Level 2.9 mmol/L Ammonia 88 MCMOL/L Vitamin B12 Level 463 PG/ML Thyroid Stimulating Hormone 3rd Gen 2.860 uIU/ML Current Medications Medications (Trade) Dose Ordered Sig/Emily Route PRN Reason Start Time Stop Time Status Last Admin Dose Admin Escitalopram Oxalate (Lexapro) 10 mg DAILY PO 06/29/17 09:00 07/01/17 08:12 Ferrous Sulfate (Ferrous Sulfate) 325 mg TIDPC PO 06/29/17 09:30 07/01/17 08:11 Pregabalin (Lyrica) 75 mg BID PO 06/29/17 09:00 07/01/17 08:11 Atorvastatin Calcium (Lipitor) 20 mg EVERY OTHER DAY PO 06/29/17 09:00 07/01/17 08:11 Sodium Chloride 1,000 ml @ 124 mls/hr Q8H4M IV 06/29/17 05:22 07/01/17 06:03 Sodium Chloride (NS Flush) 2 ml UNSCH PRN .XX FLUSH AFTER USING IV ACCESS 06/29/17 05:30 Sodium Chloride (NS Flush) 2 ml BID .XX 06/29/17 09:00 07/01/17 08:11 Acetaminophen (Tylenol) 650 mg Q6H PRN PO FEVER >101F 06/29/17 05:30 Acetaminophen/ Hydrocodone Bitart ([place] 5-325 Mg) 1 tab Q4H PRN PO PAIN SCALE 1 TO 5 06/29/17 05:30 Morphine Sulfate (Morphine Inj) 2 mg Q2H PRN IV PUSH PAIN SCALE 6 TO 10 06/29/17 05:30 Pantoprazole Sodium (Protonix Inj) 40 mg Q12H IV PUSH 06/29/17 08:00 07/01/17 08:10 Ondansetron HCl (Zofran Inj) 4 mg Q6H PRN IV PUSH NAUSEA OR VOMITING 06/29/17 05:30 Zolpidem Tartrate (Ambien) 5 mg HS PRN PO INSOMNIA 06/29/17 05:30 Albuterol/ Ipratropium (Duoneb Neb) 1 ampule Q6HR NEB INH 06/29/17 10:00 07/01/17 08:43 Albuterol/ Ipratropium (Duoneb Neb) 1 ampule Q2HR NEB PRN INH WHEEZING 06/29/17 05:30 Miscellaneous Information 1 Q361D XX 06/29/17 05:30 Chlorhexidine Gluconate (Chlorhexidine 2% Cloth) 3 pack Taper DAILY@04 TOP 06/30/17 04:00 06/26/18 03:59 06/30/17 22:50 Chlorhexidine Gluconate (Chlorhexidine 2% Cloth) 3 pack UNSCH PRN TOP HYGIENIC CARE 06/29/17 05:30 Senna/Docusate Sodium (Lissette-Colace) 1 tab BID PO 06/29/17 09:00 07/01/17 08:11 Magnesium Hydroxide (Milk Of Magnesia Liq) 30 ml Q12H PRN PO MILD - MODERATE CONSTIPATION 06/29/17 05:30 Sennosides (Senokot) 17.2 mg Q12H PRN PO MODERATE - SEVERE CONSTIPATION 06/29/17 05:30 Bisacodyl (Dulcolax Supp) 10 mg DAILY PRN RECTAL SEVERE CONSITIPATION 06/29/17 05:30 Lactulose (Lactulose Liq) 30 ml DAILY PRN PO SEVERE CONSITIPATION 06/29/17 05:30 Dextrose (D50w (Vial) Inj) 50 ml UNSCH PRN IV PUSH HYPOGLYCEMIA-SEE COMMENTS 06/29/17 05:30 Glucagon (Glucagon Inj) 1 mg UNSCH PRN OTHER HYPOGLYCEMIA-SEE COMMENTS 06/29/17 05:30 Insulin Aspart (NovoLOG SUPPLEMENTAL SCALE) 1 ACHS SLIDING SCALE SQ 06/29/17 08:00 Last Impressions Shunt Study (Imaging) 06/30/17 0000 Signed Impressions: Service Date/Time: Friday, June 30, 2017 16:49 - CONCLUSION: Intact shunt. Ken Benjamin MD Head CT 06/29/17 0000 Signed Impressions: Service Date/Time: Thursday, June 29, 2017 06:12 - CONCLUSION: 1. Right frontal ventriculostomy tube in good position. No acute intracranial abnormalities. Thony Wilhelm MD Medical Decision Making Impression and Plan A/P: Shunt Working and Intact based on physical & radiographic findings. 1. Continue Neurology work-up for AMS and Metabolic encephalopathy 2. No Neurosurgery intervention at this time 3. Will sign-off 4. Please call with and questions or concerns Total Minutes: 16 Kade Bashir MD Jul 01, 2017 10:49
[2017-07-01 11:31] LABS: AUTOMATED NEUTROPHIL # 5.9 TH/MM3 (1.8-7.7); BASOPHIL % 0.4 % (0.0-2.0); EOSINOPHIL # 0.2 TH/MM3 (0-0.4); HEMATOCRIT 28.7 % (35.0-46.0); HEMO FLAGS DIFF FINAL; LYMPHOCYTE # 1.2 TH/MM3 (1.0-4.8); MEAN CELL VOLUME 91.6 FL (80.0-100.0); MEAN CORPUSCULAR HEMOGLOBIN 31.7 PG (27.0-34.0); MEAN CORPUSCULAR HGB CONC 34.6 % (32.0-36.0); MONO % 7.1 % (0.0-8.0); NEUT % 75.5 % (16.0-70.0); PLATELET COUNT 106 TH/MM3 (150-450); RED BLOOD COUNT 3.14 MIL/MM3 (4.00-5.30); RED CELL DISTRIBUTION WIDTH 16.3 % (11.6-17.2); WHITE BLOOD COUNT 7.8 TH/MM3 (4.0-11.0)
[2017-07-01 11:39] LABS: ALKALINE PHOSPHATASE 80 U/L (45-117); ALT (GPT) 19 U/L (10-53); ANION GAP 7 MEQ/L (5-15); AST (GOT) 27 U/L (15-37); BICARBONATE 24.1 MEQ/L (21.0-32.0); CHLORIDE 115 MEQ/L (98-107); GLOMERULAR FILTRATION RATE 67 ML/MIN (>89); SODIUM (NA) 146 MEQ/L (136-145); TOTAL BILIRUBIN ADULT 0.9 MG/DL (0.2-1.0)
[2017-07-01 11:41] LABS: BLOOD UREA NITROGEN 41 MG/DL (7-18); POTASSIUM 3.9 MEQ/L (3.5-5.1)
--- NOTE | 2017-07-01 14:20 | HHI.CCPN ---
Subjective Remarks/Hospital Course 06/29: 87-year-old female presents from [facility] where nursing staff this evening noticed her to have vomiting of red blood as well as maroon stool. Patient has had diarrhea times one day reportedly. No reported fever. Patient has multiple medical problems as well as recent hospitalization for left ankle fracture with repair, also generalized muscle weakness, patient is nonambulatory, has a dysphagia dysarthria with a mixed receptive expressive language disorder with a history of CVA, history of normal pressure hydrocephalus with WEATHER ANCHOR shunt and type 2 diabetes with diabetic neuropathy , frequent falls, and GERD, duodenal ulcer and hypertension. Patient here is nonverbal and unable to provide any history. Patient is awake and responds to voice, however not following commands. The patient's daughter is at the bedside and confirms that the patient is the patient is typically verbal , conversant although occasionally has been noted not to speak. Per chart documentation upon EMS arrival patient's blood pressure systolic was 70 mmHg and she was identified to need suctioning of coffee grounds from her mouth. 06/30: Resting in bed comfortably. Not in any acute distress. 07/01: Resting in bed comfortably not in any acute distress. Knows she is in the hospital. More verbal today. Objective Vital Signs Date Time Temp Pulse Resp B/P (MAP) Pulse Ox O2 Delivery O2 Flow Rate FiO2 07/01/17 13:00 74 07/01/17 10:01 14 103/50 (67) 94 07/01/17 08:00 97.9 06/30/17 23:15 21 06/30/17 08:25 Nasal Cannula 1.00 Intake and Output 07/01/17 07/01/17 07/02/17 08:00 16:00 00:00 Intake Total 1000 ml Output Total 350 ml Balance 650 ml Result Diagram: 07/01/17 1039 07/01/17 1039 Objective Remarks GENERAL: Well-nourished, well-developed elderly woman, nonverbal. SKIN: Warm and dry. HEAD: Normocephalic. EYES: No scleral icterus. No injection or drainage. NECK: Supple, trachea midline. No JVD or lymphadenopathy. CARDIOVASCULAR: Regular rate and rhythm without murmurs, gallops, or rubs. RESPIRATORY: Breath sounds equal bilaterally. No accessory muscle use. GASTROINTESTINAL: Abdomen soft, non-tender, nondistended. MUSCULOSKELETAL: No cyanosis, or edema. BACK: Nontender without obvious deformity. NEURO EXAM: Drowsy, easily arousable, speaks a few words. Movest with upper extremities. A/P Assessment and Plan Acute GI bleed -Continue IV fluids - Protonix 40 IV twice a day -Status post EGD by GI which showed esophageal viruses and blood in stomach. - Gastroenterology following - PRBC transfusions when necessary Altered mental status - CT head unremarkable. - r/o WEATHER ANCHOR shunt malfunction and CVA. Neurology/ neurosurgery consults noted. WEATHER ANCHOR shunt appears to be functioning well per neurosurgery. Renal insufficiency Continue with IV fluids Follow intake output, monitor and replete electro lites, follow BUN/creatinine. Anemia due to blood loss Monitor H&H - Blood transfusion if hemoglobin drops less than 8 Type 2 diabetes - Accu-Cheks before meals and at bedtime with insulin sliding scale - Hold long acting insulins while to nothing by mouth History of CVA Hold aspirin at this time due to acute GI bleed -Continue statins Hypertension - Hold home medications till hemodynamically more stable NPH - status post WEATHER ANCHOR shunt - physical therapy as tolerated DVT GI prophylaxis - Teds SCDs - No pharmacological DVT prophylaxis due to acute bleed - IV Protonix twice a day Patient is DNR status. Palliative care following to assist with deciding goals of therapy. Lacho Sprague MD Jul 01, 2017 14:20
--- NOTE | 2017-07-01 16:35 | HHI.GIFU ---
Subjective Remarks Resting in bed. Lethargic, but does arouse and answer questions. No active bleeding. Denies abdominal pain. (Lisa Jorge) Objective Vitals I&O Vital Signs Date Time Temp Pulse Resp B/P (MAP) Pulse Ox O2 Delivery O2 Flow Rate FiO2 07/01/17 14:00 72 18 133/63 (86) 95 07/01/17 14:00 72 07/01/17 13:00 74 15 143/65 (91) 95 07/01/17 13:00 74 07/01/17 12:01 77 07/01/17 12:01 77 14 133/63 (86) 96 07/01/17 12:00 76 07/01/17 12:00 97.9 07/01/17 12:00 76 15 95 07/01/17 10:01 71 14 103/50 (67) 94 07/01/17 10:01 71 07/01/17 10:00 71 14 94 07/01/17 10:00 71 07/01/17 09:00 88 16 152/67 (95) 95 07/01/17 08:44 95 07/01/17 08:05 76 15 95/52 (66) 93 07/01/17 08:01 76 15 94/49 (64) 93 07/01/17 08:00 74 07/01/17 08:00 97.9 07/01/17 08:00 75 14 93 07/01/17 06:00 74 07/01/17 04:00 97.7 80 14 125/59 (81) 95 07/01/17 04:00 80 07/01/17 02:00 85 07/01/17 00:00 86 07/01/17 00:00 98.3 86 15 94/46 (62) 93 06/30/17 23:15 95 21 06/30/17 22:00 99 06/30/17 20:00 98.7 99 17 127/60 (82) 94 06/30/17 20:00 99 06/30/17 18:00 97 06/30/17 18:00 97 17 121/56 (77) 94 06/30/17 17:22 98 17 131/61 (84) 93 06/30/17 17:22 98 06/30/17 17:00 100 06/30/17 17:00 100 15 133/64 (87) 94 06/30/17 16:45 101 15 142/62 (88) 93 06/30/17 16:45 101 I/O 06/30/17 06/30/17 06/30/17 07/01/17 07/01/17 07/01/17 07:00 15:00 23:00 07:00 15:00 23:00 Intake Total 2000 ml 1000 ml 1000 ml 1000 ml Output Total 500 ml 850 ml 350 ml Balance 1500 ml 1000 ml 150 ml 650 ml Intake Oral 0 ml 0 ml 0 ml IV Total 2000 ml 1000 ml 1000 ml 1000 ml Output Urine Total 500 ml 850 ml 350 ml # Bowel Movements 0 0 0 Laboratory Laboratory Tests Test 06/30/17 18:29 07/01/17 10:39 Ammonia 88 Vitamin B12 Level 463 Thyroid Stimulating Hormone 3rd Gen 2.860 White Blood Count 7.8 Red Blood Count 3.14 Hemoglobin 9.9 Hematocrit 28.7 Mean Corpuscular Volume 91.6 Mean Corpuscular Hemoglobin 31.7 Mean Corpuscular Hemoglobin Concent 34.6 Red Cell Distribution Width 16.3 Platelet Count 106 Mean Platelet Volume 9.3 Neutrophils (%) (Auto) 75.5 Lymphocytes (%) (Auto) 15.0 Monocytes (%) (Auto) 7.1 Eosinophils (%) (Auto) 2.0 Basophils (%) (Auto) 0.4 Neutrophils # (Auto) 5.9 Lymphocytes # (Auto) 1.2 Monocytes # (Auto) 0.6 Eosinophils # (Auto) 0.2 Basophils # (Auto) 0.0 CBC Comment DIFF FINAL Differential Comment Hematology Comments Blood Urea Nitrogen 41 Creatinine 0.81 Random Glucose 137 Total Protein 5.8 Albumin 2.1 Calcium Level 7.6 Alkaline Phosphatase 80 Aspartate Amino Transf (AST/SGOT) 27 Alanine Aminotransferase (ALT/SGPT) 19 Total Bilirubin 0.9 Sodium Level 146 Potassium Level 3.9 Chloride Level 115 Carbon Dioxide Level 24.1 Anion Gap 7 Estimat Glomerular Filtration Rate 67 Imaging Last Impressions Shunt Study (Imaging) 06/30/17 0000 Signed Impressions: Service Date/Time: Friday, June 30, 2017 16:49 - CONCLUSION: Intact shunt. Ken Benjamin MD Head CT 06/29/17 0000 Signed Impressions: Service Date/Time: Remi, June 29, 2017 06:12 - CONCLUSION: 1. Right frontal ventriculostomy tube in good position. No acute intracranial abnormalities. Thony Wilhelm MD Physical Exam HEENT: Normocephalic; atraumatic; no jaundice. NECK: Neck is supple. CHEST: CTA, diminished breath sounds CARDIAC: RRR with no murmur gallop or rubs. ABDOMEN: Soft, mildly distended, nontender; bowel sounds are present EXTREMITIES: Fracture boot on left SKIN: Generalized pallor COUNSEL: Lethargic, does arouse and answer simple questions (Lisa Jorge) Assessment and Plan Plan ASSESSMENT: - Upper GIB with hematemesis with red blood, maroon stools that began yesterday at [facility]. Pt has remote hx of PUD in 1955. Family reports hx of Recio's Esophagus, GERD. Last egd/ colonoscopy about 2 years ago per family. HH 5.8/17.8 on admission. S/P 4 units PRBC. S/P EGD (06/29/17)---> Grade 2 esophageal varices 3 columns no active bleeding from that, Possible short Recio compromised with the coffee- ground emesis, No sign of active bleeding but there is stigmata of recent bleed mostly from the stomach either from gastropathy or tic ulcer disease the visualization was compromised by coffee-ground emesis and old blood, Duodenitis. PPI. Rpt. EGD on Sunday. No active bleeding at this time. - Esophageal varices. PPI. - Liver cirrhosis, as evidenced by esophageal varices, elevated ammonia, thrombocytopenia, coagulopathy, and hypoalbuminemia. Pt has DM, ? fatty liver disease. Will get RUQ US and liver workup. - Hepatic encephalopathy. Ammonia 88. - Severe anemia, acute blood loss. HH 5.8/17.8 on admission. S/P 4 units PRBC. 9.9/28.7. - GERD, Recio's esophagus. PPI - AMS. CT head unremarkable. 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 AMS 88. Add lactulose (scheduled), Xifaxan - PHUONG, improved - DM, Hyperlipidemia, per attending PLAN: - Clear liquids - Protonix 40mg IV BID - Lactulose 30mL po BID - Xifaxan 550mg po BID - RUQ US - Hepatitis panel - AFP level - Ferritin, Iron saturation - Ceruloplasmin, ALpha 1 Antitrypsin - Monitor HH - Transfuse as needed - CBC, CMP, Ammonia - Supportive care - Plan for repeat EGD on Sunday - Further recommendations to follow based on results of above - Pt seen and examined by Dr. Rosario and myself and this note is written on his behalf (Lisa Jorge) Plan Patient was seen and examined, agree with above note, plan for endoscopy on Sunday (Anamaria Rosario MD) Lisa Jorge Jul 01, 2017 16:35 Anamaria Rosario MD Jul 01, 2017 18:14
[2017-07-01 17:51] LABS: TRANSFERRIN IRON PROFILE 200 MG/DL (200-360)
[2017-07-01 17:53] LABS: FERRITIN 172 NG/ML (8-252)
[2017-07-01] MEDS: RIFAXIMIN 550 MG TAB PO SCH (21:09)
[2017-07-01] MEDS: LACTULOSE SYRUP 20 GM/30 ML CUP PO SCH (21:10)
--- NOTE | 2017-07-01 22:05 | RADRPT ---
EXAM DATE/TIME: 07/01/2017 17:16 [place] COMPARISON: No previous studies available for comparison. INDICATIONS : Cirrhosis. MEDICAL HISTORY : Hypercholesterolemia. Hypertension. Arthritis. Hydrocephalus. Duodenal ulcer. Diabetes. Cerebrovascul ar disease. SURGICAL HISTORY : Cataracts. SCAFFOLD SETTER shunt. Bilateral knee surgery. ENCOUNTER: Initial ACUITY: 1 day PAIN SCORE: 4/10 LOCATION: Right upper quadrant MEASUREMENTS: LIVER: 15.2 cm length COMMON DUCT: 4 mm RIGHT KIDNEY: 8.9 x 4.5 x 4.1 cm SPLEEN: 11.2 cm length FINDINGS: Moderate amount of ascites throughout all 4 quadrants of the abdomen. LIVER: Normal echotexture without focal lesion or ductal dilatation. Hepatopedal flow in the portal vein. COMMON DUCT: No intraluminal mass or stone visualized. GALLBLADDER: Contains no stones, demonstrates no wall thickening or pericholecystic fluid. PANCREAS: The visualized portions are within normal limits. RIGHT KIDNEY: No hydronephrosis, stone or mass. SPLEEN: No focal lesion. CONCLUSION: 1. Moderate ascites. 2. No focal lesions in the liver. 3. No gallstones. Ken Benjamin MD on July 01, 2017 at 22:01 Board Certified Radiologist. This report was verified electronically.
[2017-07-02] VITALS (12 sets, daily range): BP systolic 112–145; BP diastolic 56–63; PULSE 78–93; RESP 16–19; TEMP 96.9–98.3; O2SAT 91–98
[2017-07-02] MEDS: RESP: ALBUTEROL 2.5 MG/IPRATROPIUM 0.5 MG NEB (SCH) INH ×4 (03:37→19:53)
[2017-07-02] MEDS: CHLORHEXIDINE GLUCONATE 2 % 1 PACK (2 CLOTHS) TOP SCH (04:00)
[2017-07-02] MEDS: SODIUM CHLOR 0.9% 1000 ML INJ 1,000 ML IV SCH ×2 (05:38→16:15)
[2017-07-02 05:42] LABS: AUTOMATED NEUTROPHIL # 5.4 TH/MM3 (1.8-7.7); BASOPHIL % 0.4 % (0.0-2.0); EOSINOPHIL # 0.3 TH/MM3 (0-0.4); EOSINOPHIL % 3.5 % (0.0-4.0); HEMATOCRIT 28.5 % (35.0-46.0); HEMO FLAGS DIFF FINAL; LYMPH % 19.7 % (9.0-44.0); LYMPHOCYTE # 1.5 TH/MM3 (1.0-4.8); MEAN CELL VOLUME 93.2 FL (80.0-100.0); MEAN CORPUSCULAR HEMOGLOBIN 30.8 PG (27.0-34.0); MEAN CORPUSCULAR HGB CONC 33.1 % (32.0-36.0); MONO % 6.1 % (0.0-8.0); NEUT % 70.3 % (16.0-70.0); PLATELET COUNT 141 TH/MM3 (150-450); RED BLOOD COUNT 3.06 MIL/MM3 (4.00-5.30); RED CELL DISTRIBUTION WIDTH 16.4 % (11.6-17.2); WHITE BLOOD COUNT 7.7 TH/MM3 (4.0-11.0)
[2017-07-02 06:10] LABS: ANION GAP 9 MEQ/L (5-15); AST (GOT) 26 U/L (15-37); BICARBONATE 22.9 MEQ/L (21.0-32.0); BLOOD UREA NITROGEN 33 MG/DL (7-18); CHLORIDE 114 MEQ/L (98-107); GLOMERULAR FILTRATION RATE 61 ML/MIN (>89); POTASSIUM 3.3 MEQ/L (3.5-5.1); SODIUM (NA) 146 MEQ/L (136-145)
[2017-07-02 06:17] LABS: ALKALINE PHOSPHATASE 93 U/L (45-117); ALT (GPT) 18 U/L (10-53)
[2017-07-02] MEDS: INSULIN ASPART SUPPLEMENTAL SCALE SQ SCH ×4 (08:00→21:00)
[2017-07-02] MEDS: PANTOPRAZOLE SODIUM 40 MG VIAL IV PUSH SCH ×2 (08:56→21:11)
[2017-07-02] MEDS: SODIUM CHLORIDE 0.9% FLUSH 10 ML FLUSH SCH ×2 (09:00→21:00)
[2017-07-02] MEDS: RIFAXIMIN 550 MG TAB PO SCH ×2 (09:00→21:00)
[2017-07-02] MEDS: ESCITALOPRAM OXALATE 10 MG TAB PO SCH (09:00)
[2017-07-02] MEDS: DOCUSATE SODIUM 50 MG/SENNA 8.6 MG TAB PO SCH ×2 (09:00→21:00)
[2017-07-02] MEDS: PREGABALIN 75 MG CAP PO SCH ×2 (09:00→21:00)
[2017-07-02] MEDS: LACTULOSE SYRUP 20 GM/30 ML CUP PO SCH ×2 (09:00→21:00)
[2017-07-02] MEDS: FERROUS SULFATE 325 MG (65 MG ELEMENTAL IRON) TAB PO SCH ×3 (09:30→17:44)
--- NOTE | 2017-07-02 12:36 | GIPROC ---
[facility] [address] [facility]. [facility], [address] EGD PROCEDURE REPORT EXAM DATE: 07/02/2017 PATIENT NAME: Chloe Ventura MR #: [id number] BIRTHDATE: 1930 ATTENDING: Geraldine Diaz MD ORDER #: [id number] LABORATORY PHLEBOTOMIST: Maria De Jesus Landry and Bernadette West STATUS: inpatient INDICATIONS: The patient is a 87 yr old female here for an EGD due to bleeding PROCEDURE PERFORMED: EGD w/ biopsy MEDICATIONS: None and Per Anesthesia. TOPICAL ANESTHETIC: none CONSENT: The patient understands the risks and benefits of the procedure and understands that these risks include, but are not limited to: sedation, allergic reaction, infection, perforation and/or bleeding. Alternative means of evaluation and treatment include, among others: physical exam, x-rays, and/or surgical intervention. The patient elects to proceed with this endoscopic procedure. medical equipment was checked for proper function. Hand hygiene and appropriate measures for infection prevention was taken. After the risks, benefits and alternatives of the procedure were thoroughly explained, Informed consent was verified, confirmed and timeout was successfully executed by the treatment team. The patient was anesthetized with topical anesthesia and the Pentax EG-[id number] endoscope was introduced through the mouth and advanced to the second portion of the duodenum. Retroflexed views revealed a hiatal hernia The gastroscope was then slowly withdrawn and removed. Nodulr gastrtis antrum-biopsy possible Recio's esopahgeal varice applied band ligator on top of egd scope-could not pass the upper esophageal sphyncter-ct cervical spine november noted. ADVERSE EVENTS: There were no complications. IMPRESSIONS: 1. Nodulr gastrtis antrum-biopsy possible Recio's esopahgeal varice applied band ligator on top of egd scope-could not pass the upper esophageal sphyncter-ct cervical spine november noted 2. Retroflexed views revealed a hiatal hernia RECOMMENDATIONS: 1. Await biopsy results. Biopsy results will not be ready for 7-10 days. If you don't hear from us in two weeks, call our office for biopsy results. 2. Anti-reflux regimen 3. Continue PPI 4. Speech theraphy full liquid diet ba swallow once cleared by speech theraphy PATIENT CONDITION: stable DISPOSITION: Inpatient REPEAT EXAM: EGD pending biopsy results Geraldine Diaz MD eSigned: Geraldine Diaz MD 07/02/2017 12:36 PM cc: PATIENT NAME: Chloe Ventura MR#: [id number]
[2017-07-02] MEDS ORDERED: DO NOT ADM ANY ANTICOAGULANT DRUGS PRN (12:40)
[2017-07-02] MEDS ORDERED: *RESP: ALBUTEROL 2.5 MG/3 ML NEB (PRN) PERIprocedural Use ONLY NEB ONE (12:45)
[2017-07-02 13:50] LABS: ANA SCREEN NEG (NEG)
--- NOTE | 2017-07-02 16:49 | PD.CONS ---
HPI Service [facility] Consult Requested By Dr. Sprague Reason for Consult Medical management Primary Care Physician Jordan Barnhart MD Diagnoses: History of Present Illness This a pleasant 86-year-old female with history of NPH status post SHOVE UP shunt, type 2 diabetes, CVA August 2016, hypertension, hyperlipidemia, frequent falls with left ankle fracture in November requiring ORIF and then a revision of ORIF in March 2017. Patient presented to the emergency room on 06/29/2017 from [place] per nursing staff noted that she was vomiting red blood as well as having maroon stools. Patient had had diarrhea 1. There was no reported fever. Patient with prior history of GERD and duodenal ulcers. Patient was not able to provide any details, she was not following commands and was nonverbal. Patient was initially admitted to intensive care services. She was noted with hypotension, systolic blood pressure of 70s. She required suctioning of coffee grounds from her mouth. Patient received IV fluids, gastroenterology was consulted. She underwent an upper endoscopy on 06/29/2017 showing grade 2 esophageal varices there was no active bleeding. There was also possible short Recio's compromise with the coffee-ground emesis. There was no active bleeding. The recommendation was to have a repeat EGD. Patient had repeat EGD today, findings where of nodular gastritis in the antrum, possible Recio's, esophageal varices. It appears that the band ligator was attempted but it could not pass the upper esophageal sphincter. Initial hemoglobin was 5.8, patient has received a total of 4 units. H&H is stable, hemoglobin 9.4. Per GI , patient was found with liver cirrhosis as evidenced by esophageal varices. She was also noted with elevated ammonia, thrombocytopenia, coagulopathy and hypoalbuminemia. She is undergoing liver workup. She is currently on lactulose and rifaximin. Ammonia level is trending down. Liver ultrasound showed moderate ascites, no focal lesions in the liver. No gallstones. Because of the alteration of mental status, CT of the head was completed to rule out stroke which was negative. Patient does have a history of NPH and SHOVE UP shunt. Neurosurgery was also consulted and SHOVE UP shunt series was done which was stable. Neurosurgery has signed off. Palliative care is also following the patient, patient has 10 children and there is a designated POA. She is a DNR. Patient does not want any intubation, appropriate CODE STATUS has been entered. It appears that family is amenable to hospice referral when the patient [facility]. Patient is examined in the presence of her family. She is awake, she no she's in the hospital recognizes family members. She follows simple commands. At this time she is requesting something to eat. Apparently she was noted coughing with liquids therefore a speech and swallow evaluation has been requested. Patient is hemodynamically stable. Hospitalist services are requested for medical management. Review of Systems ROS Limitations: Altered Mental Status Other c/o thirst, wants to eat Past Family Social History Past Medical History 1. Significant for normal pressure hydrocephalus, status post SHOVE UP shunt. 2. Diabetes. 3. Diabetic neuropathy. 4. Hypertension. 5. As per old records hyperlipidemia. 6. History of bilateral knee replacement with SHOVE UP shunt placement. 7. Left hip open reduction, internal fixation. 8. Bilateral cataract surgery. 9. right ankle fracture. 10. Recent CVA right parietal 2015 Past Surgical History status post Left Ankle Open Reduction and Internal Fixation 12/16 Revision ORIF left ankle with removal of previous internal fixation, I/D, right ankle repair of syndesmosis April 03, 2017 Reported Medications Reported Meds & Active Scripts Active Lantus Inj (Insulin Glargine) 1,000 Unit/10 Ml Vial 6 Units SQ HS Hydrocodone-Acetaminophen 5-325 mg Tab 1 Tab PO Q4H PRN Reported Aspirin 81 Mg Chew 81 Mg CHEW DAILY Lexapro (Escitalopram Oxalate) 10 Mg Tab 10 Mg PO DAILY Humalog Inj (Insulin Human Lispro) 1,000 Unit/10 Ml Vial Unknown Dose SQ ACHS Max dose at bedtime:( )units; sugars< 70,(0)units; sugars 150-199,(1)unit; sugars 200-249,(3)units; sugars 250-299,(5)units; sugars 300-349,(7)units; sugars more than 349,(9)units. Calcium/Vitamin D (Calcium Carbonate-Vitamin D) 500-200 Mg-Unit Tab 1 Tab PO BID Ferrous Sulfate 325 Mg (65 Mg Iron) Tablet 325 Mg PO TIDPC Tylenol (Acetaminophen) 325 Mg Tab 650 Mg PO Q4H PRN Pro-Stat Sugar Free (Amino Acids-Protein Hydrolysat) 15 Gram-100 Kcal/30 Ml Liq TID Milk of Magnesia Liq (Magnesium Hydroxide) 400 Mg/5 Ml Susp 30 Ml PO DAILY PRN Duoneb (Ipratropium-Albuterol Neb) 0.5-2.5 Mg/3 Ml Neb 1 Nebule INH Q6HR NEB Potassium Chloride ER (Potassium Chloride) 20 Meq Tab 20 Meq PO BID Furosemide 20 Mg Tab 20 Mg PO BID Docusate Sodium 100 Mg Cap 100 Mg PO BID Lyrica (Pregabalin) 75 Mg Cap 75 Mg PO BID Enalapril (Enalapril Maleate) 10 Mg Tab 10 Mg PO DAILY Crestor (Rosuvastatin Calcium) 10 Mg Tab 10 Mg PO EVERY OTHER DAY Allergies: Coded Allergies: sulfamethoxazole (Unverified Allergy, Intermediate, Hives, 06/29/17) trimethoprim (Unverified Allergy, Intermediate, Hives, 06/29/17) morphine (Unverified Adverse Reaction, Severe, N/V, 06/29/17) Active Ordered Medications Inpatient Medications Acetaminophen (Tylenol) 650 mg Q6H PRN PO FEVER >101F; Start 06/29/17 at 05:30 Acetaminophen/ Hydrocodone Bitart (Methow 5-325 Mg) 1 tab Q4H PRN PO PAIN SCALE 1 TO 5; Start 06/29/17 at 05:30 Albuterol/ Ipratropium (Duoneb Neb) 1 ampule Q2HR NEB PRN INH WHEEZING; Start 06/29/17 at 05:30 Atorvastatin Calcium (Lipitor) 20 mg EVERY OTHER DAY PO Last administered on 07/01/17 08:11; Start 06/29/17 at 09:00 Bisacodyl (Dulcolax Supp) 10 mg DAILY PRN RECTAL SEVERE CONSITIPATION; Start at 05:30 Chlorhexidine Gluconate (Chlorhexidine 2% Cloth) 3 pack UNSCH PRN TOP HYGIENIC CARE; Start 06/29/17 at 05:30 Dextrose (D50w (Vial) Inj) 50 ml UNSCH PRN IV PUSH HYPOGLYCEMIA-SEE COMMENTS; Start 06/29/17 at 05:30 Escitalopram Oxalate (Lexapro) 10 mg DAILY PO Last administered on 07/01/17 08 :12; Start 06/29/17 at 09:00 Ferrous Sulfate (Ferrous Sulfate) 325 mg TIDPC PO Last administered on 18:29; Start 06/29/17 at 09:30 Glucagon (Glucagon Inj) 1 mg UNSCH PRN OTHER HYPOGLYCEMIA-SEE COMMENTS; Start 06/29/17 at 05:30 Insulin Aspart (NovoLOG SUPPLEMENTAL SCALE) 1 ACHS SLIDING SCALE SQ ; Start at 08:00 Lactulose (Lactulose Liq) 30 ml BID PO Last administered on 07/01/17 21:10; Start 07/01/17 at 21:00 Magnesium Hydroxide (Milk Of Magnesia Liq) 30 ml Q12H PRN PO MILD - MODERATE CONSTIPATION; Start 06/29/17 at 05:30 Miscellaneous Information ALL NURSING DEPARTME... UNSCH PRN .XX SEE LABEL COMMENTS; Start 07/02/17 at 12:40; Stop 07/03/17 at 12:39 Morphine Sulfate (Morphine Inj) 2 mg Q2H PRN IV PUSH PAIN SCALE 6 TO 10; Start 06/29/17 at 05:30 Ondansetron HCl (Zofran Inj) 4 mg Q6H PRN IV PUSH NAUSEA OR VOMITING; Start at 05:30 Pantoprazole Sodium (Protonix Inj) 40 mg Q12H IV PUSH Last administered on 07/02 08:56; Start 06/29/17 at 08:00 Pantoprazole Sodium 80 mg/ Sodium Chloride 100 ml @ 10 mls/hr Q10H IV Last administered on 06/29/17 05:29; Start 06/29/17 at 04:11; Stop 06/29/17 at 05:39 ; Status DC Pregabalin (Lyrica) 75 mg BID PO Last administered on 07/01/17 21:09; Start at 09:00 Rifaximin (Xifaxan) 550 mg BID PO Last administered on 07/01/17 21:09; Start 07/01/17 at 21:00 Senna/Docusate Sodium (Lissette-Colace) 1 tab BID PO Last administered on 21:09; Start 06/29/17 at 09:00 Sennosides (Senokot) 17.2 mg Q12H PRN PO MODERATE - SEVERE CONSTIPATION; Start 06/29/17 at 05:30 Sodium Chloride (NS Flush) 2 ml UNSCH PRN IVF FLUSH AFTER USING IV ACCESS; Start 06/29/17 at 06:00; Stop 06/29/17 at 06:03; Status DC Zolpidem Tartrate (Ambien) 5 mg HS PRN PO INSOMNIA; Start 06/29/17 at 05:30 Family History Reviewed, non contributory Social History Patient resides at an assisted living facility, very rare alcohol, no tobacco abuse, substance abuse. Has been using mostly a wheelchair, very little use of walker in the last couple of months. Has children, one daughter is POA Physical Exam Vital Signs Vital Signs Date Time Temp Pulse Resp B/P (MAP) Pulse Ox O2 Delivery O2 Flow Rate FiO2 07/02/17 14:00 87 07/02/17 13:30 81 07/02/17 13:30 97.6 87 16 145/63 (90) 95 07/02/17 13:00 95 18 131/61 (84) 99 07/02/17 12:45 96 18 125/59 (81) 100 Aerosol Mask 07/02/17 12:39 98.8 95 22 136/64 (88) 95 07/02/17 10:00 79 07/02/17 09:06 98 21 07/02/17 08:00 91 07/02/17 08:00 97.1 78 16 139/60 (86) 95 07/02/17 06:00 89 07/02/17 04:00 93 07/02/17 04:00 98.1 88 19 112/56 (74) 95 07/02/17 02:00 86 07/02/17 00:00 92 07/02/17 00:00 98.3 90 16 113/57 (75) 94 07/01/17 22:00 91 07/01/17 21:16 94 21 07/01/17 20:00 92 07/01/17 20:00 98.5 91 18 94 07/01/17 18:00 91 07/01/17 18:00 91 16 136/61 (86) 95 07/01/17 17:00 87 20 127/60 (82) 95 07/01/17 16:55 83 19 143/57 (85) 95 Physical Exam GENERAL: This is a well-nourished, elderly female. SKIN: Pale cool dry. HEAD: Atraumatic. Normocephalic. No temporal or scalp tenderness. EYES: Pupils equal round and reactive. Extraocular motions intact. No scleral icterus. No injection or drainage. ENT: Nose without bleeding, purulent drainage or septal hematoma. Throat without erythema, tonsillar hypertrophy or exudate. Uvula midline. Airway patent. Oral mucosa dry. NECK: Trachea midline. No JVD or lymphadenopathy. Supple, nontender, no meningeal signs. CARDIOVASCULAR: Regular rate and rhythm without murmurs, gallops, or rubs. RESPIRATORY: Clear to auscultation. Breath sounds equal bilaterally. No wheezes , rales, or rhonchi. GASTROINTESTINAL: Abdomen soft, non-tender, nondistended. No hepato-splenomegaly , or palpable masses. No guarding. MUSCULOSKELETAL: Left lower extremity is noted in a brace. Intact sensation to toes of left foot. +2 left pedal pulse. No other joint abnormalities. No edema to right lower extremity, pedal pulse 2+. NEUROLOGICAL: Somewhat lethargic, opens eyes. Follows simple commands. No focal deficits. Laboratory Laboratory Tests Test 07/02/17 04:52 07/02/17 05:26 Tumor Marker Alpha Fetoprotein 2.2 White Blood Count 7.7 Red Blood Count 3.06 Hemoglobin 9.4 Hematocrit 28.5 Mean Corpuscular Volume 93.2 Mean Corpuscular Hemoglobin 30.8 Mean Corpuscular Hemoglobin Concent 33.1 Red Cell Distribution Width 16.4 Platelet Count 141 Mean Platelet Volume 8.5 Neutrophils (%) (Auto) 70.3 Lymphocytes (%) (Auto) 19.7 Monocytes (%) (Auto) 6.1 Eosinophils (%) (Auto) 3.5 Basophils (%) (Auto) 0.4 Neutrophils # (Auto) 5.4 Lymphocytes # (Auto) 1.5 Monocytes # (Auto) 0.5 Eosinophils # (Auto) 0.3 Basophils # (Auto) 0.0 CBC Comment DIFF FINAL Differential Comment Blood Urea Nitrogen 33 Creatinine 0.88 Random Glucose 113 Total Protein 6.1 Albumin 2.3 Calcium Level 7.8 Alkaline Phosphatase 93 Aspartate Amino Transf (AST/SGOT) 26 Alanine Aminotransferase (ALT/SGPT) 18 Total Bilirubin 1.0 Sodium Level 146 Potassium Level 3.3 Chloride Level 114 Carbon Dioxide Level 22.9 Anion Gap 9 Estimat Glomerular Filtration Rate 61 Ammonia 46 Anti-Nuclear Antibody Screen NEG Hepatitis A IgM Antibody NEGATIVE Hepatitis B Surface Antigen NEGATIVE Hepatitis B Core IgM Antibody NEGATIVE Hepatitis C Antibody NEGATIVE Result Diagram: 07/02/17 0526 07/02/17 0526 Imaging Last Impressions Liver Ultrasound 07/01/17 0000 Signed Impressions: Service Date/Time: Saturday, July 01, 2017 17:16 - CONCLUSION: 1. Moderate ascites. 2. No focal lesions in the liver. 3. No gallstones. Ken Benjamin MD Shunt Study (Imaging) 06/30/17 0000 Signed Impressions: Service Date/Time: Friday, June 30, 2017 16:49 - CONCLUSION: Intact shunt. Ken Benjamin MD Head CT 06/29/17 0000 Signed Impressions: Service Date/Time: Thursday, June 29, 2017 06:12 - CONCLUSION: 1. Right frontal ventriculostomy tube in good position. No acute intracranial abnormalities. Thony Wilhelm MD A/P Diagnosis: (1) Hypotension due to blood loss ICD Codes: I95.89 - Other hypotension Status: Resolved (2) Altered mental status ICD Codes: R41.82 - Altered mental status, unspecified Status: Acute (3) GI bleeding, anemia requiring transfusion Status: Acute (4) History of CVA (cerebrovascular accident) ICD Codes: Z86.73 - Personal history of transient ischemic attack (TIA), and cerebral infarction without residual deficits Status: Chronic (5) hyperlipidemia Status: Chronic (6) GERD Status: Chronic (7) encephalopathy, etiology undetermined Status: Acute (8) history of Recio's esophagus Status: Chronic (9) diabetes, neuropathy Status: Chronic (10) osteoarthritis Status: Chronic (11) H/O: duodenal ulcer ICD Codes: Z87.19 - Personal history of other diseases of the digestive system Status: Acute (12) Acute upper GI bleed ICD Codes: K92.2 - Gastrointestinal hemorrhage, unspecified Status: Acute (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 Acute upper GI bleed Status post EGD by GI which showed esophageal varices and blood in stomach 06/29 Repeat EGD 07/02 with findings of esophageal varices, possible Recio's, nodular gastritis. Attempted to place band, unable to pass the upper esophageal sphincter. Status post blood transfusion 4 units -Continue to monitor CBC -H&H stable -Appreciate GI input -Continue Protonix -Continue liquids and advance per GI recommendation Dysphasia, noted coughing with liquid -Speech swallow evaluation -Keep nothing by mouth for now Liver cirrhosis Elevated ammonia -Liver workup in progress -GI following -Continue with lactulose and rifaximin -Hepatitis level negative -monitor ammonia level, trending down. Altered mental status, metabolic encephalopathy Elevated ammonia - CT head unremarkable. - r/o SHOVE UP shunt malfunction and CVA. Neurology/ neurosurgery consulted, no acute findings of a stroke. SHOVE UP shunt appeared to be functionally appropriately. -Mentation is improving slowly, ammonia level is trending down Renal insufficiency Hypernatremia Continue with IV fluids Follow intake output, monitor and replete electro lites, follow BUN/creatinine. -Renal function improving -Follow sodium level Anemia due to blood loss Monitor H&H - Blood transfusion if hemoglobin drops less than 8 Type 2 diabetes - Accu-Cheks before meals and at bedtime with insulin sliding scale History of CVA Hold aspirin at this time due to acute GI bleed -Continue statins Hypertension - Hold home medications till hemodynamically more stable -Blood pressure slowly trending up, at this time continue to hold NPH - status post SHOVE UP shunt - physical therapy as tolerated Physical debility, had recent surgery to the left ankle in November and then a revision in March 2017 Currently wearing a left lower extremity brace -Consult physical therapy for assistance DVT GI prophylaxis- Teds SCDs No pharmacological DVT prophylaxis due to acute bleed IV Protonix twice a day Patient is DNR status. Palliative care following to assist with deciding goals of therapy. Family amenable to hospice services when [facility] Continue with supportive care Repeat labs in the morning Consult physical therapy for evaluation and treatment, assist out of bed Speech and swallow evaluation Plan of care has been discussed with the patient and her family, their questions answered in detail. Plan of care discussed with attending and registered nurse. Further management of the patient will be dependent on the hospital course This patient was seen by myself and Dr. Lyman, this consultation is written on his behalf Problem Qualifiers (1) Cirrhosis: Mary Miguel Jul 02, 2017 16:49
--- NOTE | 2017-07-02 19:37 | EKG ---
Date Performed: 07/01/2017 Time Performed: 16:10:12 PTAGE: 87 years EKG: Sinus rhythm Possible septal infarct - age undetermined Lateral T wave changes are nonspecific Abnormal ECG NO PREVIOUS TRACING DOCTOR: Diogenes Rodrigues Interpretating Date/Time 07/02/2017 19:33:12
[2017-07-03] VITALS (8 sets, daily range): BP systolic 120–167; BP diastolic 60–74; PULSE 72–92; RESP 17–20; TEMP 96–98.7; O2SAT 95–97
--- NOTE | 2017-07-03 00:11 | RADRPT ---
EXAM DATE/TIME: 07/03/2017 00:00 [facility] COMPARISON: CT BRAIN W/O CONTRAST, June 29, 2017, 6:12. INDICATIONS : Altered mental status. RADIATION DOSE: 34.98 CTDIvol (mGy) MEDICAL HISTORY : Hypertension. Gastroesophageal reflux disease. Diabetes mellitus type 2.CVA. SURGICAL HISTORY : Shunt. ENCOUNTER: Initial ACUITY: 1 day PAIN SCALE: 0/10 LOCATION: cranial TECHNIQUE: Multiple contiguous axial images were obtained of the head. Using automated exposure control and adj ustment of the mA and/or kV according to patient size, radiation dose was kept as low as reasonably a chievable to obtain optimal diagnostic quality images. DICOM format image data is available electro nically for review and comparison. FINDINGS: Right frontal ventriculostomy catheter is again noted. There is moderate diffuse prominence of the ve ntricles, unchanged. No evidence of transependymal flow of CSF. No intracranial hemorrhage or hematoma. No mass, mass effect or midline shift. Atrophy and chron ic white matter changes are again noted. No evidence of an acute ischemic event. CONCLUSION: No change or acute abnormality demonstrated. Ventriculostomy catheter again noted. Moderate ventricul ar prominence stable. Zi Frias MD on July 03, 2017 at 0:08 Board Certified Radiologist. This report was verified electronically.
[2017-07-03] MEDS: CHLORHEXIDINE GLUCONATE 2 % 1 PACK (2 CLOTHS) TOP SCH (04:00)
[2017-07-03] MEDS: RESP: ALBUTEROL 2.5 MG/IPRATROPIUM 0.5 MG NEB (SCH) INH (05:22)
[2017-07-03] MEDS: SODIUM CHLOR 0.9% 1000 ML INJ 1,000 ML IV SCH (05:40)
[2017-07-03] MEDS: INSULIN ASPART SUPPLEMENTAL SCALE SQ SCH ×4 (08:00→21:00)
[2017-07-03 08:07] LABS: HEMATOCRIT 28.8 % (35.0-46.0); MEAN CELL VOLUME 93.8 FL (80.0-100.0); MEAN CORPUSCULAR HEMOGLOBIN 31.8 PG (27.0-34.0); MEAN CORPUSCULAR HGB CONC 33.9 % (32.0-36.0); PLATELET COUNT 137 TH/MM3 (150-450); RED BLOOD COUNT 3.07 MIL/MM3 (4.00-5.30); RED CELL DISTRIBUTION WIDTH 16.7 % (11.6-17.2); REVIEW FLAG FINAL; WHITE BLOOD COUNT 6.6 TH/MM3 (4.0-11.0)
[2017-07-03 08:31] LABS: BICARBONATE 21.5 MEQ/L (21.0-32.0); MAGNESIUM 1.7 MG/DL (1.5-2.5); POTASSIUM 3.4 MEQ/L (3.5-5.1)
[2017-07-03] MEDS: SODIUM CHLORIDE 0.9% FLUSH 10 ML FLUSH SCH ×2 (09:00→21:00)
[2017-07-03] MEDS: RIFAXIMIN 550 MG TAB PO SCH ×2 (09:00→21:19)
[2017-07-03] MEDS: ATORVASTATIN 20 MG TAB PO SCH (09:00)
[2017-07-03] MEDS: DOCUSATE SODIUM 50 MG/SENNA 8.6 MG TAB PO SCH ×2 (09:00→21:19)
[2017-07-03] MEDS: ESCITALOPRAM OXALATE 10 MG TAB PO SCH (09:00)
[2017-07-03] MEDS: FERROUS SULFATE 325 MG (65 MG ELEMENTAL IRON) TAB PO SCH ×3 (09:30→18:30)
--- NOTE | 2017-07-03 09:52 | HHI.PR ---
Subjective Remarks More awake today, oriented 2 Complaining of thirst, wants to eat No fever Denies any chest pain, no shortness of breath Objective Objective Results - Vital Signs Date Time Temp Pulse Resp B/P (MAP) Pulse Ox O2 Delivery O2 Flow Rate FiO2 07/03/17 05:24 97 07/03/17 00:00 97.0 80 17 120/60 (80) 95 07/02/17 20:00 97.2 82 17 128/59 (82) 95 07/02/17 19:55 91 21 07/02/17 16:00 96.9 85 19 133/57 (82) 98 07/02/17 14:00 87 07/02/17 13:30 81 07/02/17 13:30 97.6 87 16 145/63 (90) 95 07/02/17 13:00 95 18 131/61 (84) 99 07/02/17 12:45 96 18 125/59 (81) 100 Aerosol Mask 07/02/17 12:39 98.8 95 22 136/64 (88) 95 07/02/17 10:00 79 I/O 07/02/17 07/02/17 07/02/17 07/03/17 07/03/17 07/03/17 07:00 15:00 23:00 07:00 15:00 23:00 Intake Total 750 ml 772 ml 853 ml Output Total 450 ml 750 ml Balance 300 ml 772 ml 103 ml Intake Oral 150 ml IV Total 600 ml 372 ml 853 ml Other 400 ml Output Urine Total 450 ml 750 ml # Bowel Movements 1 Result Diagram: 07/03/17 0750 07/03/17 0750 Imaging Last Impressions Liver Ultrasound 07/01/17 0000 Signed Impressions: Service Date/Time: Saturday, July 01, 2017 17:16 - CONCLUSION: 1. Moderate ascites. 2. No focal lesions in the liver. 3. No gallstones. Ken Benjamin MD Shunt Study (Imaging) 06/30/17 0000 Signed Impressions: Service Date/Time: Friday, June 30, 2017 16:49 - CONCLUSION: Intact shunt. Ken Benjamin MD Head CT 06/29/17 0000 Signed Impressions: Service Date/Time: Thursday, June 29, 2017 06:12 - CONCLUSION: 1. Right frontal ventriculostomy tube in good position. No acute intracranial abnormalities. Thony Wilhelm MD Other Results Laboratory Tests Test 07/03/17 07:50 White Blood Count 6.6 Red Blood Count 3.07 Hemoglobin 9.8 Hematocrit 28.8 Mean Corpuscular Volume 93.8 Mean Corpuscular Hemoglobin 31.8 Mean Corpuscular Hemoglobin Concent 33.9 Red Cell Distribution Width 16.7 Platelet Count 137 Mean Platelet Volume 8.7 Blood Urea Nitrogen 24 Creatinine 0.80 Random Glucose 98 Calcium Level 7.8 Magnesium Level 1.7 Sodium Level 147 Potassium Level 3.4 Chloride Level 116 Carbon Dioxide Level 21.5 Anion Gap 10 Estimat Glomerular Filtration Rate 68 Ammonia 34 ROS General: Other (12 point review of systems Limited, negative except as noted above) Physical Exam Physical Exam GENERAL: This is a well-nourished, elderly female. SKIN: Pale cool dry. HEAD: Atraumatic. Normocephalic. No temporal or scalp tenderness. EYES: Pupils equal round and reactive. Extraocular motions intact. No scleral icterus. No injection or drainage. ENT: Nose without bleeding, purulent drainage or septal hematoma. Throat without erythema, tonsillar hypertrophy or exudate. Uvula midline. Airway patent. Oral mucosa dry. NECK: Trachea midline. No JVD or lymphadenopathy. Supple, nontender, no meningeal signs. CARDIOVASCULAR: Regular rate and rhythm without murmurs, gallops, or rubs. RESPIRATORY: Clear to auscultation. Breath sounds equal bilaterally. No wheezes , rales, or rhonchi. GASTROINTESTINAL: Abdomen slightly distended, non-tender, nondistended. No hepato-splenomegaly, or palpable masses. No guarding. MUSCULOSKELETAL: Left lower extremity is noted in a brace. Intact sensation to toes of left foot. +2 left pedal pulse. No other joint abnormalities. No edema to right lower extremity, pedal pulse 2+. NEUROLOGICAL: More awake today, oriented 2. Following simple commands. Urinary Catheter: Yes Assessment to: Remove A/P Diagnosis: (1) Hypotension due to blood loss ICD Codes: I95.89 - Other hypotension Status: Resolved (2) Altered mental status ICD Codes: R41.82 - Altered mental status, unspecified Status: Acute (3) GI bleeding, anemia requiring transfusion Status: Acute (4) History of CVA (cerebrovascular accident) ICD Codes: Z86.73 - Personal history of transient ischemic attack (TIA), and cerebral infarction without residual deficits Status: Chronic (5) hyperlipidemia Status: Chronic (6) GERD Status: Chronic (7) encephalopathy, etiology undetermined Status: Acute (8) history of Recio's esophagus Status: Chronic (9) diabetes, neuropathy Status: Chronic (10) osteoarthritis Status: Chronic (11) H/O: duodenal ulcer ICD Codes: Z87.19 - Personal history of other diseases of the digestive system Status: Acute (12) Acute upper GI bleed ICD Codes: K92.2 - Gastrointestinal hemorrhage, unspecified Status: Acute (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 Acute upper GI bleed Status post EGD by GI which showed esophageal varices and blood in stomach 06/29 Repeat EGD 07/02 with findings of esophageal varices, possible Recio's, nodular gastritis. Attempted to place band, unable to pass the upper esophageal sphincter. Status post blood transfusion 4 units -Continue to monitor CBC -H&H stable -Appreciate GI input -Continue Protonix -Continue liquids and advance per GI recommendation Dysphasia, noted coughing with liquid -Speech swallow evaluation-pending -Keep nothing by mouth for now -GI has ordered barium swallow, we will follow up results Liver cirrhosis Elevated ammonia -Liver workup in progress -GI following -Continue with lactulose and rifaximin -Hepatitis level negative -monitor ammonia level, trending down. Altered mental status, metabolic encephalopathy Elevated ammonia - CT head unremarkable. - r/o SOFTWARE ASSET MANAGER shunt malfunction and CVA. Neurology/ neurosurgery consulted, no acute findings of a stroke. SOFTWARE ASSET MANAGER shunt appeared to be functionally appropriately. -Mentation is improving slowly, ammonia level is trending down -ammonia 34 Renal insufficiency Hypernatremia We'll change IV fluids to D5 water, sodium 147 Follow intake output, monitor and replete electro lites, follow BUN/creatinine. -Renal function improving -Follow sodium level 147 today -Replace potassium Anemia due to blood loss Monitor H&H - Blood transfusion if hemoglobin drops less than 8 Type 2 diabetes - Accu-Cheks before meals and at bedtime with insulin sliding scale -Blood glucose stable History of CVA Hold aspirin at this time due to acute GI bleed -Continue statins HX Hypertension-was initially hypotensive - Blood pressure improving, 120s -Resume lisinopril 10 mg by mouth daily NPH - status post SOFTWARE ASSET MANAGER shunt - physical therapy as tolerated Physical debility, had recent surgery to the left ankle in November and then a revision in March 2017 Currently wearing a left lower extremity brace -Consult physical therapy for assistance DVT GI prophylaxis- Teds SCDs No pharmacological DVT prophylaxis due to acute bleed IV Protonix twice a day Patient is DNR status. Palliative care following to assist with deciding goals of therapy. Family amenable to hospice services when she transitions back to senior living Continue with supportive care Consult physical therapy for evaluation and treatment, assist out of bed Speech and swallow evaluation pending Monitor for signs and symptoms of aspiration Repeat labs in the morning Discharge planning 1-2 days Discussed with RN Discussed with patient, not sure how much she understands Discussed with attending This patient was seen by myself and Dr. Lyman, this note is written on his behalf Problem Qualifiers (1) Cirrhosis: Mary Miguel Jul 03, 2017 09:52
--- NOTE | 2017-07-03 10:27 | RADRPT ---
EXAM DATE/TIME: 07/03/2017 09:46 [facility] COMPARISON: No previous studies available for comparison. INDICATIONS : Dysphagia, coffee ground emesis FLUORO TIME: 0.8 minutes IMAGE COUNT: 15 CONTRAST: 1. Liquid E-Z Paque Barium Sulfate (60% w/v, 41% w.w) MEDICAL HISTORY : Stroke. Gastroesophageal reflux disease. Diabetes mellitus type II. NPH, duodenal ulcer, AMS SURGICAL HISTORY : LIFE ENRICHMENT SPECIALIST shunt ENCOUNTER: Subsequent ACUITY: 3 days PAIN SCORE: Non-responsive. LOCATION: Bilateral esophagus FINDINGS: Examination is markedly limited due to patient's inability to cooperate with the examination. Contras t was administered through a straw with patient in slight decubitus position. There is no gross aspir ation demonstrated. There are extensive tertiary contractions throughout the esophagus without signif icant stenosis, gross mass, or diverticula. The gastroesophageal junction is normal in configuration without evidence of hiatal hernia. CONCLUSION: 1. Markedly limited examination due to patient's very limited mobility and difficulty cooperating wit h exam. 2. No evidence for gross aspiration. 3. No significant esophageal stenosis, diverticula, or gross mass. 4. 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 Anselmo Jason MD on July 03, 2017 at 10:23 Board Certified Radiologist. This report was verified electronically.
[2017-07-03] MEDS: PANTOPRAZOLE SODIUM 40 MG VIAL IV PUSH SCH ×2 (10:55→21:19)
[2017-07-03] MEDS: DEXTROSE 5% IN WATE 1000ML INJ 1,000 ML IV SCH (10:55)
[2017-07-03] MEDS: ENALAPRIL MALEATE 10 MG TAB PO SCH (11:00)
[2017-07-03] MEDS: PREGABALIN 75 MG CAP PO SCH ×2 (18:33→21:19)
[2017-07-03] MEDS: FUROSEMIDE 20 MG TAB PO SCH (18:34)
[2017-07-03] MEDS: SPIRONOLACTONE 25 MG TAB PO SCH (18:35)
[2017-07-03] MEDS: LACTULOSE SYRUP 20 GM/30 ML CUP PO SCH ×2 (18:37→21:20)
[2017-07-04] VITALS (10 sets, daily range): BP systolic 122–172; BP diastolic 59–96; PULSE 85–113; RESP 18–26; TEMP 96.1–98.8; O2SAT 92–98
[2017-07-04] MEDS: RESP: ALBUTEROL 2.5 MG/IPRATROPIUM 0.5 MG NEB (PRN) INH ×2 (00:17→09:02)
[2017-07-04] MEDS: CHLORHEXIDINE GLUCONATE 2 % 1 PACK (2 CLOTHS) TOP SCH ×2 (04:00→20:47)
[2017-07-04 07:09] LABS: HEMATOCRIT 31.1 % (35.0-46.0); MEAN CELL VOLUME 93.9 FL (80.0-100.0); MEAN CORPUSCULAR HEMOGLOBIN 31.6 PG (27.0-34.0); MEAN CORPUSCULAR HGB CONC 33.7 % (32.0-36.0); PLATELET COUNT 160 TH/MM3 (150-450); RED BLOOD COUNT 3.31 MIL/MM3 (4.00-5.30); RED CELL DISTRIBUTION WIDTH 16.5 % (11.6-17.2); REVIEW FLAG FINAL; WHITE BLOOD COUNT 9.4 TH/MM3 (4.0-11.0)
[2017-07-04 07:29] LABS: BICARBONATE 21.2 MEQ/L (21.0-32.0); POTASSIUM 3.2 MEQ/L (3.5-5.1)
[2017-07-04] MEDS: INSULIN ASPART SUPPLEMENTAL SCALE SQ SCH ×4 (08:40→20:47)
[2017-07-04] MEDS: SODIUM CHLORIDE 0.9% FLUSH 10 ML FLUSH SCH ×2 (08:40→20:46)
--- NOTE | 2017-07-04 08:44 | HHI.PR ---
Subjective Remarks awakes to voice, oriented x 2 still slow to respond has audible wheezing abd. appears more distended bp elevated, 160-170s no cp, no sob no fever Objective Objective Results - Vital Signs Date Time Temp Pulse Resp B/P (MAP) Pulse Ox O2 Delivery O2 Flow Rate FiO2 07/04/17 00:33 96.1 91 18 172/71 (104) 96 07/04/17 00:20 96 07/03/17 20:46 96 07/03/17 20:00 96.0 88 18 167/74 (105) 96 07/03/17 16:00 97.6 81 20 161/72 (101) 96 07/03/17 14:00 97.6 81 20 161/72 (101) 96 07/03/17 12:00 98.7 72 18 137/62 (87) 97 I/O 07/03/17 07/03/17 07/03/17 07/04/17 07/04/17 07/04/17 07:00 15:00 23:00 07:00 15:00 23:00 Intake Total 853 ml 254 ml 1166 ml 336 ml Output Total 750 ml 550 ml Balance 103 ml 254 ml 616 ml 336 ml Intake Oral 0 ml 480 ml IV Total 853 ml 254 ml 686 ml 336 ml Output Urine Total 750 ml 550 ml # Voids 2 # Bowel Movements 0 2 Result Diagram: 07/04/17 0536 07/04/17 0536 Imaging Last Impressions Liver Ultrasound 07/01/17 0000 Signed Impressions: Service Date/Time: Saturday, July 01, 2017 17:16 - CONCLUSION: 1. Moderate ascites. 2. No focal lesions in the liver. 3. No gallstones. Ken Benjamin MD Shunt Study (Imaging) 06/30/17 0000 Signed Impressions: Service Date/Time: Friday, June 30, 2017 16:49 - CONCLUSION: Intact shunt. Ken Benjamin MD Head CT 06/29/17 0000 Signed Impressions: Service Date/Time: Thursday, June 29, 2017 06:12 - CONCLUSION: 1. Right frontal ventriculostomy tube in good position. No acute intracranial abnormalities. Thony Wilhelm MD Other Results Laboratory Tests Test 07/04/17 05:36 White Blood Count 9.4 Red Blood Count 3.31 Hemoglobin 10.5 Hematocrit 31.1 Mean Corpuscular Volume 93.9 Mean Corpuscular Hemoglobin 31.6 Mean Corpuscular Hemoglobin Concent 33.7 Red Cell Distribution Width 16.5 Platelet Count 160 Mean Platelet Volume 8.8 Blood Urea Nitrogen 19 Creatinine 0.87 Random Glucose 126 Calcium Level 7.7 Sodium Level 140 Potassium Level 3.2 Chloride Level 111 Carbon Dioxide Level 21.2 Anion Gap 8 Estimat Glomerular Filtration Rate 62 ROS General: Weakness, Other (12 point ros limted ) Pulmonary: Wheezing Physical Exam Physical Exam GENERAL: This is a well-nourished, elderly female. SKIN: Pale cool dry. HEAD: Atraumatic. Normocephalic. No temporal or scalp tenderness. EYES: Pupils equal round and reactive. Extraocular motions intact. No scleral icterus. No injection or drainage. ENT: Nose without bleeding, purulent drainage or septal hematoma. Throat without erythema, tonsillar hypertrophy or exudate. Uvula midline. Airway patent. Oral mucosa dry. NECK: Trachea midline. No JVD or lymphadenopathy. Supple, nontender, no meningeal signs. CARDIOVASCULAR: Regular rate and rhythm without murmurs, gallops, or rubs. RESPIRATORY: exp. wheezing GASTROINTESTINAL: Abdomen distended, non-tender, nondistended. No hepato- splenomegaly, or palpable masses. No guarding. MUSCULOSKELETAL: Left lower extremity is noted in a brace. Intact sensation to toes of left foot. +2 left pedal pulse. No other joint abnormalities. No edema to right lower extremity, pedal pulse 2+. NEUROLOGICAL:Awakes to voice, oriented 2. Following simple commands. Urinary Catheter: Yes Assessment to: Remove Vascular Central Line Catheter: No A/P Diagnosis: (1) Hypotension due to blood loss ICD Codes: I95.89 - Other hypotension Status: Resolved (2) Altered mental status ICD Codes: R41.82 - Altered mental status, unspecified Status: Acute (3) GI bleeding, anemia requiring transfusion Status: Acute (4) History of CVA (cerebrovascular accident) ICD Codes: Z86.73 - Personal history of transient ischemic attack (TIA), and cerebral infarction without residual deficits Status: Chronic (5) hyperlipidemia Status: Chronic (6) GERD Status: Chronic (7) encephalopathy, etiology undetermined Status: Acute (8) history of Recio's esophagus Status: Chronic (9) diabetes, neuropathy Status: Chronic (10) osteoarthritis Status: Chronic (11) H/O: duodenal ulcer ICD Codes: Z87.19 - Personal history of other diseases of the digestive system Status: Acute (12) Acute upper GI bleed ICD Codes: K92.2 - Gastrointestinal hemorrhage, unspecified Status: Acute (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 Acute upper GI bleed Status post EGD by GI which showed esophageal varices and blood in stomach 06/29 Repeat EGD 07/02 with findings of esophageal varices, possible Recio's, nodular gastritis. Attempted to place band, unable to pass the upper esophageal sphincter. Status post blood transfusion 4 units -Continue to monitor CBC -Appreciate GI input -Continue Protonix-change to PO -continue heart healthy diet -HH stable, no active bleeding Dysphasia, noted coughing with liquid -Speech swallow done, recommendations noted. Passed eval -monitor for aspiration -barium swallow report noted. Liver cirrhosis Elevated ammonia -Liver workup in progress -GI following -Continue with lactulose and rifaximin -continue Spirolactone, resumed Lasix yesterday -Hepatitis level negative -abd. appears more distended, will order abd us to assess for ascites -ammonia level in am Altered mental status, metabolic encephalopathy Elevated ammonia - CT head unremarkable. - r/o ACCOUNTING TEACHER shunt malfunction and CVA. Neurology/ neurosurgery consulted, no acute findings of a stroke. ACCOUNTING TEACHER shunt appeared to be functionally appropriately. -Mentation is improving slowly -repeat ammonia tomorrow. Renal insufficiency Hypernatremia continue D5 water, Follow intake output, monitor and replete electro lites, follow BUN/creatinine. -Renal function improving -sodium level better, 140 -Replace potassium Anemia due to blood loss Monitor H&H - Blood transfusion if hemoglobin drops less than 8 Type 2 diabetes - Accu-Cheks before meals and at bedtime with insulin sliding scale -Blood glucose stable History of CVA Hold aspirin at this time due to acute GI bleed -Continue statins HX Hypertension-was initially hypotensive - Blood pressure improving, 120s -continue lisinopril 10 mg by mouth daily -add Clonidine PRN elevated PB NPH - status post ACCOUNTING TEACHER shunt - physical therapy as tolerated Physical debility, had recent surgery to the left ankle in November and then a revision in March 2017 Currently wearing a left lower extremity brace -Consult physical therapy for assistance DVT GI prophylaxis- Teds SCDs No pharmacological DVT prophylaxis due to acute bleed IV Protonix twice a day Patient is DNR status. Palliative care following to assist with deciding goals of therapy. Family amenable to hospice services when she transitions back to [facility] Continue with supportive care Consult physical therapy for evaluation and treatment, assist out of bed Speech and swallow evaluation pending Monitor for signs and symptoms of aspiration Repeat labs in the morning Discharge planning 1-2 days Discussed with RN Discussed with patient, not sure how much she understands Discussed with attending This patient was seen by myself and Dr. Lyman, this note is written on his behalf Problem Qualifiers (1) Cirrhosis: Mary Miguel Jul 04, 2017 08:44
[2017-07-04] MEDS ORDERED: cloNIDine HCL 0.1 MG TAB PO PRN (08:45)
--- NOTE | 2017-07-04 09:09 | RADRPT ---
EXAM DATE/TIME: 07/04/2017 08:39 [facility] COMPARISON: No previous studies available for comparison. INDICATIONS : Ascites. MEDICAL HISTORY : Cirrhosis. Hypercholesterolemia. Hypertension. Arthritis. Hydrocephalus. Duodenal ulcer.Diabetes. Cer ebrovascular disease. SURGICAL HISTORY : Cataracts. BOLT MAKER shunt. Bilateral knee surgery. ENCOUNTER: Initial ACUITY: 1 day PAIN SCORE: 0/10 LOCATION: Abdomen. AREA EVALUATED: Abdomen. FINDINGS: Imaging of the abdomen and pelvis was performed to evaluate for ascites for possible paracentesis. M oderate to large amount of ascites is present. CONCLUSION: 1. There is a moderate to large amount of ascites. Fluid is amenable to paracentesis. Anselmo Jason MD on July 04, 2017 at 9:06 Board Certified Radiologist. This report was verified electronically.
[2017-07-04] MEDS: ESCITALOPRAM OXALATE 10 MG TAB PO SCH (10:31)
[2017-07-04] MEDS: SPIRONOLACTONE 25 MG TAB PO SCH ×2 (10:31→17:04)
[2017-07-04] MEDS: FERROUS SULFATE 325 MG (65 MG ELEMENTAL IRON) TAB PO SCH ×3 (10:31→17:04)
[2017-07-04] MEDS: LACTULOSE SYRUP 20 GM/30 ML CUP PO SCH ×2 (10:31→20:45)
[2017-07-04] MEDS: RIFAXIMIN 550 MG TAB PO SCH ×2 (10:31→20:47)
[2017-07-04] MEDS: FUROSEMIDE 20 MG TAB PO SCH ×2 (10:31→17:04)
[2017-07-04] MEDS: POTASSIUM CHLORIDE 20 MEQ CONTROLLED RELEASE TAB PO SCH (10:31)
[2017-07-04] MEDS: DOCUSATE SODIUM 50 MG/SENNA 8.6 MG TAB PO SCH ×2 (10:31→20:46)
[2017-07-04] MEDS: PREGABALIN 75 MG CAP PO SCH ×2 (10:31→20:43)
[2017-07-04] MEDS: ENALAPRIL MALEATE 10 MG TAB PO SCH (10:31)
[2017-07-04] MEDS: PANTOPRAZOLE SOD 40 MG DELAYED RELEASE TAB PO SCH ×2 (10:32→20:43)
[2017-07-04] MEDS: DEXTROSE 5% IN WATE 1000ML INJ 1,000 ML IV SCH (10:40)
[2017-07-04] MEDS: RESP: ALBUTEROL 2.5 MG/IPRATROPIUM 0.5 MG NEB (SCH) NEB ×3 (11:55→19:38)
--- NOTE | 2017-07-04 15:04 | HHI.GIFU ---
Subjective Remarks Pt resting in bed, says she is "sleepy." (CandyLucyenmanuel SCHRADER) Objective Vitals I&O Vital Signs Date Time Temp Pulse Resp B/P (MAP) Pulse Ox O2 Delivery O2 Flow Rate FiO2 07/04/17 12:00 98.8 113 24 125/96 (106) 96 07/04/17 11:45 20 07/04/17 09:03 92 21 07/04/17 08:00 96.8 101 26 152/76 (101) 98 07/04/17 00:33 96.1 91 18 172/71 (104) 96 07/04/17 00:20 96 07/03/17 20:46 96 07/03/17 20:00 96.0 88 18 167/74 (105) 96 07/03/17 16:00 97.6 81 20 161/72 (101) 96 I/O 07/03/17 07/03/17 07/03/17 07/04/17 07/04/17 07/04/17 07:00 15:00 23:00 07:00 15:00 23:00 Intake Total 853 ml 254 ml 1166 ml 336 ml 232 ml Output Total 750 ml 550 ml Balance 103 ml 254 ml 616 ml 336 ml 232 ml Intake Oral 0 ml 480 ml IV Total 853 ml 254 ml 686 ml 336 ml 232 ml Output Urine Total 750 ml 550 ml # Voids 2 # Bowel Movements 0 2 Laboratory Laboratory Tests Test 07/04/17 05:36 White Blood Count 9.4 Red Blood Count 3.31 Hemoglobin 10.5 Hematocrit 31.1 Mean Corpuscular Volume 93.9 Mean Corpuscular Hemoglobin 31.6 Mean Corpuscular Hemoglobin Concent 33.7 Red Cell Distribution Width 16.5 Platelet Count 160 Mean Platelet Volume 8.8 Blood Urea Nitrogen 19 Creatinine 0.87 Random Glucose 126 Calcium Level 7.7 Sodium Level 140 Potassium Level 3.2 Chloride Level 111 Carbon Dioxide Level 21.2 Anion Gap 8 Estimat Glomerular Filtration Rate 62 Imaging Last Impressions Abdomen Ultrasound 07/04/17 0000 Signed Impressions: Service Date/Time: Tuesday, July 04, 2017 08:39 - CONCLUSION: 1. There is a moderate to large amount of ascites. Fluid is amenable to paracentesis. Anselmo Jason MD Barium Swallow X-Ray 07/03/17 0000 Signed Impressions: Service Date/Time: Monday, July 03, 2017 09:46 - CONCLUSION: 1. Markedly limited examination due to patient's very limited mobility and difficulty cooperating with exam. 2. No evidence for gross aspiration. 3. No significant esophageal stenosis, diverticula, or gross mass. 4. 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 Anselmo Jason MD Head CT 07/02/17 1000 Signed Impressions: Service Date/Time: Monday, July 03, 2017 00:00 - CONCLUSION: No change or acute abnormality demonstrated. Ventriculostomy catheter again noted. Moderate ventricular prominence stable. Zi Frias MD Liver Ultrasound 07/01/17 0000 Signed Impressions: Service Date/Time: Saturday, July 01, 2017 17:16 - CONCLUSION: 1. Moderate ascites. 2. No focal lesions in the liver. 3. No gallstones. Ken Benjamin MD Shunt Study (Imaging) 06/30/17 0000 Signed Impressions: Service Date/Time: Friday, June 30, 2017 16:49 - CONCLUSION: Intact shunt. Ken Benjamin MD Physical Exam HEENT: Normocephalic; atraumatic; no jaundice. 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 Pt has remote hx of PUD in 1955. Family reports hx of Miles's Esophagus, GERD. Last egd/ colonoscopy about 2 years ago per family. HH 5.8/17.8 on admission. S/P 4 units PRBC. S/P EGD (06/29/17)---> Grade 2 esophageal varices 3 columns no active bleeding from that, Possible short Miles compromised with the coffee- ground emesis, No sign of active bleeding but there is stigmata of recent bleed mostly from the stomach either from gastropathy or tic ulcer disease the visualization was compromised by coffee-ground emesis and old blood, Duodenitis. PPI. s/p EGD 07/02 found nodular gastritis, poss miles's, esophageal varix s/p 1x band applied, couldnt pass scope past upper esoph.sphincter, path benign. - Esophageal varices. PPI. - Liver cirrhosis, as evidenced by esophageal varices, elevated ammonia, thrombocytopenia, coagulopathy, and hypoalbuminemia. Pt has DM, ? fatty liver disease. US shows mod to large amt ascites amenable to paracentesis - Hepatic encephalopathy. Ammonia 88. - Severe anemia, acute blood loss. HH 5.8/17.8 on admission. S/P 4 units PRBC. 9.9/28.7. - GERD, Miles's esophagus. PPI - AMS. CT head unremarkable. 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 AMS 88. Add lactulose (scheduled), Xifaxan - PHUONG, improved - DM, Hyperlipidemia, per attending 07/04/17 - increasing distention, US showing ascites amenable to paracentesis which has been ordered. HH stable. liver w/u so far neg. Ba swallow results noted PLAN: - soft diet with thin liquids per ST - cont protonix - cont lactulose - cont rifaximin - await rest of liver w/u - await peritoneal fluid cytology and cx - Monitor HH - Transfuse as needed - Supportive care - Further recommendations to follow based on results of above This pt seen by myself and Dr Diaz and this note is written on his behalf (Lucy Gupta) Lucy Gupta Jul 04, 2017 15:04 Geraldine Diaz MD Jul 04, 2017 18:20
[2017-07-04] MEDS ORDERED: LIDOCAINE HCL 1% 20 ML VIAL ONE (15:57)
--- NOTE | 2017-07-04 16:28 | RADRPT ---
EXAM DATE/TIME: 07/04/2017 14:46 [facility] COMPARISON: No previous studies available for comparison. INDICATIONS : Ascites. MEDICAL HISTORY : CVA. Hydrocephalus. Hypercholesterol. Hypertension. GERD. SURGICAL HISTORY : ATHLETIC EVENTS SCORER shunt. Bilateral total knee replacement. ORIF left hip. ENCOUNTER: Initial ACUITY: 1 day PAIN SCORE: 0/10 LOCATION: Left lower quadrant. FLUID: Total volume of 4000 cc of clear, yellow fluid was removed. Fluid was sent to lab for ordered studies. Post procedure scanning reveals no hematoma or other complication. TECHNIQUE: 1. Ultrasound guidance for abdominal paracentesis. 2. Paracentesis. The risks, benefits, and alternatives to ultrasound guided paracentesis were explained to the patient in detail including the risk of bleeding and infection. Written and verbal informed consent was obt ained. With the patient on the ultrasound table, ultrasound imaging was used to select the most appropriate approach for paracentesis. Overlying skin was prepped and draped in the usual sterile fashion and wi th a local anesthetic, a dermatotomy was made with an 11 blade scalpel. A 6 [place] [id number] ca theter was introduced into the peritoneal cavity and fluid was collected. The patient tolerated the procedure well and left the ultrasound suite in stable condition. CONCLUSION: Uncomplicated ultrasound guided paracentesis. Pop Montoya MD on July 04, 2017 at 16:26 Board Certified Radiologist. This report was verified electronically.
[2017-07-04 19:03] LABS: PERITONEAL HISTIOCYTES 4 %; PERITONEAL LYMPHS 42 %; PERITONEAL MESOTHELIAL 8 %; PERITONEAL MONOS 12 %; PERITONEAL POLYS(SEGS) 34 %
[2017-07-04 19:06] LABS: PERITONEAL WBC 50 /MM3 (0-10)
[2017-07-05] VITALS (7 sets, daily range): BP systolic 92–115; BP diastolic 47–56; PULSE 70–85; RESP 17–22; TEMP 95.1–97.7; O2SAT 96–99
[2017-07-05] MEDS: INSULIN ASPART SUPPLEMENTAL SCALE SQ SCH ×4 (08:00→21:00)
[2017-07-05 08:34] LABS: APTT (PATIENT) 30.6 SEC (24.3-30.1); INTERNATIONAL NORMALIZED RATIO 1.2 RATIO; PROTHROMBIN TIME - PATIENT 13.1 SEC (9.8-11.6)
[2017-07-05] MEDS: RESP: ALBUTEROL 2.5 MG/IPRATROPIUM 0.5 MG NEB (SCH) NEB ×4 (08:36→20:34)
[2017-07-05 08:45] LABS: POTASSIUM 3.2 MEQ/L (3.5-5.1)
[2017-07-05 08:47] LABS: MEAN CELL VOLUME 92.7 FL (80.0-100.0); MEAN CORPUSCULAR HEMOGLOBIN 30.9 PG (27.0-34.0); MEAN CORPUSCULAR HGB CONC 33.3 % (32.0-36.0); PLATELET COUNT 111 TH/MM3 (150-450); RED BLOOD COUNT 3.45 MIL/MM3 (4.00-5.30); RED CELL DISTRIBUTION WIDTH 15.8 % (11.6-17.2); REVIEW FLAG FINAL; WHITE BLOOD COUNT 7.6 TH/MM3 (4.0-11.0)
[2017-07-05] MEDS: ENALAPRIL MALEATE 10 MG TAB PO SCH (09:00)
[2017-07-05] MEDS: SODIUM CHLORIDE 0.9% FLUSH 10 ML FLUSH SCH ×2 (09:00→21:40)
[2017-07-05] MEDS: SPIRONOLACTONE 25 MG TAB PO SCH ×3 (09:00→17:53)
[2017-07-05] MEDS: LACTULOSE SYRUP 20 GM/30 ML CUP PO SCH ×3 (09:00→21:39)
[2017-07-05] MEDS: FUROSEMIDE 20 MG TAB PO SCH ×3 (09:00→17:53)
[2017-07-05] MEDS: DOCUSATE SODIUM 50 MG/SENNA 8.6 MG TAB PO SCH ×3 (09:00→21:39)
[2017-07-05] MEDS: ESCITALOPRAM OXALATE 10 MG TAB PO SCH (09:01)
[2017-07-05] MEDS: RIFAXIMIN 550 MG TAB PO SCH ×2 (09:05→21:39)
[2017-07-05] MEDS: PREGABALIN 75 MG CAP PO SCH ×2 (09:06→21:39)
[2017-07-05] MEDS: FERROUS SULFATE 325 MG (65 MG ELEMENTAL IRON) TAB PO SCH ×3 (09:06→17:53)
[2017-07-05] MEDS: PANTOPRAZOLE SOD 40 MG DELAYED RELEASE TAB PO SCH ×2 (09:06→21:39)
[2017-07-05] MEDS: ATORVASTATIN 20 MG TAB PO SCH (09:08)
[2017-07-05] MEDS: POTASSIUM CHLORIDE 20 MEQ CONTROLLED RELEASE TAB PO SCH (09:09)
[2017-07-05] MEDS ORDERED: POTASSIUM CHLORIDE 20 MEQ CONTROLLED RELEASE TAB PO ONE (11:15)
--- NOTE | 2017-07-05 11:29 | HHI.GIFU ---
Subjective Remarks Resting in bed, eating breakfast. Tolerating diet. No n/v. Had paracentesis, abdomen more comfortable. C/O mild left wrist pain. Objective Vitals I&O Vital Signs Date Time Temp Pulse Resp B/P (MAP) Pulse Ox O2 Delivery O2 Flow Rate FiO2 07/05/17 08:39 99 07/05/17 07:49 97.7 85 22 103/48 (66) 96 07/05/17 00:38 96.3 85 18 98/54 (69) 98 07/04/17 20:00 96.1 90 18 122/59 (80) 96 07/04/17 19:38 96 07/04/17 16:05 97.2 88 20 122/69 (86) 96 07/04/17 16:00 96.6 95 22 125/66 (85) 97 07/04/17 15:30 97.2 85 20 128/70 (89) 97 07/04/17 12:00 98.8 113 24 125/96 (106) 96 07/04/17 11:45 20 I/O 07/04/17 07/04/17 07/04/17 07/05/17 07/05/17 07/05/17 07:00 15:00 23:00 07:00 15:00 23:00 Intake Total 336 ml 1192 ml 255 ml Balance 336 ml 1192 ml 255 ml Intake Oral 960 ml IV Total 336 ml 232 ml 255 ml # Voids 2 1 2 # Bowel Movements 2 5 Laboratory Laboratory Tests Test 07/04/17 15:30 07/05/17 07:10 07/05/17 08:10 Peritoneal Fluid WBC 50 Peritoneal Fluid RBC 20 Peritoneal Fluid Neutrophils 34 Peritoneal Fluid Lymphocytes 42 Peritoneal Fluid Monocytes 12 Peritoneal Fluid Histiocytes 4 Peritoneal Fluid Mesothelial Cells 8 Peritoneal Fluid Total Protein 1.2 Peritoneal Fluid Albumin 0.5 Peritoneal Fluid LDH 57 Peritoneal Fluid Glucose 145 Prothrombin Time 13.1 Prothromb Time International Ratio 1.2 Activated Partial Thromboplast Time 30.6 White Blood Count 7.6 Red Blood Count 3.45 Hemoglobin 10.6 Hematocrit 32.0 Mean Corpuscular Volume 92.7 Mean Corpuscular Hemoglobin 30.9 Mean Corpuscular Hemoglobin Concent 33.3 Red Cell Distribution Width 15.8 Platelet Count 111 Mean Platelet Volume 8.7 Hematology Comments Blood Urea Nitrogen 15 Creatinine 0.94 Random Glucose 143 Total Protein 5.8 Calcium Level 7.3 Sodium Level 136 Potassium Level 3.2 Chloride Level 107 Carbon Dioxide Level 21.0 Anion Gap 8 Estimat Glomerular Filtration Rate 56 Protein Corrected Calcium 8.0 Ammonia 42 Lactate Dehydrogenase 263 Date/Time Source Procedure Growth Status 07/04/17 15:30 Fluid Peritoneal Fluid Gram Stain - Final Resulted 07/04/17 15:30 Fluid Peritoneal Fluid Body Fluid Culture Pending Resulted Imaging Last Impressions Cyst Biopsy Asp-Paracentesis US 07/04/17 0000 Signed Impressions: Service Date/Time: Tuesday, July 04, 2017 14:46 - CONCLUSION: Uncomplicated ultrasound guided paracentesis. Pop Montoya MD Abdomen Ultrasound 07/04/17 0000 Signed Impressions: Service Date/Time: Tuesday, July 04, 2017 08:39 - CONCLUSION: 1. There is a moderate to large amount of ascites. Fluid is amenable to paracentesis. Anselmo Jason MD Barium Swallow X-Ray 07/03/17 0000 Signed Impressions: Service Date/Time: Monday, July 03, 2017 09:46 - CONCLUSION: 1. Markedly limited examination due to patient's very limited mobility and difficulty cooperating with exam. 2. No evidence for gross aspiration. 3. No significant esophageal stenosis, diverticula, or gross mass. 4. 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 Anselmo Jason MD Head CT 07/02/17 1000 Signed Impressions: Service Date/Time: Monday, July 03, 2017 00:00 - CONCLUSION: No change or acute abnormality demonstrated. Ventriculostomy catheter again noted. Moderate ventricular prominence stable. Zi Frias MD Liver Ultrasound 07/01/17 0000 Signed Impressions: Service Date/Time: Saturday, July 01, 2017 17:16 - CONCLUSION: 1. Moderate ascites. 2. No focal lesions in the liver. 3. No gallstones. Ken Benjamin MD Shunt Study (Imaging) 06/30/17 0000 Signed Impressions: Service Date/Time: Friday, June 30, 2017 16:49 - CONCLUSION: Intact shunt. Ken Benjamin MD Physical Exam HEENT: Normocephalic; atraumatic; no jaundice. CHEST: CTA, diminished breath sounds CARDIAC: RRR ABDOMEN: Soft, distended with ascites, nontender; bowel sounds are present EXTREMITIES: Fracture boot on left SKIN: Generalized pallor CAKE WRAPPER: Lethargic, oriented, slightly shaky Assessment and Plan Plan ASSESSMENT: - Upper GIB with hematemesis with red blood, maroon stools that began yesterday at skilled nursing. Pt has remote hx of PUD in 1955. Family reports hx of Recio's Esophagus, GERD. Last egd/ colonoscopy about 2 years ago per family. HH 5.8/17.8 on admission. S/P 4 units PRBC. S/P EGD (06/29/17)---> Grade 2 esophageal varices 3 columns no active bleeding from that, Possible short Recio compromised with the coffee- ground emesis, No sign of active bleeding but there is stigmata of recent bleed mostly from the stomach either from gastropathy or tic ulcer disease the visualization was compromised by coffee-ground emesis and old blood, Duodenitis. S/P EGD (07/02)---> 1. Nodular gastrtis antrum-biopsy possible Recio's, esophageal varices, applied band ligator on top of egd scope-could not pass the upper esophageal sphincter-ct cervical spine november noted. 2. Retroflexed views revealed a hiatal hernia. PPI. 10.6/32.0. - Esophageal varices. PPI. - Ascites. S/P US guided paracentesis (07/04/17)---> 4,000cc. Cx no wbc, no organisms seen 1 day. Spironolactone. Lasix - Liver cirrhosis, as evidenced by esophageal varices, elevated ammonia, thrombocytopenia, coagulopathy, and hypoalbuminemia. Pt has DM, ? fatty liver disease. Hepatitis profile negative. NIGHAT negative, AMA pending, ASMA negative, Ceruloplasmin 28, Alpha 1 Antitrypsin 147. AFP 2.2, Ferritin 172, Iron saturation 10%. - Hepatic encephalopathy. Ammonia 42 Xifaxan lactulose. - Severe anemia, acute blood loss. HH 5.8/17.8 on admission. S/P 4 units PRBC. 10.6/32.0 - GERD, Recio's esophagus. PPI - AMS. CT head unremarkable. 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 AMS 46 Lactulose, Xifaxan - PHUONG, improved - DM, Hyperlipidemia, per attending PLAN: - 2 gram sodium diet - Cont. protonix - Cont. lactulose - Cont. rifaximin - Cont. lasix - Cont. spironolactone - Monitor HH - Transfuse as needed - Supportive care - Further recommendations to follow based on results of above - This pt seen by myself and Dr Diaz and this note is written on his behalf Lisa Jorge Jul 05, 2017 11:02
--- NOTE | 2017-07-05 11:30 | HHI.PR ---
Subjective Remarks awake, oriented x 2-3 had paracentesis yesterday 4 liters removed abd improved 5 bm's recorded appetite fair Objective Objective Results - Vital Signs Date Time Temp Pulse Resp B/P (MAP) Pulse Ox O2 Delivery O2 Flow Rate FiO2 07/05/17 08:39 99 07/05/17 07:49 97.7 85 22 103/48 (66) 96 07/05/17 00:38 96.3 85 18 98/54 (69) 98 07/04/17 20:00 96.1 90 18 122/59 (80) 96 07/04/17 19:38 96 07/04/17 16:05 97.2 88 20 122/69 (86) 96 07/04/17 16:00 96.6 95 22 125/66 (85) 97 07/04/17 15:30 97.2 85 20 128/70 (89) 97 07/04/17 12:00 98.8 113 24 125/96 (106) 96 07/04/17 11:45 20 I/O 07/04/17 07/04/17 07/04/17 07/05/17 07/05/17 07/05/17 07:00 15:00 23:00 07:00 15:00 23:00 Intake Total 336 ml 1192 ml 255 ml Balance 336 ml 1192 ml 255 ml Intake Oral 960 ml IV Total 336 ml 232 ml 255 ml # Voids 2 1 2 # Bowel Movements 2 5 Result Diagram: 07/05/17 0810 07/05/17 0810 Imaging Last Impressions Liver Ultrasound 07/01/17 0000 Signed Impressions: Service Date/Time: Saturday, July 01, 2017 17:16 - CONCLUSION: 1. Moderate ascites. 2. No focal lesions in the liver. 3. No gallstones. Ken Benjamin MD Shunt Study (Imaging) 06/30/17 0000 Signed Impressions: Service Date/Time: Friday, June 30, 2017 16:49 - CONCLUSION: Intact shunt. Ken Benjamin MD Head CT 06/29/17 0000 Signed Impressions: Service Date/Time: Thursday, June 29, 2017 06:12 - CONCLUSION: 1. Right frontal ventriculostomy tube in good position. No acute intracranial abnormalities. Thony Wilhelm MD Other Results Laboratory Tests Test 07/04/17 15:30 07/05/17 07:10 07/05/17 08:10 Peritoneal Fluid WBC 50 Peritoneal Fluid RBC 20 Peritoneal Fluid Neutrophils 34 Peritoneal Fluid Lymphocytes 42 Peritoneal Fluid Monocytes 12 Peritoneal Fluid Histiocytes 4 Peritoneal Fluid Mesothelial Cells 8 Peritoneal Fluid Total Protein 1.2 Peritoneal Fluid Albumin 0.5 Peritoneal Fluid LDH 57 Peritoneal Fluid Glucose 145 Prothrombin Time 13.1 Prothromb Time International Ratio 1.2 Activated Partial Thromboplast Time 30.6 White Blood Count 7.6 Red Blood Count 3.45 Hemoglobin 10.6 Hematocrit 32.0 Mean Corpuscular Volume 92.7 Mean Corpuscular Hemoglobin 30.9 Mean Corpuscular Hemoglobin Concent 33.3 Red Cell Distribution Width 15.8 Platelet Count 111 Mean Platelet Volume 8.7 Hematology Comments Blood Urea Nitrogen 15 Creatinine 0.94 Random Glucose 143 Total Protein 5.8 Calcium Level 7.3 Sodium Level 136 Potassium Level 3.2 Chloride Level 107 Carbon Dioxide Level 21.0 Anion Gap 8 Estimat Glomerular Filtration Rate 56 Protein Corrected Calcium 8.0 Ammonia 42 Lactate Dehydrogenase 263 Date/Time Source Procedure Growth Status 07/04/17 15:30 Fluid Peritoneal Fluid Gram Stain - Final Resulted 07/04/17 15:30 Fluid Peritoneal Fluid Body Fluid Culture Pending Resulted ROS General: Other (ROS difficult to obtain ) Physical Exam Physical Exam GENERAL: This is a well-nourished, elderly female. SKIN: Pale cool dry. HEAD: Atraumatic. Normocephalic. No temporal or scalp tenderness. EYES: Pupils equal round and reactive. Extraocular motions intact. No scleral icterus. No injection or drainage. ENT: Nose without bleeding, purulent drainage or septal hematoma. Throat without erythema, tonsillar hypertrophy or exudate. Uvula midline. Airway patent. Oral mucosa dry. NECK: Trachea midline. No JVD or lymphadenopathy. Supple, nontender, no meningeal signs. CARDIOVASCULAR: Regular rate and rhythm without murmurs, gallops, or rubs. RESPIRATORY: exp. wheezing GASTROINTESTINAL: Abdomen distended, non-tender, nondistended. No hepato- splenomegaly, or palpable masses. No guarding. MUSCULOSKELETAL: Left lower extremity is noted in a brace. Intact sensation to toes of left foot. +2 left pedal pulse. No other joint abnormalities. No edema to right lower extremity, pedal pulse 2+. NEUROLOGICAL:Awakes to voice, oriented 2. Following simple commands. Urinary Catheter: No Vascular Central Line Catheter: No A/P Diagnosis: (1) Hypotension due to blood loss ICD Codes: I95.89 - Other hypotension Status: Resolved (2) Altered mental status ICD Codes: R41.82 - Altered mental status, unspecified Status: Acute (3) GI bleeding, anemia requiring transfusion Status: Acute (4) History of CVA (cerebrovascular accident) ICD Codes: Z86.73 - Personal history of transient ischemic attack (TIA), and cerebral infarction without residual deficits Status: Chronic (5) hyperlipidemia Status: Chronic (6) GERD Status: Chronic (7) encephalopathy, etiology undetermined Status: Acute (8) history of Recio's esophagus Status: Chronic (9) diabetes, neuropathy Status: Chronic (10) osteoarthritis Status: Chronic (11) H/O: duodenal ulcer ICD Codes: Z87.19 - Personal history of other diseases of the digestive system Status: Acute (12) Acute upper GI bleed ICD Codes: K92.2 - Gastrointestinal hemorrhage, unspecified Status: Acute (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 Acute upper GI bleed Status post EGD by GI which showed esophageal varices and blood in stomach 06/29 Repeat EGD 07/02 with findings of esophageal varices, possible Recio's, nodular gastritis. Attempted to place band, unable to pass the upper esophageal sphincter. Status post blood transfusion 4 units -Continue to monitor CBC -Appreciate GI input -Continue Protonix -continue heart healthy diet -HH stable, no active bleeding Dysphasia, noted coughing with liquid -Speech swallow done, recommendations noted. Passed eval -monitor for aspiration -barium swallow report noted. Liver cirrhosis Elevated ammonia -Liver workup in progress -GI following -Continue with lactulose and rifaximin -continue Spirolactone and Lasix yesterday -Hepatitis level negative -abd US 07/04, + ascites. S/P paracentesis 4 Liters drainage, follow cytology -d/w pt and RN, pt. refusing diuretics and Lactulose. Altered mental status, metabolic encephalopathy Elevated ammonia - CT head unremarkable. - r/o DERMATOLOGICAL SURGEON shunt malfunction and CVA. Neurology/ neurosurgery consulted, no acute findings of a stroke. DERMATOLOGICAL SURGEON shunt appeared to be functionally appropriately. -Mentation is improving slowly -ammonia 42, Lactulose to continue. Renal insufficiency Hypernatremia-resolved continue D5 water, Follow intake output, monitor and replete electro lites, follow BUN/creatinine. -Renal function improving -sodium back to normal. -Replace potassium Anemia due to blood loss Monitor H&H - Blood transfusion if hemoglobin drops less than 8 Type 2 diabetes - Accu-Cheks before meals and at bedtime with insulin sliding scale -Blood glucose stable History of CVA Hold aspirin at this time due to acute GI bleed -Continue statins HX Hypertension-was initially hypotensive -continue lisinopril 10 mg by mouth daily-hold parameters - Clonidine PRN elevated BP -BP low range, 100s. Lisinopril held NPH - status post DERMATOLOGICAL SURGEON shunt - physical therapy as tolerated Physical debility, had recent surgery to the left ankle in November and then a revision in March 2017 Currently wearing a left lower extremity brace -Consult physical therapy for assistance DVT GI prophylaxis- Teds SCDs No pharmacological DVT prophylaxis due to acute bleed PO Protonix twice a day Patient is DNR status. Palliative care following to assist with deciding goals of therapy. Family amenable to hospice services when she transitions back to group home Continue with supportive care Consult physical therapy for evaluation and treatment, assist out of bed Speech and swallow evaluation pending Monitor for signs and symptoms of aspiration D/W GI, ok dc in am plan to consult hospice, will d/w family. poss dc in am Discussed with RN Discussed with patient, not sure how much she understands Discussed with attending This patient was seen by myself and Dr. Lyman, this note is written on his behalf Problem Qualifiers (1) Cirrhosis: Mary Miguel Jul 05, 2017 11:04
[2017-07-05] MEDS: CHLORHEXIDINE GLUCONATE 2 % 1 PACK (2 CLOTHS) TOP SCH (21:41)
[2017-07-06] VITALS: BP 108/51; PULSE 87; RESP 20; TEMP 98; O2SAT 96
[2017-07-06 03:52] LABS: MITOCHONDRIAL ABS LESS THAN 20.0 U (<=20.0)
[2017-07-06 07:47] VITALS: BP 109/42; PULSE 81; RESP 22; TEMP 97.7; O2SAT 95
[2017-07-06] MEDS: INSULIN ASPART SUPPLEMENTAL SCALE SQ SCH ×2 (08:00→12:00)
[2017-07-06] MEDS: LACTULOSE SYRUP 20 GM/30 ML CUP PO SCH (09:01)
[2017-07-06] MEDS: FERROUS SULFATE 325 MG (65 MG ELEMENTAL IRON) TAB PO SCH ×2 (09:02→13:11)
[2017-07-06] MEDS: RIFAXIMIN 550 MG TAB PO SCH (09:02)
[2017-07-06] MEDS: DOCUSATE SODIUM 50 MG/SENNA 8.6 MG TAB PO SCH (09:02)
[2017-07-06] MEDS: ESCITALOPRAM OXALATE 10 MG TAB PO SCH (09:02)
[2017-07-06] MEDS: POTASSIUM CHLORIDE 20 MEQ CONTROLLED RELEASE TAB PO SCH (09:03)
[2017-07-06] MEDS: PREGABALIN 75 MG CAP PO SCH (09:03)
[2017-07-06] MEDS: ENALAPRIL MALEATE 10 MG TAB PO SCH (09:03)
[2017-07-06] MEDS: FUROSEMIDE 20 MG TAB PO SCH (09:03)
[2017-07-06] MEDS: SPIRONOLACTONE 25 MG TAB PO SCH (09:04)
[2017-07-06] MEDS: PANTOPRAZOLE SOD 40 MG DELAYED RELEASE TAB PO SCH (09:04)
[2017-07-06] MEDS: SODIUM CHLORIDE 0.9% FLUSH 10 ML FLUSH SCH (09:05)
[2017-07-06] MEDS ORDERED: SPIR25 PO (09:19)
[2017-07-06] MEDS ORDERED: HYDR-3516 PO (09:19)
[2017-07-06] MEDS ORDERED: LYRI75CA PO (09:19)
[2017-07-06] MEDS ORDERED: XIFA550T4 PO (09:19)
[2017-07-06] MEDS ORDERED: Lactulose Liq PO (09:19)
--- NOTE | 2017-07-06 09:19 | HHI.DCPOC ---
Discharge Care Plan Diagnosis: (1) Cirrhosis (2) GI bleeding, anemia requiring transfusion Your Health Problems Are: Bleeding Tendency Goals to Promote Your Health * To prevent worsening of your condition and complications * To maintain your health at the optimal level Directions to Meet Your Goals Take your medications as prescribed Follow your dietary instruction Follow activity as directed Keep your appointments as scheduled Take your immunizations and boosters as scheduled If your symptoms worsen call your PCP, if no PCP go to Urgent Care Center or Emergency Room Smoking is Dangerous to Your Health. Avoid second hand smoke Call the 24-hour hour crisis hotline for domestic abuse at [facility]. [facility] Jul 06, 2017 09:19
--- NOTE | 2017-07-06 09:21 | HHI.PR ---
Subjective Remarks awake, oriented x 2-3 more alert today, feeding herself abd improved appetite fair Objective Objective Results - Vital Signs Date Time Temp Pulse Resp B/P (MAP) Pulse Ox O2 Delivery O2 Flow Rate FiO2 07/06/17 07:47 97.7 81 22 109/42 (64) 95 07/06/17 00:00 98.0 87 20 108/51 (70) 96 07/05/17 20:34 98 21 07/05/17 20:00 96.5 70 20 115/54 (74) 98 07/05/17 16:00 95.1 76 17 92/47 (62) 97 07/05/17 12:00 97.5 76 20 110/56 (74) 96 I/O 07/05/17 07/05/17 07/05/17 07/06/17 07/06/17 07/06/17 07:00 15:00 23:00 07:00 15:00 23:00 Intake Total 745 ml 600 ml 320 ml Balance 745 ml 600 ml 320 ml Intake Oral 600 ml 320 ml IV Total 745 ml # Voids 2 3 4 # Bowel Movements 0 Result Diagram: 07/05/17 0810 07/05/17 0810 Imaging Last Impressions Liver Ultrasound 07/01/17 0000 Signed Impressions: Service Date/Time: Saturday, July 01, 2017 17:16 - CONCLUSION: 1. Moderate ascites. 2. No focal lesions in the liver. 3. No gallstones. Ken Benjamin MD Shunt Study (Imaging) 06/30/17 0000 Signed Impressions: Service Date/Time: Friday, June 30, 2017 16:49 - CONCLUSION: Intact shunt. Ken Benjamin MD Head CT 06/29/17 0000 Signed Impressions: Service Date/Time: Thursday, June 29, 2017 06:12 - CONCLUSION: 1. Right frontal ventriculostomy tube in good position. No acute intracranial abnormalities. Thony Wilhelm MD Other Results Date/Time Source Procedure Growth Status 07/04/17 15:30 Fluid Peritoneal Fluid Gram Stain - Final Resulted 07/04/17 15:30 Fluid Peritoneal Fluid Body Fluid Culture - Preliminary NO GROWTH IN 24 HOURS. Resulted ROS General: Other (12 point ros limited. ) Physical Exam Physical Exam GENERAL: This is a well-nourished, elderly female. SKIN: Pale cool dry. HEAD: Atraumatic. Normocephalic. No temporal or scalp tenderness. EYES: Pupils equal round and reactive. Extraocular motions intact. No scleral icterus. No injection or drainage. ENT: Nose without bleeding, purulent drainage or septal hematoma. Throat without erythema, tonsillar hypertrophy or exudate. Uvula midline. Airway patent. Oral mucosa dry. NECK: Trachea midline. No JVD or lymphadenopathy. Supple, nontender, no meningeal signs. CARDIOVASCULAR: Regular rate and rhythm without murmurs, gallops, or rubs. RESPIRATORY: exp. wheezing GASTROINTESTINAL: Abdomen distended, non-tender, nondistended. No hepato- splenomegaly, or palpable masses. No guarding. MUSCULOSKELETAL: Left lower extremity is noted in a brace. Intact sensation to toes of left foot. +2 left pedal pulse. No other joint abnormalities. No edema to right lower extremity, pedal pulse 2+. NEUROLOGICAL:Awakes to voice, oriented 2. Following simple commands. Urinary Catheter: No Vascular Central Line Catheter: No A/P Diagnosis: (1) Hypotension due to blood loss ICD Codes: I95.89 - Other hypotension Status: Resolved (2) Altered mental status ICD Codes: R41.82 - Altered mental status, unspecified Status: Acute (3) GI bleeding, anemia requiring transfusion Status: Acute (4) History of CVA (cerebrovascular accident) ICD Codes: Z86.73 - Personal history of transient ischemic attack (TIA), and cerebral infarction without residual deficits Status: Chronic (5) hyperlipidemia Status: Chronic (6) GERD Status: Chronic (7) encephalopathy, etiology undetermined Status: Acute (8) history of Recio's esophagus Status: Chronic (9) diabetes, neuropathy Status: Chronic (10) osteoarthritis Status: Chronic (11) H/O: duodenal ulcer ICD Codes: Z87.19 - Personal history of other diseases of the digestive system Status: Acute (12) Acute upper GI bleed ICD Codes: K92.2 - Gastrointestinal hemorrhage, unspecified Status: Acute (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 Acute upper GI bleed Status post EGD by GI which showed esophageal varices and blood in stomach 06/29 Repeat EGD 07/02 with findings of esophageal varices, possible Recio's, nodular gastritis. Attempted to place band, unable to pass the upper esophageal sphincter. Status post blood transfusion 4 units -Continue to monitor CBC -Appreciate GI input -Continue Protonix -continue heart healthy diet -HH stable, no active bleeding -d/w GI, ok for dc Dysphasia, noted coughing with liquid -Speech swallow done, recommendations noted. Passed eval -monitor for aspiration -barium swallow report noted. -tolerating diet well, no difficulty swallowing Liver cirrhosis Elevated ammonia -Liver workup in progress -GI following -Continue with lactulose and rifaximin -continue Spirolactone and Lasix yesterday -Hepatitis level negative -abd US 07/04, + ascites. S/P paracentesis 4 Liters drainage, follow cytology -ok for dc on current meds Altered mental status, metabolic encephalopathy Elevated ammonia - CT head unremarkable. - r/o [employer] ARCHITECT shunt malfunction and CVA. Neurology/ neurosurgery consulted, no acute findings of a stroke. [employer] ARCHITECT shunt appeared to be functionally appropriately. -Mentation is improving slowly -ammonia 42, Lactulose to continue. Renal insufficiency Hypernatremia-resolved continue D5 water, Follow intake output, monitor and replete electro lites, follow BUN/creatinine. -Renal function improving -sodium back to normal. Anemia due to blood loss Monitor H&H - Blood transfusion if hemoglobin drops less than 8 Type 2 diabetes - Accu-Cheks before meals and at bedtime with insulin sliding scale -Blood glucose stable History of CVA Hold aspirin at this time due to acute GI bleed -Continue statins HX Hypertension-was initially hypotensive -continue lisinopril 10 mg by mouth daily-hold parameters - Clonidine PRN elevated BP -BP low range, 100s. Lisinopril held NPH - status post [employer] ARCHITECT shunt - physical therapy as tolerated Physical debility, had recent surgery to the left ankle in November and then a revision in March 2017 Currently wearing a left lower extremity brace -Consult physical therapy for assistance DVT GI prophylaxis- Teds SCDs No pharmacological DVT prophylaxis due to acute bleed PO Protonix twice a day Patient is DNR status. Palliative care following to assist with deciding goals of therapy. Family amenable to hospice services when she transitions back to custodial Continue with supportive care Consult physical therapy for evaluation and treatment, assist out of bed D/W GI, rob gallegos today family meeting with hospice Discharge pt this afternoon F/U GI, PCP Diet heart healthy Activity as tolerated Discussed with RN Discussed with patient, not sure how much she understands Discussed with attending This patient was seen by myself and Dr. Lyman, this note is written on his behalf Discharge Planning 45 Problem Qualifiers (1) Cirrhosis: Mary Miguel Jul 06, 2017 09:21
--- NOTE | 2017-07-06 09:29 | HHI.GIFU ---
Subjective Remarks Resting in bed. Awaiting breakfast. No distress. Not having any active bleeding. Denies pain. Objective Vitals I&O Vital Signs Date Time Temp Pulse Resp B/P (MAP) Pulse Ox O2 Delivery O2 Flow Rate FiO2 07/06/17 07:47 97.7 81 22 109/42 (64) 95 07/06/17 00:00 98.0 87 20 108/51 (70) 96 07/05/17 20:34 98 21 07/05/17 20:00 96.5 70 20 115/54 (74) 98 07/05/17 16:00 95.1 76 17 92/47 (62) 97 07/05/17 12:00 97.5 76 20 110/56 (74) 96 I/O 07/05/17 07/05/17 07/05/17 07/06/17 07/06/17 07/06/17 07:00 15:00 23:00 07:00 15:00 23:00 Intake Total 745 ml 600 ml 320 ml Balance 745 ml 600 ml 320 ml Intake Oral 600 ml 320 ml IV Total 745 ml # Voids 2 3 4 # Bowel Movements 0 Laboratory Date/Time Source Procedure Growth Status 07/04/17 15:30 Fluid Peritoneal Fluid Gram Stain - Final Resulted 07/04/17 15:30 Fluid Peritoneal Fluid Body Fluid Culture - Preliminary NO GROWTH IN 24 HOURS. Resulted Imaging Last Impressions Cyst Biopsy Asp-Paracentesis US 07/04/17 0000 Signed Impressions: Service Date/Time: Tuesday, July 04, 2017 14:46 - CONCLUSION: Uncomplicated ultrasound guided paracentesis. Pop Montoya MD Abdomen Ultrasound 07/04/17 Signed Impressions: Service Date/Time: Tuesday, July 04, 2017 08:39 - CONCLUSION: 1. There is a moderate to large amount of ascites. Fluid is amenable to paracentesis. Anselmo Jason MD Barium Swallow X-Ray 07/03/17 Signed Impressions: Service Date/Time: Monday, July 03, 2017 09:46 - CONCLUSION: 1. Markedly limited examination due to patient's very limited mobility and difficulty cooperating with exam. 2. No evidence for gross aspiration. 3. No significant esophageal stenosis, diverticula, or gross mass. 4. 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 Anselmo Jason MD Head CT 07/02/17 1000 Signed Impressions: Service Date/Time: Monday, July 03, 2017 00:00 - CONCLUSION: No change or acute abnormality demonstrated. Ventriculostomy catheter again noted. Moderate ventricular prominence stable. Zi Frias MD Liver Ultrasound 07/01/17 0000 Signed Impressions: Service Date/Time: Saturday, July 01, 2017 17:16 - CONCLUSION: 1. Moderate ascites. 2. No focal lesions in the liver. 3. No gallstones. eKn Benjamin MD Shunt Study (Imaging) 06/30/17 0000 Signed Impressions: Service Date/Time: Friday, June 30, 2017 16:49 - CONCLUSION: Intact shunt. Ken Benjamin MD Physical Exam HEENT: Normocephalic; atraumatic; no jaundice. CHEST: CTA, diminished breath sounds CARDIAC: RRR ABDOMEN: Soft, distended with ascites, nontender; bowel sounds are present EXTREMITIES: Fracture boot on left SKIN: Generalized pallor [employer]: Lethargic, oriented to place and person Assessment and Plan Plan ASSESSMENT: - Upper GIB with hematemesis with red blood, maroon stools that began yesterday at group home. Pt has remote hx of PUD in 1955. Family reports hx of Recio's Esophagus, GERD. Last egd/ colonoscopy about 2 years ago per family. HH 5.8/17.8 on admission. S/P 4 units PRBC. S/P EGD (06/29/17)---> Grade 2 esophageal varices 3 columns no active bleeding from that, Possible short Recio compromised with the coffee- ground emesis, No sign of active bleeding but there is stigmata of recent bleed mostly from the stomach either from gastropathy or tic ulcer disease the visualization was compromised by coffee-ground emesis and old blood, Duodenitis. S/P EGD (07/02)---> 1. Nodular gastrtis antrum-biopsy possible Recio's, esophageal varices, applied band ligator on top of egd scope-could not pass the upper esophageal sphincter-ct cervical spine november noted. 2. Retroflexed views revealed a hiatal hernia. PPI. HH stable. No active bleeding. - Esophageal varices. PPI. No active bleeding. - Ascites. S/P US guided paracentesis (07/04/17)---> 4,000cc. Cx no wbc, no organisms seen 1 day. Spironolactone. Lasix Improved. - Liver cirrhosis, as evidenced by esophageal varices, elevated ammonia, thrombocytopenia, coagulopathy, and hypoalbuminemia. Pt has DM, ? fatty liver disease. Hepatitis profile negative. NIGHAT negative, AMA pending, ASMA negative, Ceruloplasmin 28, Alpha 1 Antitrypsin 147. AFP 2.2, Ferritin 172, Iron saturation 10%. - Hepatic encephalopathy. Ammonia 42 Xifaxan lactulose. Improved. - Severe anemia, acute blood loss. HH 5.8/17.8 on admission. S/P 4 units PRBC. 10.6/32.0 - GERD, Recio's esophagus. PPI - AMS. CT head unremarkable. 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 AMS 46 Lactulose, Xifaxan - PHUONG, improved - DM, Hyperlipidemia, per attending PLAN: - 2 gram sodium diet - Cont. protonix - Cont. lactulose - Cont. rifaximin - Cont. lasix - Cont. spironolactone - FU FRANDY 2 weeks - GI will sign off, please reconsult as needed - This pt seen by myself and Dr Diaz and this note is written on his behalf Lisa Jorge Jul 06, 2017 09:29
[2017-07-06] MEDS: RESP: ALBUTEROL 2.5 MG/IPRATROPIUM 0.5 MG NEB (SCH) NEB (09:30)
[2017-07-06 09:33] VITALS: O2SAT 98
[2017-07-06 12:00] VITALS: BP 102/48; PULSE 76; RESP 20; TEMP 97.6; O2SAT 97
--- NOTE | 2017-07-06 13:36 | HHI.DS ---
Discharge Summary Admission Date Jun 29, 2017 at 06:02 Discharge Date: Jul 06, 2017 Admitting Diagnosis (1) Hypotension due to blood loss ICD Codes: I95.89 - Other hypotension Status: Resolved (2) Altered mental status ICD Codes: R41.82 - Altered mental status, unspecified Status: Acute (3) GI bleeding, anemia requiring transfusion Status: Acute (4) History of CVA (cerebrovascular accident) ICD Codes: Z86.73 - Personal history of transient ischemic attack (TIA), and cerebral infarction without residual deficits Status: Chronic (5) hyperlipidemia Status: Chronic (6) GERD Status: Chronic (7) encephalopathy, etiology undetermined Status: Acute (8) history of Recio's esophagus Status: Chronic (9) diabetes, neuropathy Status: Chronic (10) osteoarthritis Status: Chronic (11) H/O: duodenal ulcer ICD Codes: Z87.19 - Personal history of other diseases of the digestive system Status: Acute (12) Acute upper GI bleed ICD Codes: K92.2 - Gastrointestinal hemorrhage, unspecified Status: Acute (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 Patient presented to the emergency room on 06/29/2017 from [place] per nursing staff noted that she was vomiting red blood as well as having maroon stools. Patient had had diarrhea 1. There was no reported fever. Patient with prior history of GERD and duodenal ulcers. Patient was not able to provide any details, she was not following commands and was nonverbal. Patient was initially admitted to intensive care services. She was noted with hypotension, systolic blood pressure of 70s. She required suctioning of coffee grounds from her mouth. Patient received IV fluids, gastroenterology was consulted. She underwent an upper endoscopy on 06/29/2017 showing grade 2 esophageal varices there was no active bleeding. There was also possible short Recio's compromise with the coffee-ground emesis. There was no active bleeding. The recommendation was to have a repeat EGD. Patient had repeat EGD today, findings where of nodular gastritis in the antrum, possible Recio's, esophageal varices. It appears that the band ligator was attempted but it could not pass the upper esophageal sphincter. Initial hemoglobin was 5.8, patient has received a total of 4 units. H&H is stable, hemoglobin 9.4. Per GI , patient was found with liver cirrhosis as evidenced by esophageal varices. She was also noted with elevated ammonia, thrombocytopenia, coagulopathy and hypoalbuminemia. She is undergoing liver workup. She is currently on lactulose and rifaximin. Ammonia level is trending down. Liver ultrasound showed moderate ascites, no focal lesions in the liver. No gallstones. Because of the alteration of mental status, CT of the head was completed to rule out stroke which was negative. Patient does have a history of NPH and [employer] shunt. Neurosurgery was also consulted and [employer] shunt series was done which was stable. Neurosurgery has signed off. Palliative care is also following the patient, patient has 10 children and there is a designated POA. She is a DNR. Patient does not want any intubation, appropriate CODE STATUS has been entered. It appears that family is amenable to hospice referral when the patient transitions back to the care home. Patient is examined in the presence of her family. She is awake, she no she's in the hospital recognizes family members. She follows simple commands. At this time she is requesting something to eat. Apparently she was noted coughing with liquids therefore a speech and swallow evaluation has been requested. Patient is hemodynamically stable. Hospitalist services are requested for medical management. CBC/BMP: 07/05/17 0810 07/05/17 0810 Significant Findings Laboratory Tests Test 07/04/17 05:36 07/04/17 15:30 07/05/17 07:10 07/05/17 08:10 Red Blood Count 3.31 MIL/MM3 (4.00-5.30) 3.45 MIL/MM3 (4.00-5.30) Hemoglobin 10.5 GM/DL (11.6-15.3) 10.6 GM/DL (11.6-15.3) Hematocrit 31.1 % (35.0-46.0) 32.0 % (35.0-46.0) Blood Urea Nitrogen 19 MG/DL (7-18) Random Glucose 126 MG/DL (74-106) 143 MG/DL (74-106) Calcium Level 7.7 MG/DL (8.5-10.1) 7.3 MG/DL (8.5-10.1) Potassium Level 3.2 MEQ/L (3.5-5.1) 3.2 MEQ/L (3.5-5.1) Chloride Level 111 MEQ/L (98-107) Estimat Glomerular Filtration Rate 62 ML/MIN (>89) 56 ML/MIN (>89) Peritoneal Fluid WBC 50 /MM3 (0-10) Peritoneal Fluid RBC 20 /MM3 (0-0) Prothrombin Time 13.1 SEC (9.8-11.6) Activated Partial Thromboplast Time 30.6 SEC (24.3-30.1) Platelet Count 111 TH/MM3 (150-450) Total Protein 5.8 GM/DL (6.4-8.2) Protein Corrected Calcium 8.0 MG/DL (8.5-10.1) Ammonia 42 MCMOL/L (11-32) Lactate Dehydrogenase 263 U/L (84-246) Imaging Last Impressions Cyst Biopsy Asp-Paracentesis US 07/04/17 0000 Signed Impressions: Service Date/Time: Tuesday, July 04, 2017 14:46 - CONCLUSION: Uncomplicated ultrasound guided paracentesis. Pop Montoya MD Abdomen Ultrasound 07/04/17 0000 Signed Impressions: Service Date/Time: Tuesday, July 04, 2017 08:39 - CONCLUSION: 1. There is a moderate to large amount of ascites. Fluid is amenable to paracentesis. Anselmo Jason MD Barium Swallow X-Ray 07/03/17 0000 Signed Impressions: Service Date/Time: Monday, July 03, 2017 09:46 - CONCLUSION: 1. Markedly limited examination due to patient's very limited mobility and difficulty cooperating with exam. 2. No evidence for gross aspiration. 3. No significant esophageal stenosis, diverticula, or gross mass. 4. 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 Anselmo Jason MD Head CT 07/02/17 1000 Signed Impressions: Service Date/Time: Monday, July 03, 2017 00:00 - CONCLUSION: No change or acute abnormality demonstrated. Ventriculostomy catheter again noted. Moderate ventricular prominence stable. Zi Frias MD Liver Ultrasound 07/01/17 0000 Signed Impressions: Service Date/Time: Saturday, July 01, 2017 17:16 - CONCLUSION: 1. Moderate ascites. 2. No focal lesions in the liver. 3. No gallstones. Ken Benjamin MD Shunt Study (Imaging) 06/30/17 0000 Signed Impressions: Service Date/Time: Friday, June 30, 2017 16:49 - CONCLUSION: Intact shunt. Ken Benjamin MD Hospital Course This a pleasant 86-year-old female with history of NPH status post [employer] shunt, type 2 diabetes, CVA August 2016, hypertension, hyperlipidemia, frequent falls with left ankle fracture in November requiring ORIF and then a revision of ORIF in March 2017. Patient presented to the emergency room on 06/29/2017 from [place] per nursing staff noted that she was vomiting red blood as well as having maroon stools. Patient had had diarrhea 1. There was no reported fever. Patient with prior history of GERD and duodenal ulcers. Patient was not able to provide any details, she was not following commands and was nonverbal. Patient was initially admitted to intensive care services. She was noted with hypotension, systolic blood pressure of 70s. She required suctioning of coffee grounds from her mouth. Patient received IV fluids, gastroenterology was consulted. She underwent an upper endoscopy on 06/29/2017 showing grade 2 esophageal varices there was no active bleeding. There was also possible short Recio's compromise with the coffee-ground emesis. There was no active bleeding. The recommendation was to have a repeat EGD. Patient had repeat EGD today, findings where of nodular gastritis in the antrum, possible Recio's, esophageal varices. It appears that the band ligator was attempted but it could not pass the upper esophageal sphincter. Initial hemoglobin was 5.8, patient has received a total of 4 units. H&H is stable, hemoglobin 9.4. Per GI , patient was found with liver cirrhosis as evidenced by esophageal varices. She was also noted with elevated ammonia, thrombocytopenia, coagulopathy and hypoalbuminemia. She is undergoing liver workup. She is currently on lactulose and rifaximin. Ammonia level was trending down. Liver ultrasound showed moderate ascites, no focal lesions in the liver. No gallstones. Because of the alteration of mental status, CT of the head was completed to rule out stroke which was negative. Patient does have a history of NPH and [employer] shunt. Neurosurgery was also consulted and [employer] shunt series was done which was stable. Neurosurgery had signed off. Palliative care also followed the patient, patient has 10 children and there is a designated POA. She is a DNR. Patient does not want any intubation, appropriate CODE STATUS has been entered. It appeared that family was amenable to hospice referral when the patient transitions back to the care home. Patient was examined in the presence of her family. She was awake, she knew she was in the hospital recognized family members. She followed simple commands. Apparently she was noted coughing with liquids therefore a speech and swallow evaluation has been requested. Patient is hemodynamically stable. Hospitalist services were requested for medical management. During the course of the hospitalization, the following occurred: 87-year-old elderly female admitted with hematemesis and maroon-colored stools, found with hemoglobin of 5.8 and significant hypotension. Admitted for Acute upper GI bleed -GI consulted. Put on PPI. Was given at total of 4 units PRBC. Procedures were done: Status post EGD by GI which showed esophageal varices and blood in stomach 06/29 Repeated EGD 07/02 with findings of esophageal varices, possible Recio's, nodular gastritis. Attempted to place band, unable to pass the upper esophageal sphincter. -HH stable, no active bleeding -diet adv. tolerated well Dysphasia, noted coughing with liquid -Speech swallow done, recommendations noted. Passed eval -monitored for aspiration -barium swallow report noted. -tolerated diet well, no difficulty swallowing Diagnosed with Liver cirrhosis, ? GARZA Elevated ammonia -Liver workup in progress -GI following -started on lactulose and rifaximin as well as Spirolactone and Lasix -Hepatitis level negative -abd US 07/04, + ascites. S/P paracentesis 4 Liters drainage, followed cytology. Still pending, can f/u as OP with GI for results. -ok for dc on current meds per GI Altered mental status, metabolic encephalopathy Elevated ammonia - CT head unremarkable. - r/o [employer] shunt malfunction and CVA. Neurology/ neurosurgery consulted, no acute findings of a stroke. [employer] shunt appeared to be functionally appropriately. -Mentation improved slowly Renal insufficiency Hypernatremia-resolved put on D5 water, Followed intake output, monitored and repleted electro lites, followed BUN/ creatinine. -Renal function improved -sodium back to normal. Anemia due to blood loss Monitored H&H -was given PRBC Type 2 diabetes - Accu-Cheks before meals and at bedtime with insulin sliding scale -Blood glucose stable History of CVA Held aspirin at this time due to acute GI bleed -Continued statins HX Hypertension-was initially hypotensive -continued lisinopril 10 mg by mouth daily with hold parameters - Clonidine PRN elevated BP NPH - status post [employer] shunt - physical therapy as tolerated Physical debility, had recent surgery to the left ankle in November and then a revision in March 2017 Currently wearing a left lower extremity brace -Consulted physical therapy for assistance DVT GI prophylaxis- Teds SCDs No pharmacological DVT prophylaxis due to acute bleed PO Protonix twice a day Patient was DNR status. Palliative care consulted, assisted with deciding goals of therapy. Family amenable to hospice services when she transitioned back to care home Consulted hospice. Family wanted to transition back to [place] with hospice. Pt. cleared by GI HH stable tolerating diet Discharged to SNF in stable condition Instructions to: F/U GI, PCP Diet heart healthy Activity as tolerated Pt Condition on Discharge: Fair Discharge Disposition: Discharge to SNF Discharge Instructions DIET: Follow Instructions for: Heart Healthy Diet Activities you can perform: Weight Bearing as Ashwini Follow up Referrals: Gastroenterology PCP Follow-up New Medications: Rifaximin (Xifaxan) 550 Mg Tab 550 MG PO BID for CIRRHOSIS, #60 TAB Spironolactone (Aldactone) 25 Mg Tab 25 MG PO BID@09,18 for CIRROHSIS , #60 TAB [Lactulose Liq] () 30 ML SYRP 30 ML PO BID for CIRROHSIS , #60 Continued Medications: Amino Acids-Protein Hydrolysat (Pro-Stat Sugar Free) 15 Gram-100 Kcal/30 Ml Liq TID Aspirin (Aspirin) 81 Mg Chew 81 MG CHEW DAILY, TAB 0 Refills Calcium Carbonate-Vitamin D (Calcium/Vitamin D) 500-200 Mg-Unit Tab 1 TAB PO BID for Calcium Supplement, TAB 0 Refills Docusate Sodium (Docusate Sodium) 100 Mg Cap 100 MG PO BID for Prevent Constipation, #60 CAP 0 Refills Enalapril (Enalapril) 10 Mg Tab 10 MG PO DAILY, TAB 0 Refills Escitalopram (Lexapro) 10 Mg Tab 10 MG PO DAILY, #30 TAB 0 Refills Ferrous Sulfate (Ferrous Sulfate) 325 Mg (65 Mg Iron) Tablet 325 MG PO TIDPC for Nutritional Supplement, #90 TAB 0 Refills Furosemide (Furosemide) 20 Mg Tab 20 MG PO BID, #60 TAB 0 Refills Hydrocodone-Acetaminophen (Hydrocodone-Acetaminophen) 5-325 mg Tab 1 TAB PO Q4H PRN for PAIN SCALE 1-10, #14 TAB (This prescription has been renewed) Insulin Glargine Inj (Lantus Inj) 1,000 Unit/10 Ml Vial 6 UNITS SQ HS for Blood Sugar Management, #30 VIAL 10 Refills Insulin Lispro (Human) Inj (Humalog Inj) 1,000 Unit/10 Ml Vial Unknown Dose SQ ACHS for Blood Sugar Management, #1 VIAL 0 Refills Max dose at bedtime:( )units; sugars< 70,(0)units; sugars 150-199,(1)unit; sugars 200-249,(3)units; sugars 250-299,(5)units; sugars 300-349,(7)units; sugars more than 349,(9)units. Ipratropium-Albuterol Neb (Duoneb) 0.5-2.5 Mg/3 Ml Neb 1 NEBULE INH Q6HR NEB for Breathing Treatment, #120 NEBULE 0 Refills Magnesium Hydroxide Liq (Milk of Magnesia Liq) 400 Mg/5 Ml Susp 30 ML PO DAILY PRN for INDIGESTION OR UPSET STOMACH, #1 BOTTLE 0 Refills Potassium Chloride ER (Potassium Chloride ER) 20 Meq Tab 20 MEQ PO BID for Electrolyte Replacement, #60 TAB 0 Refills Pregabalin (Lyrica) 75 Mg Cap 75 MG PO BID for Pain Management, #15 CAP 0 Refills (This prescription has been renewed) Rosuvastatin (Crestor) 10 Mg Tab 10 MG PO EVERY OTHER DAY for Cholesterol Management, #30 TAB 0 Refills Discontinued Medications: Acetaminophen (Tylenol) 325 Mg Tab 650 MG PO Q4H PRN for FEVER, TAB 0 Refills Mary Miguel Jul 06, 2017 13:36
== END 2017-07-06 15:00 | disposition hospice, inpatient (51) | DRG 377 ==
LOC: NEPC 03:59 → NEDA 06:02 → HIMN 08:30 → N07B 07-02 14:51
PROVIDERS: ADMIT Specialist; ATTEND Specialist
PROC: 30233N1 Transfusion of Nonautologous Red Blood Cells into Peripheral Vein, Percutaneous Approach (ICD-10-PCS; 2017-06-29)
PROC: 0DJ08ZZ Inspection of Upper Intestinal Tract, Via Natural or Artificial Opening Endoscopic (ICD-10-PCS; principal; 2017-06-29 13:38)
PROC: 0DB68ZX Excision of Stomach, Via Natural or Artificial Opening Endoscopic, Diagnostic (ICD-10-PCS; 2017-07-02)
PROC: 0W9G3ZX Drainage of Peritoneal Cavity, Percutaneous Approach, Diagnostic (ICD-10-PCS; 2017-07-04)
DX: K92.2 Gastrointestinal hemorrhage, unspecified (principal); G93.41 Metabolic encephalopathy; N17.9 Acute kidney failure, unspecified; E87.0 Hyperosmolality and hypernatremia; G91.2 (Idiopathic) normal pressure hydrocephalus; I95.89 Other hypotension; R18.8 Other ascites; D62 Acute posthemorrhagic anemia; E11.40 Type 2 diabetes mellitus with diabetic neuropathy, unspecified; I10 Essential (primary) hypertension; E78.5 Hyperlipidemia, unspecified; K75.81 Nonalcoholic steatohepatitis (NASH); Z98.2 Presence of cerebrospinal fluid drainage device; K72.90 Hepatic failure, unspecified without coma; I69.398 Other sequelae of cerebral infarction; F80.2 Mixed receptive-expressive language disorder; M19.90 Unspecified osteoarthritis, unspecified site; R29.6 Repeated falls; I85.00 Esophageal varices without bleeding; K29.80 Duodenitis without bleeding; K29.50 Unspecified chronic gastritis without bleeding; K22.70 Barrett's esophagus without dysplasia; K21.9 Gastro-esophageal reflux disease without esophagitis; R05 Cough; R47.02 Dysphasia; Z66 Do not resuscitate; Z51.5 Encounter for palliative care; Z96.653 Presence of artificial knee joint, bilateral; Z87.11 Personal history of peptic ulcer disease
CPT/HCPCS: 36430; 36600; 49083; 51702; 70250; 70450; 71010; 72040; 74000; 74230; 76705; 80048; 80053; 80074; 81001; 82042; 82103; 82105; 82140; 82150; 82247; 82390; 82565; 82607; 82728; 82805; 82945; 82948; 83010; 83520; 83540; 83550; 83605; 83615; 83735; 84100; 84155; 84157; 84443; 84520; 85014; 85018; 85025; 85027; 85610; 85730; 86038; 86077; 86078; 86255; 86850; 86870; 86880; 86900; 86901; 86902; 86920; 86922; 87070; 87205; 87641; 88112; 88305; 88312; 89051; 93005; 94640; 94664; 96365; 96368; 96375; C1729; C9113; J1815; J2405; J7030; J7050; J7070; J7613; P9016